=== PATIENT | female | born 1975 | race Caucasian/White ===

== ENCOUNTER 2022-06-23 16:00 | Emergency (ER) | payer OTHER ==
--- OUTSIDE RECORDS SUMMARY | 2022-06-23 16:12 | XMS REPORT | Continuity of Care Document ---
:1975 Author Organization [facility] t Address [address] [place] [address] Care Team Providers Name Role Phone Asked, No Pcp Primary Care Physician Unavailable BAYRON OMER Attending Clinician [phone] BRIANA SOW Attending Clinician Unavailable BRIANA SOW Attending Clinician [phone] LAURA GEORGE Attending Clinician [phone] JHON WALKER Attending Clinician Unavailable JHON WALKER Attending Clinician [phone] CLOVIS SWARTZ Attending Clinician Unavailable CLOVIS SWARTZ Attending Clinician [phone] SHAKEEL ENGLISH Attending Clinician Unavailable [email or web address] Attending Clinician Unavailable JESSICA CONKLIN Attending Clinician [phone] LYNN GONZALES Attending Clinician [phone] ASHLEY LOCO Attending Clinician [phone] PARIS SALINAS Attending Clinician [phone] NURSE, NURSE Attending Clinician Unavailable MATTHEW HAN Attending Clinician [phone] TALHA DE LA ROSA Attending Clinician Unavailable SHAKEEL ENGLISH Admitting Clinician Unavailable [email or web address] Admitting Clinician Unavailable Payers Payer Name Policy Type Policy Number Effective Date Expiration Date S ource Problems This patient has no known problems. Allergies, Adverse Reactions, Alerts This patient has no known allergies or adverse reactions. Family History Family Member Diagnosis Comments Start Date Stop Date Source Grandfather malignant neoplasm of 2019-06-04 2019-06-04 [facility] 00:00:00 00:00:00 Grandfather Leukemia 2019-06-04 2019-06-04 [facility] 00:00:00 00:00:00 Father Epilepsy 2019-06-04 2019-06-04 [facility] 00:00:00 00:00:00 Grandmother Diabetes mellitus 2019-06-04 2019-06-04 [facility] 00[facility] 00:00:00 Grandmother hypertension 2019-06-04 2019-06-04 [facility]00 Mother hypertension 2019-06-04 2019-06-04 [facility] 00:00:00 00:00:00 Mother Diabetes mellitus 2019-06-04 2019-06-04 [facility] 00:00:00 Social History Social Habit Start Date Stop Date Quantity Comments Source History of 2019-06-04 [facility] tobacco use 00:00:00 non-smoker Tobacco use and 2019-01-23 : No Details [facility] exposure 00:00:00 Available Quantity Details - : No Details Available [facility] Alcohol intake 2018-12-18 2018-12-18 Current drinker [facility] 00:00:00 00:00:00 of alcohol (finding) Alcohol Comment 2018-11-21 2018-11-21 [facility] 00:00:00 00:00:00 Sex Ass[birth year] [facility] 00:00:00 00:00:00 Smoking Status Start Date Stop Date Source [facility] sm[facility] Current some day smoker 2019-01-22 00:00:00 [facility] Medications Ordered Filled Start Stop Current Ordering Indication Dosage Frequency Signature Comments Components Source Medication Medication Date Date Medication? Clinician (SIG) Name Name metronidazo 2021-05 No take 1 [facility] le 500 mg 0-12 tablet by [facility] tablet 00:00: oral route 00 every 12 hours for 7 days, no alcohol while on medication metronidazo 2021-05 No take 1 [facility] le 500 mg 0-12 tablet by [facility] tablet 00:00: oral route 00 every 12 hours for 7 days, no alcohol while on medication metronidazo 2021-05 No take 1 [facility] le 500 mg 0-12 tablet by [facility] tablet 00:00: oral route 00 every 12 hours for 7 days, no alcohol while on medication metronidazo 2021-05 No take 1 [facility] le 500 mg 0-12 tablet by [facility] tablet 00:00: oral route 00 every 12 hours for 7 days, no alcohol while on medication metronidazo 2021-05 No take 1 [facility] le 500 mg 0-12 tablet by [facility] tablet 00:00: oral route 00 every 12 hours for 7 days, no alcohol while on medication ferrous No take 1 [facility] sulfate 325 6-30 tablet by [facility]al th mg (65 mg 00:00: oral route iron) 00 2 times a tablet day every other day w/ food Vitamin D2 No take 1 [facility] 1,250 mcg 6-30 capsule [facility] (50,000 00:00: once unit) 00 weekly capsule ferrous No take 1 [facility] sulfate 325 6-30 tablet by eal th mg (65 mg 00:00: oral route iron) 00 2 times a tablet day every other day w/ food Vitamin D2 No take 1 [facility] 1,250 mcg 6-30 capsule [facility] (50,000 00:00: once unit) 00 weekly capsule ferrous No take 1 [facility] sulfate 325 6-30 tablet by eal th mg (65 mg 00:00: oral route iron) 00 2 times a tablet day every other day w/ food Vitamin D2 No take 1 [facility] 1,250 mcg 6-30 capsule [facility] (50,000 00:00: once unit) 00 weekly capsule ferrous No take 1 [facility] sulfate 325 6-30 tablet by [facility] th mg (65 mg 00:00: oral route iron) 00 2 times a tablet day every other day w/ food Vitamin D2 No take 1 [facility] 1,250 mcg 6-30 capsule [facility] (50,000 00:00: once unit) 00 weekly capsule ferrous No take 1 [facility] sulfate 325 6-30 tablet by [facility]al th mg (65 mg 00:00: oral route iron) 00 2 times a tablet day every other day w/ food Vitamin D2 No take 1 [facility] 1,250 mcg 6-30 capsule [facility] (50,000 00:00: once unit) 00 weekly capsule Vitamin D2 No take 1 [facility] 1,250 mcg 6-30 capsule [facility] (50,000 00:00: once unit) 00 weekly capsule ferrous No take 1 [facility] sulfate 325 6-30 tablet by eal th mg (65 mg 00:00: oral route iron) 00 2 times a tablet day every other day w/ food ferrous No take 1 [facility] sulfate 325 6-30 tablet by e[facility] mg (65 mg 00:00: oral route iron) 00 2 times a tablet day every other day w/ food Vitamin D2 No take 1 [facility] 1,250 mcg 6-30 capsule [facility] (50,000 00:00: once unit) 00 weekly capsule tinidazole No take 4 [facility] 500 mg 6-09 tablet by [facility] tablet 00:00: oral route 00 once, no alcohol while on this medication and up to 3 days after completion tinidazole No take 4 [facility] 500 mg 6-09 tablet by [facility] tablet 00:00: oral route 00 once, no alcohol while on this medication and up to 3 days after completion tinidazole No take 4 [facility] 500 mg 6-09 tablet by [facility] tablet 00:00: oral route 00 once, no alcohol while on this medication and up to 3 days after completion tinidazole No take 4 [facility] 500 mg 6-09 tablet by [facility] tablet 00:00: oral route 00 once, no alcohol while on this medication and up to 3 days after completion tinidazole No take 4 [facility] 500 mg 6-09 tablet by [facility] tablet 00:00: oral route 00 once, no alcohol while on this medication and up to 3 days after completion tinidazole 2021- No take 4 [facility] 500 mg 6-09 10-10 tablet by [facility] tablet 00:00: 00:00 oral route 00 :00 once, no alcohol while on this medication and up to 3 days after completion tinidazole 2021- No take 4 [facility] 500 mg 6-09 10-10 tablet by [facility] tablet 00:00: 00:00 oral route 00 :00 once, no alcohol while on this medication and up to 3 days after completion tinidazole 2021-2021- No take 4 [facility] 500 mg 6-09 10-10 tablet by [facility]alth tablet 00:00: 00:00 oral route 00 :00 once, no alcohol while on this medication and up to 3 days after completion tinidazole 2021- No take 4 [facility] 500 mg 6-09 10-10 tablet by [facility] tablet 00:00: 00:00 oral route 00 :00 once, no alcohol while on this medication and up to 3 days after completion tinidazole 2021- No take 4 [facility] 500 mg 6-09 10-10 tablet by [facility] tablet 00:00: 00:00 oral route 00 :00 once, no alcohol while on this medication and up to 3 days after completion metronidazo 2021- No 1{table Q12H take 1 [facility] le 500 mg 5-18 05-24 t} tablet by [facility] tablet 00:00: 00:00 oral route 00 :00 every 12 hours for 7 days metronidazo 2021-0 2021- No 1{table Q12H take 1 [facility] le 500 mg 5-18 05-24 t} tablet by [facility] tablet 00:00: 00:00 oral route 00 :00 every 12 hours for 7 days metronidazo 2021-0 2021- No 1{table Q12H take 1 [facility] le 500 mg 5-18 05-24 t} tablet by [facility] tablet 00:00: 00:00 oral route 00 :00 every 12 hours for 7 days metronidazo 2021-0 2021- No 1{table Q12H take 1 [facility] le 500 mg 5-18 05-24 t} tablet by [facility] tablet 00:00: 00:00 oral route 00 :00 every 12 hours for 7 days metronidazo 2021-0 2021- No 1{table Q12H take 1 [facility] le 500 mg 5-18 05-24 t} tablet by [facility] tablet 00:00: 00:00 oral route 00 :00 every 12 hours for 7 days metronidazo 2021-0 2021- No 1{table Q12H take 1 [facility] le 500 mg 5-18 05-24 t} tablet by [facility] tablet 00:00: 00:00 oral route 00 :00 every 12 hours for 7 days metronidazo 2022-0 2022- No 1{table Q12H take 1 [facility] le 500 mg 5-18 05-24 t} tablet by [facility] tablet 00:00: 00:00 oral route 00 :00 every 12 hours for 7 days metronidazo 2021-0 2022- No 1{table Q12H take 1 [facility] le 500 mg 5-18 05-24 t} tablet by [facility] tablet 00:00: 00:00 oral route 00 :00 every 12 hours for 7 days metronidazo 2021-0 2022- No 1{table Q12H take 1 [facility] le 500 mg 5-18 05-24 t} tablet by [facility] tablet 00:00: 00:00 oral route 00 :00 every 12 hours for 7 days metronidazo 2021-0 2022- No 1{table Q12H take 1 [facility] le 500 mg 5-18 05-24 t} tablet by [facility] tablet 00:00: 00:00 oral route 00 :00 every 12 hours for 7 days metronidazo 2021-0 2022- No 1{table Q12H take 1 [facility] le 500 mg 5-18 05-24 t} tablet by [facility] tablet 00:00: 00:00 oral route 00 :00 every 12 hours for 7 days metronidazo 2021-0 2022- No 1{table Q12H take 1 [facility] le 500 mg 5-18 05-24 t} tablet by [facility] tablet 00:00: 00:00 oral route 00 :00 every 12 hours for 7 days Diflucan 2020-0 No 1{table Q1D take 1 [facility] 150 mg 6-30 t} tablet by [facility] tablet 00:00: oral route 00 every day once ferrous 2020-0 No 1 Q1D take 1 tab [facility] sulfate 325 6-30 by oral [facility] mg (65 mg 00:00: route iron) 00 every day tablet,nichole yed release Diflucan 2020-0 No 1{table Q1D take 1 [facility] 150 mg 6-30 t} tablet by [facility] tablet 00:00: oral route 00 every day once ferrous 2020-0 No 1 Q1D take 1 tab [facility] sulfate 325 6-30 by oral [facility] mg (65 mg 00:00: route iron) 00 every day tablet,nichole yed release Diflucan 2020-0 No 1{table Q1D take 1 [facility] 150 mg 6-30 t} tablet by [facility] tablet 00:00: oral route 00 every day once ferrous 2020-0 No 1 Q1D take 1 tab [facility] sulfate 325 6-30 by oral [facility] mg (65 mg 00:00: route iron) 00 every day tablet,nichole yed release Diflucan 2020-0 No 1{table Q1D take 1 [facility] 150 mg 6-30 t} tablet by [facility] tablet 00:00: oral route 00 every day once ferrous 2020-0 No 1 Q1D take 1 tab [facility] sulfate 325 6-30 by oral [facility] mg (65 mg 00:00: route iron) 00 every day tablet,nichole yed release Diflucan 2020-0 No 1{table Q1D take 1 [facility] 150 mg 6-30 t} tablet by [facility] tablet 00:00: oral route 00 every day once ferrous 2020-0 No 1 Q1D take 1 tab [facility] sulfate 325 6-30 by oral [facility] mg (65 mg 00:00: route iron) 00 every day tablet,nichole yed release Diflucan 2020-0 2021- No 1{table Q1D take 1 [facility] 150 mg 6-30 06-09 t} tablet by [facility] tablet 00:00: 00:00 oral route 00 :00 every day once ferrous 2020-0 2022- No 1 Q1D take 1 tab [facility] sulfate 325 6-30 06-09 by oral ealt h mg (65 mg 00:00: 00:00 route iron) 00 :00 every day tablet,nichole yed release Diflucan 2020-0 2021- No 1{table Q1D take 1 [facility] 150 mg 6-30 06-09 t} tablet by [facility] tablet 00:00: 00:00 oral route 00 :00 every day once ferrous 2020-0 2022- No 1 Q1D take 1 tab [facility] sulfate 325 6-30 06-09 by oral ealt [facility] mg (65 mg 00:00: 00:00 route iron) 00 :00 every day tablet,nichole yed release ferrous 2020-0 2022- No 1 Q1D take 1 tab [facility] sulfate 325 6-30 06-09 by oral ealt [facility] mg (65 mg 00:00: 00:00 route iron) 00 :00 every day tablet,nichole yed release Diflucan 2020-0 2022- No 1{table Q1D take 1 [facility] 150 mg 6-30 06-09 t} tablet by [facility]alth tablet 00:00: 00:00 oral route 00 :00 every day once ferrous 2020-0 2022- No 1 Q1D take 1 tab [facility] sulfate 325 6-30 06-09 by oral ealt h mg (65 mg 00:00: 00:00 route iron) 00 :00 every day tablet,nichole yed release Diflucan 2020-0 2022- No 1{table Q1D take 1 [facility] 150 mg 6-30 06-09 t} tablet by [facility]alth tablet 00:00: 00:00 oral route 00 :00 every day once Diflucan 2020-0 2022- No 1{table Q1D take 1 [facility] 150 mg 6-30 06-09 t} tablet by [facility]alth tablet 00:00: 00:00 oral route 00 :00 every day once ferrous 2020-0 2022- No 1 Q1D take 1 tab [facility] sulfate 325 6-30 06-09 by oral ealt h mg (65 mg 00:00: 00:00 route iron) 00 :00 every day tablet,nichole yed release ferrous 2020-0 2022- No 1 Q1D take 1 tab [facility] sulfate 325 6-30 06-09 by oral ealt h mg (65 mg 00:00: 00:00 route iron) 00 :00 every day tablet,nichole yed release Diflucan 2020-0 2022- No 1{table Q1D take 1 [facility] 150 mg 6-30 06-09 t} tablet by [facility]alth tablet 00:00: 00:00 oral route 00 :00 every day once Diflucan 2020-0 2022- No 1{table Q1D take 1 [facility] 150 mg 6-30 06-09 t} tablet by ealth tablet 00:00: 00:00 oral route 00 :00 every day once ferrous 2020-0 2022- No 1 Q1D take 1 tab [facility] sulfate 325 6-30 06-09 by oral ealt h mg (65 mg 00:00: 00:00 route iron) 00 :00 every day tablet,nichole yed release Diflucan 0 2021- No 1{table Q1D take 1 [facility] 150 mg 6-30 06-09 t} tablet by [facility]alth tablet 00:00: 00:00 oral route 00 :00 every day once ferrous 2019-0 2021- No 1 Q1D take 1 tab [facility] sulfate 325 6-30 06-09 by oral ealt h mg (65 mg 00:00: 00:00 route iron) 00 :00 every day tablet,nichole yed release ferrous 2019-0 2021- No 1 Q1D take 1 tab [facility] sulfate 325 6-30 06-09 by oral ealt h mg (65 mg 00:00: 00:00 route iron) 00 :00 every day tablet,nichole yed release Diflucan 0 2021- No 1{table Q1D take 1 [facility] 150 mg 6-30 06- t} tablet by ealth tablet 00:00: 00:00 oral route 00 :00 every day once Diflucan 2019-0 2021- No 1{table Q1D take 1 [facility] 150 mg 6-30 06- t} tablet by ealth tablet 00:00: 00:00 oral route 00 :00 every day once ferrous 2019-0 2021- No 1 Q1D take 1 tab [facility] sulfate 325 6-30 06-09 by oral ealt h mg (65 mg 00:00: 00:00 route iron) 00 :00 every day tablet,nichole yed release Vitamin D2 2019- No 1{capsu Q1W take 1 [facility] 1,250 mcg 6-30 -21 le} capsule by eal th (50,000 00:00: 00:00 oral route unit) 00 :00 every week capsule for 12 weeks Vitamin D2 2019- No 1{capsu Q1W take 1 [facility] 1,250 mcg 6-30 -21 le} capsule by eal th (50,000 00:00: 00:00 oral route unit) 00 :00 every week capsule for 12 weeks Vitamin D2 2020- No 1{capsu Q1W take 1 [facility] 1,250 mcg 6-30 09-21 [facility]: 00:00 oral route unit) 00 :00 every week capsule for 12 weeks Vitamin D2 2020- No 1{capsu Q1W take 1 [facility] 1,250 mcg 6-30 09-21 le} capsule by [facility] (50,000 00:00: 00:00 oral route unit) 00 :00 every week capsule for 12 weeks Vitamin D2 2019- No 1{capsu Q1W take 1 [facility] 1,250 mcg 6-30 09-21 le} capsule by [facility] (50,000 00:00: 00:00 oral route unit) 00 :00 every week capsule for 12 weeks Vitamin D2 2019- No 1{capsu Q1W take 1 [facility] 1,250 mcg 6-30 09-21 le} capsule by [facility] (50,000 00:00: 00:00 oral route unit) 00 :00 every week capsule for 12 weeks Vitamin D2 2019- No 1{capsu Q1W take 1 [facility] 1,250 mcg 6-30 09-21 le} capsule by [facility] (50,000 00:00: 00:00 oral route unit) 00 :00 every week capsule for 12 weeks Vitamin D2 2019- No 1{capsu Q1W take 1 [facility] 1,250 mcg 6-30 09-21 le} capsule by [facility] (50,000 00:00: 00:00 oral route unit) 00 :00 every week capsule for 12 weeks Vitamin D2 2019- No 1{capsu Q1W take 1 [facility] 1,250 mcg 6-30 09-21 le} capsule by [facility] (50,000 00:00: 00:00 oral route unit) 00 :00 every week capsule for 12 weeks Vitamin D2 2019- No 1{capsu Q1W take 1 [facility] 1,250 mcg 6-30 09-21 le} [facility]:00: 00:00 oral route unit) 00 :00 every week capsule for 12 weeks Vitamin D2 2019- No 1{capsu Q1W take 1 [facility] 1,250 mcg 6-30 - le} capsule by [facility] (50,000 00:00: 00:00 oral route unit) 00 :00 every week capsule for 12 weeks Vitamin D2 2020-0 2020- No 1{capsu Q1W take 1 [facility] 1,250 mcg 6-30 - le} capsule by [facility] (50,000 00:00: 00:00 oral route unit) 00 :00 every week capsule for 12 weeks Vitamin D2 2020-0 2020- No 1{capsu Q1W take 1 [facility] 1,250 mcg 6-30 02-02 le} capsule by [facility] (50,000 00:00: 00:00 oral route unit) 00 :00 every week capsule for 12 weeks Vitamin D2 2020-0 2020- No 1{capsu Q1W take 1 [facility] 1,250 mcg 6-30 02-02 le} capsule by [facility] (50,000 00:00: 00:00 oral route unit) 00 :00 every week capsule for 12 weeks Vitamin D2 2020-0 2020- No 1{capsu Q1W take 1 [facility] 1,250 mcg 6-30 02-02 le} capsule by [facility] (50,000 00:00: 00:00 oral route unit) 00 :00 every week capsule for 12 weeks Diflucan 2020-0 2020- No 1{table Q1D take 1 [facility] 150 mg 2-20 06-30 t} tablet by [facility]alth tablet 00:00: 00:00 oral route 00 :00 every day once Diflucan 2020-0 2020- No 1{table Q1D take 1 [facility] 150 mg 2-20 06-30 t} tablet by [facility]alth tablet 00:00: 00:00 oral route 00 :00 every day once Diflucan 2020-0 2020- No 1{table Q1D take 1 [facility] 150 mg 2-20 06-30 t} tablet by [facility]alth tablet 00:00: 00:00 oral route 00 :00 every day once Diflucan 2020-0 2020- No 1{table Q1D take 1 [facility] 150 mg 2-20 06-30 t} tablet by [facility]alth tablet 00:00: 00:00 oral route 00 :00 every day once Diflucan 2020-0 2020- No 1{table Q1D take 1 [facility] 150 mg 2-20 06-30 t} tablet by [facility]alth tablet 00:00: 00:00 oral route 00 :00 every day once Diflucan 2020-0 2020- No 1{table Q1D take 1 [facility] 150 mg 2-20 06-30 t} tablet by [facility]alth tablet 00:00: 00:00 oral route 00 :00 every day once Diflucan 2020-0 2020- No 1{table Q1D take 1 [facility] 150 mg 2-20 06-30 t} tablet by [facility]alth tablet 00:00: 00:00 oral route 00 :00 every day once Diflucan 2020-0 2020- No 1{table Q1D take 1 [facility] 150 mg 2-20 06-30 t} tablet by [facility]alth tablet 00:00: 00:00 oral route 00 :00 every day once Diflucan 2020-0 2020- No 1{table Q1D take 1 [facility] 150 mg 2-20 06-30 t} tablet by [facility]alth tablet 00:00: 00:00 oral route 00 :00 every day once Diflucan 2020-0 2020- No 1{table Q1D take 1 [facility] 150 mg 2-20 06-30 t} tablet by [facility]alth tablet 00:00: 00:00 oral route 00 :00 every day once Diflucan 2020-0 2020- No 1{table Q1D take 1 [facility] 150 mg 2-20 06-30 t} tablet by ealth tablet 00:00: 00:00 oral route 00 :00 every day once Diflucan 2020-0 2020- No 1{table Q1D take 1 [facility] 150 mg 2-20 06-30 t} tablet by [facility]alth tablet 00:00: 00:00 oral route 00 :00 every day once Diflucan 2020-0 2020- No 1{table Q1D take 1 [facility] 150 mg 2-20 06-30 t} tablet by [facility]alth tablet 00:00: 00:00 oral route 00 :00 every day once Diflucan 2020-0 2020- No 1{table Q1D take 1 [facility] 150 mg 2-20 06-30 t} tablet by [facility]alth tablet 00:00: 00:00 oral route 00 :00 every day once Diflucan 2020-0 2020- No 1{table Q1D take 1 [facility] 150 mg 2-30 t} tablet by [facility]alth tablet 00:00: 00:00 oral route 00 :00 every day once Metrogel 2020-0 2020- No 1{appli Q1D insert 1 A [facility] Vaginal 2-20 - catorfu applicator ea lth 0.75 % 00:00: 00:00 l} ful by 00 :00 vaginal route every day for 5 days at bedtime Metrogel 2020-0 2020- No 1{appli Q1D insert 1 A [facility] Vaginal 2-04 07- catorfu applicator ea lth 0.75 % 00:00: 00:00 l} ful by 00 :00 vaginal route every day for 5 days at bedtime Metrogel 2020-0 2020- No 1{appli Q1D insert 1 A [facility] Vaginal 2-04 07- catorfu applicator ea lth 0.75 % 00:00: 00:00 l} ful by 00 :00 vaginal route every day for 5 days at bedtime Metrogel 2020-0 2020- No 1{appli Q1D insert 1 A [facility] Vaginal 2-07-08 catorfu applicator ea lth 0.75 % 00:00: 00:00 l} ful by 00 :00 vaginal route every day for 5 days at bedtime Metrogel 2020-0 2020- No 1{appli Q1D insert 1 A [facility] Vaginal 2-04 07- catorfu applicator ea lth 0.75 % 00:00: 00:00 l} ful by 00 :00 vaginal route every day for 5 days at bedtime Metrogel 2020-0 2020- No 1{appli Q1D insert 1 A [facility] Vaginal 2-04 07- catorfu applicator ea lth 0.75 % 00:00: 00:00 l} ful by 00 :00 vaginal route every day for 5 days at bedtime Metrogel 2020-0 2020- No 1{appli Q1D insert 1 A [facility] Vaginal 2-20 -24 catorfu applicator ea lth 0.75 % 00:00: 00:00 l} ful by 00 :00 vaginal route every day for 5 days at bedtime Metrogel 2020-0 2020- No 1{appli Q1D insert 1 A [facility] Vaginal 2-20 -24 catorfu applicator ea lth 0.75 % 00:00: 00:00 l} ful by 00 :00 vaginal route every day for 5 days at bedtime Metrogel 2020-0 2020- No 1{appli Q1D insert 1 A [facility] Vaginal 2-20 -24 catorfu applicator ea lth 0.75 % 00:00: 00:00 l} ful by 00 :00 vaginal route every day for 5 days at bedtime Metrogel 2020-0 2020- No 1{appli Q1D insert 1 A [facility] Vaginal 2-20 -24 catorfu applicator ea lth 0.75 % 00:00: 00:00 l} ful by 00 :00 vaginal route every day for 5 days at bedtime Metrogel 2020-0 2020- No 1{appli Q1D insert 1 A [facility] Vaginal 2-20 - catorfu applicator ea lth 0.75 % 00:00: 00:00 l} ful by 00 :00 vaginal route every day for 5 days at bedtime Metrogel 2020-0 2020- No 1{appli Q1D insert 1 A [facility] Vaginal 2-20 - catorfu applicator ea lth 0.75 % 00:00: 00:00 l} ful by 00 :00 vaginal route every day for 5 days at bedtime Metrogel 2020-0 2020- No 1{appli Q1D insert 1 A [facility] Vaginal 2-20 -24 catorfu applicator ea lth 0.75 % 00:00: 00:00 l} ful by 00 :00 vaginal route every day for 5 days at bedtime Metrogel 2020-0 2020- No 1{appli Q1D insert 1 A [facility] Vaginal 2-20 -24 catorfu applicator ea lth 0.75 % 00:00: 00:00 l} ful by 00 :00 vaginal route every day for 5 days at bedtime Metrogel 2020-0 2020- No 1{appli Q1D insert 1 A [facility] Vaginal 2-20 -24 catorfu applicator ea lth 0.75 % 00:00: 00:00 l} ful by 00 :00 vaginal route every day for 5 days at bedtime metronidazo 2020-0 2020- No 1{table Q12H take 1 [facility] le 500 mg 06-0730 t} tablet by [facility] tablet 00:00: 00:00 oral route 00 :00 every 12 hours for 7 days metronidazo 2019- 2020- No 1{table Q12H take 1 [facility] le 500 mg 06-0730 t} tablet by [facility] tablet 00:00: 00:00 oral route 00 :00 every 12 hours for 7 days metronidazo 2019-2019- No 1{table Q12H take 1 [facility] le 500 mg 06-0730 t} tablet by [facility]alt [facility] tablet 00:00: 00:00 oral route 00 :00 every 12 hours for 7 days metronidazo 2019-2019- No 1{table Q12H take 1 [facility] le 500 mg 06-0730 t} tablet by ealt [facility] tablet 00:00: 00:00 oral route 00 :00 every 12 hours for 7 days metronidazo 2019-2019- No 1{table Q12H take 1 [facility] le 500 mg 06-0730 t} tablet by ealt [facility] tablet 00:00: 00:00 oral route 00 :00 every 12 hours for 7 days metronidazo 2019-2019- No 1{table Q12H take 1 [facility] le 500 mg 06-0730 t} tablet by ealt [facility] tablet 00:00: 00:00 oral route 00 :00 every 12 hours for 7 days metronidazo 2019- 2020- No 1{table Q12H take 1 [facility] le 500 mg 06-0730 t} tablet by ealt [facility] tablet 00:00: 00:00 oral route 00 :00 every 12 hours for 7 days metronidazo 2019-0 2019- No 1{table Q12H take 1 [facility] le 500 mg 06-0730 t} tablet by [facility]alt [facility] tablet 00:00: 00:00 oral route 00 :00 every 12 hours for 7 days metronidazo 2019- 2020- No 1{table Q12H take 1 [facility] le 500 mg 06-0730 t} tablet by [facility]alt [facility] tablet 00:00: 00:00 oral route 00 :00 every 12 hours for 7 days metronidazo 2019-0 2019- No 1{table Q12H take 1 [facility] le 500 mg 1-24 -30 t} tablet by ealt [facility] tablet 00:00: 00:00 oral route 00 :00 every 12 hours for 7 days metronidazo 2019-2019- No 1{table Q12H take 1 [facility] le 500 mg 1-24 -30 t} tablet by ealt [facility] tablet 00:00: 00:00 oral route 00 :00 every 12 hours for 7 days metronidazo 2019- No 1{table Q12H take 1 [facility] le 500 mg 124 -30 t} tablet by [facility]alt [facility] tablet 00:00: 00:00 oral route 00 :00 every 12 hours for 7 days metronidazo 2019- No 1{table Q12H take 1 [facility] le 500 mg 124 -30 t} tablet by [facility]alt [facility] tablet 00:00: 00:00 oral route 00 :00 every 12 hours for 7 days metronidazo 2019- No 1{table Q12H take 1 [facility] le 500 mg 1-30 t} tablet by [facility] tablet 00:00: 00:00 oral route 00 :00 every 12 hours for 7 days metronidazo 2019- No 1{table Q12H take 1 [facility] le 500 mg 124 -30 t} tablet by [facility]alt [facility] tablet 00:00: 00:00 oral route 00 :00 every 12 hours for 7 days metronidazo 2018-05 2019- No 1{table Q12H take 1 [facility] le 500 mg 0-29 11-04 t} tablet by [facility] tablet 00:00: 00:00 oral route 00 :00 every 12 hours for 7 days metronidazo 2018-05 2019- No 1{table Q12H take 1 [facility] 500 mg 0-29 11-04 t} tablet by [facility] tablet 00:00: 00:00 oral route 00 :00 every 12 hours for 7 days metronidazo 2018- 2019- No 1{table Q12H take 1 [facility] 500 mg 0-29 11-04 t} tablet by [facility] tablet 00:00: 00:00 oral route 00 :00 every 12 hours for 7 days metronidazo 2018-05 2019- No 1{table Q12H take 1 [facility] 500 mg 0-29 11-04 t} tablet by [facility] tablet 00:00: 00:00 oral route 00 :00 every 12 hours for 7 days metronidazo 2019- 2019- No 1{table Q12H take 1 [facility] 500 mg 0-29 11-04 t} tablet by [facility] tablet 00:00: 00:00 oral route 00 :00 every 12 hours for 7 days metronidazo 2019- 2019- No 1{table Q12H take 1 [facility] 500 mg 0-29 11-04 t} tablet by [facility] tablet 00:00: 00:00 oral route 00 :00 every 12 hours for 7 days metronidazo 2019- 2019- No 1{table Q12H take 1 [facility] 500 mg 0-29 11-04 t} tablet by [facility] tablet 00:00: 00:00 oral route 00 :00 every 12 hours for 7 days metronidazo 2019- 2019- No 1{table Q12H take 1 [facility] 500 mg 0-29 11-04 t} tablet by [facility] tablet 00:00: 00:00 oral route 00 :00 every 12 hours for 7 days metronidazo 2019- 2019- No 1{table Q12H take 1 [facility] 500 mg 0-29 11-04 t} tablet by [facility] tablet 00:00: 00:00 oral route 00 :00 every 12 hours for 7 days metronidazo 2019- 2019- No 1{table Q12H take 1 [facility] 500 mg 0-29 11-04 t} tablet by [facility] tablet 00:00: 00:00 oral route 00 :00 every 12 hours for 7 days metronidazo 2019- 2019- No 1{table Q12H take 1 [facility] 500 mg 0-29 11-04 t} tablet by [facility] tablet 00:00: 00:00 oral route 00 :00 every 12 hours for 7 days metronidazo 2019- 2019- No 1{table Q12H take 1 [facility] 500 mg 0-29 11-04 t} tablet by [facility] tablet 00:00: 00:00 oral route 00 :00 every 12 hours for 7 days metronidazo 2019- 2019- No 1{table Q12H take 1 [facility] 500 mg 0-29 11-04 t} tablet by [facility] tablet 00:00: 00:00 oral route 00 :00 every 12 hours for 7 days metronidazo 2018-05- No 1{table Q12H take 1 [facility] 500 mg 0-29 11-04 t} tablet by [facility] tablet 00:00: 00:00 oral route 00 :00 every 12 hours for 7 days metronidazo 2018-05- No 1{table Q12H take 1 [facility] 500 mg 0-29 11-04 t} tablet by [facility] tablet 00:00: 00:00 oral route 00 :00 every 12 hours for 7 days ferrous No 1 Q12H take 1 tab [facility] sulfate 325 9-10 06-30 by oral [facility] mg (65 mg 00:00: 00:00 route 2 iron) 00 :00 times tablet,nichole every day yed release ferrous No 1 Q12H take 1 tab [facility] sulfate 325 9-10 06-30 by oral [facility] mg (65 mg 00:00: 00:00 route 2 iron) 00 :00 times tablet,nichole every day yed release ferrous No 1 Q12H take 1 tab [facility] sulfate 325 9-10 06-30 by oral [facility] mg (65 mg 00:00: 00:00 route 2 iron) 00 :00 times tablet,nichole every day yed release ferrous No 1 Q12H take 1 tab [facility] sulfate 325 9-10 06-30 by oral [facility] mg (65 mg 00:00: 00:00 route 2 iron) 00 :00 times tablet,nichole every day yed release ferrous No 1 Q12H take 1 tab [facility] sulfate 325 9-10 06-30 by oral [facility] mg (65 mg 00:00: 00:00 route 2 iron) 00 :00 times tablet,nichole every day yed release ferrous No 1 Q12H take 1 tab [facility] sulfate 325 9-10 06-30 by oral [facility] mg (65 mg 00:00: 00:00 route 2 iron) 00 :00 times tablet,nichole every day yed release ferrous No 1 Q12H take 1 tab [facility] sulfate 325 9-10 06-30 by oral [facility] mg (65 mg 00:00: 00:00 route 2 iron) 00 :00 times tablet,nichole every day yed release ferrous No 1 Q12H take 1 tab [facility] sulfate 325 9-10 06-30 by oral [facility] mg (65 mg 00:00: 00:00 route 2 iron) 00 :00 times tablet,nichole every day yed release ferrous No 1 Q12H take 1 tab [facility] sulfate 325 9-10 06-30 by oral [facility] mg (65 mg 00:00: 00:00 route 2 iron) 00 :00 times tablet,nichole every day yed release ferrous No 1 Q12H take 1 tab [facility] sulfate 325 9-10 06-30 by oral [facility] mg (65 mg 00:00: 00:00 route 2 iron) 00 :00 times tablet,nichole every day yed release ferrous No 1 Q12H take 1 tab [facility] sulfate 325 9-10 06-30 by oral [facility] mg (65 mg 00:00: 00:00 route 2 iron) 00 :00 times tablet,nichole every day yed release ferrous No 1 Q12H take 1 tab [facility] sulfate 325 9-10 06-30 by oral [facility] mg (65 mg 00:00: 00:00 route 2 iron) 00 :00 times tablet,nichole every day yed release ferrous No 1 Q12H take 1 tab [facility] sulfate 325 9-10 06-30 by oral [facility] mg (65 mg 00:00: 00:00 route 2 iron) 00 :00 times tablet,nichole every day yed release ferrous No 1 Q12H take 1 tab [facility] sulfate 325 9-10 06-30 by oral [facility] mg (65 mg 00:00: 00:00 route 2 iron) 00 :00 times tablet,nichole every day yed release ferrous No 1 Q12H take 1 tab [facility] sulfate 325 9-10 06-30 by oral [facility] mg (65 mg 00:00: 00:00 route 2 iron) 00 :00 times tablet,nichole every day yed release metronidazo 2019-0 2019- No 1{table Q12H take 1 [facility] 500 mg 9-10 09-16 t} tablet by [facility] tablet 00:00: 00:00 oral route 00 :00 every 12 hours for 7 days metronidazo 2019-0 2019- No 1{table Q12H take 1 [facility] 500 mg 9-10 09-16 t} tablet by [facility] tablet 00:00: 00:00 oral route 00 :00 every 12 hours for 7 days metronidazo 2019- 2019- No 1{table Q12H take 1 [facility] 500 mg 9-10 09-16 t} tablet by [facility] tablet 00:00: 00:00 oral route 00 :00 every 12 hours for 7 days metronidazo 2019- 2019- No 1{table Q12H take 1 [facility] 500 mg 9-10 09-16 t} tablet by [facility] tablet 00:00: 00:00 oral route 00 :00 every 12 hours for 7 days metronidazo 2019- 2019- No 1{table Q12H take 1 [facility] 500 mg 9-10 09-16 t} tablet by [facility] tablet 00:00: 00:00 oral route 00 :00 every 12 hours for 7 days metronidazo 2019-0 2019- No 1{table Q12H take 1 [facility] 500 mg 9-10 09-16 t} tablet by [facility] tablet 00:00: 00:00 oral route 00 :00 every 12 hours for 7 days metronidazo 2019-0 2019- No 1{table Q12H take 1 [facility] 500 mg 9-10 09-16 t} tablet by [facility] tablet 00:00: 00:00 oral route 00 :00 every 12 hours for 7 days metronidazo 2019-0 2019- No 1{table Q12H take 1 [facility] 500 mg 9-10 09-16 t} tablet by [facility] tablet 00:00: 00:00 oral route 00 :00 every 12 hours for 7 days metronidazo 2019-0 2019- No 1{table Q12H take 1 [facility] 500 mg 9-10 09-16 t} tablet by [facility] tablet 00:00: 00:00 oral route 00 :00 every 12 hours for 7 days metronidazo 2019-0 2019- No 1{table Q12H take 1 [facility] 500 mg 9-10 09-16 t} tablet by [facility] tablet 00:00: 00:00 oral route 00 :00 every 12 hours for 7 days metronidazo 2019- No 1{table Q12H take 1 [facility] 500 mg 9-10 -16 t} tablet by [facility] tablet 00:00: 00:00 oral route 00 :00 every 12 hours for 7 days metronidazo 2019- No 1{table Q12H take 1 [facility] 500 mg 9-02 20-16 t} tablet by [facility] tablet 00:00: 00:00 oral route 00 :00 every 12 hours for 7 days metronidazo 2019- No 1{table Q12H take 1 [facility] 500 mg 9-02 20-16 t} tablet by [facility] tablet 00:00: 00:00 oral route 00 :00 every 12 hours for 7 days metronidazo 2019- No 1{table Q12H take 1 [facility] 500 mg -02 20-16 t} tablet by [facility] tablet 00:00: 00:00 oral route 00 :00 every 12 hours for 7 days metronidazo 2019- No 1{table Q12H take 1 [facility] 500 mg 01-22-16 t} tablet by [facility] tablet 00:00: 00:00 oral route 00 :00 every 12 hours for 7 days ferrous 2019- 2019- No 1 Q12H take 1 tab [facility] sulfate 325 01-22-10 by oral [facility] mg (65 mg 00:00: 00:00 route 2 iron) 00 :00 times tablet,nichole every day yed release metronidazo 2019- No 1{table Q12H take 1 [facility] 500 mg 9-10 09-10 t} tablet by [facility] tablet 00:00: 00:00 oral route 00 :00 every 12 hours for 7 days ferrous 2019- 2019- No 1 Q12H take 1 tab [facility] sulfate 325 01-22-10 by oral [facility] mg (65 mg 00:00: 00:00 route 2 iron) 00 :00 times tablet,nichole every day yed release metronidazo 2018- 2019- No 1{table Q12H take 1 [facility] 500 mg 9-02 20-10 t} tablet by [facility] tablet 00:00: 00:00 oral route 00 :00 every 12 hours for 7 days ferrous 2018- 2019- No 1 Q12H take 1 tab [facility] sulfate 325 9- 09-10 by oral [facility] mg (65 mg 00:00: 00:00 route 2 iron) 00 :00 times tablet,nichole every day yed release metronidazo 2019- No 1{table Q12H take 1 [facility] 500 mg 9-10 09-10 t} tablet by [facility] tablet 00:00: 00:00 oral route 00 :00 every 12 hours for 7 days ferrous 2018- No 1 Q12H take 1 tab [facility] sulfate 325 9-02 20-10 by oral [facility] mg (65 mg 00:00: 00:00 route 2 iron) 00 :00 times tablet,nichole every day yed release metronidazo 2019- No 1{table Q12H take 1 [facility] 500 mg 9-02 20-10 t} tablet by [facility] tablet 00:00: 00:00 oral route 00 :00 every 12 hours for 7 days metronidazo 2019- No 1{table Q12H take 1 [facility] 500 mg 9-10 09-10 t} tablet by [facility] tablet 00:00: 00:00 oral route 00 :00 every 12 hours for 7 days ferrous 2019- No 1 Q12H take 1 tab [facility] sulfate 325 9- 09-10 by oral [facility] mg (65 mg 00:00: 00:00 route 2 iron) 00 :00 times tablet,nichole every day yed release metronidazo 2019- No 1{table Q12H take 1 [facility] 500 mg 9-10 09-10 t} tablet by [facility] tablet 00:00: 00:00 oral route 00 :00 every 12 hours for 7 days ferrous 2018- 2019- No 1 Q12H take 1 tab [facility] sulfate 325 9-10 09-10 by oral [facility] mg (65 mg 00:00: 00:00 route 2 iron) 00 :00 times tablet,nichole every day yed release ferrous 2019- No 1 Q12H take 1 tab [facility] sulfate 325 9-10 09-10 by oral [facility] mg (65 mg 00:00: 00:00 route 2 iron) 00 :00 times tablet,nichole every day yed release metronidazo 2019- No 1{table Q12H take 1 [facility] 500 mg 9-10 09-10 t} tablet by [facility] tablet 00:00: 00:00 oral route 00 :00 every 12 hours for 7 days ferrous 2019- No 1 Q12H take 1 tab [facility] sulfate 325 9- 09-10 by oral [facility] mg (65 mg 00:00: 00:00 route 2 iron) 00 :00 times tablet,nichole every day yed release metronidazo 2019- No 1{table Q12H take 1 [facility] 500 mg 9- 09-10 t} tablet by [facility] tablet 00:00: 00:00 oral route 00 :00 every 12 hours for 7 days ferrous 2019- No 1 Q12H take 1 tab [facility] sulfate 325 9-02 20-10 by oral [facility] mg (65 mg 00:00: 00:00 route 2 iron) 00 :00 times tablet,nichole every day yed release metronidazo 2019- No 1{table Q12H take 1 [facility] 500 mg 9- 09-10 t} tablet by [facility] tablet 00:00: 00:00 oral route 00 :00 every 12 hours for 7 days ferrous 2019- No 1 Q12H take 1 tab [facility] sulfate 325 9- 09-10 by oral [facility] mg (65 mg 00:00: 00:00 route 2 iron) 00 :00 times tablet,nichole every day yed release metronidazo 2019- No 1{table Q12H take 1 [facility] 500 mg 9-10 09-10 t} tablet by [facility] tablet 00:00: 00:00 oral route 00 :00 every 12 hours for 7 days ferrous 2019- No 1 Q12H take 1 tab [facility] sulfate 325 9-10 09-10 by oral [facility] mg (65 mg 00:00: 00:00 route 2 iron) 00 :00 times tablet,nichole every day yed release metronidazo 2019- No 1{table Q12H take 1 [facility] 500 mg 9-10 09-10 t} tablet by [facility] tablet 00:00: 00:00 oral route 00 :00 every 12 hours for 7 days ferrous 2019- No 1 Q12H take 1 tab [facility] sulfate 325 9-02 20-10 by oral [facility] mg (65 mg 00:00: 00:00 route 2 iron) 00 :00 times tablet,nichole every day yed release metronidazo 2019- No 1{table Q12H take 1 [facility] 500 mg 9-02 20-10 t} tablet by [facility] tablet 00:00: 00:00 oral route 00 :00 every 12 hours for 7 days metronidazo 2019- No 1{table Q12H take 1 [facility] 500 mg 9- 09-10 t} tablet by [facility] tablet 00:00: 00:00 oral route 00 :00 every 12 hours for 7 days ferrous 2019- No 1 Q12H take 1 tab [facility] sulfate 325 01-2210 by oral [facility] mg (65 mg 00:00: 00:00 route 2 iron) 00 :00 times tablet,nichole every day yed release metronidazo 2019- No 1{table Q12H take 1 [facility] 500 mg 01-22-10 t} tablet by [facility] tablet 00:00: 00:00 oral route 00 :00 every 12 hours for 7 days ferrous 2019- No 1 Q12H take 1 tab [facility] sulfate 325 01-22-10 by oral [facility] mg (65 mg 00:00: 00:00 route 2 iron) 00 :00 times tablet,nichole every day yed release metronidazo 2019- No 1{table Q12H take 1 [facility] 500 mg 9-10 09-10 t} tablet by [facility] tablet 00:00: 00:00 oral route 00 :00 every 12 hours for 7 days ferrous 2019- No 1 Q12H take 1 tab Acc [facility] sulfate 325 9-10 09-10 by oral [facility] mg (65 mg 00:00: 00:00 route 2 iron) 00 :00 times tablet,nichole every day yed release metronidazo 2019- No 1{table Q12H take 1 [facility] 500 mg 9-10 09-10 t} tablet by [facility] tablet 00:00: 00:00 oral route 00 :00 every 12 hours for 7 days ferrous 2018-0 2019- No 1 Q12H take 1 tab [facility] sulfate 325 9-10 09-10 by oral [facility] mg (65 mg 00:00: 00:00 route 2 iron) 00 :00 times tablet,nichole every day yed release ferrous 2019- No 1 Q12H take 1 tab Acc [facility] sulfate 325 9- 09-10 by oral [facility] mg (65 mg 00:00: 00:00 route 2 iron) 00 :00 times tablet,nichole every day yed release metronidazo 2019- No 1{table Q12H take 1 [facility] 500 mg 9-02 20-10 t} tablet by [facility] tablet 00:00: 00:00 oral route 00 :00 every 12 hours for 7 days ferrous 2019- No 1 Q12H take 1 tab [facility] sulfate 325 9-02 20-10 by oral [facility] mg (65 mg 00:00: 00:00 route 2 iron) 00 :00 times tablet,nichole every day yed release metronidazo 2019 2019- No 1{table Q12H take 1 [facility] 500 mg 9-02 20-10 t} tablet by [facility] tablet 00:00: 00:00 oral route 00 :00 every 12 hours for 7 days metronidazo 2019 2019- No 1{table Q12H take 1 [facility] 500 mg 9-10 09-10 t} tablet by [facility] tablet 00:00: 00:00 oral route 00 :00 every 12 hours for 7 days ferrous 2019 2019- No 1 Q12H take 1 tab [facility] sulfate 325 9-10 09-10 by oral [facility] mg (65 mg 00:00: 00:00 route 2 iron) 00 :00 times tablet,nichole every day yed release metronidazo 2019- No 1{table Q12H take 1 [facility] 500 mg 9-10 09-10 t} tablet by [facility] tablet 00:00: 00:00 oral route 00 :00 every 12 hours for 7 days ferrous 2019- 2019- No 1 Q12H take 1 tab [facility] sulfate 325 9-10 09-10 by oral [facility] mg (65 mg 00:00: 00:00 route 2 iron) 00 :00 times tablet,nichole every day yed release ferrous 2019- No 1 Q12H take 1 tab Acc [facility] sulfate 325 9-10 09-10 by oral [facility] mg (65 mg 00:00: 00:00 route 2 iron) 00 :00 times tablet,nichole every day yed release metronidazo 2019- No 1{table Q12H take 1 [facility] 500 mg 9- 09-10 t} tablet by [facility] tablet 00:00: 00:00 oral route 00 :00 every 12 hours for 7 days ferrous 2019- No 1 Q12H take 1 tab [facility] sulfate 325 9-10 by oral [facility] mg (65 mg 00:00: 00:00 route 2 iron) 00 :00 times tablet,nichole every day yed release metronidazo 2019- No 1{table Q12H take 1 [facility] 500 mg 9-10 t} tablet by [facility] tablet 00:00: 00:00 oral route 00 :00 every 12 hours for 7 days ferrous 2019- No 1 Q12H take 1 tab Acc [facility] sulfate 325 9-10 by oral [facility] mg (65 mg 00:00: 00:00 route 2 iron) 00 :00 times tablet,nichole every day yed release ferrous 2019- No 1 Q12H take 1 tab [facility] sulfate 325 9 09-10 by oral [facility] mg (65 mg 00:00: 00:00 route 2 iron) 00 :00 times tablet,nichole every day yed release metronidazo 2019- No 1{table Q12H take 1 [facility] 500 mg 9-10 09-10 t} tablet by [facility] tablet 00:00: 00:00 oral route 00 :00 every 12 hours for 7 days metronidazo 2019- No 1{table Q12H take 1 [facility] 500 mg 9-10 09-10 t} tablet by [facility] tablet 00:00: 00:00 oral route 00 :00 every 12 hours for 7 days ferrous 2019- No 1 Q12H take 1 tab Acc [facility] sulfate 325 9- 09-10 by oral [facility] mg (65 mg 00:00: 00:00 route 2 iron) 00 :00 times tablet,nichole every day yed release metronidazo 2019- No 1{table Q12H take 1 [facility] 500 mg 9-10 09-10 t} tablet by [facility] tablet 00:00: 00:00 oral route 00 :00 every 12 hours for 7 days ferrous 2018- No 1 Q12H take 1 tab Acc [facility] sulfate 325 9-10 09-10 by oral [facility] mg (65 mg 00:00: 00:00 route 2 iron) 00 :00 times tablet,nichole every day yed release metronidazo 2019- No 1{table Q12H take 1 [facility] 500 mg 9-10 09-10 t} tablet by [facility] tablet 00:00: 00:00 oral route 00 :00 every 12 hours for 7 days metronidazo 2019- No 1{table Q12H take 1 [facility] 500 mg 9-10 09-10 t} tablet by [facility] tablet 00:00: 00:00 oral route 00 :00 every 12 hours for 7 days ferrous 2019- No 1 Q12H take 1 tab Acc [facility] sulfate 325 9-10 09-10 by oral [facility] mg (65 mg 00:00: 00:00 route 2 iron) 00 :00 times tablet,nichole every day yed release metronidazo 2019- No 1{table Q12H take 1 [facility] 500 mg 9-10 09-10 t} tablet by [facility] tablet 00:00: 00:00 oral route 00 :00 every 12 hours for 7 days ferrous 2019- No 1 Q12H take 1 tab [facility] sulfate 325 9-10 09-10 by oral [facility] mg (65 mg 00:00: 00:00 route 2 iron) 00 :00 times tablet,nichole every day yed release ferrous 2019- No 1 Q12H take 1 tab Acc [facility] sulfate 325 9-10 09-10 by oral [facility] mg (65 mg 00:00: 00:00 route 2 iron) 00 :00 times tablet,nichole every day yed release metronidazo 2019- No 1{table Q12H take 1 [facility] 500 mg 01-22 t} tablet by [facility] tablet 00:00: 00:00 oral route 00 :00 every 12 hours for 7 days ferrous 2019- No 1 Q12H take 1 tab [facility] sulfate 325 01-22 by oral [facility]alt [facility] mg (65 mg 00:00: 00:00 route 2 iron) 00 :00 times tablet,nichole every day yed release metronidazo 2019- No 1{table Q12H take 1 [facility] 500 mg 01-22 t} tablet by [facility] tablet 00:00: 00:00 oral route 00 :00 every 12 hours for 7 days Vital Signs Vital Name Observation Time Observation Value Comments Source Body height 2022-02-21 16:14:00 163.83 cm [facility] Body Weight 2022-02-21 16:14:00 70.579 kg [facility] Systolic 2022-02-21 16:14:00 117 mm[Hg] [facility] Diastolic 2022-02-21 16:14:00 76 mm[Hg] [facility] Heart Rate 2022-02-21 16:14:00 96 /min [facility] Body Temperature 2022-02-21 16:14:00 36.78 [facility] Body mass index 2022-02-21 16:14:00 26.30 kg/m2 [facility] Body height 2021-10-21 13:33:00 163.83 cm [facility] Body Weight 2021-10-21 13:33:00 68.130 kg [facility] Systolic 2021-10-21 13:33:00 106 mm[Hg] [facility] Diastolic 2021-10-21 13:33:00 69 mm[Hg] [facility] Heart Rate 2021-10-21 13:33:00 87 /min [facility] Body Temperature 2021-10-21 13:33:00 36.61 [facility] Body mass index 2021-10-21 13:33:00 25.38 kg/m2 [facility] Body height 2021-09-23 14:35:00 163.83 cm [facility] Body Weight 2021-09-23 14:35:00 65.798 kg [facility] Systolic 2021-09-23 14:35:00 114 mm[Hg] [facility] Diastolic 2021-09-23 14:35:00 61 mm[Hg] [facility] Heart Rate 2021-09-23 14:35:00 78 /min [facility] Body Temperature 2021-09-23 14:35:00 36.28 [facility] Respiratory rate 2021-09-23 14:35:00 20 /min [facility] Body mass index 2021-09-23 14:35:00 24.51 kg/m2 [facility] Body height 2019-11-08 15:16:00 163.83 cm [facility] Body Weight 2019-11-08 15:16:00 69.400 kg [facility] Systolic 2019-11-08 15:16:00 115 mm[Hg] [facility] Diastolic 2019-11-08 15:16:00 63 mm[Hg] [facility] Heart Rate 2019-11-08 15:16:00 77 /min [facility] Body Temperature 2019-11-08 15:16:00 37.06 [facility] Respiratory rate 2019-11-08 15:16:00 16 /min [facility] Body mass index 2019-11-08 15:16:00 25.86 kg/m2 [facility] Body height 2019-07-01 16:12:00 166.37 cm [facility] Body Weight 2019-07-01 16:12:00 66.950 kg [facility] Systolic 2019-07-01 16:12:00 116 mm[Hg] [facility] Diastolic 2019-07-01 16:12:00 71 mm[Hg] [facility] Heart Rate 2019-07-01 16:12:00 95 /min [facility] Body Temperature 2019-07-01 16:12:00 36.94 [facility] Respiratory rate 2019-07-01 16:12:00 16 /min [facility] Body mass index 2019-07-01 16:12:00 24.19 kg/m2 [facility] Body height 2019-06-04 11:43:00 166.37 cm [facility] Body Weight 2019-06-04 11:43:00 66.497 kg [facility] Systolic 2019-06-04 11:43:00 115 mm[Hg] [facility] Diastolic 2019-06-04 11:43:00 79 mm[Hg] [facility] Heart Rate 2019-06-04 11:43:00 86 /min [facility] Body Temperature 2019-06-04 11:43:00 37.28 [facility] Respiratory rate 2019-06-04 11:43:00 18 /min [facility] Body mass index 2019-06-04 11:43:00 24.02 kg/m2 [facility] Body height 2019-03-07 15:39:00 167.64 cm [facility] Body Weight 2019-03-07 15:39:00 67.767 kg [facility] Systolic 2019-03-07 15:39:00 102 mm[Hg] [facility] Diastolic 2019-03-07 15:39:00 55 mm[Hg] [facility] Heart Rate 2019-03-07 15:39:00 88 /min [facility] Body Temperature 2019-03-07 15:39:00 37.00 [facility] Respiratory rate 2019-03-07 15:39:00 16 /min [facility] Body mass index 2019-03-07 15:39:00 24.11 kg/m2 [facility] Body height 2019-01-22 15:41:00 167.64 cm [facility] Body Weight 2019-01-22 15:41:00 67.585 kg [facility] Systolic 2019-01-22 15:41:00 105 mm[Hg] [facility] Diastolic 2019-01-22 15:41:00 68 mm[Hg] [facility] Heart Rate 2019-01-22 15:41:00 96 /min [facility] Body Temperature 2019-01-22 15:41:00 36.67 [facility] Respiratory rate 2019-01-22 15:41:00 20 /min [facility] Body mass index 2019-01-22 15:41:00 24.05 kg/m2 [facility] Body height 2018-11-27 13:47:00 66.00 [in_i] [facility] Body Weight 2018-11-27 13:47:00 144.80 [lb_av] [facility] Systolic 2018-11-27 13:47:00 107 mm[Hg] [facility] Diastolic 2018-11-27 13:47:00 67 mm[Hg] [facility] Heart Rate 2018-11-27 13:47:00 101 /min [facility] Body Temperature 2018-11-27 13:47:00 98.30 [degF] [facility] Respiratory rate 2018-11-27 13:47:00 17 /min [facility] Body mass index 2018-11-27 13:47:00 23.40 kg/m2 [facility] Procedures Procedure Date / Time Performed Performing Clinician [facility] e PHONE CALL TO 2022-03-09 00:00:00 [facility] 2022-03-09 00:00:00 [facility] [facility] [facility] 2022-03-09 00:00:[facility] HUMAN NEEDS 2022-03-09 00:00:[facility] [employer] 2022-03-09 [facility] [place] 2022-03-09 [facility]-09 00:00:00 [facility] COORD/COLLAB CONTACT 2022-03-09 00:00:00 [facility] FOLLOW-UP 2022-02-22 00:00:00 [facility] OFFICE/OUTPATIENT VISIT EST 2022-02-21 00:00:00 [facility] URINE TEST 2022-02-21 00:00:00 [facility] TRICHOMONAS VAGIN DIR PROBE 2022-02-21 00:00:00 [facility] URINE TEST 2021-10-21 00:00:00 [facility] PREV VISIT EST AGE 40-64 2021-10-21 00:00:00 [facility] COMPLETE CBC W/AUTO DIFF WBC 2021-10-21 00:00:00 [facility] VITAMIN D 25 HYDROXY 2021-10-21 00:00:00 [facility] TRICHOMONAS VAGIN DIR PROBE 2021-10-21 00:00:00 [facility] URINE CULTURE/COLONY COUNT 2021-10-21 00:00:00 [facility] CHYLMD TRACH DNA AMP PROBE 2021-10-21 00:00:00 [facility] OFFICE/OUTPATIENT VISIT EST 2021-09-23 00:00:00 [facility] TRICHOMONAS VAGIN DIR PROBE 2021-09-23 00:00:00 [facility] CHYLMD TRACH DNA AMP PROBE 2021-09-23 00:00:00 [facility] Alcohol/drug Brief 2020-02-28 00:00[facility] UR[facility] TEST 2019-11-08 00:00:00 [facility]alth SMEAR WET [place] SALINE/INK 2019-11-08 00:00:00 [facility] OFFICE/OUTPATIENT VISIT EST 2019-11-08 00:00:00 [facility] COMPLETE CBC W/AUTO DIFF WBC 2019-11-08 00:00:00 [facility] COMPREHEN METABOLIC PANEL 2019-11-08 00:00:00 [facility] LIPID PANEL 2019-11-08 00:00:00 [facility] ASSAY THYROID STIM HORMONE 2019-11-08 00:00:00 [facility] SYPHILIS TEST NON-TREP QUAL 2019-11-08 00:00:00 [facility] VITAMIN D 25 HYDROXY 2019-11-08 00:00:00 [facility] HIV-1 AG W/HIV-1 & HIV-2 AB 2019-11-08 00:00:00 [facility] TRICHOMONAS VAGIN DIR PROBE 2019-11-08 00:00:00 [facility] URINE TEST 2019-07-01 00:00:00 [facility] N.GONORRHOEAE DNA DIR PROB 2019-07-01 00:00:00 A [facility] CHYLMD TRACH DNA DIR PROBE 2019-07-01 00:00:00 A [facility] SMEAR WET MOUNT SALINE/INK 2019-07-01 00:00:00 A [facility] OFFICE/OUTPATIENT VISIT EST 2019-07-01 00:00:00 [facility] TRICHOMONAS VAGIN DIR PROBE 2019-07-01 00:00:00 [facility] CHYLMD TRACH DNA AMP PROBE 2019-07-01 00:00:00 A [facility] URINE TEST 2019-06-04 00:00:00 [facility] PREV VISIT EST AGE 40-64 2019-06-04 00:00:00 [facility] TRICHOMONAS VAGIN DIR PROBE 2019-06-04 00:00:00 [facility] CYTOPATH C/V AUTO FLUID REDO 2019-06-04 00:00:00 [facility] INTERVENTION 2019-05-30 00:00:00 [facility] INTERVENTION 2019-05-30 00:00:00 [facility] OFFICE/OUTPATIENT VISIT EST 2019-03-07 00:00:00 [facility] SHORT TERM BEHAVIORAL HEALTH 2019-01-25 00:00:00 [facility] ASSESSMENT SHORT TERM BEHAVIORAL HEALTH 2019-01-25 00:00:00 [facility] ASSESSMENT ASSESSMENT 2019-01-24 00:00:00 [facility] ASSESSMENT 2019-01-24 00:00:00 [facility] URINE TEST 2019-01-22 00:00:00 [facility] OFFICE/OUTPATIENT VISIT EST 2019-01-22 00:00:00 [facility] Plan of Care Planned Activity Planned Date Details Comments Source Future Scheduled 2022-05-08 COLONOSCOPY SCREENING [facility] Test 12:40:28 [code = COLONOSCOPY SCREENING] Future Scheduled 2022-05-08 [facility]ZA VACCINE [facility] Test 12:40:28 [code = INFLUENZA VACCINE] Future Scheduled 2022-05-08 COVID-19 VACCINE (#1) [facility] Test 12:40:28 [code = COVID-19 VACCINE (#1)] Future Scheduled 2022-05-08 [facility] Test 12:40:28 malignant neoplasm of cervix (procedure) [code = 179216391] Future Scheduled 2022-05-08 BREAST CANCER [facility] Test 12:40:28 SCREENING [code = BREAST CANCER SCREENING] Future Scheduled 2022-01-23 COVID-19 VACCINE (#1) [facility] Test 02:03:45 [code = COVID-19 VACCINE (#1)] Future Scheduled 2022-01-23 [facility] Test 02:03:45 malignant neoplasm of cervix (procedure) [code = 153760804] Future Scheduled 2022-01-23 BREAST CANCER [facility] Test 02:03:45 SCREENING [code = BREAST CANCER SCREENING] Future Scheduled 2022-01-23 COLONOSCOPY SCREENING [facility] Test 02:03:45 [code = COLONOSCOPY SCREENING] Future Scheduled 2022-01-23 [facility]ZA VACCINE [facility] Test 02:03:45 [code = INFLUENZA VACCINE] Future Scheduled 2022-01-23 HEPATITIS B VACCINES [facility] Test 02:03:45 (1 of 3 - 3-dose series) [code = HEPATITIS B VACCINES (1 of 3 - 3-dose series)] Future Scheduled 2022-01-23 COVID-19 VACCINE (#1) [facility] Test 02:03:45 [code = COVID-19 VACCINE (#1)] Future Scheduled 2022-01-23 [facility] Test 02:03:45 malignant neoplasm of cervix (procedure) [code = 832120704] Future Scheduled 2022-01-23 BREAST CANCER [facility] Test 02:03:45 SCREENING [code = BREAST CANCER SCREENING] Future Scheduled 2022-01-[address] [facility] Test 02:03:45 [code = COLONOSCOPY SCREENING] Future Scheduled 2022-01-23 INFLUENZA VACCINE Method [facility] Test 02:03:45 [code = INFLUENZA VACCINE] Future Scheduled 2022-01-23 HEPATITIS B VACCINES [facility] Test 02:03:45 (1 of 3 - 3-dose series) [code = HEPATITIS B VACCINES (1 of 3 - 3-dose series)] Future Scheduled 2022-01-23 COVID-19 VACCINE (#1) [facility] Test 02:03:45 [code = COVID-19 VACCINE (#1)] Future Scheduled 2022-01-23 Screening for [facility] Test 02:03:45 malignant neoplasm of cervix (procedure) [code = 194016970] Future Scheduled 2022-01-23 BREAST CANCER [facility] Test 02:03:45 SCREENING [code = BREAST CANCER SCREENING] Future Scheduled 2022-01-[address] [facility] Test 02:03:45 [code = COLONOSCOPY SCREENING] Future Scheduled 2022-01-23 INFLUENZA VACCINE Method [facility] Test 02:03:45 [code = INFLUENZA VACCINE] Future Scheduled 2022-01-23 HEPATITIS B VACCINES [facility] Test 02:03:45 (1 of 3 - 3-dose series) [code = HEPATITIS B VACCINES (1 of 3 - 3-dose series)] Future Scheduled 2022-01-23 COVID-19 VACCINE (#1) [facility] Test 02:03:45 [code = COVID-19 VACCINE (#1)] Future Scheduled 2022-01-23 Screening for [facility] Test 02:03:45 malignant neoplasm of cervix (procedure) [code = 079250359] Future Scheduled 2022-01-23 BREAST CANCER [facility] Test 02:03:45 SCREENING [code = BREAST CANCER SCREENING] Future Scheduled 2022-01-[address] [facility] Test 02:03:45 [code = COLONOSCOPY SCREENING] Future Scheduled 2022-01-23 INFLUENZA VACCINE Method [facility] Test 02:03:45 [code = INFLUENZA VACCINE] Future Scheduled 2022-01-23 HEPATITIS B VACCINES [facility] Test 02:03:45 (1 of 3 - 3-dose series) [code = HEPATITIS B VACCINES (1 of 3 - 3-dose series)] Future Scheduled 2022-01-23 COVID-19 VACCINE (#1) [facility] Test 02:03:45 [code = COVID-19 VACCINE (#1)] Future Scheduled 2022-01-23 Screening for [facility] Test 02:03:45 malignant neoplasm of cervix (procedure) [code = 454203503] Future Scheduled 2022-01-23 BREAST CANCER [facility] Test 02:03:45 SCREENING [code = BREAST CANCER SCREENING] Future Scheduled 2022-01-[address] [facility] Test 02:03:45 [code = COLONOSCOPY SCREENING] Future Scheduled 2022-01-23 INFLUENZA VACCINE Method [facility] Test 02:03:45 [code = INFLUENZA VACCINE] Future Scheduled 2022-01-23 HEPATITIS B VACCINES [facility] Test 02:03:45 (1 of 3 - 3-dose series) [code = HEPATITIS B VACCINES (1 of 3 - 3-dose series)] Encounters Start End Encounter Admission Attending Care Care Encounter Source Date/Time Date/Time Type Type Clinicians Facility Department ID 2022-03-09 2022-03-09 Outpatient NEGRA, [facility] [id number] Access 13:26:00 13:26:00 BAYRON [facility] 2022-03-09 2022-03-09 Outpatient NEGRA, [facility] [id number] Access 13:26:00 13:26:00 BAYRON e2-7kb3-79o bb9-403e- 8 [facility] 0-op1agg031 q4i-36ur4e 0f4 b3e1ca 2022-02-24 2022-02-24 Outpatient MAGI, [facility] [id number] Access 11:24:00 11:24:00 BRIANA west 2022-02-24 2022-02-24 Outpatient MAGI, [facility] [id number] Access 11:24:00 11:24:00 BRIANA e2-2cb2-84v s11-3892-9 [facility] 0-uf0xhi335 [id number]-ed00f6 0f4 ed1aae 2022-02-23 2022-02-23 Outpatient MAGI, [facility] [id number] Access 17:49:00 17:49:00 BRIANA ealt 2022-02-23 2022-02-23 Outpatient MAGI, [facility] [id number] Access 17:49:00 17:49:00 BRIANA e2-7py0-80y a96-1rz4-n [facility] 0-rg5yqd227 697-ef83b7 0f4 6c1c54 2022-02-22 2022-02-22 Outpatient DORIS, [facility] [id number] [facility] 09:16:00 09:16:00 [facility] 2022-02-22 2022-02-22 Outpatient DORIS, [facility] 5fd2f0n5-2u 4a [id number]-u Access 09:16:00 09:16:00 LAURA e2-5tc9-87j i7w-121s-j [facility] 0-fa7fnq152 l2t-03169t 0f4 be2a50 2022-02-21 2022-02-21 Outpatient MAGI, [facility] [id number] Access 16:00:00 16:00:00 [facility] 2022-02-21 2022-02-21 OFFICE/OUT MAGI, [facility] 9vb8s2q3-2t 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 [id number] Access 16:00:00 16:00:00 PATIENT BRIANA e2-2eu4-27p 419-408d-a [facility] VISIT EST 0-qf9yzx662 68e-548fb5 0f4 30cdda 2021-11-16 2021-11-16 Outpatient WALKER, [facility] [id number] [facility] 10:15:00 10:15:00 KATELINE ealth 2021-11-16 2021-11-16 Outpatient WALKER, [facility] [id number] 9ed [id number]-d [facility] 10:15:00 10:15:00 KATELINE e2-3dk3-04w 52c-4632- 9 [facility] 0-se8ojr146 684-f740c9 0f4 [id number] 2021-11-11 2021-11-11 Outpatient [facility], [facility] [id number] [facility] 18:12:00 18:12:00 [facility] 2021-11-11 2021-11-11 Outpatient [facility], [facility] [id number] [id number] [facility] 18:12:00 18:12:00 BRIANA e2-6lo8-14a 5x9-4046-o [facility] 0-fx6rrc548 7d9-n0z642 0f4 b27c5d 2021-11-02 2021-11-02 Outpatient [facility], [facility] [id number] Access 11:14:00 11:14:00 BRIANA [facility] 2021-11-02 2021-11-02 Outpatient [facility], [facility] [id number] 10c jb96o-e Access 11:14:00 11:14:00 BRIANA e2-1xf2-28u d73-0m58-c [facility] 0-nl7zck860 [id number] 0f4 k5d216 2021-10-28 2021-10-28 Outpatient [facility], [facility] [id number] Access 18:58:00 18:58:00 BRIANA [facility] 2021-10-28 2021-10-28 Outpatient [facility], [facility] 5uw2j2m5-1d a7e we6vk-1 Access 18:58:00 18:58:00 BRIANA e2-4uk6-58j 079-4169-9 [facility] 0-yn5czp509 6r1-y090fv 0f4 ec64a8 2021-10-21 2021-10-21 Outpatient [facility], [facility] [id number] [facility] 16:45:00 16:45:00 [facility] 2021-10-21 2021-10-21 PREV VISIT [facility] 8fn1r6e0-5u 2b9 [id number] [facility] 16:45:00 16:45:00 EST AGE BRIANA e2-0xw4-29p 4bf-4f9d-9 [facility] 40-64 0-td4vhl524 aa1-191dc3 0f4 k4n843 2021-09-29 2021-09-29 Outpatient [facility] [id number] Access 11:03:00 11:03:00 QUINQUKATALINA, ea lt [place] 2021-09-29 2021-09-29 Outpatient [facility] [id number] Access 11:03:00 11:03:00 ARSLAN, e2-1qz6-86l c05-4b 81-b [facility] 0-oh7toc853 [id number] 0f4 6c5b0d 2021-09-28 2021-09-28 Outpatient [facility] [id number] Access 09:34:00 09:34:00 QUINLATASHAKATALINA, [facility] [place] 2021-09-28 2021-09-28 Outpatient [facility] [id number] Access 09:34:00 09:34:00 QUINAMIRA, e2-1jz3-84l 60e-40 ad-a [facility] 0-ov8mdk443 7k0-wv9x10 0f4 [id number] 2021-09-23 2021-09-23 Outpatient [facility] [id number] Access 14:00:00 14:00:00 QUINAMIRA[facility] [place] 2021-09-23 2021-09-23 OFFICE/OUT [facility] [id number] [id number] Access 14:00:00 14:00:00 PATIENT ARSLAN, e2-7js9-30e 0a4-41 0c-9 [facility] VISIT EST [place] 0-fv6key685 u1c-7n4427 0f4 869a23 2021-06-02 2021-06-02 Outpatient CHRIS ENGLISH D [id number] 58 [place] 00:00:00 00:00:00 [facility] 2021-03-11 2021-03-11 Outpatient [facility] [id number] [address] [place] [address] 00:00:00 00:00:00 Health Departm ent 2021-02-16 2021-02-16 Outpatient GC_RPMD_Par PRIV PRIV [id number] [facility] 00:00:00 00:00:00 ris_R [id number] Medica l 2020-02-28 2020-02-28 Outpatient HARDWELL, [facility] [id number] [facility] 13:34:00 13:34:00 JESSICA ealth 2020-02-28 2020-02-28 Outpatient HARDWELL, [facility] 2sv1w6p4-2r 3 [id number] [facility] 13:34:00 13:34:00 JESSICA LANEA e2-5ps1-79v 367-49 41-8 ealth 0-xn2clt077 j52-x449c9 0f4 [id number] 2020-02-24 2020-02-24 Outpatient HARDWELL, [facility] [id number] [facility] 15:15:00 15:15:00 JESSICA ealth 2020-02-24 2020-02-24 Outpatient HARDWELL, [facility] 3qz9h7s5-2t e [id number] [facility] 15:15:00 15:15:00 JESSICA YULIAA e2-7wv9-43s ad7-40 c4-a ealth 0-rd0rhk741 u57-15r2fk 0f4 [id number] 2019-11-12 2019-11-12 Outpatient GONZALES, [facility] 2ht7m8y6-9g 8 [id number] [facility] 07:21:00 07:21:00 LYNN e2-8nl1-37z afa-45db-9 ealth 0-gs9adi979 p0t-i58mv9 0f4 6g002q 2019-11-08 2019-11-08 OFFICE/OUT GONZALES, [facility] 1vk2e9s6-9m d [id number] [facility] 15:15:00 15:15:00 PATIENT LYNN e2-3kp3-61t 9bb-4e61-a ealth VISIT EST 0-nj9jau177 [id number] 0f4 9254ef 2019-07-04 2019-07-04 Outpatient LOCO, [facility] 9ld8q0p3-3v [id number] [facility] 13:59:00 13:59:00 e2-2uw4-21n s9v-4l59-w ealth 0-dc4vyo570 10d-e9cf44 0f4 f3cdf3 2019-07-01 2019-07-01 OFFICE/OUT LOCO, [facility] 3jz8z2m1-9x [id number] [facility] 16:15:00 16:15:00 PATIENT e2-1ru6-37h c93-5vu2-7 ealth VISIT EST 0-sp7xxb154 87a-3b3df8 0f4 393adc 2019-07-01 2019-07-01 Outpatient LOCO, [facility] 9lt2t1w0-6i [id number]-1 [facility] 16:04:00 16:04:00 e2-2wy3-47a 874-4cea-a ealth 0-yx0roj266 866-kn366o 0f4 75322g 2019-06-11 2019-06-11 Outpatient GONZALES, [facility] 1cs5j3k6-9m d [id number] [facility] 08:16:00 08:16:00 LYNN e2-2wp0-37x 2h1-183z-1 ealth 0-ic9zft418 ae0-51a89c 0f4 v1l255 2019-06-07 2019-06-07 Outpatient GONZALES, [facility] 0an3k9d1-2w 3 [id number] [facility] 13:15:00 13:15:00 LYNN e2-0ec3-18e 7c5-9g88-1 ealth 0-ho8nih680 461-469c44 0f4 7115d3 2019-06-04 2019-06-04 PREV VISIT GONZALES, [facility] 8ud0t8h6-1o f [id number] [facility] 11:30:00 11:30:00 EST AGE LYNN e2-4jr6-52w 49b-4ef0-a ealth 40-64 0-ux0iuc782 d6v-4s4f4c 0f4 dedca1 2019-05-30 2019-05-30 Outpatient O SARANYA, [facility] 5ds1s4d3-8u 62 [id number]-j [facility] 13:33:00 13:33:00 PARIS e2-8ur5-79p 063-4aa0-9 ealth 0-lo6pxw508 ef2-8716d2 0f4 0991da 2019-03-21 2019-03-21 Outpatient NURSE, [facility] 4wj9d4p8-2a ef5 3cbh5-0 [facility] 09:19:00 09:19:00 NURSE e2-9xs8-68s 8c3-70vz-z ealth 0-lm7fzn128 7d1-h80623 0f4 e5bfd3 2019-03-12 2019-03-12 Outpatient JANET, [facility] 2bp0x1o7-9j 5 us4pb94-3 [facility] 09:04:00 09:04:00 LYNN e2-5xs0-56v 812-4d33-a ealth 0-cp0jhv889 aaa-0e6a94 0f4 63ea74 2019-03-07 2019-03-07 OFFICE/OUT JANET, [facility] 8hw8a9q5-2i b [id number] [facility] 15:15:00 15:15:00 PATIENT LYNN e2-9zt9-88g h58-788a-t ealth VISIT EST 0-bk6igu974 s5o-t25976 0f4 ab51fd 2019-03-05 2019-03-05 Outpatient ASHLEY LOCO [facility] 2am0g3u4-1r kwp0y76e-1 [facility] 14:26:00 14:26:00 e2-9py4-39b s2t-81yp-s ealth 0-jw5aji698 b3h-8h25zs 0f4 c8a1b3 2019-01-29 2019-01-29 Outpatient JANET, [facility] 7ng1t9x9-7b 1 3bh4a9k-w [facility] 12:26:00 12:26:00 LYNN e2-0bl1-47m 120-419e-b ealth 0-cv1rgn867 o95-17gzdb 0f4 84df0c 2019-01-25 2019-01-25 Outpatient EMELY, [facility] vix822sa-4k be i7m54f-6 [facility] 08:00:00 08:00:00 MATTHEW 22-4926-a4f 841-4272 -b ealth f-83741444n 7e8-521wn0 jeff 3e22bf 2019-01-24 2019-01-24 Outpatient O SARANYA, [facility] 1zp7n0c9-6g 71 [id number]-w [facility] 13:43:00 13:43:00 PARIS e2-3lb4-01s 584-4d0f-b ealth 0-qo2uzh854 d71-0n9t17 0f4 ec3fb7 2019-01-24 2019-01-24 Outpatient JANET, [facility] 6ow5t2r7-1o 1 [id number]-7 [facility] 08:09:00 08:09:00 LYNN e2-6hg5-42e 016-4f12-b ealt 0-gk4dny517 fa9-3be8ef 0f4 2019-01-23 2019-01-23 Outpatient NURSE, [facility] svum55rr-x5 992 741ef-3 [facility] 10:40:00 10:40:00 NURSE e9-44df-910 449-401b-9 ealt 4-8q9j4oi47 769-e127be c82 a129cc 2019-01-22 2019-01-22 Outpatient JANET, [facility] [id number] [facility] 17:15:00 17:15:00 LYNN 00-0000-702 867-0104-8 ealt [id number] 626-113ead 000 d3b97d 2019-01-22 2019-01-22 OFFICE/OUT JANET, [facility] 1kd4p8x0-3m 7 46v7768-z [facility] 15:00:00 15:00:00 PATIENT LYNN e2-8te4-10t ee8-4b5e-8 ealth VISIT EST 0-zs7yka355 dad-2e06b2 0f4 90ccc8 2018-11-27 2018-11-27 Outpatient RJ [facility] 1ck9p6l4-2i [id number] [facility] 00:00:00 00:00:00 TALHA e2-3lm6-37q h70-59s8-8 [facility] 0-cc3rsu134 5u4-7051z3 0f4 nw380h 2018-01-16 2018-01-17 Outpatient [facility] [id number] [address] [place] [address] 00:00:00 00:00:00 [facility] Results Test Description Test Time Test Comments Results Result Comments Source Panel Description: Vaginitis/Vaginosis, DNA Probe 2022-02-23 12:04:00 Test Item Value Reference Range Interpretation Comme nts Ana Maria species (test code = 53788-9) Negative Negative Gardnerella vaginalis (test code = 6410-5) Positive Negative A Trichomonas vaginalis (test code = 6568-0) Negative Negative [facility] Description: Vaginitis/Vaginosis, DNA [id number] 12:04:00 Test Item Value Reference Range Interpretation Comments Ana Maria species (test code = Negative Negative 79246-1) Gardnerella vaginalis (test code = Positive Negative A 6410-5) Trichomonas vaginalis (test code = Negative Negative 6568-0) [facility] Description: Vaginitis/Vaginosis, DNA [id number] 12:04:00 Test Item Value Reference Range Interpretation Comments Ana Maria species (test code = Negative Negative 36686-7) Gardnerella vaginalis (test code = Positive Negative A 6410-5) Trichomonas vaginalis (test code = Negative Negative 6568-0) [facility] Description: Vaginitis/Vaginosis, DNA [id number] 12:04:00 Test Item Value Reference Range Interpretation Comments Ana Maria species (test code = Negative Negative 94830-7) Gardnerella vaginalis (test code = Positive Negative A 6410-5) Trichomonas vaginalis (test code = Negative Negative 6568-0) [facility] Description: Vaginitis/Vaginosis, DNA Czjmr5433-98-70 12:04:00 Test Item Value Reference Range Interpretation Comments Ana Maria species (test code = Negative Negative 17277-9) Gardnerella vaginalis (test code = Positive Negative A 6410-5) Trichomonas vaginalis (test code = Negative Negative 6568-0) [facility] Description: Chlamydia/GC Dnwrbzoarfbmw8026-96-96 09:03:00 Test Item Value Reference Range Interpretation Comments Chlamydia trachomatis, MILAD (test Negative Negative code = 51804-6) Neisseria gonorrhoeae, MILAD (test Negative Negative code = 71378-3) [facility] Description: Chlamydia/GC Gtksoevetylbt5455-77-45 09:03:00 Test Item Value Reference Range Interpretation Comments Chlamydia trachomatis, MILAD (test Negative Negative code = 09318-6) Neisseria gonorrhoeae, MILAD (test Negative Negative code = 14915-9) [facility] Description: Chlamydia/GC Abtvultnzpzwi2630-72-54 09:03:00 Test Item Value Reference Range Interpretation Comments Chlamydia trachomatis, MILAD (test Negative Negative code = 26055-0) Neisseria gonorrhoeae, MILAD (test Negative Negative code = 14014-2) [facility] Description: Chlamydia/GC Yelxodlwoqdxs9078-90-05 09:03:00 Test Item Value Reference Range Interpretation Comments Chlamydia trachomatis, MILAD (test Negative Negative code = 51949-5) Neisseria gonorrhoeae, MILAD (test Negative Negative code = 67164-1) [facility] Description: Chlamydia/GC Htvvamwpjjubo9546-57-40 09:03:00 Test Item Value Reference Range Interpretation Comments Chlamydia trachomatis, MILAD (test Negative Negative code = 72228-7) Neisseria gonorrhoeae, MILAD (test Negative Negative code = 90789-5) [facility] Description: Chlamydia/GC Gmdalwxcdwzut6038-43-19 09:03:00 Test Item Value Reference Range Interpretation Comments Chlamydia trachomatis, MILAD (test Negative Negative code = 66923-8) Neisseria gonorrhoeae, MILAD (test Negative Negative code = 66474-1) [facility] Description: Chlamydia/GC Iowkksgbwbtdt0716-26-09 09:03:00 Test Item Value Reference Range Interpretation Comments Chlamydia trachomatis, MILAD (test Negative Negative code = 01952-3) Neisseria gonorrhoeae, MILAD (test Negative Negative code = 01454-6) [facility] Description: Chlamydia/GC Nsqomhjcbdjyp2224-35-43 09:03:00 Test Item Value Reference Range Interpretation Comments Chlamydia trachomatis, MILAD (test Negative Negative code = 78520-9) Neisseria gonorrhoeae, MILAD (test Negative Negative code = 79384-4) [facility] Description: Chlamydia/GC Hlfntbmpxlxym8930-16-15 09:03:00 Test Item Value Reference Range Interpretation Comments Chlamydia trachomatis, MILAD (test Negative Negative code = 23596-1) Neisseria gonorrhoeae, MILAD (test Negative Negative code = 46686-8) [facility] Description: Chlamydia/GC Mllvyoymiblqj4763-69-15 09:03:00 Test Item Value Reference Range Interpretation Comments Chlamydia trachomatis, MILAD (test Negative Negative code = 11806-9) Neisseria gonorrhoeae, MILAD (test Negative Negative code = 39718-0) [facility] Description: Urine Culture, Injdovv8649-89-46 20:41:00 Test Item Value Reference Range Interpretation Comments Result 1 (test code = 630-4) No growth [facility] Description: Urine Culture, Akyhjsc0805-21-05 20:41:00 Test Item Value Reference Range Interpretation Comments Result 1 (test code = 630-4) No growth [facility] Description: Urine Culture, Ypknjsx0556-97-02 20:41:00 Test Item Value Reference Range Interpretation Comments Result 1 (test code = 630-4) No growth [facility] Description: Urine Culture, [id number] 20:41:00 Test Item Value Reference Range Interpretation Comments Result 1 (test code = 630-4) No growth [facility] Description: Urine Culture, [id number] 20:41:00 Test Item Value Reference Range Interpretation Comments Result 1 (test code = 630-4) No growth [facility] Description: Urine Culture, [id number] 20:41:00 Test Item Value Reference Range Interpretation Comments Result 1 (test code = 630-4) No growth [facility] Description: Urine Culture, [id number] 20:41:00 Test Item Value Reference Range Interpretation Comments Result 1 (test code = 630-4) No growth [facility] Description: Urine Culture, [id number] 20:41:00 Test Item Value Reference Range Interpretation Comments Result 1 (test code = 630-4) No growth [facility] Description: Urine Culture, [id number] 20:41:00 Test Item Value Reference Range Interpretation Comments Result 1 (test code = 630-4) No growth [facility] Description: Urine Culture, [id number] 20:41:00 Test Item Value Reference Range Interpretation Comments Result 1 (test code = 630-4) No growth [facility] Description: Vaginitis/Vaginosis, DNA [id number] 19:32:00 Test Item Value Reference Range Interpretation Comments Ana Maria species (test code = Negative Negative 49946-8) Gardnerella vaginalis (test code = Positive Negative A 6410-5) Trichomonas vaginalis (test code = Positive Negative A 6568-0) [facility] Description: Vaginitis/Vaginosis, DNA [id number] 19:32:00 Test Item Value Reference Range Interpretation Comments Ana Maria species (test code = Negative Negative 83794-8) Gardnerella vaginalis (test code = Positive Negative A 6410-5) Trichomonas vaginalis (test code = Positive Negative A 6568-0) [facility] Description: Vaginitis/Vaginosis, DNA [id number] 19:32:00 Test Item Value Reference Range Interpretation Comments Ana Maria species (test code = Negative Negative 39241-7) Gardnerella vaginalis (test code = Positive Negative A 6410-5) Trichomonas vaginalis (test code = Positive Negative A 6568-0) [facility] Description: Vaginitis/Vaginosis, DNA [id number] 19:32:00 Test Item Value Reference Range Interpretation Comments Ana Maria species (test code = Negative Negative 06788-2) Gardnerella vaginalis (test code = Positive Negative A 6410-5) Trichomonas vaginalis (test code = Positive Negative A 6568-0) [facility] Description: Vaginitis/Vaginosis, DNA [id number] 19:32:00 Test Item Value Reference Range Interpretation Comments Ana Maria species (test code = Negative Negative 70721-1) Gardnerella vaginalis (test code = Positive Negative A 6410-5) Trichomonas vaginalis (test code = Positive Negative A 6568-0) [facility] Description: Vaginitis/Vaginosis, DNA [id number] 19:32:00 Test Item Value Reference Range Interpretation Comments Ana Maria species (test code = Negative Negative 48298-9) Gardnerella vaginalis (test code = Positive Negative A 6410-5) Trichomonas vaginalis (test code = Positive Negative A 6568-0) [facility] Description: Vaginitis/Vaginosis, DNA [id number] 19:32:00 Test Item Value Reference Range Interpretation Comments Ana Maria species (test code = Negative Negative 94612-5) Gardnerella vaginalis (test code = Positive Negative A 6410-5) Trichomonas vaginalis (test code = Positive Negative A 6568-0) [facility] Description: Vaginitis/Vaginosis, DNA [id number] 19:32:00 Test Item Value Reference Range Interpretation Comments Ana Maria species (test code = Negative Negative 03920-9) Gardnerella vaginalis (test code = Positive Negative A 6410-5) Trichomonas vaginalis (test code = Positive Negative A 6568-0) [facility] Description: Vaginitis/Vaginosis, DNA [id number] 19:32:00 Test Item Value Reference Range Interpretation Comments Ana Maria species (test code = Negative Negative 56573-4) Gardnerella vaginalis (test code = Positive Negative A 6410-5) Trichomonas vaginalis (test code = Positive Negative A 6568-0) [facility] Description: 25-hydroxyvitamin D3 [Mass/volume] in Serum or [id number] 03:53:00 Test Item Value Reference Range Interpretation Comments Vitamin D, 15.2 ng/mL 30.0-100.0 L Vitamin D defic iency has 25-Hydroxy (test been define d by the code = 32725-9) [facility] of [employer] and an Endocrine So [facility] practice guidel ine as alevel of serum 25-OH vitamin D less than 20 ng/mL (1,2).The Endocrine Society went on to further define vitamin Dinsufficiency as a level between 21 and 29 ng/mL (2).1. IOM (Ins titute of Medicine). 2010 . Dietary reference intak es for calcium and D. [place]: [employer] .2. Frederic CORTEZ, Sunshine HALL, Rosa arce HARRELL, et al. Evaluation, treatment, and prevention of vitamin D de ficiency: an Endocrine So [facility] clinical practi ce guideline. JCEM . 2010; 96(7):1911-30.& lt;br/>
Performed by:
[email or web address] (HD)

[facility] Description: 25-hydroxyvitamin D3 [Mass/volume] in Serum or [id number] 03:53:00 Test Item Value Reference Range Interpretation Comments Vitamin D, 15.2 ng/mL 30.0-100.0 L Vitamin D defic iency has 25-Hydroxy (test been define d by the code = 50766-1) [facility] of Medicine and an Endocrine So [facility] practice guidel ine as alevel of serum 25-OH vitamin D less than 20 ng/mL (1,2).The Endocrine Society went on to further define vitamin Dinsufficiency as a level between 21 and 29 ng/mL (2).1. IOM (Ins titute of Medicine). 2010 . Dietary reference intak es for calcium and D. [place]: [employer] .2. Sunshine Sanders, Rosa HARRELL, et al. Evaluation, treatment, and prevention of vitamin D de ficiency: an Endocrine So [facility] clinical practi ce guideline. EM . 2010; 967):1911-30.& lt;br/>
Performed by:
[email or web address] ([place])

[facility] Description: 25-hydroxyvitamin D3 [Mass/volume] in Serum or Arjrny1976 03:53:00 Test Item Value Reference Range Interpretation Comments Vitamin D, 15.2 ng/mL 30.0-100.0 L Vitamin D defic iency has 25-Hydroxy (test been define d by the code = 31723-2) [facility] of Medicine and an Endocrine So [facility] practice guidel ine as alevel of serum 25-OH vitamin D less than 20 ng/mL (1,2).The Endocrine Society went on to further define vitamin Dinsufficiency as a level between 21 and 29 ng/mL (2).1. IOM (Ins titute of Medicine). 2010 . Dietary reference intak es for calcium and D. [place]: [employer] .2. Sunshine Sanders, Rosa HARRELL, et al. Evaluation, treatment, and prevention of vitamin D de ficiency: an Endocrine So [facility] clinical practi ce guideline. EM . 2010; 96(7):1911-30.P erformed by:[facility] Josephine ochoa ([place]) [facility] Description: 25-hydroxyvitamin D3 [Mass/volume] in Serum or [id number] 03:53:00 Test Item Value Reference Range Interpretation Comments Vitamin D, 15.2 ng/mL 30.0-100.0 L Vitamin D defic iency has 25-Hydroxy (test been define d by the code = 28266-4) [facility] and [facility] as alevel of serum 25-OH vitamin D less than 20 ng/mL (1,2).The Endocrine Society went on to further define vitamin Dinsufficiency as a level between 21 and 29 ng/mL (2).1. IOM (Ins titute of Medicine). 2010 . Dietary reference intak es for calcium and D. [place]: [employer] .2. Sunshine Sanders, Rosa HARRELL, et al. Evaluation, treatment, and prevention of vitamin D de ficiency: an Endocrine So [facility] clinical practi ce guideline. EM . 2010; 96(7):1911-30.P erformed by:[facility] ([place]) [facility] Description: 25-hydroxyvitamin D3 [Mass/volume] in Serum or [id number] 03:53:00 Test Item Value Reference Range Interpretation Comments Vitamin D, 15.2 ng/mL 30.0-100.0 L Vitamin D defic iency has 25-Hydroxy (test been define d by the code = 68088-4) [facility] and an [facility] guidel ine as alevel of serum 25-OH vitamin D less than 20 ng/mL (1,2).The Endocrine Society went on to further define vitamin Dinsufficiency as a level between 21 and 29 ng/mL (2).1. IOM (Ins titute of Medicine). 2010 . Dietary reference intak es for calcium and D. [place]: [employer] .2. Sunshine Sanders, Rosa HARRELL, et al. Evaluation, treatment, and prevention of vitamin D de ficiency: an Endocrine So [facility] clinical practi ce guideline. EM . 2010; 96(7):1911-30.P erformed by:[facility] Josephine ochoa (HD) [facility] Description: 25-hydroxyvitamin D3 [Mass/volume] in Serum or [id number] 03:53:00 Test Item Value Reference Range Interpretation Comments Vitamin D, 15.2 ng/mL 30.0-100.0 L Vitamin D defic iency has 25-Hydroxy (test been define d by the code = 07640-6) [facility] of Medicine and an Endocrine So [facility] practice guidel ine as alevel of serum 25-OH vitamin D less than 20 ng/mL (1,2).The Endocrine Society went on to further define vitamin Dinsufficiency as a level between 21 and 29 ng/mL (2).1. IOM (Ins titute of Medicine). 2010 . Dietary reference intak es for calcium and D. [place]: [employer] .2. Sunshine Sanders, Rosa HARRELL, et al. Evaluation, treatment, and prevention of vitamin D de ficiency: an Endocrine So [facility] clinical practi ce guideline. EM . 2010; 96(7):1911-30.P erformed by:Ivory ochoa (HD) [facility] Description: 25-hydroxyvitamin D3 [Mass/volume] in Serum or [id number] 03:53:00 Test Item Value Reference Range Interpretation Comments Vitamin D, 15.2 ng/mL 30.0-100.0 L Vitamin D defic iency has 25-Hydroxy (test been define d by the code = 65413-7) [facility] and an End[facility] guidel [facility] as alevel of serum 25-OH vitamin D less than 20 ng/mL (1,2).The Endocrine Society went on to further define vitamin Dinsufficiency as a level between 21 and 29 ng/mL (2).1. IOM (Ins titute of Medicine). 2010 . Dietary reference intak es for calcium and D. [place]: [employer] .2. Sunshine Sanders, Rosa HARRELL, et al. Evaluation, treatment, and prevention of vitamin D de ficiency: an Endocrine So [facility] clinical practi ce guideline. JCEM . 2010; 96(3):1911-30.P erformed by:[facility] Josephine gabriela (HD) [facility] Description: CBC With Differential/Fbsjpsqy9537-30-06 01:02:00 Test Item Value Reference Range Interpretation Comments WBC (test code = 6690-2) 4.5 x10E3/uL 3.4-10.8 RBC (test code = 789-8) 4.31 x10E6/uL 3.77-5.28 Hemoglobin (test code = 718-7) 10.5 g/dL 11.1-15.9 L Hematocrit (test code = 4544-3) 35.2 % 34.0-46.6 MCV (test code = 787-2) 82 fL 79-97 MCH (test code = 785-6) 24.4 pg 26.6-33.0 L MCHC (test code = 786-4) 29.8 g/dL 31.5-35.7 L RDW (test code = 788-0) 18.2 % 11.7-15.4 H Platelets (test code = 777-3) 162 x10E3/uL 150-450 Neutrophils (test code = 770-8) 57 % Not Estab. Lymphs (test code = 736-9) 29 % Not Estab. Monocytes (test code = 5905-5) 11 % Not Estab. Eos (test code = 713-8) 3 % Not Estab. Basos (test code = 706-2) 0 % Not Estab. Neutrophils (Absolute) (test 2.5 x10E3/uL 1.4-7.0 code = 751-8) Lymphs (Absolute) (test code = 1.3 x10E3/uL 0.7-3.1 731-0) Monocytes(Absolute) (test code 0.5 x10E3/uL 0.1-0.9 = 742-7) Eos (Absolute) (test code = 0.1 x10E3/uL 0.0-0.4 711-2) Baso (Absolute) (test code = 0.0 x10E3/uL 0.0-0.2 704-7) Immature Granulocytes (test 0 % Not Estab. code = 31834-2) Immature Grans (Abs) (test code 0.0 x10E3/uL 0.0-0.1 = 27872-9) NRBC (test code = 43390-2) Hematology Comments: (test code = 51520-7) [facility] Description: CBC With Differential/Uvgrwpjf7918-12-80 01:02:00 Test Item Value Reference Range Interpretation Comments WBC (test code = 6690-2) 4.5 x10E3/uL 3.4-10.8 RBC (test code = 789-8) 4.31 x10E6/uL 3.77-5.28 Hemoglobin (test code = 718-7) 10.5 g/dL 11.1-15.9 L Hematocrit (test code = 4544-3) 35.2 % 34.0-46.6 MCV (test code = 787-2) 82 fL 79-97 MCH (test code = 785-6) 24.4 pg 26.6-33.0 L MCHC (test code = 786-4) 29.8 g/dL 31.5-35.7 L RDW (test code = 788-0) 18.2 % 11.7-15.4 H Platelets (test code = 777-3) 162 x10E3/uL 150-450 Neutrophils (test code = 770-8) 57 % Not Estab. Lymphs (test code = 736-9) 29 % Not Estab. Monocytes (test code = 5905-5) 11 % Not Estab. Eos (test code = 713-8) 3 % Not Estab. Basos (test code = 706-2) 0 % Not Estab. Neutrophils (Absolute) (test 2.5 x10E3/uL 1.4-7.0 code = 751-8) Lymphs (Absolute) (test code = 1.3 x10E3/uL 0.7-3.1 731-0) Monocytes(Absolute) (test code 0.5 x10E3/uL 0.1-0.9 = 742-7) Eos (Absolute) (test code = 0.1 x10E3/uL 0.0-0.4 711-2) Baso (Absolute) (test code = 0.0 x10E3/uL 0.0-0.2 704-7) Immature Granulocytes (test 0 % Not Estab. code = 84340-5) Immature Grans (Abs) (test code 0.0 x10E3/uL 0.0-0.1 = 41141-2) NRBC (test code = 09458-6) Hematology Comments: (test code = 19713-9) [facility] Description: CBC With Differential/Bdpdiplg4557-70-94 01:02:00 Test Item Value Reference Range Interpretation Comments WBC (test code = 6690-2) 4.5 x10E3/uL 3.4-10.8 RBC (test code = 789-8) 4.31 x10E6/uL 3.77-5.28 Hemoglobin (test code = 718-7) 10.5 g/dL 11.1-15.9 L Hematocrit (test code = 4544-3) 35.2 % 34.0-46.6 MCV (test code = 787-2) 82 fL 79-97 MCH (test code = 785-6) 24.4 pg 26.6-33.0 L MCHC (test code = 786-4) 29.8 g/dL 31.5-35.7 L RDW (test code = 788-0) 18.2 % 11.7-15.4 H Platelets (test code = 777-3) 162 x10E3/uL 150-450 Neutrophils (test code = 770-8) 57 % Not Estab. Lymphs (test code = 736-9) 29 % Not Estab. Monocytes (test code = 5905-5) 11 % Not Estab. Eos (test code = 713-8) 3 % Not Estab. Basos (test code = 706-2) 0 % Not Estab. Neutrophils (Absolute) (test 2.5 x10E3/uL 1.4-7.0 code = 751-8) Lymphs (Absolute) (test code = 1.3 x10E3/uL 0.7-3.1 731-0) Monocytes(Absolute) (test code 0.5 x10E3/uL 0.1-0.9 = 742-7) Eos (Absolute) (test code = 0.1 x10E3/uL 0.0-0.4 711-2) Baso (Absolute) (test code = 0.0 x10E3/uL 0.0-0.2 704-7) Immature Granulocytes (test 0 % Not Estab. code = 06726-8) Immature Grans (Abs) (test code 0.0 x10E3/uL 0.0-0.1 = 97471-6) NRBC (test code = 97656-5) Hematology Comments: (test code = 81121-6) [facility] Description: CBC With Differential/Swhbqllr2921-85-55 01:02:00 Test Item Value Reference Range Interpretation Comments WBC (test code = 6690-2) 4.5 x10E3/uL 3.4-10.8 RBC (test code = 789-8) 4.31 x10E6/uL 3.77-5.28 Hemoglobin (test code = 718-7) 10.5 g/dL 11.1-15.9 L Hematocrit (test code = 4544-3) 35.2 % 34.0-46.6 MCV (test code = 787-2) 82 fL 79-97 MCH (test code = 785-6) 24.4 pg 26.6-33.0 L MCHC (test code = 786-4) 29.8 g/dL 31.5-35.7 L RDW (test code = 788-0) 18.2 % 11.7-15.4 H Platelets (test code = 777-3) 162 x10E3/uL 150-450 Neutrophils (test code = 770-8) 57 % Not Estab. Lymphs (test code = 736-9) 29 % Not Estab. Monocytes (test code = 5905-5) 11 % Not Estab. Eos (test code = 713-8) 3 % Not Estab. Basos (test code = 706-2) 0 % Not Estab. Neutrophils (Absolute) (test 2.5 x10E3/uL 1.4-7.0 code = 751-8) Lymphs (Absolute) (test code = 1.3 x10E3/uL 0.7-3.1 731-0) Monocytes(Absolute) (test code 0.5 x10E3/uL 0.1-0.9 = 742-7) Eos (Absolute) (test code = 0.1 x10E3/uL 0.0-0.4 711-2) Baso (Absolute) (test code = 0.0 x10E3/uL 0.0-0.2 704-7) Immature Granulocytes (test 0 % Not Estab. code = 92652-0) Immature Grans (Abs) (test code 0.0 x10E3/uL 0.0-0.1 = 40509-3) NRBC (test code = 62577-2) Hematology Comments: (test code = 17127-1) [facility] Description: CBC With Differential/Kxcigjtt0164-22-58 01:02:00 Test Item Value Reference Range Interpretation Comments WBC (test code = 6690-2) 4.5 x10E3/uL 3.4-10.8 RBC (test code = 789-8) 4.31 x10E6/uL 3.77-5.28 Hemoglobin (test code = 718-7) 10.5 g/dL 11.1-15.9 L Hematocrit (test code = 4544-3) 35.2 % 34.0-46.6 MCV (test code = 787-2) 82 fL 79-97 MCH (test code = 785-6) 24.4 pg 26.6-33.0 L MCHC (test code = 786-4) 29.8 g/dL 31.5-35.7 L RDW (test code = 788-0) 18.2 % 11.7-15.4 H Platelets (test code = 777-3) 162 x10E3/uL 150-450 Neutrophils (test code = 770-8) 57 % Not Estab. Lymphs (test code = 736-9) 29 % Not Estab. Monocytes (test code = 5905-5) 11 % Not Estab. Eos (test code = 713-8) 3 % Not Estab. Basos (test code = 706-2) 0 % Not Estab. Neutrophils (Absolute) (test 2.5 x10E3/uL 1.4-7.0 code = 751-8) Lymphs (Absolute) (test code = 1.3 x10E3/uL 0.7-3.1 731-0) Monocytes(Absolute) (test code 0.5 x10E3/uL 0.1-0.9 = 742-7) Eos (Absolute) (test code = 0.1 x10E3/uL 0.0-0.4 711-2) Baso (Absolute) (test code = 0.0 x10E3/uL 0.0-0.2 704-7) Immature Granulocytes (test 0 % Not Estab. code = 64251-3) Immature Grans (Abs) (test code 0.0 x10E3/uL 0.0-0.1 = 25739-2) NRBC (test code = 89713-9) Hematology Comments: (test code = 96733-8) [facility] Description: CBC With Differential/Lcvhnpza0475-27-34 01:02:00 Test Item Value Reference Range Interpretation Comments WBC (test code = 6690-2) 4.5 x10E3/uL 3.4-10.8 RBC (test code = 789-8) 4.31 x10E6/uL 3.77-5.28 Hemoglobin (test code = 718-7) 10.5 g/dL 11.1-15.9 L Hematocrit (test code = 4544-3) 35.2 % 34.0-46.6 MCV (test code = 787-2) 82 fL 79-97 MCH (test code = 785-6) 24.4 pg 26.6-33.0 L MCHC (test code = 786-4) 29.8 g/dL 31.5-35.7 L RDW (test code = 788-0) 18.2 % 11.7-15.4 H Platelets (test code = 777-3) 162 x10E3/uL 150-450 Neutrophils (test code = 770-8) 57 % Not Estab. Lymphs (test code = 736-9) 29 % Not Estab. Monocytes (test code = 5905-5) 11 % Not Estab. Eos (test code = 713-8) 3 % Not Estab. Basos (test code = 706-2) 0 % Not Estab. Neutrophils (Absolute) (test 2.5 x10E3/uL 1.4-7.0 code = 751-8) Lymphs (Absolute) (test code = 1.3 x10E3/uL 0.7-3.1 731-0) Monocytes(Absolute) (test code 0.5 x10E3/uL 0.1-0.9 = 742-7) Eos (Absolute) (test code = 0.1 x10E3/uL 0.0-0.4 711-2) Baso (Absolute) (test code = 0.0 x10E3/uL 0.0-0.2 704-7) Immature Granulocytes (test 0 % Not Estab. code = 49625-4) Immature Grans (Abs) (test code 0.0 x10E3/uL 0.0-0.1 = 73617-3) NRBC (test code = 95961-8) Hematology Comments: (test code = 89216-4) [facility] Description: CBC With Differential/[id number] 01:02:00 Test Item Value Reference Range Interpretation Comments WBC (test code = 6690-2) 4.5 x10E3/uL 3.4-10.8 RBC (test code = 789-8) 4.31 x10E6/uL 3.77-5.28 Hemoglobin (test code = 718-7) 10.5 g/dL 11.1-15.9 L Hematocrit (test code = 4544-3) 35.2 % 34.0-46.6 MCV (test code = 787-2) 82 fL 79-97 MCH (test code = 785-6) 24.4 pg 26.6-33.0 L MCHC (test code = 786-4) 29.8 g/dL 31.5-35.7 L RDW (test code = 788-0) 18.2 % 11.7-15.4 H Platelets (test code = 777-3) 162 x10E3/uL 150-450 Neutrophils (test code = 770-8) 57 % Not Estab. Lymphs (test code = 736-9) 29 % Not Estab. Monocytes (test code = 5905-5) 11 % Not Estab. Eos (test code = 713-8) 3 % Not Estab. Basos (test code = 706-2) 0 % Not Estab. Neutrophils (Absolute) (test 2.5 x10E3/uL 1.4-7.0 code = 751-8) Lymphs (Absolute) (test code = 1.3 x10E3/uL 0.7-3.1 731-0) Monocytes(Absolute) (test code 0.5 x10E3/uL 0.1-0.9 = 742-7) Eos (Absolute) (test code = 0.1 x10E3/uL 0.0-0.4 711-2) Baso (Absolute) (test code = 0.0 x10E3/uL 0.0-0.2 704-7) Immature Granulocytes (test 0 % Not Estab. code = 82467-5) Immature Grans (Abs) (test code 0.0 x10E3/uL 0.0-0.1 = 93582-2) NRBC (test code = 59694-4) Hematology Comments: (test code = 58339-4) [facility] Description: Vaginitis/Vaginosis, DNA [id number] 15:00:00 Test Item Value Reference Range Interpretation Comments Ana Maria species (test TNP Please refer to the code = 77061-4) following sp ecimen for additional lab results.[id number] -9820-10 10/01/2021-Yohan

Performed by:
[facility] (BN)

Gardnerella vaginalis TNP Test n ot (test code = 6410-5) perform ed

Perf ormed by:
[facility] ([place])

Trichomonas vaginalis TNP Test n ot (test code = 6568-0) perform ed

Perf ormed by:
[facility] ([place])

[facility] Description: Vaginitis/Vaginosis, DNA [id number] 15:00:00 Test Item Value Reference Range Interpretation Comments Ana Maria species (test TNP Please refer to the code = 86252-1) following sp ecimen for additional lab results.[id number] -9820-10 10/01/2021-Yohan

Performed by:
[facility] ([place])

Gardnerella vaginalis TNP Test n ot (test code = 6410-5) perform ed

Perf ormed by:
[facility] ([place])

Trichomonas vaginalis TNP Test n ot (test code = 6568-0) perform ed

Perf ormed by:
[facility] ([place])

[facility] Description: Vaginitis/Vaginosis, DNA [id number] 15:00:00 Test Item Value Reference Range Interpretation Comments Ana Maria species (test TNP Please refer to the code = 30680-0) following sp ecimen for additional lab results.[id number] -9820-10 10/01/2021-Yohan

Performed by:
[facility] ([place])

Gardnerella vaginalis TNP Test n ot (test code = 6410-5) perform ed

Perf ormed by:
[facility] ([place])

Trichomonas vaginalis TNP Test n ot (test code = 6568-0) perform ed

Perf ormed by:
[facility] ([place])

[facility] Description: Vaginitis/Vaginosis, DNA [id number] 15:00:00 Test Item Value Reference Range Interpretation Comments Ana Maria species (test TNP Please refer to the code = 19313-4) following sp ecimen for additional lab results.[id number] -9820-10 10/01/2021-Yohan

Performed by:
[facility] ([place])

Gardnerella vaginalis TNP Test n ot (test code = 6410-5) perform ed

Perf ormed by:
[facility] ([place])

Trichomonas vaginalis TNP Test n ot (test code = 6568-0) perform ed

Perf ormed by:
[facility] ()

[facility] Description: Vaginitis/Vaginosis, DNA [id number] 15:00:00 Test Item Value Reference Range Interpretation Comments Ana Maria species (test TNP Please refer to the code = 38804-0) following sp ecimen for additional lab results.[id number] -9820-10 10/01/2021-Yohan

Performed by:
[facility] ()

Gardnerella vaginalis TNP Test n ot (test code = 6410-5) perform ed

Perf ormed by:
[facility] ()

Trichomonas vaginalis TNP Test n ot (test code = 6568-0) perform ed

Perf ormed by:
[facility] ()

[facility] Description: Vaginitis/Vaginosis, DNA [id number] 15:00:00 Test Item Value Reference Range Interpretation Comments Ana Maria species (test TNP Please refer to the code = 93694-8) following sp ecimen for additional lab results.132-363 -9820--Sudheererf ormed by:Ivory mills () Gardnerella vaginalis TNP Test n ot performedPerformed (test code = 6410-5) by:[facility] () Trichomonas vaginalis TNP Test n ot performedPerformed (test code = 6568-0) by:[facility] () [facility] Description: Vaginitis/Vaginosis, DNA [id number] 15:00:00 Test Item Value Reference Range Interpretation Comments Ana Maria species (test TNP Please refer to the code = 77904-7) following sp ecimen for additional lab results.132-363 -9820- ormed by:Ivory mills () Gardnerella vaginalis TNP Test n ot performedPerformed (test code = 6410-5) by:[facility] () Trichomonas vaginalis TNP Test n ot performedPerformed (test code = 6568-0) by:[facility] () [facility] Description: Vaginitis/Vaginosis, DNA [id number] 15:00:00 Test Item Value Reference Range Interpretation Comments Ana Maria species (test TNP Please refer to the code = 39535-0) following sp ecimen for additional lab results.132-363 -9820- ormed by:Ivory mills () Gardnerella vaginalis TNP Test n ot performedPerformed (test code = 6410-5) by:[facility] () Trichomonas vaginalis TNP Test n ot performedPerformed (test code = 6568-0) by:[facility] () [facility] Description: Vaginitis/Vaginosis, DNA [id number] 15:00:00 Test Item Value Reference Range Interpretation Comments Ana Maria species (test TNP Please refer to the code = 54562-4) following sp ecimen for additional lab results.132-363 -9820- ormed by:Ivory mills () Gardnerella vaginalis TNP Test n ot performedPerformed (test code = 6410-5) by:[facility] () Trichomonas vaginalis TNP Test n ot performedPerformed (test code = 6568-0) by:[facility] () [facility] Description: Vaginitis/Vaginosis, DNA [id number] 15:00:00 Test Item Value Reference Range Interpretation Comments Ana Maria species (test TNP Please refer to the code = 34079-9) following sp ecimen for additional lab results.132-363 -9820- ormed by:Ivory mills () Gardnerella vaginalis TNP Test n ot performedPerformed (test code = 6410-5) by:[facility] () Trichomonas vaginalis TNP Test n ot performedPerformed (test code = 6568-0) by:[facility] () [facility] Description: Vaginitis/Vaginosis, DNA [id number] 10:24:00 Test Item Value Reference Range Interpretation Comments Ana Maria species (test code = Negative Negative 77173-4) Gardnerella vaginalis (test code = Positive Negative A 6410-5) Trichomonas vaginalis (test code = Positive Negative A 6568-0) [facility] Description: Vaginitis/Vaginosis, DNA [id number] 10:24:00 Test Item Value Reference Range Interpretation Comments Ana Maria species (test code = Negative Negative 30664-0) Gardnerella vaginalis (test code = Positive Negative A 6410-5) Trichomonas vaginalis (test code = Positive Negative A 6568-0) [facility] Description: Vaginitis/Vaginosis, DNA [id number] 10:24:00 Test Item Value Reference Range Interpretation Comments Ana Maria species (test code = Negative Negative 03779-2) Gardnerella vaginalis (test code = Positive Negative A 6410-5) Trichomonas vaginalis (test code = Positive Negative A 6568-0) [facility] Description: Vaginitis/Vaginosis, DNA [id number] 10:24:00 Test Item Value Reference Range Interpretation Comments Ana Maria species (test code = Negative Negative 14184-3) Gardnerella vaginalis (test code = Positive Negative A 6410-5) Trichomonas vaginalis (test code = Positive Negative A 6568-0) [facility] Description: Vaginitis/Vaginosis, DNA [id number] 10:24:00 Test Item Value Reference Range Interpretation Comments Ana Maria species (test code = Negative Negative 91814-5) Gardnerella vaginalis (test code = Positive Negative A 6410-5) Trichomonas vaginalis (test code = Positive Negative A 6568-0) [facility] Description: Vaginitis/Vaginosis, DNA [id number] 10:24:00 Test Item Value Reference Range Interpretation Comments Ana Maria species (test code = Negative Negative 60277-2) Gardnerella vaginalis (test code = Positive Negative A 6410-5) Trichomonas vaginalis (test code = Positive Negative A 6568-0) [facility] Description: Vaginitis/Vaginosis, DNA [id number] 10:24:00 Test Item Value Reference Range Interpretation Comments Ana Maria species (test code = Negative Negative 15474-8) Gardnerella vaginalis (test code = Positive Negative A 6410-5) Trichomonas vaginalis (test code = Positive Negative A 6568-0) [facility] Description: Vaginitis/Vaginosis, DNA [id number] 10:24:00 Test Item Value Reference Range Interpretation Comments Ana Maria species (test code = Negative Negative 22577-6) Gardnerella vaginalis (test code = Positive Negative A 6410-5) Trichomonas vaginalis (test code = Positive Negative A 6568-0) [facility] Description: Vaginitis/Vaginosis, DNA [id number] 10:24:00 Test Item Value Reference Range Interpretation Comments Ana Maria species (test code = Negative Negative 87409-6) Gardnerella vaginalis (test code = Positive Negative A 6410-5) Trichomonas vaginalis (test code = Positive Negative A 6568-0) [facility] Description: Vaginitis/Vaginosis, DNA [id number] 10:24:00 Test Item Value Reference Range Interpretation Comments Ana Maria species (test code = Negative Negative 31421-5) Gardnerella vaginalis (test code = Positive Negative A 6410-5) Trichomonas vaginalis (test code = Positive Negative A 6568-0) [facility] Description: Chlamydia/GC Eiybyxrrfqnis5972-19-08 19:26:00 Test Item Value Reference Range Interpretation Comments Chlamydia trachomatis, MILAD (test Negative Negative code = 36504-0) Neisseria gonorrhoeae, MILAD (test Negative Negative code = 54608-5) [facility]lam[facility]/GC Bgamsoutunjud3534-69-11 19:26:00 Test Item Value Reference Range Interpretation Comments Chlamydia trachomatis, MILAD (test Negative Negative code = 26921-0) Neisseria gonorrhoeae, MILAD (test Negative Negative code = 10624-0) [facility]: Chlamydia/GC Vcfluyyccqiso1486-67-78 19:26:00 Test Item Value Reference Range Interpretation Comments Chlamydia trachomatis, MILAD (test Negative Negative code = 47478-2) Neisseria gonorrhoeae, MILAD (test Negative Negative code = 79668-4) [facility] Description: Chlamydia/GC Xtwcfnvdsiepi2423-34-89 19:26:00 Test Item Value Reference Range Interpretation Comments Chlamydia trachomatis, MILAD (test Negative Negative code = 50963-1) Neisseria gonorrhoeae, MILAD (test Negative Negative code = 84758-1) [facility] Description: Chlamydia/GC Iyvbxantejdmt0613-71-78 19:26:00 Test Item Value Reference Range Interpretation Comments Chlamydia trachomatis, MILAD (test Negative Negative code = 67979-0) Neisseria gonorrhoeae, MILAD (test Negative Negative code = 89551-7) [facility] Description: Chlamydia/GC Cvqnrgsfqjdhi0795-47-68 19:26:00 Test Item Value Reference Range Interpretation Comments Chlamydia trachomatis, MILAD (test Negative Negative code = 64648-9) Neisseria gonorrhoeae, MILAD (test Negative Negative code = 72125-0) [facility] Description: Chlamydia/GC Rtefjhozpofhh6569-60-74 19:26:00 Test Item Value Reference Range Interpretation Comments Chlamydia trachomatis, MILAD (test Negative Negative code = 28026-0) Neisseria gonorrhoeae, MILAD (test Negative Negative code = 36327-8) [facility] Description: Chlamydia/GC Pyjqxgeqxbwdw0760-17-60 19:26:00 Test Item Value Reference Range Interpretation Comments Chlamydia trachomatis, MILAD (test Negative Negative code = 19353-0) Neisseria gonorrhoeae, MILAD (test Negative Negative code = 92490-9) [facility] Description: Chlamydia/GC Nedkhiiobyakt3105-07-72 19:26:00 Test Item Value Reference Range Interpretation Comments Chlamydia trachomatis, MILAD (test Negative Negative code = 78093-0) Neisseria gonorrhoeae, MILAD (test Negative Negative code = 25941-2) [facility] Description: Chlamydia/GC Pfjijjlaotqjc4662-90-93 19:26:00 Test Item Value Reference Range Interpretation Comments Chlamydia trachomatis, MILAD (test Negative Negative code = 84584-3) Neisseria gonorrhoeae, MILAD (test Negative Negative code = 07655-2) [facility] Description: Vaginitis/Vaginosis, DNA [id number] 20:10:00 Test Item Value Reference Range Interpretation Comments Ana Maria species (test code = Negative Negative 32433-2) Gardnerella vaginalis (test code = Positive Negative A 6410-5) Trichomonas vaginalis (test code = Negative Negative 6568-0) [facility] Vaginitis/Vaginosis, DNA [id number] 20:10:00 Test Item Value Reference Range Interpretation Comments Ana Maria species (test code = Negative Negative 96973-2) Gardnerella vaginalis (test code = Positive Negative A 6410-5) Trichomonas vaginalis (test code = Negative Negative 6568-0) [facility]: Vaginitis/Vaginosis, DNA [id number] 20:10:00 Test Item Value Reference Range Interpretation Comments Ana Maria species (test code = Negative Negative 97724-7) Gardnerella vaginalis (test code = Positive Negative A 6410-5) Trichomonas vaginalis (test code = Negative Negative 6568-0) [facility]: Vaginitis/Vaginosis, DNA [id number] 20:10:00 Test Item Value Reference Range Interpretation Comments Ana Maria species (test code = Negative Negative 91477-1) Gardnerella vaginalis (test code = Positive Negative A 6410-5) Trichomonas vaginalis (test code = Negative Negative 6568-0) [facility]: Vaginitis/Vaginosis, DNA [id number] 20:10:00 Test Item Value Reference Range Interpretation Comments Ana Maria species (test code = Negative Negative 39507-3) Gardnerella vaginalis (test code = Positive Negative A 6410-5) Trichomonas vaginalis (test code = Negative Negative 6568-0) [facility]: Vaginitis/Vaginosis, DNA [id number] 20:10:00 Test Item Value Reference Range Interpretation Comments Ana Maria species (test code = Negative Negative 37175-9) Gardnerella vaginalis (test code = Positive Negative A 6410-5) Trichomonas vaginalis (test code = Negative Negative 6568-0) [facility]: Vaginitis/Vaginosis, DNA [id number] 20:10:00 Test Item Value Reference Range Interpretation Comments Ana Maria species (test code = Negative Negative 69929-2) Gardnerella vaginalis (test code = Positive Negative A 6410-5) Trichomonas vaginalis (test code = Negative Negative 6568-0) [facility] Description: Vaginitis/Vaginosis, DNA [id number] 20:10:00 Test Item Value Reference Range Interpretation Comments Ana Maria species (test code = Negative Negative 78950-5) Gardnerella vaginalis (test code = Positive Negative A 6410-5) Trichomonas vaginalis (test code = Negative Negative 6568-0) [facility] Description: Vaginitis/Vaginosis, DNA [id number] 20:10:00 Test Item Value Reference Range Interpretation Comments Ana Maria species (test code = Negative Negative 99855-0) Gardnerella vaginalis (test code = Positive Negative A 6410-5) Trichomonas vaginalis (test code = Negative Negative 6568-0) [facility] Description: Vaginitis/Vaginosis, DNA [id number] 20:10:00 Test Item Value Reference Range Interpretation Comments Ana Maria species (test code = Negative Negative 54718-9) Gardnerella vaginalis (test code = Positive Negative A 6410-5) Trichomonas vaginalis (test code = Negative Negative 6568-0) [facility] Description: Vaginitis/Vaginosis, DNA [id number] 20:10:00 Test Item Value Reference Range Interpretation Comments Ana Maria species (test code = Negative Negative 37656-8) Gardnerella vaginalis (test code = Positive Negative A 6410-5) Trichomonas vaginalis (test code = Negative Negative 6568-0) [facility] Description: Vaginitis/Vaginosis, DNA [id number] 20:10:00 Test Item Value Reference Range Interpretation Comments Ana Maria species (test code = Negative Negative 57101-5) Gardnerella vaginalis (test code = Positive Negative A 6410-5) Trichomonas vaginalis (test code = Negative Negative 6568-0) [facility] Description: Vaginitis/Vaginosis, DNA [id number] 20:10:00 Test Item Value Reference Range Interpretation Comments Ana Maria species (test code = Negative Negative 08265-7) Gardnerella vaginalis (test code = Positive Negative A 6410-5) Trichomonas vaginalis (test code = Negative Negative 6568-0) [facility] Description: Vaginitis/Vaginosis, DNA [id number] 20:10:00 Test Item Value Reference Range Interpretation Comments Ana Maria species (test code = Negative Negative 59128-6) Gardnerella vaginalis (test code = Positive Negative A 6410-5) Trichomonas vaginalis (test code = Negative Negative 6568-0) [facility] Description: Vaginitis/Vaginosis, DNA [id number] 20:10:00 Test Item Value Reference Range Interpretation Comments Ana Maria species (test code = Negative Negative 31694-3) Gardnerella vaginalis (test code = Positive Negative A 6410-5) Trichomonas vaginalis (test code = Negative Negative 6568-0) [facility] Description: RPR, Rfx Qn RPR/Confirm [id number] 05:54:00 Test Item Value Reference Range Interpretation Comments RPR (test code = 28921-3) Non Reactive Non Reactive [facility] Description: RPR, Rfx Qn RPR/Confirm [id number] 05:54:00 Test Item Value Reference Range Interpretation Comments RPR (test code = 11007-9) Non Reactive Non Reactive [facility] Description: RPR, Rfx Qn RPR/Confirm [id number] 05:54:00 Test Item Value Reference Range Interpretation Comments RPR (test code = 61788-4) Non Reactive Non Reactive [facility] Description: RPR, Rfx Qn RPR/Confirm [id number] 05:54:00 Test Item Value Reference Range Interpretation Comments RPR (test code = 27640-1) Non Reactive Non Reactive [facility] Description: RPR, Rfx Qn RPR/Confirm [id number] 05:54:00 Test Item Value Reference Range Interpretation Comments RPR (test code = 08270-9) Non Reactive Non Reactive [facility] Description: RPR, Rfx Qn RPR/Confirm [id number] 05:54:00 Test Item Value Reference Range Interpretation Comments RPR (test code = 06647-8) Non Reactive Non Reactive [facility] Description: RPR, Rfx Qn RPR/Confirm [id number] 05:54:00 Test Item Value Reference Range Interpretation Comments RPR (test code = 08080-8) Non Reactive Non Reactive [facility] Description: RPR, Rfx Qn RPR/Confirm [id number] 05:54:00 Test Item Value Reference Range Interpretation Comments RPR (test code = 58064-1) Non Reactive Non Reactive [facility] Description: RPR, Rfx Qn RPR/Confirm [id number] 05:54:00 Test Item Value Reference Range Interpretation Comments RPR (test code = 33971-8) Non Reactive Non Reactive [facility] Description: RPR, Rfx Qn RPR/Confirm [id number] 05:54:00 Test Item Value Reference Range Interpretation Comments RPR (test code = 02235-6) Non Reactive Non Reactive [facility] Description: RPR, Rfx Qn RPR/Confirm [id number] 05:54:00 Test Item Value Reference Range Interpretation Comments RPR (test code = 91524-0) Non Reactive Non Reactive [facility] Description: RPR, Rfx Qn RPR/Confirm [id number] 05:54:00 Test Item Value Reference Range Interpretation Comments RPR (test code = 99625-3) Non Reactive Non Reactive [facility] Description: RPR, Rfx Qn RPR/Confirm [id number] 05:54:00 Test Item Value Reference Range Interpretation Comments RPR (test code = 34871-9) Non Reactive Non Reactive [facility] Description: RPR, Rfx Qn RPR/Confirm [id number] 05:54:00 Test Item Value Reference Range Interpretation Comments RPR (test code = 47530-9) Non Reactive Non Reactive [facility] Description: RPR, Rfx Qn RPR/Confirm [id number] 05:54:00 Test Item Value Reference Range Interpretation Comments RPR (test code = 24995-2) Non Reactive Non Reactive [facility] Description: HIV 1+2 Ab+HIV1 p24 Ag [Presence] in Serum or Plasma by Sraubpqxxov1811-30-00 05:14:00 Test Item Value Reference Range Interpretation Comments HIV Screen 4th Generation wRfx Non Reactive Non Reactive (test code = 83117-2) [facility] Description: HIV 1+2 Ab+HIV1 p24 Ag [Presence] in Serum or Plasma by Rcvtqxovxvg8505-29-42 05:14:00 Test Item Value Reference Range Interpretation Comments HIV Screen 4th Generation wRfx Non Reactive Non Reactive (test code = 15233-9) [facility] Description: HIV 1+2 Ab+HIV1 p24 Ag [Presence] in Serum or Plasma by Vefacrrloyo7710-28-24 05:14:00 Test Item Value Reference Range Interpretation Comments HIV Screen 4th Generation wRfx Non Reactive Non Reactive (test code = 31044-8) [facility] Description: HIV 1+2 Ab+HIV1 p24 Ag [Presence] in Serum or Plasma by Hsdohczmdfk7026-28-62 05:14:00 Test Item Value Reference Range Interpretation Comments HIV Screen 4th Generation wRfx Non Reactive Non Reactive (test code = 71830-5) [facility] Description: HIV 1+2 Ab+HIV1 p24 Ag [Presence] in Serum or Plasma by Oyiaslzvfpq1605-06-19 05:14:00 Test Item Value Reference Range Interpretation Comments HIV Screen 4th Generation wRfx Non Reactive Non Reactive (test code = 33220-7) [facility] Description: HIV 1+2 Ab+HIV1 p24 Ag [Presence] in Serum or Plasma by Gtgsqfgxrhk7378-46-05 05:14:00 Test Item Value Reference Range Interpretation Comments HIV Screen 4th Generation wRfx Non Reactive Non Reactive (test code = 09112-7) [facility] Description: HIV 1+2 Ab+HIV1 p24 Ag [Presence] in Serum or Plasma by Vsnhzhkffug0340-13-75 05:14:00 Test Item Value Reference Range Interpretation Comments HIV Screen 4th Generation wRfx Non Reactive Non Reactive (test code = 77568-6) [facility] Description: HIV 1+2 Ab+HIV1 p24 Ag [Presence] in Serum or Plasma by Kopbijvklcb6659-10-32 05:14:00 Test Item Value Reference Range Interpretation Comments HIV Screen 4th Generation wRfx Non Reactive Non Reactive (test code = 25746-1) [facility] Description: HIV 1+2 Ab+HIV1 p24 Ag [Presence] in Serum or Plasma by Luyvlgyvoxk8037-21-37 05:14:00 Test Item Value Reference Range Interpretation Comments HIV Screen 4th Generation wRfx Non Reactive Non Reactive (test code = 04948-9) [facility] Description: HIV 1+2 Ab+HIV1 p24 Ag [Presence] in Serum or Plasma by Ijkpflqpjik8817-84-88 05:14:00 Test Item Value Reference Range Interpretation Comments HIV Screen 4th Generation wRfx Non Reactive Non Reactive (test code = 26266-0) [facility] Description: HIV 1+2 Ab+HIV1 p24 Ag [Presence] in Serum or Plasma by Vsjymbjjwot2965-08-96 05:14:00 Test Item Value Reference Range Interpretation Comments HIV Screen 4th Generation wRfx Non Reactive Non Reactive (test code = 24121-6) [facility] Description: HIV 1+2 Ab+HIV1 p24 Ag [Presence] in Serum or Plasma by Tmjzibcjgto4136-18-83 05:14:00 Test Item Value Reference Range Interpretation Comments HIV Screen 4th Generation wRfx Non Reactive Non Reactive (test code = 04144-9) [facility] Description: HIV 1+2 Ab+HIV1 p24 Ag [Presence] in Serum or Plasma by Whopsvbgllg4744-24-73 05:14:00 Test Item Value Reference Range Interpretation Comments HIV Screen 4th Generation wRfx Non Reactive Non Reactive (test code = 88404-6) [facility] Description: HIV 1+2 Ab+HIV1 p24 Ag [Presence] in Serum or Plasma by Azbwutaforx4667-21-78 05:14:00 Test Item Value Reference Range Interpretation Comments HIV Screen 4th Generation wRfx Non Reactive Non Reactive (test code = 76530-1) [facility] Description: HIV 1+2 Ab+HIV1 p24 Ag [Presence] in Serum or Plasma by Vuqxgialcbr7903-13-74 05:14:00 Test Item Value Reference Range Interpretation Comments HIV Screen 4th Generation wRfx Non Reactive Non Reactive (test code = 27467-3) [facility] Description: 25-hydroxyvitamin D3 [Mass/volume] in Serum or Gtlusv7649-65-66 05:13:00 Test Item Value Reference Range Interpretation Comments Vitamin D, 9.6 ng/mL 30.0-100.0 L Vitamin D defic iency has 25-Hydroxy (test been define d by the code = 36789-8) [facility] [employer] and an Endocrine So ciety practice guidel ine as alevel of serum 25-OH vitamin D less than 20 ng/mL (1,2).The Endocrine Society went on to further define vitamin Dinsufficiency as a level between 21 and 29 ng/mL (2).1. IOM (Ins titute of Medicine). 2010 . Dietary reference intak es for calcium and D. [facility]: [employer] .2. Sunshine Sanders, Rosa HARRELL, et al. Evaluation, treatment, and prevention of vitamin D de ficiency: an Endocrine So [facility] clinical practi ce guideline. EM . 2010; 96(7):191-.& lt;br/>
Performed by:
[facility] [place] ()

[facility] Description: 25-hydroxyvitamin D3 [Mass/volume] in Serum or Crwhoq8482-47-92 05:13:00 Test Item Value Reference Range Interpretation Comments Vitamin D, 9.6 ng/mL 30.0-100.0 L Vitamin D defic iency has 25-Hydroxy (test been define d by the code = 13104-7) [facility] [employer] and an Endocrine So [facility] practice guidel ine as alevel of serum 25-OH vitamin D less than 20 ng/mL (1,2).The Endocrine Society went on to further define vitamin Dinsufficiency as a level between 21 and 29 ng/mL (2).1. IOM (Ins titute of Medicine). 2010 . Dietary reference intak es for calcium and D. [facility]: [employer] .2. Sunshine Sanders, Rosa HARRELL, et al. Evaluation, treatment, and prevention of vitamin D de ficiency: an Endocrine So [facility] clinical practi ce guideline. EM . 2010; 96(7):1911-30.& lt;br/>
Performed by:
[facility] [place] ()

[facility] Description: 25-hydroxyvitamin D3 [Mass/volume] in Serum or Zyqiem0279-85-01 05:13:00 Test Item Value Reference Range Interpretation Comments Vitamin D, 9.6 ng/mL 30.0-100.0 L Vitamin D defic iency has 25-Hydroxy (test been define d by the code = 83712-0) [facility] gu[facility] as alevel of serum 25-OH vitamin D less than 20 ng/mL (1,2).The Endocrine Society went on to further define vitamin Dinsufficiency as a level between 21 and 29 ng/mL (2).1. IOM (Ins titute of Medicine). 2010 . Dietary reference intak es for calcium and D. [facility]: [employer] .2. Sunshine Sanders, Rosa HARRELL, et al. Evaluation, treatment, and prevention of vitamin D de ficiency: an Endocrine So [facility] clinical practi ce guideline. JCEM . 2010; 96(7):1911-30.& lt;br/>
Performed by:
[facility] [place] ([place])

[facility] Description: 25-hydroxyvitamin D3 [Mass/volume] in Serum or Gzjrry1752-01-01 05:13:00 Test Item Value Reference Range Interpretation Comments Vitamin D, 9.6 ng/mL 30.0-100.0 L Vitamin D defic iency has 25-Hydroxy (test been define d by the code = 35632-2) [facility] [employer] and an Endocrine So [facility] practice guidel ine as alevel of serum 25-OH vitamin D less than 20 ng/mL (1,2).The Endocrine Society went on to further define vitamin Dinsufficiency as a level between 21 and 29 ng/mL (2).1. IOM (Ins titute of Medicine). 2010 . Dietary reference intak es for calcium and D. [facility]: [employer] .2. Sunshine Sanders, Rosa HARRELL, et al. Evaluation, treatment, and prevention of vitamin D de ficiency: an Endocrine So [facility] clinical practi ce guideline. JCEM . 2010; 96(7):1911-30.& lt;br/>
Performed by:
[facility] [place] ([place])

[facility] Description: 25-hydroxyvitamin D3 [Mass/volume] in Serum or Qhqcul4434-54-42 05:13:00 Test Item Value Reference Range Interpretation Comments Vitamin D, 9.6 ng/mL 30.0-100.0 L Vitamin D defic iency has 25-Hydroxy (test been define d by the code = 41173-2) [facility] [employer] and an Endocrine So ciety practice guidel ine as alevel of serum 25-OH vitamin D less than 20 ng/mL (1,2).The Endocrine Society went on to further define vitamin Dinsufficiency as a level between 21 and 29 ng/mL (2).1. IOM (Ins titute of Medicine). 2010 . Dietary reference intak es for calcium and D. [facility]: [employer] .2. Sunshine Sanders, Rosa HARRELL, et al. Evaluation, treatment, and prevention of vitamin D de ficiency: an Endocrine So [facility] clinical practi ce guideline. JCEM . 2010; 96(7):191-.& lt;br/>
Performed by:
[facility] ([place])

[facility] Description: 25-hydroxyvitamin D3 [Mass/volume] in Serum or Qanxyq1061-21-75 05:13:00 Test Item Value Reference Range Interpretation Comments Vitamin D, 9.6 ng/mL 30.0-100.0 L Vitamin D defic iency has 25-Hydroxy (test been define d by the code = 79092-0) [facility] guidel ine as alevel of serum 25-OH vitamin D less than 20 ng/mL (1,2).The Endocrine Society went on to further define vitamin Dinsufficiency as a level between 21 and 29 ng/mL (2).1. IOM (Ins titute of Medicine). 2010 . Dietary reference intak es for calcium and D. [facility]: [employer] .2. Sunshine Sanders, Rosa HARRELL, et al. Evaluation, treatment, and prevention of vitamin D de ficiency: an Endocrine So [facility] clinical practi ce guideline. JCEM . 2010; 96(7):191-.& lt;br/>
Performed by:
[facility] ([place])

[facility] Description: 25-hydroxyvitamin D3 [Mass/volume] in Serum or Lzxdwr5593-00-85 05:13:00 Test Item Value Reference Range Interpretation Comments Vitamin D, 9.6 ng/mL 30.0-100.0 L Vitamin D defic iency has 25-Hydroxy (test been define d by the code = 50016-1) [facility] and [facility] guidel ine as alevel of serum 25-OH vitamin D less than 20 ng/mL (1,2).The Endocrine Society went on to further define vitamin Dinsufficiency as a level between 21 and 29 ng/mL (2).1. IOM (Ins titute of Medicine). 2010 . Dietary reference intak es for calcium and D. [facility]: [employer] .2. Sunshine Sanders, Rosa HARRELL, et al. Evaluation, treatment, and prevention of vitamin D de ficiency: an Endocrine So [facility] clinical practi ce guideline. JCEM . 2010; 96(7):1911-30.& lt;br/>
Performed by:
[facility] ()

[facility]: 25-hydroxyvitamin D3 [Mass/volume] in Serum or [id number] 05:13:00 Test Item Value Reference Range Interpretation Comments Vitamin D, 9.6 ng/mL 30.0-100.0 L Vitamin D defic iency has 25-Hydroxy (test been define d by the code = 52971-3) [facility] [employer] and an Endocrine So [facility] practice guidel ine as alevel of serum 25-OH vitamin D less than 20 ng/mL (1,2).The Endocrine Society went on to further define vitamin Dinsufficiency as a level between 21 and 29 ng/mL (2).1. IOM (Ins titute of Medicine). 2010 . Dietary reference intak es for calcium and D. [facility]: [employer] .2. Sunshine Sanders, Rosa HARRELL, et al. Evaluation, treatment, and prevention of vitamin D de ficiency: an Endocrine So [facility] clinical practi ce guideline. JCEM . 2010; 96(7):1911-30.& lt;br/>
Performed by:
[facility] [place] ([place])

[facility] Description: 25-hydroxyvitamin D3 [Mass/volume] in Serum or [id number] 05:13:00 Test Item Value Reference Range Interpretation Comments Vitamin D, 9.6 ng/mL 30.0-100.0 L Vitamin D defic iency has 25-Hydroxy (test been define d by the code = 24905-2) [facility] [employer] and an Endocrine So [facility] practice guidel ine as alevel of serum 25-OH vitamin D less than 20 ng/mL (1,2).The Endocrine Society went on to further define vitamin Dinsufficiency as a level between 21 and 29 ng/mL (2).1. IOM (Ins titute of Medicine). 2010 . Dietary reference intak es for calcium and D. [facility]: [employer] .2. Sunshine Sanders, Rosa HARRELL, et al. Evaluation, treatment, and prevention of vitamin D de ficiency: an Endocrine So [facility] clinical practi ce guideline. JCEM . 2010; 96(7):1911-30.& lt;br/>
Performed by:
[facility] [place] ([place])

[facility] Description: 25-hydroxyvitamin D3 [Mass/volume] in Serum or [id number] 05:13:00 Test Item Value Reference Range Interpretation Comments Vitamin D, 9.6 ng/mL 30.0-100.0 L Vitamin D defic iency has 25-Hydroxy (test been define d by the code = 30932-0) [facility] as alevel of serum 25-OH vitamin D less than 20 ng/mL (1,2).The Endocrine Society went on to further define vitamin Dinsufficiency as a level between 21 and 29 ng/mL (2).1. IOM (Ins titute of Medicine). 2010 . Dietary reference intak es for calcium and D. Alba PA: [employer] .2. Sunshine Sanders, Rosa HARRELL, et al. Evaluation, treatment, and prevention of vitamin D de ficiency: an Endocrine So [facility] clinical practi ce guideline. EM . 2010; 96(7):1911-30.P erformed by:[facility] Josephine ton ([place]) [facility] Description: 25-hydroxyvitamin D3 [Mass/volume] in Serum or [id number] 05:13:00 Test Item Value Reference Range Interpretation Comments Vitamin D, 9.6 ng/mL 30.0-100.0 L Vitamin D defic iency has 25-Hydroxy (test been define d by the code = 50310-4) [facility] and an Endocrine So [facility] practice guidel ine as alevel of serum 25-OH vitamin D less than 20 ng/mL (1,2).The Endocrine Society went on to further define vitamin Dinsufficiency as a level between 21 and 29 ng/mL (2).1. IOM (Ins titute of Medicine). 2010 . Dietary reference intak es for calcium and D. Alba PA: [employer] .2. Sunshine Sanders, Rosa HARRELL, et al. Evaluation, treatment, and prevention of vitamin D de ficiency: an Endocrine So [facility] clinical practi ce guideline. EM . 2010; 96(7):1911-30.P erformed by:[facility] Josephine ochoa (HD) [facility] Description: 25-hydroxyvitamin D3 [Mass/volume] in Serum or [id number] 05:13:00 Test Item Value Reference Range Interpretation Comments Vitamin D, 9.6 ng/mL 30.0-100.0 L Vitamin D defic iency has 25-Hydroxy (test been define d by the code = 32621-3) [facility] as alevel of serum 25-OH vitamin D less than 20 ng/mL (1,2).The Endocrine Society went on to further define vitamin Dinsufficiency as a level between 21 and 29 ng/mL (2).1. IOM (Ins titute of Medicine). 2010 . Dietary reference intak es for calcium and D. Alba PA: [employer] .2. Sunshine Sanders, Rosa HARRELL, et al. Evaluation, treatment, and prevention of vitamin D de ficiency: an Endocrine So [facility] clinical practi ce guideline. EM . 2010; 96(7):1911-30.P erformed by:[facility] Burton gabriela (HD) [facility] Description: 25-hydroxyvitamin D3 [Mass/volume] in Serum or [id number] 05:13:00 Test Item Value Reference Range Interpretation Comments Vitamin D, 9.6 ng/mL 30.0-100.0 L Vitamin D defic iency has 25-Hydroxy (test been define d by the code = 50816-3) [facility] as alevel of serum 25-OH vitamin D less than 20 ng/mL (1,2).The Endocrine Society went on to further define vitamin Dinsufficiency as a level between 21 and 29 ng/mL (2).1. IOM (Ins titute of Medicine). 2010 . Dietary reference intak es for calcium and D. Alba PA: [employer] .2. Sunshine Sanders, Rosa HARRELL, et al. Evaluation, treatment, and prevention of vitamin D de ficiency: an Endocrine So [facility] clinical practi ce guideline. EM . 2010; 96(7):1911-30.P erformed by:Ivory ochoa (HD) [facility] Description: 25-hydroxyvitamin D3 [Mass/volume] in Serum or [id number] 05:13:00 Test Item Value Reference Range Interpretation Comments Vitamin D, 9.6 ng/mL 30.0-100.0 L Vitamin D defic iency has 25-Hydroxy (test been define d by the code = 54281-9) [facility] and an Endocrine [facility]idel [facility] as alevel of serum 25-OH vitamin D less than 20 ng/mL (1,2).The Endocrine Society went on to further define vitamin Dinsufficiency as a level between 21 and 29 ng/mL (2).1. IOM (Ins titute of Medicine). 2010 . Dietary reference intak es for calcium and D. Alba PA: [employer] .2. Sunshine Sanders, Rosa HARRELL, et al. Evaluation, treatment, and prevention of vitamin D de ficiency: an Endocrine So [facility] clinical practi ce guideline. EM . 2010; 96(7):1911-30.& lt;br/>
Performed by:
Ivory Malave ()

[facility] Description: 25-hydroxyvitamin D3 [Mass/volume] in Serum or [id number] 05:13:00 Test Item Value Reference Range Interpretation Comments Vitamin D, 9.6 ng/mL 30.0-100.0 L Vitamin D defic iency has 25-Hydroxy (test been define d by the code = 73559-0) [facility] and an Endocrine So [facility] practice guidel ine as alevel of serum 25-OH vitamin D less than 20 ng/mL (1,2).The Endocrine Society went on to further define vitamin Dinsufficiency as a level between 21 and 29 ng/mL (2).1. IOM (Ins titute of Medicine). 2010 . Dietary reference intak es for calcium and D. [place]: [employer] .2. Frederic CORTEZ, Sunshine HALL, Rosa HARRELL, et al. Evaluation, treatment, and prevention of vitamin D de ficiency: an Endocrine So [facility] clinical practi ce guideline. EM . 2010; 96(7):1911-30.P erformed by:Ivory ochoa () [facility] Description: Thyrotropin [Units/volume] in Serum or Plasma by Detection limit <= 0.05 mIU/[id number] 03:20:00 Test Item Value Reference Range Interpretation Comments TSH (test code = 36715-5) 1.320 uIU/mL 0.450-4.500 [facility] Description: Thyrotropin [Units/volume] in Serum or Plasma by Detection limit <= 0.05 mIU/[id number] 03:20:00 Test Item Value Reference Range Interpretation Comments TSH (test code = 92752-9) 1.320 uIU/mL 0.450-4.500 [facility] Description: Thyrotropin [Units/volume] in Serum or Plasma by Detection limit <= 0.05 mIU/[id number] 03:20:00 Test Item Value Reference Range Interpretation Comments TSH (test code = 25795-9) 1.320 uIU/mL 0.450-4.500 [facility] Description: Thyrotropin [Units/volume] in Serum or Plasma by Detection limit <= 0.05 mIU/[id number] 03:20:00 Test Item Value Reference Range Interpretation Comments TSH (test code = 75513-5) 1.320 uIU/mL 0.450-4.500 [facility] Description: Thyrotropin [Units/volume] in Serum or Plasma by Detection limit <= 0.05 mIU/[id number] 03:20:00 Test Item Value Reference Range Interpretation Comments TSH (test code = 88814-9) 1.320 uIU/mL 0.450-4.500 [facility] Description: Thyrotropin [Units/volume] in Serum or Plasma by Detection limit <= 0.05 mIU/[id number] 03:20:00 Test Item Value Reference Range Interpretation Comments TSH (test code = 42031-7) 1.320 uIU/mL 0.450-4.500 [facility] Description: Thyrotropin [Units/volume] in Serum or Plasma by Detection limit <= 0.05 mIU/[id number] 03:20:00 Test Item Value Reference Range Interpretation Comments TSH (test code = 74249-0) 1.320 uIU/mL 0.450-4.500 [facility] Description: Thyrotropin [Units/volume] in Serum or Plasma by Detection limit <= 0.05 mIU/[id number] 03:20:00 Test Item Value Reference Range Interpretation Comments TSH (test code = 99865-1) 1.320 uIU/mL 0.450-4.500 [facility] Description: Thyrotropin [Units/volume] in Serum or Plasma by Detection limit <= 0.05 mIU/[id number] 03:20:00 Test Item Value Reference Range Interpretation Comments TSH (test code = 77708-7) 1.320 uIU/mL 0.450-4.500 [facility] Description: Thyrotropin [Units/volume] in Serum or Plasma by Detection limit <= 0.05 mIU/[id number] 03:20:00 Test Item Value Reference Range Interpretation Comments TSH (test code = 92279-5) 1.320 uIU/mL 0.450-4.500 [facility] Description: Thyrotropin [Units/volume] in Serum or Plasma by Detection limit <= 0.05 mIU/[id number] 03:20:00 Test Item Value Reference Range Interpretation Comments TSH (test code = 45656-5) 1.320 uIU/mL 0.450-4.500 [facility] Description: Thyrotropin [Units/volume] in Serum or Plasma by Detection limit <= 0.05 mIU/[id number] 03:20:00 Test Item Value Reference Range Interpretation Comments TSH (test code = 53147-3) 1.320 uIU/mL 0.450-4.500 [facility] Description: Thyrotropin [Units/volume] in Serum or Plasma by Detection limit <= 0.05 mIU/[id number] 03:20:00 Test Item Value Reference Range Interpretation Comments TSH (test code = 97617-4) 1.320 uIU/mL 0.450-4.500 [facility] Description: Thyrotropin [Units/volume] in Serum or Plasma by Detection limit <= 0.05 mIU/[id number] 03:20:00 Test Item Value Reference Range Interpretation Comments TSH (test code = 58768-0) 1.320 uIU/mL 0.450-4.500 [facility] Description: Thyrotropin [Units/volume] in Serum or Plasma by Detection limit <= 0.05 mIU/[id number] 03:20:00 Test Item Value Reference Range Interpretation Comments TSH (test code = 41701-3) 1.320 uIU/mL 0.450-4.500 [facility] Description: Lipid [id number] 00:57:00 Test Item Value Reference Range Interpretation Comments Cholesterol, Total (test code = 141 mg/dL 679-563 4350-3) Triglycerides (test code = 2571-8) 62 mg/dL 0-149 HDL Cholesterol (test code = 74 mg/dL >39 2085-9) VLDL Cholesterol Robson (test code = 12 mg/dL 5-40 19032-6) LDL Cholesterol Calc (test code = 55 mg/dL 0-99 94392-6) Comment: (test code = 32963-5) [facility] Description: Lipid [id number] 00:57:00 Test Item Value Reference Range Interpretation Comments Cholesterol, Total (test code = 141 mg/dL 671-599 4204-3) Triglycerides (test code = 2571-8) 62 mg/dL 0-149 HDL Cholesterol (test code = 74 mg/dL >39 2085-9) VLDL Cholesterol Robson (test code = 12 mg/dL 5-40 98949-8) LDL Cholesterol Calc (test code = 55 mg/dL 0-99 23546-7) Comment: (test code = 14138-3) [facility] Description: Lipid [id number] 00:57:00 Test Item Value Reference Range Interpretation Comments Cholesterol, Total (test code = 141 mg/dL 133-545 8519-3) Triglycerides (test code = 2571-8) 62 mg/dL 0-149 HDL Cholesterol (test code = 74 mg/dL >39 2085-9) VLDL Cholesterol Robson (test code = 12 mg/dL 5-40 97705-9) LDL Cholesterol Calc (test code = 55 mg/dL 0-99 85104-6) Comment: (test code = 80095-4) [facility] Description: Lipid [id number] 00:57:00 Test Item Value Reference Range Interpretation Comments Cholesterol, Total (test code = 141 mg/dL 530-750 5700-3) Triglycerides (test code = 2571-8) 62 mg/dL 0-149 HDL Cholesterol (test code = 74 mg/dL >39 2085-9) VLDL Cholesterol Robson (test code = 12 mg/dL 5-40 17484-6) LDL Cholesterol Calc (test code = 55 mg/dL 0-99 21691-1) Comment: (test code = 37268-4) [facility] Description: Lipid [id number] 00:57:00 Test Item Value Reference Range Interpretation Comments Cholesterol, Total (test code = 141 mg/dL 684-850 9675-3) Triglycerides (test code = 2571-8) 62 mg/dL 0-149 HDL Cholesterol (test code = 74 mg/dL >39 2085-9) VLDL Cholesterol Robson (test code = 12 mg/dL 5-40 79128-8) LDL Cholesterol Calc (test code = 55 mg/dL 0-99 07272-5) Comment: (test code = 86496-2) [facility] Description: Lipid [id number] 00:57:00 Test Item Value Reference Range Interpretation Comments Cholesterol, Total (test code = 141 mg/dL 482-753 2992-3) Triglycerides (test code = 2571-8) 62 mg/dL 0-149 HDL Cholesterol (test code = 74 mg/dL >39 2085-9) VLDL Cholesterol Robson (test code = 12 mg/dL 5-40 46945-2) LDL Cholesterol Calc (test code = 55 mg/dL 0-99 32959-4) Comment: (test code = 12293-8) [facility] Description: Lipid [id number] 00:57:00 Test Item Value Reference Range Interpretation Comments Cholesterol, Total (test code = 141 mg/dL 311-668 7803-3) Triglycerides (test code = 2571-8) 62 mg/dL 0-149 HDL Cholesterol (test code = 74 mg/dL >39 2085-9) VLDL Cholesterol Robson (test code = 12 mg/dL 5-40 50526-0) LDL Cholesterol Calc (test code = 55 mg/dL 0-99 68991-9) Comment: (test code = 15095-3) [facility] Description: Lipid [id number] 00:57:00 Test Item Value Reference Range Interpretation Comments Cholesterol, Total (test code = 141 mg/dL 846-896 2614-3) Triglycerides (test code = 2571-8) 62 mg/dL 0-149 HDL Cholesterol (test code = 74 mg/dL >39 2085-9) VLDL Cholesterol Robson (test code = 12 mg/dL 5-40 14795-8) LDL Cholesterol Calc (test code = 55 mg/dL 0-99 27668-3) Comment: (test code = 97558-7) [facility] Description: Lipid [id number] 00:57:00 Test Item Value Reference Range Interpretation Comments Cholesterol, Total (test code = 141 mg/dL 386-831 4814-3) Triglycerides (test code = 2571-8) 62 mg/dL 0-149 HDL Cholesterol (test code = 74 mg/dL >39 2085-9) VLDL Cholesterol Robson (test code = 12 mg/dL 5-40 34348-1) LDL Cholesterol Calc (test code = 55 mg/dL 0-99 00583-8) Comment: (test code = 89423-4) [facility] Description: Lipid [id number] 00:57:00 Test Item Value Reference Range Interpretation Comments Cholesterol, Total (test code = 141 mg/dL 273-068 0104-3) Triglycerides (test code = 2571-8) 62 mg/dL 0-149 HDL Cholesterol (test code = 74 mg/dL >39 2085-9) VLDL Cholesterol Robson (test code = 12 mg/dL 5-40 78693-1) LDL Cholesterol Calc (test code = 55 mg/dL 0-99 12182-3) Comment: (test code = 38606-4) [facility] Description: Lipid [id number] 00:57:00 Test Item Value Reference Range Interpretation Comments Cholesterol, Total (test code = 141 mg/dL 597-171 3991-3) Triglycerides (test code = 2571-8) 62 mg/dL 0-149 HDL Cholesterol (test code = 74 mg/dL >39 2085-9) VLDL Cholesterol Robson (test code = 12 mg/dL 5-40 11783-1) LDL Cholesterol Calc (test code = 55 mg/dL 0-99 90727-7) Comment: (test code = 34431-9) [facility] Description: Lipid [id number] 00:57:00 Test Item Value Reference Range Interpretation Comments Cholesterol, Total (test code = 141 mg/dL 075-000 1534-3) Triglycerides (test code = 2571-8) 62 mg/dL 0-149 HDL Cholesterol (test code = 74 mg/dL >39 2085-9) VLDL Cholesterol Robson (test code = 12 mg/dL 5-40 37538-3) LDL Cholesterol Calc (test code = 55 mg/dL 0-99 91772-2) Comment: (test code = 64751-4) [facility] Description: Lipid [id number] 00:57:00 Test Item Value Reference Range Interpretation Comments Cholesterol, Total (test code = 141 mg/dL 584-237 4727-3) Triglycerides (test code = 2571-8) 62 mg/dL 0-149 HDL Cholesterol (test code = 74 mg/dL >39 2085-9) VLDL Cholesterol Robson (test code = 12 mg/dL 5-40 15515-7) LDL Cholesterol Calc (test code = 55 mg/dL 0-99 44695-6) Comment: (test code = 76343-8) [facility] Description: Lipid [id number] 00:57:00 Test Item Value Reference Range Interpretation Comments Cholesterol, Total (test code = 141 mg/dL 006-830 3820-3) Triglycerides (test code = 2571-8) 62 mg/dL 0-149 HDL Cholesterol (test code = 74 mg/dL >39 5-9) VLDL Cholesterol Robson (test code = 12 mg/dL 5-40 24978-9) LDL Cholesterol Calc (test code = 55 mg/dL 0-99 61447-5) Comment: (test code = 45585-9) [facility] Description: Lipid [id number] 00:57:00 Test Item Value Reference Range Interpretation Comments Cholesterol, Total (test code = 141 mg/dL 921-588 9362-3) Triglycerides (test code = 2571-8) 62 mg/dL 0-149 HDL Cholesterol (test code = 74 mg/dL >39 5-9) VLDL Cholesterol Robson (test code = 12 mg/dL 5-40 89738-6) LDL Cholesterol Calc (test code = 55 mg/dL 0-99 00152-0) Comment: (test code = 36787-1) [facility] Description: Comp. Metabolic Panel (14)2019-11-09 00:50:00 Test Item Value Reference Range Interpretation Comments Glucose (test code = 2345-7) 78 mg/dL 65-99 BUN (test code = 3094-0) 6 mg/dL 6-24 Creatinine (test code = 0.78 mg/dL 0.57-1.00 2160-0) eGFR If NonAfricn Am (test 93 mL/min/1.73 >59 code = 43796-8) eGFR If Africn Am (test code 108 mL/min/1.73 >59 = 41433-4) BUN/Creatinine Ratio (test 8 9-23 L code = 3097-3) Sodium (test code = 2951-2) 137 mmol/L 134-144 Potassium (test code = 4.4 mmol/L 3.5-5.2 2823-3) Chloride (test code = 2075-0) 103 mmol/L 96-106 Carbon Dioxide, Total (test 23 mmol/L 20-29 code = 8-9) Calcium (test code = 41634-9) 9.2 mg/dL 8.7-10.2 Protein, Total (test code = 6.7 g/dL 6.0-8.5 2885-2) Albumin (test code = 1751-7) 4.4 g/dL 3.8-4.8 Globulin, Total (test code = 2.3 g/dL 1.5-4.5 52588-8) A/G Ratio (test code = 1.9 1.2-2.2 1759-0) Bilirubin, Total (test code = 0.2 mg/dL 0.0-1.2 1975-2) Alkaline Phosphatase (test 47 IU/L 39-117 code = 6768-6) AST (SGOT) (test code = 21 IU/L 0-40 1920-8) ALT (SGPT) (test code = 14 IU/L 0-32 1742-6) [facility] Description: Comp. Metabolic Panel (14)2019-11-09 00:50:00 Test Item Value Reference Range Interpretation Comments Glucose (test code = 2345-7) 78 mg/dL 65-99 BUN (test code = 3094-0) 6 mg/dL 6-24 Creatinine (test code = 0.78 mg/dL 0.57-1.00 2160-0) eGFR If NonAfricn Am (test 93 mL/min/1.73 >59 code = 67212-7) eGFR If Africn Am (test code 108 mL/min/1.73 >59 = 58245-4) BUN/Creatinine Ratio (test 8 9-23 L code = 3097-3) Sodium (test code = 2951-2) 137 mmol/L 134-144 Potassium (test code = 4.4 mmol/L 3.5-5.2 2823-3) Chloride (test code = 2075-0) 103 mmol/L 96-106 Carbon Dioxide, Total (test 23 mmol/L -29 code = 2027-9) Calcium (test code = 53011-9) 9.2 mg/dL 8.7-10.2 Protein, Total (test code = 6.7 g/dL 6.0-8.5 2885-2) Albumin (test code = 1751-7) 4.4 g/dL 3.8-4.8 Globulin, Total (test code = 2.3 g/dL 1.5-4.5 63800-6) A/G Ratio (test code = 1.9 1.2-2.2 1759-0) Bilirubin, Total (test code = 0.2 mg/dL 0.0-1.2 1975-2) Alkaline Phosphatase (test 47 IU/L 39-117 code = 6768-6) AST (SGOT) (test code = 21 IU/L 0-40 1920-8) ALT (SGPT) (test code = 14 IU/L 0-32 1742-6) [facility] Description: Comp. Metabolic Panel (2019-11-09 00:50:00 Test Item Value Reference Range Interpretation Comments Glucose (test code = 2345-7) 78 mg/dL 65-99 BUN (test code = 3094-0) 6 mg/dL 6-24 Creatinine (test code = 0.78 mg/dL 0.57-1.00 2160-0) eGFR If NonAfricn Am (test 93 mL/min/1.73 >59 code = 85536-5) eGFR If Africn Am (test code 108 mL/min/1.73 >59 = 28780-9) BUN/Creatinine Ratio (test 8 9-23 L code = 3097-3) Sodium (test code = 2951-2) 137 mmol/L 134-144 Potassium (test code = 4.4 mmol/L 3.5-5.2 2823-3) Chloride (test code = 2075-0) 103 mmol/L 96-106 Carbon Dioxide, Total (test 23 mmol/L -29 code = 2027-9) Calcium (test code = 18294-0) 9.2 mg/dL 8.7-10.2 Protein, Total (test code = 6.7 g/dL 6.0-8.5 2885-2) Albumin (test code = 1751-7) 4.4 g/dL 3.8-4.8 Globulin, Total (test code = 2.3 g/dL 1.5-4.5 39235-3) A/G Ratio (test code = 1.9 1.2-2.2 1759-0) Bilirubin, Total (test code = 0.2 mg/dL 0.0-1.2 1975-2) Alkaline Phosphatase (test 47 IU/L 39-117 code = 6768-6) AST (SGOT) (test code = 21 IU/L 0-40 1920-8) ALT (SGPT) (test code = 14 IU/L 0-32 1742-6) [facility] Description: Comp. Metabolic Panel (14)2019-11-09 00:50:00 Test Item Value Reference Range Interpretation Comments Glucose (test code = 2345-7) 78 mg/dL 65-99 BUN (test code = 3094-0) 6 mg/dL 6-24 Creatinine (test code = 0.78 mg/dL 0.57-1.00 2160-0) eGFR If NonAfricn Am (test 93 mL/min/1.73 >59 code = 34828-4) eGFR If Africn Am (test code 108 mL/min/1.73 >59 = 04160-4) BUN/Creatinine Ratio (test 8 9-23 L code = 3097-3) Sodium (test code = 2951-2) 137 mmol/L 134-144 Potassium (test code = 4.4 mmol/L 3.5-5.2 2823-3) Chloride (test code = 2075-0) 103 mmol/L 96-106 Carbon Dioxide, Total (test 23 mmol/L 20-29 code = 8-9) Calcium (test code = 38537-3) 9.2 mg/dL 8.7-10.2 Protein, Total (test code = 6.7 g/dL 6.0-8.5 2885-2) Albumin (test code = 1751-7) 4.4 g/dL 3.8-4.8 Globulin, Total (test code = 2.3 g/dL 1.5-4.5 81507-7) A/G Ratio (test code = 1.9 1.2-2.2 1759-0) Bilirubin, Total (test code = 0.2 mg/dL 0.0-1.2 1974-) Alkaline Phosphatase (test 47 IU/L 39-117 code = 6768-6) AST (SGOT) (test code = 21 IU/L 0-40 1920-8) ALT (SGPT) (test code = 14 IU/L 0-32 1742-6) [facility] Description: Comp. Metabolic Panel (2019-11-09 00:50:00 Test Item Value Reference Range Interpretation Comments Glucose (test code = 2345-7) 78 mg/dL 65-99 BUN (test code = 3094-0) 6 mg/dL 6-24 Creatinine (test code = 0.78 mg/dL 0.57-1.00 2160-0) eGFR If NonAfricn Am (test 93 mL/min/1.73 >59 code = 86998-9) eGFR If Africn Am (test code 108 mL/min/1.73 >59 = 13347-8) BUN/Creatinine Ratio (test 8 9-23 L code = 3097-3) Sodium (test code = 2951-2) 137 mmol/L 134-144 Potassium (test code = 4.4 mmol/L 3.5-5.2 2823-3) Chloride (test code = 2075-0) 103 mmol/L 96-106 Carbon Dioxide, Total (test 23 mmol/L 20-29 code = 8-9) Calcium (test code = 00419-7) 9.2 mg/dL 8.7-10.2 Protein, Total (test code = 6.7 g/dL 6.0-8.5 2885-2) Albumin (test code = 1751-7) 4.4 g/dL 3.8-4.8 Globulin, Total (test code = 2.3 g/dL 1.5-4.5 60251-0) A/G Ratio (test code = 1.9 1.2-2.2 1758-0) Bilirubin, Total (test code = 0.2 mg/dL 0.0-1.2 1974-) Alkaline Phosphatase (test 47 IU/L 39-117 code = 6768-6) AST (SGOT) (test code = 21 IU/L 0-40 1920-8) ALT (SGPT) (test code = 14 IU/L 0-32 1742-6) [facility] Description: Comp. Metabolic Panel ()2019-11-09 00:50:00 Test Item Value Reference Range Interpretation Comments Glucose (test code = 2345-7) 78 mg/dL 65-99 BUN (test code = 3094-0) 6 mg/dL 6-24 Creatinine (test code = 0.78 mg/dL 0.57-1.00 2160-0) eGFR If NonAfricn Am (test 93 mL/min/1.73 >59 code = 71047-8) eGFR If Africn Am (test code 108 mL/min/1.73 >59 = 04037-7) BUN/Creatinine Ratio (test 8 9-23 L code = 3097-3) Sodium (test code = 2951-2) 137 mmol/L 134-144 Potassium (test code = 4.4 mmol/L 3.5-5.2 2823-3) Chloride (test code = 2075-0) 103 mmol/L 96-106 Carbon Dioxide, Total (test 23 mmol/L 20-29 code = 8-9) Calcium (test code = 92867-5) 9.2 mg/dL 8.7-10.2 Protein, Total (test code = 6.7 g/dL 6.0-8.5 2885-2) Albumin (test code = 1751-7) 4.4 g/dL 3.8-4.8 Globulin, Total (test code = 2.3 g/dL 1.5-4.5 88225-1) A/G Ratio (test code = 1.9 1.2-2.2 1759-0) Bilirubin, Total (test code = 0.2 mg/dL 0.0-1.2 1975-2) Alkaline Phosphatase (test 47 IU/L 39-117 code = 6768-6) AST (SGOT) (test code = 21 IU/L 0-40 0-8) ALT (SGPT) (test code = 14 IU/L 0-32 1742-6) [facility] Description: Comp. Metabolic Panel (142019-11-09 00:50:00 Test Item Value Reference Range Interpretation Comments Glucose (test code = 2345-7) 78 mg/dL 65-99 BUN (test code = 3094-0) 6 mg/dL 6-24 Creatinine (test code = 0.78 mg/dL 0.57-1.00 2160-0) eGFR If NonAfricn Am (test 93 mL/min/1.73 >59 code = 91992-4) eGFR If Africn Am (test code 108 mL/min/1.73 >59 = 58576-9) BUN/Creatinine Ratio (test 8 9-23 L code = 3097-3) Sodium (test code = 2951-2) 137 mmol/L 134-144 Potassium (test code = 4.4 mmol/L 3.5-5.2 2823-3) Chloride (test code = 2075-0) 103 mmol/L 96-106 Carbon Dioxide, Total (test 23 mmol/L 20-29 code = 8-9) Calcium (test code = 36664-3) 9.2 mg/dL 8.7-10.2 Protein, Total (test code = 6.7 g/dL 6.0-8.5 2885-2) Albumin (test code = 1751-7) 4.4 g/dL 3.8-4.8 Globulin, Total (test code = 2.3 g/dL 1.5-4.5 49595-5) A/G Ratio (test code = 1.9 1.2-2.2 1759-0) Bilirubin, Total (test code = 0.2 mg/dL 0.0-1.2 1975-2) Alkaline Phosphatase (test 47 IU/L 39-117 code = 6768-6) AST (SGOT) (test code = 21 IU/L 0-40 1920-8) ALT (SGPT) (test code = 14 IU/L 0-32 1742-6) [facility] Description: Comp. Metabolic Panel (2019-11-09 00:50:00 Test Item Value Reference Range Interpretation Comments Glucose (test code = 2345-7) 78 mg/dL 65-99 BUN (test code = 3094-0) 6 mg/dL 6-24 Creatinine (test code = 0.78 mg/dL 0.57-1.00 2160-0) eGFR If NonAfricn Am (test 93 mL/min/1.73 >59 code = 57096-5) eGFR If Africn Am (test code 108 mL/min/1.73 >59 = 15708-1) BUN/Creatinine Ratio (test 8 9-23 L code = 3097-3) Sodium (test code = 2951-2) 137 mmol/L 134-144 Potassium (test code = 4.4 mmol/L 3.5-5.2 2823-3) Chloride (test code = 2075-0) 103 mmol/L 96-106 Carbon Dioxide, Total (test 23 mmol/L 20-29 code = 2028-9) Calcium (test code = 41381-1) 9.2 mg/dL 8.7-10.2 Protein, Total (test code = 6.7 g/dL 6.0-8.5 2885-2) Albumin (test code = 1751-7) 4.4 g/dL 3.8-4.8 Globulin, Total (test code = 2.3 g/dL 1.5-4.5 87562-3) A/G Ratio (test code = 1.9 1.2-2.2 1759-0) Bilirubin, Total (test code = 0.2 mg/dL 0.0-1.2 1975-2) Alkaline Phosphatase (test 47 IU/L 39-117 code = 6768-6) AST (SGOT) (test code = 21 IU/L 0-40 1920-8) ALT (SGPT) (test code = 14 IU/L 0-32 1742-6) [facility] Description: Comp. Metabolic Panel (2019-11-09 00:50:00 Test Item Value Reference Range Interpretation Comments Glucose (test code = 2345-7) 78 mg/dL 65-99 BUN (test code = 3094-0) 6 mg/dL 6-24 Creatinine (test code = 0.78 mg/dL 0.57-1.00 2160-0) eGFR If NonAfricn Am (test 93 mL/min/1.73 >59 code = 84693-9) eGFR If Africn Am (test code 108 mL/min/1.73 >59 = 53936-8) BUN/Creatinine Ratio (test 8 9-23 L code = 3097-3) Sodium (test code = 2951-2) 137 mmol/L 134-144 Potassium (test code = 4.4 mmol/L 3.5-5.2 2823-3) Chloride (test code = 2075-0) 103 mmol/L 96-106 Carbon Dioxide, Total (test 23 mmol/L -29 code = 2027-) Calcium (test code = 13425-3) 9.2 mg/dL 8.7-10.2 Protein, Total (test code = 6.7 g/dL 6.0-8.5 2885-2) Albumin (test code = 1751-7) 4.4 g/dL 3.8-4.8 Globulin, Total (test code = 2.3 g/dL 1.5-4.5 20550-5) A/G Ratio (test code = 1.9 1.2-2.2 1759-0) Bilirubin, Total (test code = 0.2 mg/dL 0.0-1.2 1974-2) Alkaline Phosphatase (test 47 IU/L 39-117 code = 6768-6) AST (SGOT) (test code = 21 IU/L 0-40 1920-8) ALT (SGPT) (test code = 14 IU/L 0-32 1742-6) [facility] Description: Comp. Metabolic Panel (2019-11-09 00:50:00 Test Item Value Reference Range Interpretation Comments Glucose (test code = 2345-7) 78 mg/dL 65-99 BUN (test code = 3094-0) 6 mg/dL 6-24 Creatinine (test code = 0.78 mg/dL 0.57-1.00 2160-0) eGFR If NonAfricn Am (test 93 mL/min/1.73 >59 code = 13397-4) eGFR If Africn Am (test code 108 mL/min/1.73 >59 = 70837-0) BUN/Creatinine Ratio (test 8 9-23 L code = 3097-3) Sodium (test code = 2951-2) 137 mmol/L 134-144 Potassium (test code = 4.4 mmol/L 3.5-5.2 2823-3) Chloride (test code = 2075-0) 103 mmol/L 96-106 Carbon Dioxide, Total (test 23 mmol/L -29 code = 2027-) Calcium (test code = 09386-3) 9.2 mg/dL 8.7-10.2 Protein, Total (test code = 6.7 g/dL 6.0-8.5 2885-2) Albumin (test code = 1751-7) 4.4 g/dL 3.8-4.8 Globulin, Total (test code = 2.3 g/dL 1.5-4.5 13799-1) A/G Ratio (test code = 1.9 1.2-2.2 1759-0) Bilirubin, Total (test code = 0.2 mg/dL 0.0-1.2 1975-2) Alkaline Phosphatase (test 47 IU/L 39-117 code = 6768-6) AST (SGOT) (test code = 21 IU/L 0-40 1920-8) ALT (SGPT) (test code = 14 IU/L 0-32 1742-6) [facility] Description: Comp. Metabolic Panel (2019-11-09 00:50:00 Test Item Value Reference Range Interpretation Comments Glucose (test code = 2345-7) 78 mg/dL 65-99 BUN (test code = 3094-0) 6 mg/dL 6-24 Creatinine (test code = 0.78 mg/dL 0.57-1.00 2160-0) eGFR If NonAfricn Am (test 93 mL/min/1.73 >59 code = 14980-8) eGFR If Africn Am (test code 108 mL/min/1.73 >59 = 71437-4) BUN/Creatinine Ratio (test 8 9-23 L code = 3097-3) Sodium (test code = 2951-2) 137 mmol/L 134-144 Potassium (test code = 4.4 mmol/L 3.5-5.2 2823-3) Chloride (test code = 2075-0) 103 mmol/L 96-106 Carbon Dioxide, Total (test 23 mmol/L 29 code = 2027-9) Calcium (test code = 00538-2) 9.2 mg/dL 8.7-10.2 Protein, Total (test code = 6.7 g/dL 6.0-8.5 2885-2) Albumin (test code = 1751-7) 4.4 g/dL 3.8-4.8 Globulin, Total (test code = 2.3 g/dL 1.5-4.5 87921-7) A/G Ratio (test code = 1.9 1.2-2.2 1759-0) Bilirubin, Total (test code = 0.2 mg/dL 0.0-1.2 1975-2) Alkaline Phosphatase (test 47 IU/L 39-117 code = 6768-6) AST (SGOT) (test code = 21 IU/L 0-40 1920-8) ALT (SGPT) (test code = 14 IU/L 0-32 1742-6) [facility] Description: Comp. Metabolic Panel (2019-11-09 00:50:00 Test Item Value Reference Range Interpretation Comments Glucose (test code = 2345-7) 78 mg/dL 65-99 BUN (test code = 3094-0) 6 mg/dL 6-24 Creatinine (test code = 0.78 mg/dL 0.57-1.00 2160-0) eGFR If NonAfricn Am (test 93 mL/min/1.73 >59 code = 96478-3) eGFR If Africn Am (test code 108 mL/min/1.73 >59 = 02974-9) BUN/Creatinine Ratio (test 8 9-23 L code = 3097-3) Sodium (test code = 2951-2) 137 mmol/L 134-144 Potassium (test code = 4.4 mmol/L 3.5-5.2 2823-3) Chloride (test code = 2075-0) 103 mmol/L 96-106 Carbon Dioxide, Total (test 23 mmol/L 20-29 code = 8-9) Calcium (test code = 95639-4) 9.2 mg/dL 8.7-10.2 Protein, Total (test code = 6.7 g/dL 6.0-8.5 2885-2) Albumin (test code = 1751-7) 4.4 g/dL 3.8-4.8 Globulin, Total (test code = 2.3 g/dL 1.5-4.5 06960-0) A/G Ratio (test code = 1.9 1.2-2.2 1759-0) Bilirubin, Total (test code = 0.2 mg/dL 0.0-1.2 1974-06) Alkaline Phosphatase (test 47 IU/L 39-117 code = 6768-6) AST (SGOT) (test code = 21 IU/L 0-40 1920-8) ALT (SGPT) (test code = 14 IU/L 0-32 1742-6) [facility] Description: Comp. Metabolic Panel (2019-11-09 00:50:00 Test Item Value Reference Range Interpretation Comments Glucose (test code = 2345-7) 78 mg/dL 65-99 BUN (test code = 3094-0) 6 mg/dL 6-24 Creatinine (test code = 0.78 mg/dL 0.57-1.00 2160-0) eGFR If NonAfricn Am (test 93 mL/min/1.73 >59 code = 64741-7) eGFR If Africn Am (test code 108 mL/min/1.73 >59 = 50103-5) BUN/Creatinine Ratio (test 8 9-23 L code = 3097-3) Sodium (test code = 2951-2) 137 mmol/L 134-144 Potassium (test code = 4.4 mmol/L 3.5-5.2 2823-3) Chloride (test code = 2075-0) 103 mmol/L 96-106 Carbon Dioxide, Total (test 23 mmol/L 20-29 code = 8-9) Calcium (test code = 46439-7) 9.2 mg/dL 8.7-10.2 Protein, Total (test code = 6.7 g/dL 6.0-8.5 2885-2) Albumin (test code = 1751-7) 4.4 g/dL 3.8-4.8 Globulin, Total (test code = 2.3 g/dL 1.5-4.5 30002-2) A/G Ratio (test code = 1.9 1.2-2.2 1759-0) Bilirubin, Total (test code = 0.2 mg/dL 0.0-1.2 1974-06) Alkaline Phosphatase (test 47 IU/L 39-117 code = 6768-6) AST (SGOT) (test code = 21 IU/L 0-40 0-8) ALT (SGPT) (test code = 14 IU/L 0-32 1742-6) [facility] Description: Comp. Metabolic Panel (14)2019-11-09 00:50:00 Test Item Value Reference Range Interpretation Comments Glucose (test code = 2345-7) 78 mg/dL 65-99 BUN (test code = 3094-0) 6 mg/dL 6-24 Creatinine (test code = 0.78 mg/dL 0.57-1.00 2160-0) eGFR If NonAfricn Am (test 93 mL/min/1.73 >59 code = 61712-5) eGFR If Africn Am (test code 108 mL/min/1.73 >59 = 13971-8) BUN/Creatinine Ratio (test 8 9-23 L code = 3097-3) Sodium (test code = 2951-2) 137 mmol/L 134-144 Potassium (test code = 4.4 mmol/L 3.5-5.2 2823-3) Chloride (test code = 2075-0) 103 mmol/L 96-106 Carbon Dioxide, Total (test 23 mmol/L 20-29 code = 8-9) Calcium (test code = 51613-8) 9.2 mg/dL 8.7-10.2 Protein, Total (test code = 6.7 g/dL 6.0-8.5 2885-2) Albumin (test code = 1751-7) 4.4 g/dL 3.8-4.8 Globulin, Total (test code = 2.3 g/dL 1.5-4.5 45761-6) A/G Ratio (test code = 1.9 1.2-2.2 1759-0) Bilirubin, Total (test code = 0.2 mg/dL 0.0-1.2 1975-2) Alkaline Phosphatase (test 47 IU/L 39-117 code = 6768-6) AST (SGOT) (test code = 21 IU/L 0-40 1920-8) ALT (SGPT) (test code = 14 IU/L 0-32 1742-6) [facility] Description: Comp. Metabolic Panel (14)2019-11-09 00:50:00 Test Item Value Reference Range Interpretation Comments Glucose (test code = 2345-7) 78 mg/dL 65-99 BUN (test code = 3094-0) 6 mg/dL 6-24 Creatinine (test code = 0.78 mg/dL 0.57-1.00 2160-0) eGFR If NonAfricn Am (test 93 mL/min/1.73 >59 code = 79522-3) eGFR If Africn Am (test code 108 mL/min/1.73 >59 = 06796-6) BUN/Creatinine Ratio (test 8 9-23 L code = 3097-3) Sodium (test code = 2951-2) 137 mmol/L 134-144 Potassium (test code = 4.4 mmol/L 3.5-5.2 2823-3) Chloride (test code = 2075-0) 103 mmol/L 96-106 Carbon Dioxide, Total (test 23 mmol/L 20-29 code = 8-9) Calcium (test code = 61567-6) 9.2 mg/dL 8.7-10.2 Protein, Total (test code = 6.7 g/dL 6.0-8.5 2885-2) Albumin (test code = 1751-7) 4.4 g/dL 3.8-4.8 Globulin, Total (test code = 2.3 g/dL 1.5-4.5 04096-5) A/G Ratio (test code = 1.9 1.2-2.2 1759-0) Bilirubin, Total (test code = 0.2 mg/dL 0.0-1.2 1975-2) Alkaline Phosphatase (test 47 IU/L 39-117 code = 6768-6) AST (SGOT) (test code = 21 IU/L 0-40 1920-8) ALT (SGPT) (test code = 14 IU/L 0-32 1742-6) [facility] Description: CBC With Differential/[id number] 23:25:00 Test Item Value Reference Range Interpretation Comments WBC (test code = 6690-2) 4.2 x10E3/uL 3.4-10.8 RBC (test code = 789-8) 4.16 x10E6/uL 3.77-5.28 Hemoglobin (test code = 718-7) 10.5 g/dL 11.1-15.9 L Hematocrit (test code = 4544-3) 34.8 % 34.0-46.6 MCV (test code = 787-2) 84 fL 79-97 MCH (test code = 785-6) 25.2 pg 26.6-33.0 L MCHC (test code = 786-4) 30.2 g/dL 31.5-35.7 L RDW (test code = 788-0) 15.9 % 11.7-15.4 H Platelets (test code = 777-3) 204 x10E3/uL 150-450 Neutrophils (test code = 770-8) 54 % Not Estab. Lymphs (test code = 736-9) 35 % Not Estab. Monocytes (test code = 5905-5) 8 % Not Estab. Eos (test code = 713-8) 3 % Not Estab. Basos (test code = 706-2) 0 % Not Estab. Neutrophils (Absolute) (test 2.3 x10E3/uL 1.4-7.0 code = 751-8) Lymphs (Absolute) (test code = 1.5 x10E3/uL 0.7-3.1 731-0) Monocytes(Absolute) (test code 0.3 x10E3/uL 0.1-0.9 = 742-7) Eos (Absolute) (test code = 0.1 x10E3/uL 0.0-0.4 711-2) Baso (Absolute) (test code = 0.0 x10E3/uL 0.0-0.2 704-7) Immature Granulocytes (test 0 % Not Estab. code = 78664-5) Immature Grans (Abs) (test code 0.0 x10E3/uL 0.0-0.1 = 73136-9) NRBC (test code = 25976-9) Hematology Comments: (test code = 28797-4) [facility] Description: CBC With Differential/[id number] 23:25:00 Test Item Value Reference Range Interpretation Comments WBC (test code = 6690-2) 4.2 x10E3/uL 3.4-10.8 RBC (test code = 789-8) 4.16 x10E6/uL 3.77-5.28 Hemoglobin (test code = 718-7) 10.5 g/dL 11.1-15.9 L Hematocrit (test code = 4544-3) 34.8 % 34.0-46.6 MCV (test code = 787-2) 84 fL 79-97 MCH (test code = 785-6) 25.2 pg 26.6-33.0 L MCHC (test code = 786-4) 30.2 g/dL 31.5-35.7 L RDW (test code = 788-0) 15.9 % 11.7-15.4 H Platelets (test code = 777-3) 204 x10E3/uL 150-450 Neutrophils (test code = 770-8) 54 % Not Estab. Lymphs (test code = 736-9) 35 % Not Estab. Monocytes (test code = 5905-5) 8 % Not Estab. Eos (test code = 713-8) 3 % Not Estab. Basos (test code = 706-2) 0 % Not Estab. Neutrophils (Absolute) (test 2.3 x10E3/uL 1.4-7.0 code = 751-8) Lymphs (Absolute) (test code = 1.5 x10E3/uL 0.7-3.1 731-0) Monocytes(Absolute) (test code 0.3 x10E3/uL 0.1-0.9 = 742-7) Eos (Absolute) (test code = 0.1 x10E3/uL 0.0-0.4 711-2) Baso (Absolute) (test code = 0.0 x10E3/uL 0.0-0.2 704-7) Immature Granulocytes (test 0 % Not Estab. code = 17226-8) Immature Grans (Abs) (test code 0.0 x10E3/uL 0.0-0.1 = 24626-4) NRBC (test code = 62421-2) Hematology Comments: (test code = 76490-1) [facility] Description: CBC With Differential/[id number] 23:25:00 Test Item Value Reference Range Interpretation Comments WBC (test code = 6690-2) 4.2 x10E3/uL 3.4-10.8 RBC (test code = 789-8) 4.16 x10E6/uL 3.77-5.28 Hemoglobin (test code = 718-7) 10.5 g/dL 11.1-15.9 L Hematocrit (test code = 4544-3) 34.8 % 34.0-46.6 MCV (test code = 787-2) 84 fL 79-97 MCH (test code = 785-6) 25.2 pg 26.6-33.0 L MCHC (test code = 786-4) 30.2 g/dL 31.5-35.7 L RDW (test code = 788-0) 15.9 % 11.7-15.4 H Platelets (test code = 777-3) 204 x10E3/uL 150-450 Neutrophils (test code = 770-8) 54 % Not Estab. Lymphs (test code = 736-9) 35 % Not Estab. Monocytes (test code = 5905-5) 8 % Not Estab. Eos (test code = 713-8) 3 % Not Estab. Basos (test code = 706-2) 0 % Not Estab. Neutrophils (Absolute) (test 2.3 x10E3/uL 1.4-7.0 code = 751-8) Lymphs (Absolute) (test code = 1.5 x10E3/uL 0.7-3.1 731-0) Monocytes(Absolute) (test code 0.3 x10E3/uL 0.1-0.9 = 742-7) Eos (Absolute) (test code = 0.1 x10E3/uL 0.0-0.4 711-2) Baso (Absolute) (test code = 0.0 x10E3/uL 0.0-0.2 704-7) Immature Granulocytes (test 0 % Not Estab. code = 19195-1) Immature Grans (Abs) (test code 0.0 x10E3/uL 0.0-0.1 = 07092-3) NRBC (test code = 90886-3) Hematology Comments: (test code = 94398-5) [facility] Description: CBC With Differential/[id number] 23:25:00 Test Item Value Reference Range Interpretation Comments WBC (test code = 6690-2) 4.2 x10E3/uL 3.4-10.8 RBC (test code = 789-8) 4.16 x10E6/uL 3.77-5.28 Hemoglobin (test code = 718-7) 10.5 g/dL 11.1-15.9 L Hematocrit (test code = 4544-3) 34.8 % 34.0-46.6 MCV (test code = 787-2) 84 fL 79-97 MCH (test code = 785-6) 25.2 pg 26.6-33.0 L MCHC (test code = 786-4) 30.2 g/dL 31.5-35.7 L RDW (test code = 788-0) 15.9 % 11.7-15.4 H Platelets (test code = 777-3) 204 x10E3/uL 150-450 Neutrophils (test code = 770-8) 54 % Not Estab. Lymphs (test code = 736-9) 35 % Not Estab. Monocytes (test code = 5905-5) 8 % Not Estab. Eos (test code = 713-8) 3 % Not Estab. Basos (test code = 706-2) 0 % Not Estab. Neutrophils (Absolute) (test 2.3 x10E3/uL 1.4-7.0 code = 751-8) Lymphs (Absolute) (test code = 1.5 x10E3/uL 0.7-3.1 731-0) Monocytes(Absolute) (test code 0.3 x10E3/uL 0.1-0.9 = 742-7) Eos (Absolute) (test code = 0.1 x10E3/uL 0.0-0.4 711-2) Baso (Absolute) (test code = 0.0 x10E3/uL 0.0-0.2 704-7) Immature Granulocytes (test 0 % Not Estab. code = 31320-6) Immature Grans (Abs) (test code 0.0 x10E3/uL 0.0-0.1 = 53010-1) NRBC (test code = 73785-2) Hematology Comments: (test code = 62365-3) [facility] Description: CBC With Differential/[id number] 23:25:00 Test Item Value Reference Range Interpretation Comments WBC (test code = 6690-2) 4.2 x10E3/uL 3.4-10.8 RBC (test code = 789-8) 4.16 x10E6/uL 3.77-5.28 Hemoglobin (test code = 718-7) 10.5 g/dL 11.1-15.9 L Hematocrit (test code = 4544-3) 34.8 % 34.0-46.6 MCV (test code = 787-2) 84 fL 79-97 MCH (test code = 785-6) 25.2 pg 26.6-33.0 L MCHC (test code = 786-4) 30.2 g/dL 31.5-35.7 L RDW (test code = 788-0) 15.9 % 11.7-15.4 H Platelets (test code = 777-3) 204 x10E3/uL 150-450 Neutrophils (test code = 770-8) 54 % Not Estab. Lymphs (test code = 736-9) 35 % Not Estab. Monocytes (test code = 5905-5) 8 % Not Estab. Eos (test code = 713-8) 3 % Not Estab. Basos (test code = 706-2) 0 % Not Estab. Neutrophils (Absolute) (test 2.3 x10E3/uL 1.4-7.0 code = 751-8) Lymphs (Absolute) (test code = 1.5 x10E3/uL 0.7-3.1 731-0) Monocytes(Absolute) (test code 0.3 x10E3/uL 0.1-0.9 = 742-7) Eos (Absolute) (test code = 0.1 x10E3/uL 0.0-0.4 711-2) Baso (Absolute) (test code = 0.0 x10E3/uL 0.0-0.2 704-7) Immature Granulocytes (test 0 % Not Estab. code = 70810-2) Immature Grans (Abs) (test code 0.0 x10E3/uL 0.0-0.1 = 29453-0) NRBC (test code = 48697-7) Hematology Comments: (test code = 73154-3) [facility] Description: CBC With Differential/[id number] 23:25:00 Test Item Value Reference Range Interpretation Comments WBC (test code = 6690-2) 4.2 x10E3/uL 3.4-10.8 RBC (test code = 789-8) 4.16 x10E6/uL 3.77-5.28 Hemoglobin (test code = 718-7) 10.5 g/dL 11.1-15.9 L Hematocrit (test code = 4544-3) 34.8 % 34.0-46.6 MCV (test code = 787-2) 84 fL 79-97 MCH (test code = 785-6) 25.2 pg 26.6-33.0 L MCHC (test code = 786-4) 30.2 g/dL 31.5-35.7 L RDW (test code = 788-0) 15.9 % 11.7-15.4 H Platelets (test code = 777-3) 204 x10E3/uL 150-450 Neutrophils (test code = 770-8) 54 % Not Estab. Lymphs (test code = 736-9) 35 % Not Estab. Monocytes (test code = 5905-5) 8 % Not Estab. Eos (test code = 713-8) 3 % Not Estab. Basos (test code = 706-2) 0 % Not Estab. Neutrophils (Absolute) (test 2.3 x10E3/uL 1.4-7.0 code = 751-8) Lymphs (Absolute) (test code = 1.5 x10E3/uL 0.7-3.1 731-0) Monocytes(Absolute) (test code 0.3 x10E3/uL 0.1-0.9 = 742-7) Eos (Absolute) (test code = 0.1 x10E3/uL 0.0-0.4 711-2) Baso (Absolute) (test code = 0.0 x10E3/uL 0.0-0.2 704-7) Immature Granulocytes (test 0 % Not Estab. code = 03520-2) Immature Grans (Abs) (test code 0.0 x10E3/uL 0.0-0.1 = 85882-1) NRBC (test code = 15483-1) Hematology Comments: (test code = 24770-0) [facility] Description: CBC With Differential/[id number] 23:25:00 Test Item Value Reference Range Interpretation Comments WBC (test code = 6690-2) 4.2 x10E3/uL 3.4-10.8 RBC (test code = 789-8) 4.16 x10E6/uL 3.77-5.28 Hemoglobin (test code = 718-7) 10.5 g/dL 11.1-15.9 L Hematocrit (test code = 4544-3) 34.8 % 34.0-46.6 MCV (test code = 787-2) 84 fL 79-97 MCH (test code = 785-6) 25.2 pg 26.6-33.0 L MCHC (test code = 786-4) 30.2 g/dL 31.5-35.7 L RDW (test code = 788-0) 15.9 % 11.7-15.4 H Platelets (test code = 777-3) 204 x10E3/uL 150-450 Neutrophils (test code = 770-8) 54 % Not Estab. Lymphs (test code = 736-9) 35 % Not Estab. Monocytes (test code = 5905-5) 8 % Not Estab. Eos (test code = 713-8) 3 % Not Estab. Basos (test code = 706-2) 0 % Not Estab. Neutrophils (Absolute) (test 2.3 x10E3/uL 1.4-7.0 code = 751-8) Lymphs (Absolute) (test code = 1.5 x10E3/uL 0.7-3.1 731-0) Monocytes(Absolute) (test code 0.3 x10E3/uL 0.1-0.9 = 742-7) Eos (Absolute) (test code = 0.1 x10E3/uL 0.0-0.4 711-2) Baso (Absolute) (test code = 0.0 x10E3/uL 0.0-0.2 704-7) Immature Granulocytes (test 0 % Not Estab. code = 43582-7) Immature Grans (Abs) (test code 0.0 x10E3/uL 0.0-0.1 = 18959-3) NRBC (test code = 98398-4) Hematology Comments: (test code = 94369-3) [facility] Description: CBC With Differential/[id number] 23:25:00 Test Item Value Reference Range Interpretation Comments WBC (test code = 6690-2) 4.2 x10E3/uL 3.4-10.8 RBC (test code = 789-8) 4.16 x10E6/uL 3.77-5.28 Hemoglobin (test code = 718-7) 10.5 g/dL 11.1-15.9 L Hematocrit (test code = 4544-3) 34.8 % 34.0-46.6 MCV (test code = 787-2) 84 fL 79-97 MCH (test code = 785-6) 25.2 pg 26.6-33.0 L MCHC (test code = 786-4) 30.2 g/dL 31.5-35.7 L RDW (test code = 788-0) 15.9 % 11.7-15.4 H Platelets (test code = 777-3) 204 x10E3/uL 150-450 Neutrophils (test code = 770-8) 54 % Not Estab. Lymphs (test code = 736-9) 35 % Not Estab. Monocytes (test code = 5905-5) 8 % Not Estab. Eos (test code = 713-8) 3 % Not Estab. Basos (test code = 706-2) 0 % Not Estab. Neutrophils (Absolute) (test 2.3 x10E3/uL 1.4-7.0 code = 751-8) Lymphs (Absolute) (test code = 1.5 x10E3/uL 0.7-3.1 731-0) Monocytes(Absolute) (test code 0.3 x10E3/uL 0.1-0.9 = 742-7) Eos (Absolute) (test code = 0.1 x10E3/uL 0.0-0.4 711-2) Baso (Absolute) (test code = 0.0 x10E3/uL 0.0-0.2 704-7) Immature Granulocytes (test 0 % Not Estab. code = 82721-5) Immature Grans (Abs) (test code 0.0 x10E3/uL 0.0-0.1 = 91180-4) NRBC (test code = 50738-9) Hematology Comments: (test code = 65245-1) [facility] Description: CBC With Differential/[id number] 23:25:00 Test Item Value Reference Range Interpretation Comments WBC (test code = 6690-2) 4.2 x10E3/uL 3.4-10.8 RBC (test code = 789-8) 4.16 x10E6/uL 3.77-5.28 Hemoglobin (test code = 718-7) 10.5 g/dL 11.1-15.9 L Hematocrit (test code = 4544-3) 34.8 % 34.0-46.6 MCV (test code = 787-2) 84 fL 79-97 MCH (test code = 785-6) 25.2 pg 26.6-33.0 L MCHC (test code = 786-4) 30.2 g/dL 31.5-35.7 L RDW (test code = 788-0) 15.9 % 11.7-15.4 H Platelets (test code = 777-3) 204 x10E3/uL 150-450 Neutrophils (test code = 770-8) 54 % Not Estab. Lymphs (test code = 736-9) 35 % Not Estab. Monocytes (test code = 5905-5) 8 % Not Estab. Eos (test code = 713-8) 3 % Not Estab. Basos (test code = 706-2) 0 % Not Estab. Neutrophils (Absolute) (test 2.3 x10E3/uL 1.4-7.0 code = 751-8) Lymphs (Absolute) (test code = 1.5 x10E3/uL 0.7-3.1 731-0) Monocytes(Absolute) (test code 0.3 x10E3/uL 0.1-0.9 = 742-7) Eos (Absolute) (test code = 0.1 x10E3/uL 0.0-0.4 711-2) Baso (Absolute) (test code = 0.0 x10E3/uL 0.0-0.2 704-7) Immature Granulocytes (test 0 % Not Estab. code = 19759-8) Immature Grans (Abs) (test code 0.0 x10E3/uL 0.0-0.1 = 88778-7) NRBC (test code = 59361-4) Hematology Comments: (test code = 38434-3) [facility] Description: CBC With Differential/[id number] 23:25:00 Test Item Value Reference Range Interpretation Comments WBC (test code = 6690-2) 4.2 x10E3/uL 3.4-10.8 RBC (test code = 789-8) 4.16 x10E6/uL 3.77-5.28 Hemoglobin (test code = 718-7) 10.5 g/dL 11.1-15.9 L Hematocrit (test code = 4544-3) 34.8 % 34.0-46.6 MCV (test code = 787-2) 84 fL 79-97 MCH (test code = 785-6) 25.2 pg 26.6-33.0 L MCHC (test code = 786-4) 30.2 g/dL 31.5-35.7 L RDW (test code = 788-0) 15.9 % 11.7-15.4 H Platelets (test code = 777-3) 204 x10E3/uL 150-450 Neutrophils (test code = 770-8) 54 % Not Estab. Lymphs (test code = 736-9) 35 % Not Estab. Monocytes (test code = 5905-5) 8 % Not Estab. Eos (test code = 713-8) 3 % Not Estab. Basos (test code = 706-2) 0 % Not Estab. Neutrophils (Absolute) (test 2.3 x10E3/uL 1.4-7.0 code = 751-8) Lymphs (Absolute) (test code = 1.5 x10E3/uL 0.7-3.1 731-0) Monocytes(Absolute) (test code 0.3 x10E3/uL 0.1-0.9 = 742-7) Eos (Absolute) (test code = 0.1 x10E3/uL 0.0-0.4 711-2) Baso (Absolute) (test code = 0.0 x10E3/uL 0.0-0.2 704-7) Immature Granulocytes (test 0 % Not Estab. code = 22251-2) Immature Grans (Abs) (test code 0.0 x10E3/uL 0.0-0.1 = 76505-5) NRBC (test code = 59115-8) Hematology Comments: (test code = 28046-5) [facility] Description: CBC With Differential/[id number] 23:25:00 Test Item Value Reference Range Interpretation Comments WBC (test code = 6690-2) 4.2 x10E3/uL 3.4-10.8 RBC (test code = 789-8) 4.16 x10E6/uL 3.77-5.28 Hemoglobin (test code = 718-7) 10.5 g/dL 11.1-15.9 L Hematocrit (test code = 4544-3) 34.8 % 34.0-46.6 MCV (test code = 787-2) 84 fL 79-97 MCH (test code = 785-6) 25.2 pg 26.6-33.0 L MCHC (test code = 786-4) 30.2 g/dL 31.5-35.7 L RDW (test code = 788-0) 15.9 % 11.7-15.4 H Platelets (test code = 777-3) 204 x10E3/uL 150-450 Neutrophils (test code = 770-8) 54 % Not Estab. Lymphs (test code = 736-9) 35 % Not Estab. Monocytes (test code = 5905-5) 8 % Not Estab. Eos (test code = 713-8) 3 % Not Estab. Basos (test code = 706-2) 0 % Not Estab. Neutrophils (Absolute) (test 2.3 x10E3/uL 1.4-7.0 code = 751-8) Lymphs (Absolute) (test code = 1.5 x10E3/uL 0.7-3.1 731-0) Monocytes(Absolute) (test code 0.3 x10E3/uL 0.1-0.9 = 742-7) Eos (Absolute) (test code = 0.1 x10E3/uL 0.0-0.4 711-2) Baso (Absolute) (test code = 0.0 x10E3/uL 0.0-0.2 704-7) Immature Granulocytes (test 0 % Not Estab. code = 64382-8) Immature Grans (Abs) (test code 0.0 x10E3/uL 0.0-0.1 = 56196-0) NRBC (test code = 83280-1) Hematology Comments: (test code = 47108-7) [facility] Description: CBC With Differential/Aemedyro5979-88-10 23:25:00 Test Item Value Reference Range Interpretation Comments WBC (test code = 6690-2) 4.2 x10E3/uL 3.4-10.8 RBC (test code = 789-8) 4.16 x10E6/uL 3.77-5.28 Hemoglobin (test code = 718-7) 10.5 g/dL 11.1-15.9 L Hematocrit (test code = 4544-3) 34.8 % 34.0-46.6 MCV (test code = 787-2) 84 fL 79-97 MCH (test code = 785-6) 25.2 pg 26.6-33.0 L MCHC (test code = 786-4) 30.2 g/dL 31.5-35.7 L RDW (test code = 788-0) 15.9 % 11.7-15.4 H Platelets (test code = 777-3) 204 x10E3/uL 150-450 Neutrophils (test code = 770-8) 54 % Not Estab. Lymphs (test code = 736-9) 35 % Not Estab. Monocytes (test code = 5905-5) 8 % Not Estab. Eos (test code = 713-8) 3 % Not Estab. Basos (test code = 706-2) 0 % Not Estab. Neutrophils (Absolute) (test 2.3 x10E3/uL 1.4-7.0 code = 751-8) Lymphs (Absolute) (test code = 1.5 x10E3/uL 0.7-3.1 731-0) Monocytes(Absolute) (test code 0.3 x10E3/uL 0.1-0.9 = 742-7) Eos (Absolute) (test code = 0.1 x10E3/uL 0.0-0.4 711-2) Baso (Absolute) (test code = 0.0 x10E3/uL 0.0-0.2 704-7) Immature Granulocytes (test 0 % Not Estab. code = 07711-5) Immature Grans (Abs) (test code 0.0 x10E3/uL 0.0-0.1 = 09650-4) NRBC (test code = 77402-4) Hematology Comments: (test code = 36446-5) [facility] Description: CBC With Differential/[id number] 23:25:00 Test Item Value Reference Range Interpretation Comments WBC (test code = 6690-2) 4.2 x10E3/uL 3.4-10.8 RBC (test code = 789-8) 4.16 x10E6/uL 3.77-5.28 Hemoglobin (test code = 718-7) 10.5 g/dL 11.1-15.9 L Hematocrit (test code = 4544-3) 34.8 % 34.0-46.6 MCV (test code = 787-2) 84 fL 79-97 MCH (test code = 785-6) 25.2 pg 26.6-33.0 L MCHC (test code = 786-4) 30.2 g/dL 31.5-35.7 L RDW (test code = 788-0) 15.9 % 11.7-15.4 H Platelets (test code = 777-3) 204 x10E3/uL 150-450 Neutrophils (test code = 770-8) 54 % Not Estab. Lymphs (test code = 736-9) 35 % Not Estab. Monocytes (test code = 5905-5) 8 % Not Estab. Eos (test code = 713-8) 3 % Not Estab. Basos (test code = 706-2) 0 % Not Estab. Neutrophils (Absolute) (test 2.3 x10E3/uL 1.4-7.0 code = 751-8) Lymphs (Absolute) (test code = 1.5 x10E3/uL 0.7-3.1 731-0) Monocytes(Absolute) (test code 0.3 x10E3/uL 0.1-0.9 = 742-7) Eos (Absolute) (test code = 0.1 x10E3/uL 0.0-0.4 711-2) Baso (Absolute) (test code = 0.0 x10E3/uL 0.0-0.2 704-7) Immature Granulocytes (test 0 % Not Estab. code = 32193-9) Immature Grans (Abs) (test code 0.0 x10E3/uL 0.0-0.1 = 24970-8) NRBC (test code = 99580-9) Hematology Comments: (test code = 66361-8) [facility] Description: CBC With Differential/Pmjjtzhj7576-87-15 23:25:00 Test Item Value Reference Range Interpretation Comments WBC (test code = 6690-2) 4.2 x10E3/uL 3.4-10.8 RBC (test code = 789-8) 4.16 x10E6/uL 3.77-5.28 Hemoglobin (test code = 718-7) 10.5 g/dL 11.1-15.9 L Hematocrit (test code = 4544-3) 34.8 % 34.0-46.6 MCV (test code = 787-2) 84 fL 79-97 MCH (test code = 785-6) 25.2 pg 26.6-33.0 L MCHC (test code = 786-4) 30.2 g/dL 31.5-35.7 L RDW (test code = 788-0) 15.9 % 11.7-15.4 H Platelets (test code = 777-3) 204 x10E3/uL 150-450 Neutrophils (test code = 770-8) 54 % Not Estab. Lymphs (test code = 736-9) 35 % Not Estab. Monocytes (test code = 5905-5) 8 % Not Estab. Eos (test code = 713-8) 3 % Not Estab. Basos (test code = 706-2) 0 % Not Estab. Neutrophils (Absolute) (test 2.3 x10E3/uL 1.4-7.0 code = 751-8) Lymphs (Absolute) (test code = 1.5 x10E3/uL 0.7-3.1 731-0) Monocytes(Absolute) (test code 0.3 x10E3/uL 0.1-0.9 = 742-7) Eos (Absolute) (test code = 0.1 x10E3/uL 0.0-0.4 711-2) Baso (Absolute) (test code = 0.0 x10E3/uL 0.0-0.2 704-7) Immature Granulocytes (test 0 % Not Estab. code = 44386-5) Immature Grans (Abs) (test code 0.0 x10E3/uL 0.0-0.1 = 57097-4) NRBC (test code = 71602-3) Hematology Comments: (test code = 51062-8) [facility] Description: CBC With Differential/Dbtuoayh8173-87-88 23:25:00 Test Item Value Reference Range Interpretation Comments WBC (test code = 6690-2) 4.2 x10E3/uL 3.4-10.8 RBC (test code = 789-8) 4.16 x10E6/uL 3.77-5.28 Hemoglobin (test code = 718-7) 10.5 g/dL 11.1-15.9 L Hematocrit (test code = 4544-3) 34.8 % 34.0-46.6 MCV (test code = 787-2) 84 fL 79-97 MCH (test code = 785-6) 25.2 pg 26.6-33.0 L MCHC (test code = 786-4) 30.2 g/dL 31.5-35.7 L RDW (test code = 788-0) 15.9 % 11.7-15.4 H Platelets (test code = 777-3) 204 x10E3/uL 150-450 Neutrophils (test code = 770-8) 54 % Not Estab. Lymphs (test code = 736-9) 35 % Not Estab. Monocytes (test code = 5905-5) 8 % Not Estab. Eos (test code = 713-8) 3 % Not Estab. Basos (test code = 706-2) 0 % Not Estab. Neutrophils (Absolute) (test 2.3 x10E3/uL 1.4-7.0 code = 751-8) Lymphs (Absolute) (test code = 1.5 x10E3/uL 0.7-3.1 731-0) Monocytes(Absolute) (test code 0.3 x10E3/uL 0.1-0.9 = 742-7) Eos (Absolute) (test code = 0.1 x10E3/uL 0.0-0.4 711-2) Baso (Absolute) (test code = 0.0 x10E3/uL 0.0-0.2 704-7) Immature Granulocytes (test 0 % Not Estab. code = 86972-9) Immature Grans (Abs) (test code 0.0 x10E3/uL 0.0-0.1 = 60238-6) NRBC (test code = 58216-4) Hematology Comments: (test code = 17056-5) [facility] Description: Vaginitis/Vaginosis, DNA [id number] 08:20:00 Test Item Value Reference Range Interpretation Comments Ana Maria species (test code = Positive Negative A 30381-9) Gardnerella vaginalis (test code = Positive Negative A 6410-5) Trichomonas vaginalis (test code = Negative Negative 6568-0) [facility] Description: Vaginitis/Vaginosis, DNA [id number] 08:20:00 Test Item Value Reference Range Interpretation Comments Ana Maria species (test code = Positive Negative A 13665-4) Gardnerella vaginalis (test code = Positive Negative A 6410-5) Trichomonas vaginalis (test code = Negative Negative 6568-0) [facility] Description: Vaginitis/Vaginosis, DNA [id number] 08:20:00 Test Item Value Reference Range Interpretation Comments Ana Maria species (test code = Positive Negative A 52016-8) Gardnerella vaginalis (test code = Positive Negative A 6410-5) Trichomonas vaginalis (test code = Negative Negative 6568-0) [facility] Description: Vaginitis/Vaginosis, DNA [id number] 08:20:00 Test Item Value Reference Range Interpretation Comments Ana Maria species (test code = Positive Negative A 66048-5) Gardnerella vaginalis (test code = Positive Negative A 6410-5) Trichomonas vaginalis (test code = Negative Negative 6568-0) [facility] Description: Vaginitis/Vaginosis, DNA [id number] 08:20:00 Test Item Value Reference Range Interpretation Comments Ana Maria species (test code = Positive Negative A 34599-5) Gardnerella vaginalis (test code = Positive Negative A 6410-5) Trichomonas vaginalis (test code = Negative Negative 6568-0) [facility] Vaginitis/Vaginosis, DNA [id number] 08:20:00 Test Item Value Reference Range Interpretation Comments Ana Maria species (test code = Positive Negative A 62385-2) Gardnerella vaginalis (test code = Positive Negative A 6410-5) Trichomonas vaginalis (test code = Negative Negative 6568-0) [facility]: Vaginitis/Vaginosis, DNA [id number] 08:20:00 Test Item Value Reference Range Interpretation Comments Ana Maria species (test code = Positive Negative A 68757-8) Gardnerella vaginalis (test code = Positive Negative A 6410-5) Trichomonas vaginalis (test code = Negative Negative 6568-0) [facility] Description: Vaginitis/Vaginosis, DNA [id number] 08:20:00 Test Item Value Reference Range Interpretation Comments Ana Maria species (test code = Positive Negative A 67481-4) Gardnerella vaginalis (test code = Positive Negative A 6410-5) Trichomonas vaginalis (test code = Negative Negative 6568-0) [facility]: Vaginitis/Vaginosis, DNA Mvvnp1720-06-19 08:20:00 Test Item Value Reference Range Interpretation Comments Ana Maria species (test code = Positive Negative A 76151-0) Gardnerella vaginalis (test code = Positive Negative A 6410-5) Trichomonas vaginalis (test code = Negative Negative 6568-0) [facility] Description: Vaginitis/Vaginosis, DNA [id number] 08:20:00 Test Item Value Reference Range Interpretation Comments Ana Maria species (test code = Positive Negative A 06826-7) Gardnerella vaginalis (test code = Positive Negative A 6410-5) Trichomonas vaginalis (test code = Negative Negative 6568-0) [facility]: Vaginitis/Vaginosis, DNA [id number] 08:20:00 Test Item Value Reference Range Interpretation Comments Ana Maria species (test code = Positive Negative A 02609-7) Gardnerella vaginalis (test code = Positive Negative A 6410-5) Trichomonas vaginalis (test code = Negative Negative 6568-0) [facility] Description: Vaginitis/Vaginosis, DNA [id number] 08:20:00 Test Item Value Reference Range Interpretation Comments Ana Maria species (test code = Positive Negative A 18177-0) Gardnerella vaginalis (test code = Positive Negative A 6410-5) Trichomonas vaginalis (test code = Negative Negative 6568-0) [facility] Description: Vaginitis/Vaginosis, DNA [id number] 08:20:00 Test Item Value Reference Range Interpretation Comments Ana Maria species (test code = Positive Negative A 52554-3) Gardnerella vaginalis (test code = Positive Negative A 6410-5) Trichomonas vaginalis (test code = Negative Negative 6568-0) [facility] Description: Vaginitis/Vaginosis, DNA [id number] 08:20:00 Test Item Value Reference Range Interpretation Comments Ana Maria species (test code = Positive Negative A 39686-7) Gardnerella vaginalis (test code = Positive Negative A 6410-5) Trichomonas vaginalis (test code = Negative Negative 6568-0) [facility] Description: Vaginitis/Vaginosis, DNA [id number] 08:20:00 Test Item Value Reference Range Interpretation Comments Ana Maria species (test code = Positive Negative A 91980-5) Gardnerella vaginalis (test code = Positive Negative A 6410-5) Trichomonas vaginalis (test code = Negative Negative 6568-0) [facility] Description: Chlamydia/GC Asauoggcywvnz8816-54-89 20:21:00 Test Item Value Reference Range Interpretation Comments Chlamydia trachomatis, MILAD (test Negative Negative code = 51901-2) Neisseria gonorrhoeae, MILAD (test Negative Negative code = 98197-6) [facility] Description: Chlamydia/GC Rmndarblkizht6232-68-77 20:21:00 Test Item Value Reference Range Interpretation Comments Chlamydia trachomatis, MILAD (test Negative Negative code = 86666-9) Neisseria gonorrhoeae, MILAD (test Negative Negative code = 93374-3) [facility] Description: Chlamydia/GC Yqaidgzkfsnnv8303-42-87 20:21:00 Test Item Value Reference Range Interpretation Comments Chlamydia trachomatis, MILAD (test Negative Negative code = 87882-1) Neisseria gonorrhoeae, MILAD (test Negative Negative code = 04054-0) [facility] Description: Chlamydia/GC Jumtvtotezrnx1274-46-67 20:21:00 Test Item Value Reference Range Interpretation Comments Chlamydia trachomatis, MILAD (test Negative Negative code = 43373-2) Neisseria gonorrhoeae, MILAD (test Negative Negative code = 77689-2) [facility] Description: Chlamydia/GC Ulxivvsjhdwbc8021-86-89 20:21:00 Test Item Value Reference Range Interpretation Comments Chlamydia trachomatis, MILAD (test Negative Negative code = 40454-2) Neisseria gonorrhoeae, MILAD (test Negative Negative code = 93743-7) [facility] Description: Chlamydia/GC Wtcefkbqrbows4564-06-69 20:21:00 Test Item Value Reference Range Interpretation Comments Chlamydia trachomatis, MILAD (test Negative Negative code = 90629-7) Neisseria gonorrhoeae, MILAD (test Negative Negative code = 27706-2) [facility] Description: Chlamydia/GC Bbcmtirorzyox8946-19-47 20:21:00 Test Item Value Reference Range Interpretation Comments Chlamydia trachomatis, MILAD (test Negative Negative code = 67350-7) Neisseria gonorrhoeae, MILAD (test Negative Negative code = 32352-9) [facility] Description: Chlamydia/GC Jabnvvzhvpdkt3603-23-88 20:21:00 Test Item Value Reference Range Interpretation Comments Chlamydia trachomatis, MILAD (test Negative Negative code = 22792-8) Neisseria gonorrhoeae, MILAD (test Negative Negative code = 29468-0) [facility] Description: Chlamydia/GC Amvjwwqfmqjyu1321-10-66 20:21:00 Test Item Value Reference Range Interpretation Comments Chlamydia trachomatis, MILAD (test Negative Negative code = 31296-2) Neisseria gonorrhoeae, MILAD (test Negative Negative code = 11036-2) [facility] Description: Chlamydia/GC Xjlfbenzrjerk0999-43-98 20:21:00 Test Item Value Reference Range Interpretation Comments Chlamydia trachomatis, MILAD (test Negative Negative code = 03913-4) Neisseria gonorrhoeae, MILAD (test Negative Negative code = 12397-9) [facility] Description: Chlamydia/GC Mlmkrkhrhbzqn4968-39-11 20:21:00 Test Item Value Reference Range Interpretation Comments Chlamydia trachomatis, MILAD (test Negative Negative code = 12280-3) Neisseria gonorrhoeae, MILAD (test Negative Negative code = 19194-4) [facility] Description: Chlamydia/GC Bvheltlchmgre5767-76-90 20:21:00 Test Item Value Reference Range Interpretation Comments Chlamydia trachomatis, MILAD (test Negative Negative code = 90150-7) Neisseria gonorrhoeae, MILAD (test Negative Negative code = 92655-8) [facility] Description: Chlamydia/GC Yswvyvumqodaj8182-49-05 20:21:00 Test Item Value Reference Range Interpretation Comments Chlamydia trachomatis, MILAD (test Negative Negative code = 24250-8) Neisseria gonorrhoeae, MILAD (test Negative Negative code = 70839-1) [facility] Description: Chlamydia/GC Laexpsqmkzxmp8708-28-94 20:21:00 Test Item Value Reference Range Interpretation Comments Chlamydia trachomatis, MILAD (test Negative Negative code = 97306-4) Neisseria gonorrhoeae, MILAD (test Negative Negative code = 68056-4) [facility] Description: Chlamydia/GC Abhirnbxzbbot2695-55-67 20:21:00 Test Item Value Reference Range Interpretation Comments Chlamydia trachomatis, MILAD (test Negative Negative code = 63579-0) Neisseria gonorrhoeae, MILAD (test Negative Negative code = 97164-4) [facility] Description: IGP,CtNg,AptimaHPV,rfx16/18,922809-27-94 21:45:00 Test Item Value Reference Range Interpretation Comments CICD10 (test code Comment Z01.419

Performed = 25631-6) by:
[facility] ()

PERFOR (test code Comment Jaime zimmerman, = 57198-0) Cytotechnologis t (ASCP)Reviewed at: [facility] [address] [place] [address]

Performed by:
[facility] ()

IGLBP (test code = Comment This liqu id based 74770-6) ThinPrep(R) pap test was screened with t heuse of an image guided system.

Performed by:
[facility] ()

HPV Aptima (test Negative Negative This nuclei c acid code = 68739-6) amplificatio n test detects fourteen high-r iskHPV types (16,18,31,33,35 ,39,45,51,52 ,56,58,59,66,68 ) withoutdifferen tiation.<br/ >
Performed by:
[facility])

Chlamydia, Nuc. Negative Negative Acid Amp (test code = 06744-4) Gonococcus, Nuc. Negative Negative Acid Amp (test code = 36222-0) [facility] Description: IGP,CtNg,AptimaHPV,rfx16/18,[id number] 21:45:00 Test Item Value Reference Range Interpretation Comments CICD10 (test code Comment Z01.419

Performed = 31494-7) by:
[facility] ()

PERFOR (test code Comment Jaime zimmerman, = 47111-7) Cytotechnologis t (ASCP)Reviewed at: [facility] [address] [place] [facility] [place] [address]

Performed by:
[facility] ()

IGLBP (test code = Comment This liqu id based 52058-4) ThinPrep(R) pap test was screened with t heuse of an image guided system.

Performed by:
[facility] ()

HPV Aptima (test Negative Negative This nuclei c acid code = 32828-6) amplificatio n test detects fourteen high-r iskHPV types (16,18,31,33,35 ,39,45,51,52 ,56,58,59,66,68 ) withoutdifferen tiation.<br/ >
Performed by:
[facility] ()

Chlamydia, Nuc. Negative Negative Acid Amp (test code = 98947-3) Gonococcus, Nuc. Negative Negative Acid Amp (test code = 32399-1) [facility] Description: IGP,CtNg,AptimaHPV,rfx16/18,[id number] 21:45:00 Test Item Value Reference Range Interpretation Comments CICD10 (test code Comment Z01.419

Performed = 50914-3) by:
[facility] ()

PERFOR (test code Comment Jonicole Pearl erasmo, = 12851-4) Cytotechnologis t (ASCP)Reviewed at: [facility] [address] [place] [facility] [place] [address]

Performed by:
[facility] ()

IGLBP (test code = Comment [place] id based 14832-4) ThinPrep(R) pap test was screened with t heuse of an image guided system.

Performed by:
[facility] ()

HPV Aptima (test Negative Negative This nuclei c acid code = 82544-3) amplificatio n test detects fourteen high-r iskHPV types (16,18,31,33,35 ,39,45,51,52 ,56,58,59,66,68 ) withoutdifferen tiation.<br/ >
Performed by:
[facility] ()

Chlamydia, Nuc. Negative Negative Acid Amp (test code = 07908-9) Gonococcus, Nuc. Negative Negative Acid Amp (test code = 32598-7) [facility] Description: IGP,CtNg,AptimaHPV,rfx16/18,095633-80-19 21:45:00 Test Item Value Reference Range Interpretation Comments CICD10 (test code Comment Z01.419

Performed = 83433-8) by:
[facility] ()

PERFOR (test code Comment Jonicole Tab erasmo, = 78309-8) Cytotechnologis t (ASCP)Reviewed at: [facility] [address] [address]

Performed by:
[facility] ()

IGLBP (test code = Comment This [place] id based 93179-6) ThinPrep(R) pap test was screened with t heuse of an image guided system.

Performed by:
[facility] ()

HPV Aptima (test Negative Negative This nuclei c acid code = 03944-1) amplificatio n test detects fourteen high-r iskHPV types (16,18,31,33,35 ,39,45,51,52 ,56,58,59,66,68 ) withoutdifferen tiation.<br/ >
Performed by:
[facility] ()

Chlamydia, Nuc. Negative Negative Acid Amp (test code = 38887-3) Gonococcus, Nuc. Negative Negative Acid Amp (test code = 32937-4) [facility] Description: IGP,CtNg,AptimaHPV,rfx16/18,[id number] 21:45:00 Test Item Value Reference Range Interpretation Comments CICD10 (test code Comment Z01.419

Performed = 56934-8) by:
[facility] ()

PERFOR (test code Comment Jaime Tab erasmo, = 83387-7) Cytotechnologis t (ASCP)Reviewed at: [facility] [address] [place] [facility] [place] [address]

Performed by:
[facility] ()

IGLBP (test code = Comment This [place] id based 58517-1) ThinPrep(R) pap test was screened with t heuse of an image guided system.

Performed by:
[facility])

HPV Aptima (test Negative Negative This nuclei c acid code = 23001-7) amplificatio n test detects fourteen high-r iskHPV types (16,18,31,33,35 ,39,45,51,52 ,56,58,59,66,68 ) withoutdifferen tiation.<br/ >
Performed by:
[facility])

Chlamydia, Nuc. Negative Negative Acid Amp (test code = 49419-8) Gonococcus, Nuc. Negative Negative Acid Amp (test code = 28875-5) [facility] Description: IGP,CtNg,AptimaHPV,rfx16/18,969720-73-12 21:45:00 Test Item Value Reference Range Interpretation Comments CICD10 (test code Comment Z01.419

Performed = 99984-8) by:
[facility])

PERFOR (test code Comment Jaime zimmerman, = 60009-2) Cytotechnologis t (ASCP)Reviewed at: [facility] [address] [facility] [place] [address]

Performed by:
[facility])

IGLBP (test code = Comment This [place] id based 71286-5) ThinPrep(R) pap test was screened with t heuse of an image guided system.

Performed by:
[facility] ()

HPV Aptima (test Negative Negative This nuclei c acid code = 74411-5) amplificatio n test detects fourteen high-r iskHPV types (16,18,31,33,35 ,39,45,51,52 ,56,58,59,66,68 ) withoutdifferen tiation.<br/ >
Performed by:
[facility])

Chlamydia, Nuc. Negative Negative Acid Amp (test code = 04963-1) Gonococcus, Nuc. Negative Negative Acid Amp (test code = 73059-7) [facility] Description: IGP,CtNg,AptimaHPV,rfx16/18,559666-02-53 21:45:00 Test Item Value Reference Range Interpretation Comments CICD10 (test code Comment Z01.419

Performed = 59527-3) by:
[facility] ()

PERFOR (test code Comment Jaime zimmerman, = 70558-1) Cytotechnologis t (ASCP)Reviewed at: [facility] [address] [facility] [place] [address]

Performed by:
[facility] ()

IGLBP (test code = Comment This [place] id based 83926-6) ThinPrep(R) pap test was screened with t heuse of an image guided system.

Performed by:
[facility] ()

HPV Aptima (test Negative Negative This nuclei c acid code = 37088-7) amplificatio n test detects fourteen high-r iskHPV types (16,18,31,33,35 ,39,45,51,52 ,56,58,59,66,68 ) withoutdifferen tiation.<br/ >
Performed by:
[facility] ()

Chlamydia, Nuc. Negative Negative Acid Amp (test code = 42344-6) Gonococcus, Nuc. Negative Negative Acid Amp (test code = 48869-6) [facility] Description: IGP,CtNg,AptimaHPV,rfx16/18,485309-72-34 21:45:00 Test Item Value Reference Range Interpretation Comments CICD10 (test code Comment Z01.419

Performed = 50374-1) by:
[facility] ()

PERFOR (test code Comment Semajto Tab erasmo, = 32060-9) Cytotechnologis t (ASCP)Reviewed at: [facility] [address] [facility] [place] [address]

Performed by:
[facility] ()

IGLBP (test code = Comment This [place] id based 52618-2) ThinPrep(R) pap test was screened with t heuse of an image guided system.

Performed by:
[facility] ()

HPV Aptima (test Negative Negative This nuclei c acid code = 42676-8) amplificatio n test detects fourteen high-r iskHPV types (16,18,31,33,35 ,39,45,51,52 ,56,58,59,66,68 ) withoutdifferen tiation.<br/ >
Performed by:
[facility] ()

Chlamydia, Nuc. Negative Negative Acid Amp (test code = 14673-9) Gonococcus, Nuc. Negative Negative Acid Amp (test code = 61700-6) [facility] Description: IGP,CtNg,AptimaHPV,rfx16/18,[id number] 21:45:00 Test Item Value Reference Range Interpretation Comments CICD10 (test code Comment Z01.419

Performed = 52130-9) by:
[facility] ()

PERFOR (test code Comment Jaime Pearl erasmo, = 89801-2) Cytotechnologis t (ASCP)Reviewed at: [facility] [address] [facility] [place] [address]

Performed by:
[facility] ()

IGLBP (test code = Comment [place] id based 60845-0) ThinPrep(R) pap test was screened with t heuse of an image guided system.

Performed by:
[facility])

HPV Aptima (test Negative Negative This nuclei c acid code = 04189-5) amplificatio n test detects fourteen high-r iskHPV types (16,18,31,33,35 ,39,45,51,52 ,56,58,59,66,68 ) withoutdifferen tiation.<br/ >
Performed by:
[facility])

Chlamydia, Nuc. Negative Negative Acid Amp (test code = 70239-2) Gonococcus, Nuc. Negative Negative Acid Amp (test code = 76845-0) [facility] Description: IGP,CtNg,AptimaHPV,rfx16/18,356353-42-05 21:45:00 Test Item Value Reference Range Interpretation Comments CICD10 (test code Comment Z01.419Per formed by:[facility] = 61201-6) [facility] ) PERFOR (test code Comment Jaime zimmerman, = 82080-8) Cytotechnologis t (ASCP)Reviewed at: [facility] [address] [facility] [place] [address]Oimykpszx by:[facility] ) IGLBP (test code = Comment [place] id based 80874-2) ThinPrep(R) pap test was screened with t heuse of an image guided system.Performe d by:[facility] ) HPV Aptima (test Negative Negative This nuclei c acid code = 60885-4) amplificatio n test detects fourteen high-r iskHPV types (16,18,31,33,35 ,39,45,51,52 ,56,58,59,66,68 ) withoutdifferen tiation.Perf ormed by:[facility]) Chlamydia, Nuc. Negative Negative Acid Amp (test code = 05570-0) Gonococcus, Nuc. Negative Negative Acid Amp (test code = 48150-5) [facility] Description: IGP,CtNg,AptimaHPV,rfx16/18, 21:45:00 Test Item Value Reference Range Interpretation Comments CICD10 (test code Comment Z01.419Per formed by:[facility] = 72105-2[facility] ) PERFOR (test code Comment Jovito Tab erasmo, = 65602-7) Cytotechnologis t (ASCP)Reviewed at: [facility] [address] [facility] [place] [address]Yuwcodoxr by:[facility] ) IGLBP (test code = Comment [place] based 41346-9) ThinPrep(R) pap test was screened with t heuse of an image guided system.Performe d by:[facility] ) HPV Aptima (test Negative Negative This nuclei c acid code = 46626-1) amplificatio n test detects fourteen high-r iskHPV types (16,18,31,33,35 ,39,45,51,52 ,56,58,59,66,68 ) withoutdifferen tiation.Perf ormed by:[facility]) Chlamydia, Nuc. Negative Negative Acid Amp (test code = 27619-2) Gonococcus, Nuc. Negative Negative Acid Amp (test code = 51408-5) [facility] Description: IGP,CtNg,AptimaHPV,rfx16/18, 21:45:00 Test Item Value Reference Range Interpretation Comments CICD10 (test code Comment Z01.419Per formed by:[facility] = 26426-7) [facility] ) PERFOR (test code Comment Jovito Tab erasmo, = 70466-2) Cytotechnologis t (ASCP)Reviewed at: [facility] [address] [place] [address]Howmymzcm by:[facility] ) IGLBP (test code = Comment This [place] id based 43042-9) ThinPrep(R) pap test was screened with t heuse of an image guided system.Performe d by:[facility] ) HPV Aptima (test Negative Negative This nuclei c acid code = 38121-9) amplificatio n test detects fourteen high-r iskHPV types (16,18,31,33,35 ,39,45,51,52 ,56,58,59,66,68 ) withoutdifferen tiation.Perf ormed by:[facility]) Chlamydia, Nuc. Negative Negative Acid Amp (test code = 05011-6) Gonococcus, Nuc. Negative Negative Acid Amp (test code = 21744-4) [facility] Description: IGP,CtNg,AptimaHPV,rfx16/18, 21:45:00 Test Item Value Reference Range Interpretation Comments CICD10 (test code Comment Z01.419Per formed by:[facility] = 37151-2) [facility] ) PERFOR (test code Comment Jovito Tab erasmo, = 82313-0) Cytotechnologis t (ASCP)Reviewed at: [place] [address] [address] [facility] [place] [address]Bvolwnxyq by:[facility] ) IGLBP (test code = Comment [place] 85607-1) ThinPrep(R) pap test was screened with daniel lopez of an image guided system.Performe d by:[facility] ) HPV Aptima (test Negative Negative This nuclei c acid code = 50257-6) amplificatio n test detects fourteen high-r iskHPV types (16,18,31,33,35 ,39,45,51,52 ,56,58,59,66,68 ) withoutdifferen tiation.Perf ormed by:[facility]) Chlamydia, Nuc. Negative Negative Acid Amp (test code = 33345-8) Gonococcus, Nuc. Negative Negative Acid Amp (test code = 73925-3) [facility] Description: IGP,CtNg,AptimaHPV,rfx16/18, 21:45:00 Test Item Value Reference Range Interpretation Comments CICD10 (test code Comment Z01.419Per formed by:[facility] = 53653-0[facility] ) PERFOR (test code Comment Jovito Tab earsmo, = 65878-8) Cytotechnologis t (ASCP)Reviewed at: [place] [address] [address] [facility] [place] [address]Nalvjyogv by:[facility] ) IGLBP (test code = [place] 24169-0) ThinPrep(R) pap test was screened with t heuse of an image guided system.Performe d by:[facility] ) HPV Aptima (test Negative Negative This nuclei c acid code = 90438-7) amplificatio n test detects fourteen high-r iskHPV types (16,18,31,33,35 ,39,45,51,52 ,56,58,59,66,68 ) withoutdifferen tiation.Perf ormed by:[facility]) Chlamydia, Nuc. Negative Negative Acid Amp (test code = 51635-8) Gonococcus, Nuc. Negative Negative Acid Amp (test code = 66883-8) [facility] Description: IGP,CtNg,AptimaHPV,rfx16/18,[id number] 21:45:00 Test Item Value Reference Range Interpretation Comments CICD10 (test code Comment Z01.419

Performed = 08445-6) by:
[facility])

PERFOR (test code Comment Jaime zimmerman, = 29046-7) Cytotechnologis t (ASCP)Reviewed at: [facility] [address] [place] [facility] [place] [address]

Performed by:
[facility])

IGLBP (test code = Comment [place] based 76550-9) ThinPrep(R) pap test was screened with t heuse of an image guided system.

Performed by:
[facility])

HPV Aptima (test Negative Negative This nuclei c acid code = 88549-7) amplificatio n test detects fourteen high-r iskHPV types (16,18,31,33,35 ,39,45,51,52 ,56,58,59,66,68 ) withoutdifferen tiation.<br/ >
Performed by:
[facility] ()

Chlamydia, Nuc. Negative Negative Acid Amp (test code = 97936-1) Gonococcus, Nuc. Negative Negative Acid Amp (test code = 53044-9) [facility] Description: Vaginitis/Vaginosis, DNA [id number] 00:35:00 Test Item Value Reference Range Interpretation Comments Ana Maria species (test code = Negative Negative 58265-9) Gardnerella vaginalis (test code = Positive Negative A 6410-5) Trichomonas vaginalis (test code = Negative Negative 6568-0) [facility] Description: Vaginitis/Vaginosis, DNA [id number] 00:35:00 Test Item Value Reference Range Interpretation Comments Ana Maria species (test code = Negative Negative 63095-6) Gardnerella vaginalis (test code = Positive Negative A 6410-5) Trichomonas vaginalis (test code = Negative Negative 6568-0) [facility] Description: Vaginitis/Vaginosis, DNA [id number] 00:35:00 Test Item Value Reference Range Interpretation Comments Ana Maria species (test code = Negative Negative 57958-6) Gardnerella vaginalis (test code = Positive Negative A 6410-5) Trichomonas vaginalis (test code = Negative Negative 6568-0) [facility] Description: Vaginitis/Vaginosis, DNA [id number] 00:35:00 Test Item Value Reference Range Interpretation Comments Ana Maria species (test code = Negative Negative 83517-5) Gardnerella vaginalis (test code = Positive Negative A 6410-5) Trichomonas vaginalis (test code = Negative Negative 6568-0) [facility] Description: Vaginitis/Vaginosis, DNA [id number] 00:35:00 Test Item Value Reference Range Interpretation Comments Ana Maria species (test code = Negative Negative 05676-0) Gardnerella vaginalis (test code = Positive Negative A 6410-5) Trichomonas vaginalis (test code = Negative Negative 6568-0) [facility] Description: Vaginitis/Vaginosis, DNA [id number] 00:35:00 Test Item Value Reference Range Interpretation Comments Ana Maria species (test code = Negative Negative 13879-3) Gardnerella vaginalis (test code = Positive Negative A 6410-5) Trichomonas vaginalis (test code = Negative Negative 6568-0) [facility] Description: Vaginitis/Vaginosis, DNA [id number] 00:35:00 Test Item Value Reference Range Interpretation Comments Ana Maria species (test code = Negative Negative 87766-6) Gardnerella vaginalis (test code = Positive Negative A 6410-5) Trichomonas vaginalis (test code = Negative Negative 6568-0) [facility] Description: Vaginitis/Vaginosis, DNA [id number] 00:35:00 Test Item Value Reference Range Interpretation Comments Ana Maria species (test code = Negative Negative 03580-0) Gardnerella vaginalis (test code = Positive Negative A 6410-5) Trichomonas vaginalis (test code = Negative Negative 6568-0) [facility] Description: Vaginitis/Vaginosis, DNA [id number] 00:35:00 Test Item Value Reference Range Interpretation Comments Ana Maria species (test code = Negative Negative 13326-1) Gardnerella vaginalis (test code = Positive Negative A 6410-5) Trichomonas vaginalis (test code = Negative Negative 6568-0) [facility] Description: Vaginitis/Vaginosis, DNA [id number] 00:35:00 Test Item Value Reference Range Interpretation Comments Ana Maria species (test code = Negative Negative 21932-9) Gardnerella vaginalis (test code = Positive Negative A 6410-5) Trichomonas vaginalis (test code = Negative Negative 6568-0) [facility] Description: Vaginitis/Vaginosis, DNA [id number] 00:35:00 Test Item Value Reference Range Interpretation Comments Ana Maria species (test code = Negative Negative 21285-5) Gardnerella vaginalis (test code = Positive Negative A 6410-5) Trichomonas vaginalis (test code = Negative Negative 6568-0) [facility] Description: Vaginitis/Vaginosis, DNA [id number] 00:35:00 Test Item Value Reference Range Interpretation Comments Ana Maria species (test code = Negative Negative 84956-8) Gardnerella vaginalis (test code = Positive Negative A 6410-5) Trichomonas vaginalis (test code = Negative Negative 6568-0) [facility] Description: Vaginitis/Vaginosis, DNA [id number] 00:35:00 Test Item Value Reference Range Interpretation Comments Ana Maria species (test code = Negative Negative 53960-8) Gardnerella vaginalis (test code = Positive Negative A 6410-5) Trichomonas vaginalis (test code = Negative Negative 6568-0) [facility] Description: Vaginitis/Vaginosis, DNA [id number] 00:35:00 Test Item Value Reference Range Interpretation Comments Ana Maria species (test code = Negative Negative 19150-8) Gardnerella vaginalis (test code = Positive Negative A 6410-5) Trichomonas vaginalis (test code = Negative Negative 6568-0) [facility] Description: Vaginitis/Vaginosis, DNA [id number] 00:35:00 Test Item Value Reference Range Interpretation Comments Ana Maria species (test code = Negative Negative 55239-6) Gardnerella vaginalis (test code = Positive Negative A 6410-5) Trichomonas vaginalis (test code = Negative Negative 6568-0) [facility] Description: Vaginitis/Vaginosis, DNA [id number] 01:03:00 Test Item Value Reference Range Interpretation Comments Ana Maria species (test code = Negative Negative 42054-0) Gardnerella vaginalis (test code = Positive Negative A 6410-5) Trichomonas vaginalis (test code = Negative Negative 6568-0) [facility] Description: Vaginitis/Vaginosis, DNA [id number] 01:03:00 Test Item Value Reference Range Interpretation Comments Ana Maria species (test code = Negative Negative 33565-5) Gardnerella vaginalis (test code = Positive Negative A 6410-5) Trichomonas vaginalis (test code = Negative Negative 6568-0) [facility] Description: Vaginitis/Vaginosis, DNA [id number] 01:03:00 Test Item Value Reference Range Interpretation Comments Ana Maria species (test code = Negative Negative 28310-8) Gardnerella vaginalis (test code = Positive Negative A 6410-5) Trichomonas vaginalis (test code = Negative Negative 6568-0) [facility] Description: Vaginitis/Vaginosis, DNA [id number] 01:03:00 Test Item Value Reference Range Interpretation Comments Ana Maria species (test code = Negative Negative 40661-0) Gardnerella vaginalis (test code = Positive Negative A 6410-5) Trichomonas vaginalis (test code = Negative Negative 6568-0) [facility] Description: Vaginitis/Vaginosis, DNA [id number] 01:03:00 Test Item Value Reference Range Interpretation Comments Ana Maria species (test code = Negative Negative 81301-1) Gardnerella vaginalis (test code = Positive Negative A 6410-5) Trichomonas vaginalis (test code = Negative Negative 6568-0) [facility] Description: Vaginitis/Vaginosis, DNA [id number] 01:03:00 Test Item Value Reference Range Interpretation Comments Ana Maria species (test code = Negative Negative 96465-5) Gardnerella vaginalis (test code = Positive Negative A 6410-5) Trichomonas vaginalis (test code = Negative Negative 6568-0) [facility] Description: Vaginitis/Vaginosis, DNA [id number] 01:03:00 Test Item Value Reference Range Interpretation Comments Ana Maria species (test code = Negative Negative 06711-7) Gardnerella vaginalis (test code = Positive Negative A 6410-5) Trichomonas vaginalis (test code = Negative Negative 6568-0) [facility] Description: Vaginitis/Vaginosis, DNA [id number] 01:03:00 Test Item Value Reference Range Interpretation Comments Ana Maria species (test code = Negative Negative 67424-2) Gardnerella vaginalis (test code = Positive Negative A 6410-5) Trichomonas vaginalis (test code = Negative Negative 6568-0) [facility] Description: Vaginitis/Vaginosis, DNA [id number] 01:03:00 Test Item Value Reference Range Interpretation Comments Ana Maria species (test code = Negative Negative 42728-3) Gardnerella vaginalis (test code = Positive Negative A 6410-5) Trichomonas vaginalis (test code = Negative Negative 6568-0) [facility] Description: Vaginitis/Vaginosis, DNA [id number] 01:03:00 Test Item Value Reference Range Interpretation Comments Ana Maria species (test code = Negative Negative 29176-2) Gardnerella vaginalis (test code = Positive Negative A 6410-5) Trichomonas vaginalis (test code = Negative Negative 6568-0) [facility] Description: Vaginitis/Vaginosis, DNA [id number] 01:03:00 Test Item Value Reference Range Interpretation Comments Ana Maria species (test code = Negative Negative 99832-3) Gardnerella vaginalis (test code = Positive Negative A 6410-5) Trichomonas vaginalis (test code = Negative Negative 6568-0) [facility] Description: Vaginitis/Vaginosis, DNA [id number] 01:03:00 Test Item Value Reference Range Interpretation Comments Ana Maria species (test code = Negative Negative 67815-6) Gardnerella vaginalis (test code = Positive Negative A 6410-5) Trichomonas vaginalis (test code = Negative Negative 6568-0) [facility] Description: Vaginitis/Vaginosis, DNA [id number] 01:03:00 Test Item Value Reference Range Interpretation Comments Ana Maria species (test code = Negative Negative 43540-1) Gardnerella vaginalis (test code = Positive Negative A 6410-5) Trichomonas vaginalis (test code = Negative Negative 6568-0) [facility] Description: Vaginitis/Vaginosis, DNA [id number] 01:03:00 Test Item Value Reference Range Interpretation Comments Ana Maria species (test code = Negative Negative 52743-3) Gardnerella vaginalis (test code = Positive Negative A 6410-5) Trichomonas vaginalis (test code = Negative Negative 6568-0) [facility] Description: Vaginitis/Vaginosis, DNA [id number] 01:03:00 Test Item Value Reference Range Interpretation Comments Ana Maria species (test code = Negative Negative 00054-1) Gardnerella vaginalis (test code = Positive Negative A 6410-5) Trichomonas vaginalis (test code = Negative Negative 6568-0) [facility] Description: Vaginitis/Vaginosis, DNA [id number] 23:55:00 Test Item Value Reference Range Interpretation Comments Ana Maria species (test code = Negative Negative 53401-2) Gardnerella vaginalis (test code = Positive Negative A 6410-5) Trichomonas vaginalis (test code = Positive Negative A 6568-0) [facility] Description: Vaginitis/Vaginosis, DNA [id number] 23:55:00 Test Item Value Reference Range Interpretation Comments Ana Maria species (test code = Negative Negative 06714-9) Gardnerella vaginalis (test code = Positive Negative A 6410-5) Trichomonas vaginalis (test code = Positive Negative A 6568-0) [facility] Description: Vaginitis/Vaginosis, DNA [id number] 23:55:00 Test Item Value Reference Range Interpretation Comments Ana Maria species (test code = Negative Negative 60671-6) Gardnerella vaginalis (test code = Positive Negative A 6410-5) Trichomonas vaginalis (test code = Positive Negative A 6568-0) [facility] Description: Vaginitis/Vaginosis, DNA [id number] 23:55:00 Test Item Value Reference Range Interpretation Comments Ana Maria species (test code = Negative Negative 18161-0) Gardnerella vaginalis (test code = Positive Negative A 6410-5) Trichomonas vaginalis (test code = Positive Negative A 6568-0) [facility] Description: Vaginitis/Vaginosis, DNA [id number] 23:55:00 Test Item Value Reference Range Interpretation Comments Ana Maria species (test code = Negative Negative 07375-7) Gardnerella vaginalis (test code = Positive Negative A 6410-5) Trichomonas vaginalis (test code = Positive Negative A 6568-0) [facility] Description: Vaginitis/Vaginosis, DNA [id number] 23:55:00 Test Item Value Reference Range Interpretation Comments Ana Maria species (test code = Negative Negative 07521-5) Gardnerella vaginalis (test code = Positive Negative A 6410-5) Trichomonas vaginalis (test code = Positive Negative A 6568-0) [facility] Description: Vaginitis/Vaginosis, DNA [id number] 23:55:00 Test Item Value Reference Range Interpretation Comments Ana Maria species (test code = Negative Negative 70970-5) Gardnerella vaginalis (test code = Positive Negative A 6410-5) Trichomonas vaginalis (test code = Positive Negative A 6568-0) [facility] Description: Vaginitis/Vaginosis, DNA [id number] 23:55:00 Test Item Value Reference Range Interpretation Comments Ana Maria species (test code = Negative Negative 03001-1) Gardnerella vaginalis (test code = Positive Negative A 6410-5) Trichomonas vaginalis (test code = Positive Negative A 6568-0) [facility] Description: Vaginitis/Vaginosis, DNA [id number] 23:55:00 Test Item Value Reference Range Interpretation Comments Ana Maria species (test code = Negative Negative 26993-5) Gardnerella vaginalis (test code = Positive Negative A 6410-5) Trichomonas vaginalis (test code = Positive Negative A 6568-0) [facility] Description: Vaginitis/Vaginosis, DNA [id number] 23:55:00 Test Item Value Reference Range Interpretation Comments Ana Maria species (test code = Negative Negative 66198-4) Gardnerella vaginalis (test code = Positive Negative A 6410-5) Trichomonas vaginalis (test code = Positive Negative A 6568-0) [facility] Description: Vaginitis/Vaginosis, DNA [id number] 23:55:00 Test Item Value Reference Range Interpretation Comments Ana Maria species (test code = Negative Negative 89447-4) Gardnerella vaginalis (test code = Positive Negative A 6410-5) Trichomonas vaginalis (test code = Positive Negative A 6568-0) [facility] Description: Vaginitis/Vaginosis, DNA [id number] 23:55:00 Test Item Value Reference Range Interpretation Comments Ana Maria species (test code = Negative Negative 59347-1) Gardnerella vaginalis (test code = Positive Negative A 6410-5) Trichomonas vaginalis (test code = Positive Negative A 6568-0) [facility] Description: Vaginitis/Vaginosis, DNA [id number] 23:55:00 Test Item Value Reference Range Interpretation Comments Ana Maria species (test code = Negative Negative 52395-8) Gardnerella vaginalis (test code = Positive Negative A 6410-5) Trichomonas vaginalis (test code = Positive Negative A 6568-0) [facility] Description: Vaginitis/Vaginosis, DNA [id number] 23:55:00 Test Item Value Reference Range Interpretation Comments Ana Maria species (test code = Negative Negative 97786-0) Gardnerella vaginalis (test code = Positive Negative A 6410-5) Trichomonas vaginalis (test code = Positive Negative A 6568-0) [facility] Description: Vaginitis/Vaginosis, DNA [id number] 23:55:00 Test Item Value Reference Range Interpretation Comments Ana Maria species (test code = Negative Negative 85200-2) Gardnerella vaginalis (test code = Positive Negative A 6410-5) Trichomonas vaginalis (test code = Positive Negative A 6568-0) [facility] Description: CBC With Differential/Fkoiedcy9993-41-31 15:20:00 Test Item Value Reference Range Interpretation Comments WBC (test code = 4.3 x10E3/uL 3.4-10.8 6690-2) RBC (test code = 4.15 x10E6/uL 3.77-5.28 789-8) Hemoglobin (test code 9.1 g/dL 11.1-15.9 L = 718-7) Hematocrit (test code 30.9 % 34.0-46.6 L = 4544-3) MCV (test code = 75 fL 79-97 L 787-2) MCH (test code = 21.9 pg 26.6-33.0 L 785-6) MCHC (test code = 29.4 g/dL 31.5-35.7 L 786-4) RDW (test code = 22.3 % 12.3-15.4 H 788-0) Platelets (test code 206 x10E3/uL 150-450 = 777-3) Neutrophils (test 51 % Not Estab. code = 770-8) Lymphs (test code = 36 % Not Estab. 736-9) Monocytes (test code 9 % Not Estab. = 5905-5) Eos (test code = 4 % Not Estab. 713-8) Basos (test code = 0 % Not Estab. 706-2) Neutrophils 2.1 x10E3/uL 1.4-7.0 (Absolute) (test code = 751-8) Lymphs (Absolute) 1.6 x10E3/uL 0.7-3.1 (test code = 731-0) Monocytes(Absolute) 0.4 x10E3/uL 0.1-0.9 (test code = 742-7) Eos (Absolute) (test 0.2 x10E3/uL 0.0-0.4 code = 711-2) Baso (Absolute) (test 0.0 x10E3/uL 0.0-0.2 code = 704-7) Immature Granulocytes 0 % Not Estab. (test code = 62284-7) Immature Grans (Abs) 0.0 x10E3/uL 0.0-0.1 (test code = 54673-9) NRBC (test code = 08417-4) Hematology Comments: Note: Gypsy tripp by (test code = 15963-0) micros copic examination.
<b r/>Performed by:
[facility] [place] ()

[facility] Description: CBC With Differential/Dpsacwrx7304-12-84 15:20:00 Test Item Value Reference Range Interpretation Comments WBC (test code = 4.3 x10E3/uL 3.4-10.8 6690-2) RBC (test code = 4.15 x10E6/uL 3.77-5.28 789-8) Hemoglobin (test code 9.1 g/dL 11.1-15.9 L = 718-7) Hematocrit (test code 30.9 % 34.0-46.6 L = 4544-3) MCV (test code = 75 fL 79-97 L 787-2) MCH (test code = 21.9 pg 26.6-33.0 L 785-6) MCHC (test code = 29.4 g/dL 31.5-35.7 L 786-4) RDW (test code = 22.3 % 12.3-15.4 H 788-0) Platelets (test code 206 x10E3/uL 150-450 = 777-3) Neutrophils (test 51 % Not Estab. code = 770-8) Lymphs (test code = 36 % Not Estab. 736-9) Monocytes (test code 9 % Not Estab. = 5905-5) Eos (test code = 4 % Not Estab. 713-8) Basos (test code = 0 % Not Estab. 706-2) Neutrophils 2.1 x10E3/uL 1.4-7.0 (Absolute) (test code = 751-8) Lymphs (Absolute) 1.6 x10E3/uL 0.7-3.1 (test code = 731-0) Monocytes(Absolute) 0.4 x10E3/uL 0.1-0.9 (test code = 742-7) Eos (Absolute) (test 0.2 x10E3/uL 0.0-0.4 code = 711-2) Baso (Absolute) (test 0.0 x10E3/uL 0.0-0.2 code = 704-7) Immature Granulocytes 0 % Not Estab. (test code = 06961-3) Immature Grans (Abs) 0.0 x10E3/uL 0.0-0.1 (test code = 46595-0) NRBC (test code = 85912-3) Hematology Comments: Note: Gypsy d by (test code = 03133-1) micros copic examination.
<b r/>Performed by:
[facility] [place] ()

[facility] Description: CBC With Differential/Abqawhpr8020-20-70 15:20:00 Test Item Value Reference Range Interpretation Comments WBC (test code = 4.3 x10E3/uL 3.4-10.8 6690-2) RBC (test code = 4.15 x10E6/uL 3.77-5.28 789-8) Hemoglobin (test code 9.1 g/dL 11.1-15.9 L = 718-7) Hematocrit (test code 30.9 % 34.0-46.6 L = 4544-3) MCV (test code = 75 fL 79-97 L 787-2) MCH (test code = 21.9 pg 26.6-33.0 L 785-6) MCHC (test code = 29.4 g/dL 31.5-35.7 L 786-4) RDW (test code = 22.3 % 12.3-15.4 H 788-0) Platelets (test code 206 x10E3/uL 150-450 = 777-3) Neutrophils (test 51 % Not Estab. code = 770-8) Lymphs (test code = 36 % Not Estab. 736-9) Monocytes (test code 9 % Not Estab. = 5905-5) Eos (test code = 4 % Not Estab. 713-8) Basos (test code = 0 % Not Estab. 706-2) Neutrophils 2.1 x10E3/uL 1.4-7.0 (Absolute) (test code = 751-8) Lymphs (Absolute) 1.6 x10E3/uL 0.7-3.1 (test code = 731-0) Monocytes(Absolute) 0.4 x10E3/uL 0.1-0.9 (test code = 742-7) Eos (Absolute) (test 0.2 x10E3/uL 0.0-0.4 code = 711-2) Baso (Absolute) (test 0.0 x10E3/uL 0.0-0.2 code = 704-7) Immature Granulocytes 0 % Not Estab. (test code = 32126-3) Immature Grans (Abs) 0.0 x10E3/uL 0.0-0.1 (test code = 20664-5) NRBC (test code = 24872-3) Hematology Comments: Note: Verifie d by (test code = 07374-6) micros copic examination.
<b r/>Performed by:
[facility] [place] ()

[facility] Description: CBC With Differential/Nsmhjwle9992-32-93 15:20:00 Test Item Value Reference Range Interpretation Comments WBC (test code = 4.3 x10E3/uL 3.4-10.8 6690-2) RBC (test code = 4.15 x10E6/uL 3.77-5.28 789-8) Hemoglobin (test code 9.1 g/dL 11.1-15.9 L = 718-7) Hematocrit (test code 30.9 % 34.0-46.6 L = 4544-3) MCV (test code = 75 fL 79-97 L 787-2) MCH (test code = 21.9 pg 26.6-33.0 L 785-6) MCHC (test code = 29.4 g/dL 31.5-35.7 L 786-4) RDW (test code = 22.3 % 12.3-15.4 H 788-0) Platelets (test code 206 x10E3/uL 150-450 = 777-3) Neutrophils (test 51 % Not Estab. code = 770-8) Lymphs (test code = 36 % Not Estab. 736-9) Monocytes (test code 9 % Not Estab. = 5905-5) Eos (test code = 4 % Not Estab. 713-8) Basos (test code = 0 % Not Estab. 706-2) Neutrophils 2.1 x10E3/uL 1.4-7.0 (Absolute) (test code = 751-8) Lymphs (Absolute) 1.6 x10E3/uL 0.7-3.1 (test code = 731-0) Monocytes(Absolute) 0.4 x10E3/uL 0.1-0.9 (test code = 742-7) Eos (Absolute) (test 0.2 x10E3/uL 0.0-0.4 code = 711-2) Baso (Absolute) (test 0.0 x10E3/uL 0.0-0.2 code = 704-7) Immature Granulocytes 0 % Not Estab. (test code = 85913-5) Immature Grans (Abs) 0.0 x10E3/uL 0.0-0.1 (test code = 67676-2) NRBC (test code = 49197-7) Hematology Comments: Note: Verifie d by (test code = 33782-1) micros copic examination.
<b r/>Performed by:
[facility] [place] ()

[facility] Description: CBC With Differential/Nagpxmzc5715-66-04 15:20:00 Test Item Value Reference Range Interpretation Comments WBC (test code = 4.3 x10E3/uL 3.4-10.8 6690-2) RBC (test code = 4.15 x10E6/uL 3.77-5.28 789-8) Hemoglobin (test code 9.1 g/dL 11.1-15.9 L = 718-7) Hematocrit (test code 30.9 % 34.0-46.6 L = 4544-3) MCV (test code = 75 fL 79-97 L 787-2) MCH (test code = 21.9 pg 26.6-33.0 L 785-6) MCHC (test code = 29.4 g/dL 31.5-35.7 L 786-4) RDW (test code = 22.3 % 12.3-15.4 H 788-0) Platelets (test code 206 x10E3/uL 150-450 = 777-3) Neutrophils (test 51 % Not Estab. code = 770-8) Lymphs (test code = 36 % Not Estab. 736-9) Monocytes (test code 9 % Not Estab. = 5905-5) Eos (test code = 4 % Not Estab. 713-8) Basos (test code = 0 % Not Estab. 706-2) Neutrophils 2.1 x10E3/uL 1.4-7.0 (Absolute) (test code = 751-8) Lymphs (Absolute) 1.6 x10E3/uL 0.7-3.1 (test code = 731-0) Monocytes(Absolute) 0.4 x10E3/uL 0.1-0.9 (test code = 742-7) Eos (Absolute) (test 0.2 x10E3/uL 0.0-0.4 code = 711-2) Baso (Absolute) (test 0.0 x10E3/uL 0.0-0.2 code = 704-7) Immature Granulocytes 0 % Not Estab. (test code = 99232-6) Immature Grans (Abs) 0.0 x10E3/uL 0.0-0.1 (test code = 29108-7) NRBC (test code = 57086-4) Hematology Comments: Note: Verifie d by (test code = 45426-6) micros copic examination.
<b r/>Performed by:
[facility] ()

[facility] Description: CBC With Differential/[id number] 15:20:00 Test Item Value Reference Range Interpretation Comments WBC (test code = 4.3 x10E3/uL 3.4-10.8 6690-2) RBC (test code = 4.15 x10E6/uL 3.77-5.28 789-8) Hemoglobin (test code 9.1 g/dL 11.1-15.9 L = 718-7) Hematocrit (test code 30.9 % 34.0-46.6 L = 4544-3) MCV (test code = 75 fL 79-97 L 787-2) MCH (test code = 21.9 pg 26.6-33.0 L 785-6) MCHC (test code = 29.4 g/dL 31.5-35.7 L 786-4) RDW (test code = 22.3 % 12.3-15.4 H 788-0) Platelets (test code 206 x10E3/uL 150-450 = 777-3) Neutrophils (test 51 % Not Estab. code = 770-8) Lymphs (test code = 36 % Not Estab. 736-9) Monocytes (test code 9 % Not Estab. = 5905-5) Eos (test code = 4 % Not Estab. 713-8) Basos (test code = 0 % Not Estab. 706-2) Neutrophils 2.1 x10E3/uL 1.4-7.0 (Absolute) (test code = 751-8) Lymphs (Absolute) 1.6 x10E3/uL 0.7-3.1 (test code = 731-0) Monocytes(Absolute) 0.4 x10E3/uL 0.1-0.9 (test code = 742-7) Eos (Absolute) (test 0.2 x10E3/uL 0.0-0.4 code = 711-2) Baso (Absolute) (test 0.0 x10E3/uL 0.0-0.2 code = 704-7) Immature Granulocytes 0 % Not Estab. (test code = 33732-9) Immature Grans (Abs) 0.0 x10E3/uL 0.0-0.1 (test code = 83893-2) NRBC (test code = 29429-0) Hematology Comments: Note: Verifie d by (test code = 49765-0) micros copic examination.
<b r/>Performed by:
[facility] ([place])

[facility] Description: CBC With Differential/[id number] 15:20:00 Test Item Value Reference Range Interpretation Comments WBC (test code = 4.3 x10E3/uL 3.4-10.8 6690-2) RBC (test code = 4.15 x10E6/uL 3.77-5.28 789-8) Hemoglobin (test code 9.1 g/dL 11.1-15.9 L = 718-7) Hematocrit (test code 30.9 % 34.0-46.6 L = 4544-3) MCV (test code = 75 fL 79-97 L 787-2) MCH (test code = 21.9 pg 26.6-33.0 L 785-6) MCHC (test code = 29.4 g/dL 31.5-35.7 L 786-4) RDW (test code = 22.3 % 12.3-15.4 H 788-0) Platelets (test code 206 x10E3/uL 150-450 = 777-3) Neutrophils (test 51 % Not Estab. code = 770-8) Lymphs (test code = 36 % Not Estab. 736-9) Monocytes (test code 9 % Not Estab. = 5905-5) Eos (test code = 4 % Not Estab. 713-8) Basos (test code = 0 % Not Estab. 706-2) Neutrophils 2.1 x10E3/uL 1.4-7.0 (Absolute) (test code = 751-8) Lymphs (Absolute) 1.6 x10E3/uL 0.7-3.1 (test code = 731-0) Monocytes(Absolute) 0.4 x10E3/uL 0.1-0.9 (test code = 742-7) Eos (Absolute) (test 0.2 x10E3/uL 0.0-0.4 code = 711-2) Baso (Absolute) (test 0.0 x10E3/uL 0.0-0.2 code = 704-7) Immature Granulocytes 0 % Not Estab. (test code = 79936-4) Immature Grans (Abs) 0.0 x10E3/uL 0.0-0.1 (test code = 98043-2) NRBC (test code = 44070-6) Hematology Comments: Note: Gypsy tripp by (test code = 70999-8) micros copic examination.
<b r/>Performed by:
[facility] [place] ([place])

[facility] Description: CBC With Differential/[id number] 15:20:00 Test Item Value Reference Range Interpretation Comments WBC (test code = 4.3 x10E3/uL 3.4-10.8 6690-2) RBC (test code = 4.15 x10E6/uL 3.77-5.28 789-8) Hemoglobin (test code 9.1 g/dL 11.1-15.9 L = 718-7) Hematocrit (test code 30.9 % 34.0-46.6 L = 4544-3) MCV (test code = 75 fL 79-97 L 787-2) MCH (test code = 21.9 pg 26.6-33.0 L 785-6) MCHC (test code = 29.4 g/dL 31.5-35.7 L 786-4) RDW (test code = 22.3 % 12.3-15.4 H 788-0) Platelets (test code 206 x10E3/uL 150-450 = 777-3) Neutrophils (test 51 % Not Estab. code = 770-8) Lymphs (test code = 36 % Not Estab. 736-9) Monocytes (test code 9 % Not Estab. = 5905-5) Eos (test code = 4 % Not Estab. 713-8) Basos (test code = 0 % Not Estab. 706-2) Neutrophils 2.1 x10E3/uL 1.4-7.0 (Absolute) (test code = 751-8) Lymphs (Absolute) 1.6 x10E3/uL 0.7-3.1 (test code = 731-0) Monocytes(Absolute) 0.4 x10E3/uL 0.1-0.9 (test code = 742-7) Eos (Absolute) (test 0.2 x10E3/uL 0.0-0.4 code = 711-2) Baso (Absolute) (test 0.0 x10E3/uL 0.0-0.2 code = 704-7) Immature Granulocytes 0 % Not Estab. (test code = 77337-9) Immature Grans (Abs) 0.0 x10E3/uL 0.0-0.1 (test code = 57262-0) NRBC (test code = 19300-6) Hematology Comments: Note: Verifie d by (test code = 71535-3) micros copic examination.
<b r/>Performed by:
[facility] [place] ()

[facility] Description: CBC With Differential/[id number] 15:20:00 Test Item Value Reference Range Interpretation Comments WBC (test code = 4.3 x10E3/uL 3.4-10.8 6690-2) RBC (test code = 4.15 x10E6/uL 3.77-5.28 789-8) Hemoglobin (test code 9.1 g/dL 11.1-15.9 L = 718-7) Hematocrit (test code 30.9 % 34.0-46.6 L = 4544-3) MCV (test code = 75 fL 79-97 L 787-2) MCH (test code = 21.9 pg 26.6-33.0 L 785-6) MCHC (test code = 29.4 g/dL 31.5-35.7 L 786-4) RDW (test code = 22.3 % 12.3-15.4 H 788-0) Platelets (test code 206 x10E3/uL 150-450 = 777-3) Neutrophils (test 51 % Not Estab. code = 770-8) Lymphs (test code = 36 % Not Estab. 736-9) Monocytes (test code 9 % Not Estab. = 5905-5) Eos (test code = 4 % Not Estab. 713-8) Basos (test code = 0 % Not Estab. 706-2) Neutrophils 2.1 x10E3/uL 1.4-7.0 (Absolute) (test code = 751-8) Lymphs (Absolute) 1.6 x10E3/uL 0.7-3.1 (test code = 731-0) Monocytes(Absolute) 0.4 x10E3/uL 0.1-0.9 (test code = 742-7) Eos (Absolute) (test 0.2 x10E3/uL 0.0-0.4 code = 711-2) Baso (Absolute) (test 0.0 x10E3/uL 0.0-0.2 code = 704-7) Immature Granulocytes 0 % Not Estab. (test code = 74867-1) Immature Grans (Abs) 0.0 x10E3/uL 0.0-0.1 (test code = 37432-8) NRBC (test code = 43714-6) Hematology Comments: Note: Verifie d by (test code = 41404-5) micros copic examination.
<b r/>Performed by:
[facility] [place] ()

[facility] Description: CBC With Differential/[id number] 15:20:00 Test Item Value Reference Range Interpretation Comments WBC (test code = 4.3 x10E3/uL 3.4-10.8 6690-2) RBC (test code = 4.15 x10E6/uL 3.77-5.28 789-8) Hemoglobin (test code 9.1 g/dL 11.1-15.9 L = 718-7) Hematocrit (test code 30.9 % 34.0-46.6 L = 4544-3) MCV (test code = 75 fL 79-97 L 787-2) MCH (test code = 21.9 pg 26.6-33.0 L 785-6) MCHC (test code = 29.4 g/dL 31.5-35.7 L 786-4) RDW (test code = 22.3 % 12.3-15.4 H 788-0) Platelets (test code 206 x10E3/uL 150-450 = 777-3) Neutrophils (test 51 % Not Estab. code = 770-8) Lymphs (test code = 36 % Not Estab. 736-9) Monocytes (test code 9 % Not Estab. = 5905-5) Eos (test code = 4 % Not Estab. 713-8) Basos (test code = 0 % Not Estab. 706-2) Neutrophils 2.1 x10E3/uL 1.4-7.0 (Absolute) (test code = 751-8) Lymphs (Absolute) 1.6 x10E3/uL 0.7-3.1 (test code = 731-0) Monocytes(Absolute) 0.4 x10E3/uL 0.1-0.9 (test code = 742-7) Eos (Absolute) (test 0.2 x10E3/uL 0.0-0.4 code = 711-2) Baso (Absolute) (test 0.0 x10E3/uL 0.0-0.2 code = 704-7) Immature Granulocytes 0 % Not Estab. (test code = 54562-2) Immature Grans (Abs) 0.0 x10E3/uL 0.0-0.1 (test code = 39670-3) NRBC (test code = 65471-0) Hematology Comments: Note: Gypsy d by (test code = 60389-7) micros copic examination.Per form ed by:[facility] () [facility] Description: CBC With Differential/[id number] 15:20:00 Test Item Value Reference Range Interpretation Comments WBC (test code = 4.3 x10E3/uL 3.4-10.8 6690-2) RBC (test code = 4.15 x10E6/uL 3.77-5.28 789-8) Hemoglobin (test code 9.1 g/dL 11.1-15.9 L = 718-7) Hematocrit (test code 30.9 % 34.0-46.6 L = 4544-3) MCV (test code = 75 fL 79-97 L 787-2) MCH (test code = 21.9 pg 26.6-33.0 L 785-6) MCHC (test code = 29.4 g/dL 31.5-35.7 L 786-4) RDW (test code = 22.3 % 12.3-15.4 H 788-0) Platelets (test code 206 x10E3/uL 150-450 = 777-3) Neutrophils (test 51 % Not Estab. code = 770-8) Lymphs (test code = 36 % Not Estab. 736-9) Monocytes (test code 9 % Not Estab. = 5905-5) Eos (test code = 4 % Not Estab. 713-8) Basos (test code = 0 % Not Estab. 706-2) Neutrophils 2.1 x10E3/uL 1.4-7.0 (Absolute) (test code = 751-8) Lymphs (Absolute) 1.6 x10E3/uL 0.7-3.1 (test code = 731-0) Monocytes(Absolute) 0.4 x10E3/uL 0.1-0.9 (test code = 742-7) Eos (Absolute) (test 0.2 x10E3/uL 0.0-0.4 code = 711-2) Baso (Absolute) (test 0.0 x10E3/uL 0.0-0.2 code = 704-7) Immature Granulocytes 0 % Not Estab. (test code = 99255-9) Immature Grans (Abs) 0.0 x10E3/uL 0.0-0.1 (test code = 63571-3) NRBC (test code = 68967-5) Hematology Comments: Note: Verifie d by (test code = 08022-4) micros copic examination.Per form ed by:[facility] () [facility] Description: CBC With Differential/[id number] 15:20:00 Test Item Value Reference Range Interpretation Comments WBC (test code = 4.3 x10E3/uL 3.4-10.8 6690-2) RBC (test code = 4.15 x10E6/uL 3.77-5.28 789-8) Hemoglobin (test code 9.1 g/dL 11.1-15.9 L = 718-7) Hematocrit (test code 30.9 % 34.0-46.6 L = 4544-3) MCV (test code = 75 fL 79-97 L 787-2) MCH (test code = 21.9 pg 26.6-33.0 L 785-6) MCHC (test code = 29.4 g/dL 31.5-35.7 L 786-4) RDW (test code = 22.3 % 12.3-15.4 H 788-0) Platelets (test code 206 x10E3/uL 150-450 = 777-3) Neutrophils (test 51 % Not Estab. code = 770-8) Lymphs (test code = 36 % Not Estab. 736-9) Monocytes (test code 9 % Not Estab. = 5905-5) Eos (test code = 4 % Not Estab. 713-8) Basos (test code = 0 % Not Estab. 706-2) Neutrophils 2.1 x10E3/uL 1.4-7.0 (Absolute) (test code = 751-8) Lymphs (Absolute) 1.6 x10E3/uL 0.7-3.1 (test code = 731-0) Monocytes(Absolute) 0.4 x10E3/uL 0.1-0.9 (test code = 742-7) Eos (Absolute) (test 0.2 x10E3/uL 0.0-0.4 code = 711-2) Baso (Absolute) (test 0.0 x10E3/uL 0.0-0.2 code = 704-7) Immature Granulocytes 0 % Not Estab. (test code = 19302-0) Immature Grans (Abs) 0.0 x10E3/uL 0.0-0.1 (test code = 52104-5) NRBC (test code = 41634-4) Hematology Comments: Note: Verifie d by (test code = 16873-9) micros copic examination.Per form ed by:[facility] [place] () [facility] Description: CBC With Differential/[id number] 15:20:00 Test Item Value Reference Range Interpretation Comments WBC (test code = 4.3 x10E3/uL 3.4-10.8 6690-2) RBC (test code = 4.15 x10E6/uL 3.77-5.28 789-8) Hemoglobin (test code 9.1 g/dL 11.1-15.9 L = 718-7) Hematocrit (test code 30.9 % 34.0-46.6 L = 4544-3) MCV (test code = 75 fL 79-97 L 787-2) MCH (test code = 21.9 pg 26.6-33.0 L 785-6) MCHC (test code = 29.4 g/dL 31.5-35.7 L 786-4) RDW (test code = 22.3 % 12.3-15.4 H 788-0) Platelets (test code 206 x10E3/uL 150-450 = 777-3) Neutrophils (test 51 % Not Estab. code = 770-8) Lymphs (test code = 36 % Not Estab. 736-9) Monocytes (test code 9 % Not Estab. = 5905-5) Eos (test code = 4 % Not Estab. 713-8) Basos (test code = 0 % Not Estab. 706-2) Neutrophils 2.1 x10E3/uL 1.4-7.0 (Absolute) (test code = 751-8) Lymphs (Absolute) 1.6 x10E3/uL 0.7-3.1 (test code = 731-0) Monocytes(Absolute) 0.4 x10E3/uL 0.1-0.9 (test code = 742-7) Eos (Absolute) (test 0.2 x10E3/uL 0.0-0.4 code = 711-2) Baso (Absolute) (test 0.0 x10E3/uL 0.0-0.2 code = 704-7) Immature Granulocytes 0 % Not Estab. (test code = 66514-3) Immature Grans (Abs) 0.0 x10E3/uL 0.0-0.1 (test code = 02783-1) NRBC (test code = 60590-5) Hematology Comments: Note: Vercarlyle d by (test code = 06062-8) micros copic examination.Per form ed by:[facility] [place] () [facility] Description: CBC With Differential/[id number] 15:20:00 Test Item Value Reference Range Interpretation Comments WBC (test code = 4.3 x10E3/uL 3.4-10.8 6690-2) RBC (test code = 4.15 x10E6/uL 3.77-5.28 789-8) Hemoglobin (test code 9.1 g/dL 11.1-15.9 L = 718-7) Hematocrit (test code 30.9 % 34.0-46.6 L = 4544-3) MCV (test code = 75 fL 79-97 L 787-2) MCH (test code = 21.9 pg 26.6-33.0 L 785-6) MCHC (test code = 29.4 g/dL 31.5-35.7 L 786-4) RDW (test code = 22.3 % 12.3-15.4 H 788-0) Platelets (test code 206 x10E3/uL 150-450 = 777-3) Neutrophils (test 51 % Not Estab. code = 770-8) Lymphs (test code = 36 % Not Estab. 736-9) Monocytes (test code 9 % Not Estab. = 5905-5) Eos (test code = 4 % Not Estab. 713-8) Basos (test code = 0 % Not Estab. 706-2) Neutrophils 2.1 x10E3/uL 1.4-7.0 (Absolute) (test code = 751-8) Lymphs (Absolute) 1.6 x10E3/uL 0.7-3.1 (test code = 731-0) Monocytes(Absolute) 0.4 x10E3/uL 0.1-0.9 (test code = 742-7) Eos (Absolute) (test 0.2 x10E3/uL 0.0-0.4 code = 711-2) Baso (Absolute) (test 0.0 x10E3/uL 0.0-0.2 code = 704-7) Immature Granulocytes 0 % Not Estab. (test code = 91863-6) Immature Grans (Abs) 0.0 x10E3/uL 0.0-0.1 (test code = 47654-2) NRBC (test code = 79581-9) Hematology Comments: Note: Verifie d by (test code = 60260-1) micros copic examination.Per form ed by:[facility] ([place]) [facility] Description: CBC With Differential/[id number] 15:20:00 Test Item Value Reference Range Interpretation Comments WBC (test code = 4.3 x10E3/uL 3.4-10.8 6690-2) RBC (test code = 4.15 x10E6/uL 3.77-5.28 789-8) Hemoglobin (test code 9.1 g/dL 11.1-15.9 L = 718-7) Hematocrit (test code 30.9 % 34.0-46.6 L = 4544-3) MCV (test code = 75 fL 79-97 L 787-2) MCH (test code = 21.9 pg 26.6-33.0 L 785-6) MCHC (test code = 29.4 g/dL 31.5-35.7 L 786-4) RDW (test code = 22.3 % 12.3-15.4 H 788-0) Platelets (test code 206 x10E3/uL 150-450 = 777-3) Neutrophils (test 51 % Not Estab. code = 770-8) Lymphs (test code = 36 % Not Estab. 736-9) Monocytes (test code 9 % Not Estab. = 5905-5) Eos (test code = 4 % Not Estab. 713-8) Basos (test code = 0 % Not Estab. 706-2) Neutrophils 2.1 x10E3/uL 1.4-7.0 (Absolute) (test code = 751-8) Lymphs (Absolute) 1.6 x10E3/uL 0.7-3.1 (test code = 731-0) Monocytes(Absolute) 0.4 x10E3/uL 0.1-0.9 (test code = 742-7) Eos (Absolute) (test 0.2 x10E3/uL 0.0-0.4 code = 711-2) Baso (Absolute) (test 0.0 x10E3/uL 0.0-0.2 code = 704-7) Immature Granulocytes 0 % Not Estab. (test code = 13810-4) Immature Grans (Abs) 0.0 x10E3/uL 0.0-0.1 (test code = 50653-4) NRBC (test code = 87717-3) Hematology Comments: Note: Gypsy whitaker (test code = 05596-5) micros copic examination.
<b r/>Performed by:
[facility] ([place])

[facility]
[2022-06-23] MEDS ORDERED: KETOROLAC 30 MG/ML INJ ONE (17:21)
[2022-06-23] MEDS ORDERED: AMOX/K CLAV 875 MG TAB ONE (17:21)
[2022-06-23] MEDS ORDERED: TDAP (DIPHTH,PERTUSS(ACELL),TET VAC) 0.5 ML VIAL IMVAC ONE (17:21)
[2022-06-23] MEDS ORDERED: LIDOCAINE 1% MPF 5 ML VIAL ONE (17:21)
--- NOTE | 2022-06-23 18:35 | EDPHYS ---
Physician Documentation [facility] Name: Maya Motley Age: 46 yrs Sex: Female : 1975 Arrival Date: 06/23/2022 Time: 16:06 Bed 11 Private MD: ED Physician Angel Kline HPI: 06/23 16:41 This 46 yrs old Female presents to ER via Ambulatory with complaints of Dog Bite. 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 Onset: The symptoms/episode began/occurred suddenly, just prior to arrival. Animal information: Animal control has been notified. Secondary to the bite the patient reports a laceration, 2 cm(s), a puncture wound. Severity of symptoms: At their worst the symptoms were moderate, in the emergency department the symptoms have improved. The patient has not experienced similar symptoms in the past. It is unknown whether or not the patient has recently seen a physician. not up to date on tetanus. 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 - Social history:: Smoking status: Patient denies any tobacco usage or history of. ROS: 16:40 Constitutional: Negative for fever, chills, and weight loss, Eyes: Negative for injury, snw pain, redness, and discharge, ENT: Negative for injury, pain, and discharge, Neck: Negative for injury, pain, and swelling, Cardiovascular: Negative for chest pain, palpitations, and edema, Respiratory: Negative for shortness of breath, cough, wheezing, and pleuritic chest pain, Abdomen/GI: Negative for abdominal pain, nausea, vomiting, diarrhea, and constipation, Back: Negative for injury and pain, : Negative for injury, bleeding, discharge, and swelling, MS/Extremity: Negative for injury and deformity, Neuro: Negative for headache, weakness, numbness, tingling, and seizure. 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 16:40 Psych: Positive for tearful. Exam: 16:38 Constitutional: This is a well developed, well nourished patient who is awake, alert, snw and in no acute distress. Head/Face: Normocephalic, atraumatic. Eyes: Pupils equal round and reactive to light, extra-ocular motions intact. Lids and lashes normal. Conjunctiva and sclera are non-icteric and not injected. Cornea within normal limits. Periorbital areas with no swelling, redness, or edema. ENT: Nares patent. No nasal discharge, no septal abnormalities noted. Tympanic membranes are normal and external auditory canals are clear. Oropharynx with no redness, swelling, or masses, exudates, or evidence of obstruction, uvula midline. Mucous membranes moist. Neck: Trachea midline, no thyromegaly or masses palpated, and no cervical lymphadenopathy. Supple, full range of motion without nuchal rigidity, or vertebral point tenderness. No Meningismus. Chest/axilla: Normal chest wall appearance and motion. Nontender with no deformity. No lesions are appreciated. Cardiovascular: Regular rate and rhythm with a normal S1 and S2. No gallops, murmurs, or rubs. Normal PMI, no JVD. No pulse deficits. Respiratory: Lungs have equal breath sounds bilaterally, clear to auscultation and percussion. No rales, rhonchi or wheezes noted. No increased work of breathing, no retractions or nasal flaring. MS/ Extremity: Pulses equal, no cyanosis. Neurovascular intact. Full, normal range of motion. Neuro: Awake and alert, GCS 15, oriented to person, place, time, and situation. Cranial nerves II-XII grossly intact. Motor strength 5/5 in all extremities. Sensory grossly intact. Cerebellar exam normal. Normal gait. 16:38 Skin: Appearance: normal except for affected area, injury, bite(s), deep, of the medial aspect of left calf, distal wound with 2 cm laceration, proximal wound with puncture with flap <1 cm to medial calf, posterior calf with puncture wound x 1cm. Bleeding controlled.. Vital Signs: 16:13 BP 133 / 88; Pulse 78; Resp 18; Temp 98.8; Pulse Ox 100% ; Weight 68.04 kg; Height 5 mb9 ft. 5 in. (165.10 cm); Pain 8/10; 16:13 Body Mass Index 24.96 (68.04 kg, 165.10 cm) mb9 Laceration: 18:41 Wound Repair of 2cm ( 0.8in ) subcutaneous laceration to medial aspect of left calf. snw Linear shaped.. Distal neuro/vascular/tendon intact. Anesthesia: Local anesthetic administered with 4 mls of 1% lidocaine. Wound prep: Extensive cleansing with hibiclenz by me. Skin closed with 2 4-0 Prolene using simple sutures and sterile technique. Dressed with pressure dressing. Patient tolerated well. MDM: 16:10 Patient medically screened. snw 18:41 Data reviewed: vital signs, nurses notes. snw 19:38 I considered the following discharge prescriptions or medication management in the [facility] emergency department did not give narcotic pain medications in ER because pt is driving herself home. Historians other than the Patient: Law enforcement: discussed dogbite, follow up. Counseling: I had a detailed discussion with the patient and/or guardian regarding: the historical points, exam findings, and any diagnostic results supporting the discharge/admit diagnosis, the need for outpatient follow up, for definitive care, to return to the emergency department if symptoms worsen or persist or if there are any questions or concerns that arise at home. Special discussion: I discussed in detail with the patient the higher chance of wound infection based on his presenting history. Based on the history and exam findings, there is no indication for further emergent testing or inpatient evaluation. I discussed with the patient/guardian the need to see the primary care provider for further evaluation of the symptoms. 19:42 ED course: only largest laceration to medial left calf loosely sutured. the other two w lacerations will heal with secondary intention. 23:10 ED course: OVERSEAMER aware negative. 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 snw 06/23 16:29 Order name: Wound dressing; Complete Time: 18:34 snw Administered Medications: 17:34 Drug: Ketorolac 30 mg Route: IM; Site: right deltoid; kr3 17:34 Drug: Augmentin (Amoxicillin-Clavulanate) 875 mg Route: PO; kr3 17:34 Drug: Hibiclens (chlorhexidine) Liquid 4 % 1 application Route: Topical; Site: affected kr3 area; 17:34 Drug: Boostrix Tdap 0.5 ml {Note: [employer] lot # [id number] Exp 11/26/22.} Route: IM; kr3 Site: left deltoid; 18:10 Drug: Lidocaine (1 %) 5 ml {Note: administered by GISELA Moses at bedside during kr3 procedure.} Volume: 5 ml; Route: Infiltration; Disposition: 06/24 07:44 Co-signature as Attending Physician, Angel Kline MD I reviewed the patient's care rt provided by the Advanced Practice Provider and agree with the diagnosis and treatment plan. Disposition Summary: 06/23/22 18:34 Discharge Ordered Location: Home snw Problem: new snw Symptoms: have improved snw Condition: Stable snw Diagnosis - Bitten by dog, initial encounter snw - Laceration without foreign body of lower leg snw Followup: snw - With: Emergency Department - When: As needed - Reason: Worsening of condition, Staple/Suture removal Followup: snw - With: Private Physician - When: 1 week - Reason: Recheck today's complaints, Continuance of care, Re-evaluation by your physician Discharge Instructions: - Discharge Summary Sheet snw - Animal Bite, Adult, Gzqm-jh-Rryq snw - Laceration Care, Adult snw Forms: - Medication Reconciliation Form snw - Thank You Letter snw - Antibiotic Education snw - Prescription Opioid Use snw - Work release form snw Prescriptions: - Augmentin 875-125 mg Oral Tablet - take 1 tablet by ORAL route every 12 hours for 10 days; 20 tablet; Refills: 0, snw Product Selection Permitted - Mobic 7.5 mg Oral Tablet - take 1 tablet by ORAL route once daily take with food; 20 tablet; Refills: 0, snw Product Selection Permitted - Tylenol-Codeine #3 300 mg-30 mg Oral - take 1 tablet by ORAL route 3 times per day; 12 tablet; Refills: 0, Product snw Selection Permitted Signatures: Kimberly Harrison FNP-C FNP-Csnw Deb Piña RN RN kr3 Ermelinda Conroy RN RN [id number] Angel Kline MD MD rt Corrections: (The following items were deleted from the chart) 06/23 16:40 16:38 Skin: Appearance: normal except for affected area, injury, bite(s), deep, of the snw medial aspect of left calf, snw 19:42 16:38 Skin: Appearance: normal except for affected area, injury, bite(s), deep, of the snw medial aspect of left calf, distal wound with 2 cm laceration, proximal wound with puncture with flap <1 cm. Bleeding controlled. snw
--- NOTE | 2022-06-23 18:35 | ER ---
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 Coronavirus screen: Vaccine status: Patient reports being unvaccinated. Ebola Screen: No symptoms or risks identified at this time. Initial Sepsis Screen: Does the patient meet any 2 criteria? No. Patient's initial sepsis screen is negative. Does the patient have a suspected source of infection? No. Patient's initial sepsis screen is negative. Risk Assessment: Do you want to hurt yourself or someone else? Patient reports no desire to harm self or others. Onset of symptoms was June 23, 2022. 16:13 Method Of Arrival: [facility] 16:13 Acuity: MCKENZIE 4 mb9 Triage Assessment: 18:50 Bite description: bite sustained to left calf by a dog. General: Appears in no apparent kr3 distress. uncomfortable, Behavior is cooperative, appropriate for age, anxious. 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 - Social history:: Smoking status: Patient denies any tobacco usage or history of. Screenin:49 [facility] ED Fall Risk Assessment (Adult) History of falling in the last 3 months, kr3 including since admission No falls in past 3 months (0 pts) Confusion or Disorientation No (0 pts) Intoxicated or Sedated No (0 pts) Impaired Gait No (0 pts) Mobility Assist Device Used No (0 pt) Altered Elimination No (0 pt) Score/Fall Risk Level 0 - 2 = Low Risk Oriented to surroundings, Maintained a safe environment, Assessed \\T\\ reinforced patient's understanding of fall precautions, Hourly rounding (assess needs \\T\\ fall precautionary measures) done. Abuse screen: Denies threats or abuse. Nutritional screening: No deficits noted. Tuberculosis screening: No symptoms or risk factors identified. Assessment: 16:15 General: Appears in no apparent distress. uncomfortable, Behavior is calm, cooperative, kr3 appropriate for age. Pain: Complains of pain in left calf. Neuro: No deficits noted. Cardiovascular: No deficits noted. Respiratory: No deficits noted. GI: No deficits noted. : No deficits noted. EENT: No deficits noted. Derm: Skin is healthy with good turgor, Skin is pink, warm \\T\\ dry. Wound noted left calf. 16:45 Reassessment: reported dog bite to Zehra at [facility]. Zehra kr3 stated she will have an officer report to hospital to speak with patient about incident. Zehra also stated that if the officer does not show up before the patient leaves then have the patient contact dispatch so they can speak to her. dispatch direct number is [phone]. the address where the dog bite occurred is [address] [place] [address]. Call sheet number is [phone]. 17:46 Reassessment: [place] at bedside from [facility]. kr3 18:03 Reassessment: [place] Jorge at bedside getting report from patient. Case #[id number]. kr3 Vital Signs: 16:13 BP 133 / 88; Pulse 78; Resp 18; Temp 98.8; Pulse Ox 100% ; Weight 68.04 kg; Height 5 mb9 ft. 5 in. (165.10 cm); Pain 8/10; 16:13 Body Mass Index 24.96 (68.04 kg, 165.10 cm) mb9 ED Course: 16:06 Patient arrived in ED. as 16:10 Kimberly Harrison FNP-C is [facility]. snw 16:10 Angel Kline MD is Attending Physician. snw 16:13 Arm band placed on. mb9 16:14 Triage completed. mb9 16:15 Bed in low position. Call light in reach. Side rails up X 1. kr3 16:50 Deb Piña RN is Primary Nurse. kr3 18:49 No provider procedures requiring assistance completed. Patient did not have IV access kr3 during this emergency room visit. Administered Medications: 17:34 Drug: Ketorolac 30 mg Route: IM; Site: right deltoid; kr3 17:34 Drug: Augmentin (Amoxicillin-Clavulanate) 875 mg Route: PO; kr3 17:34 Drug: Hibiclens (chlorhexidine) Liquid 4 % 1 application Route: Topical; Site: affected kr3 area; 17:34 Drug: Boostrix Tdap 0.5 ml {Note: Flowify Limited lot # [id number] Exp 11/26/22.} Route: IM; kr3 Site: left deltoid; 18:10 Drug: Lidocaine (1 %) 5 ml {Note: administered by GISELA Moses at bedside during kr3 procedure.} Volume: 5 ml; Route: Infiltration; Medication: 18:51 Vaccine Information Statement (VIS) provided today. Questions and/or concerns kr3 addressed. VIS edition date: December 18, 2020. Outcome: 18:34 Discharge ordered by . snw 18:49 Patient left the ED. kr3 18:50 Discharged to home ambulatory. kr3 18:50 Condition: stable 18:50 Discharge instructions given to patient, Instructed on discharge instructions, follow up and referral plans. medication usage, Demonstrated understanding of instructions, follow-up care, medications, Prescriptions given X 3. Signatures: Kimberly Harrison, DALILA HIGGINS-Kisha Orlando Kelley, RN RN kr3 Ermelinda Conroy RN RN mb9 Corrections: (The following items were deleted from the chart) 17:46 17:41 Reassessment: reported dog bite to Zehra at [facility]. kr3 Zehra stated she will have an officer report to hospital to speak with patient about incident. Zehra also stated that if the officer does not show up before the patient leaves then have the patient contact dispatch so they can speak to her. dispatch direct number is [phone]. the address where the dog bite occurred is [address] [place] [address]. Call sheet number is [phone] kr3 18:25 17:34 Boostrix Tdap 0.5 ml IM in left deltoid kr3 kr3
[2022-06-23 19:00] VITALS: BP 133/88; TEMP 98.8; O2SAT 100
== END 2022-06-23 18:49 | disposition home or self-care (01) ==
LOC: ER 16:00
PROC: 0HQLXZZ Repair Left Lower Leg Skin, External Approach (ICD-10-PCS; principal; 2022-06-23)
DX: S81.812A Laceration without foreign body, left lower leg, initial encounter (principal); W54.0XXA Bitten by dog, initial encounter
CPT/HCPCS: 96372; 99283; 12001; J2001

== ENCOUNTER 2022-07-08 21:23 | Emergency (ER) | payer SELFPAY ==
--- OUTSIDE RECORDS SUMMARY | 2022-07-08 21:40 | XMS REPORT | Continuity of Care Document ---
:1975 Author Organization [facility] t Address [address] [place] [id number] Care Team Providers Name Role Phone Asked, No Pcp Primary Care Physician Unavailable BAYRON OMER Attending Clinician [phone] BRIANA SOW Attending Clinician Unavailable BRIANA SOW Attending Clinician [phone] LAURA GEORGE Attending Clinician [phone] JHON WALKER Attending Clinician Unavailable JHON WALKER Attending Clinician [phone] CLOVIS SWARTZ Attending Clinician Unavailable CLOVIS SWARTZ Attending Clinician [phone] SHAKEEL ENGLISH Attending Clinician Unavailable [email or web address]_R Attending Clinician Unavailable JESSICA CONKLIN Attending Clinician [phone] LYNN GONZALES Attending Clinician [phone] ASHLEY LOCO Attending Clinician [phone] PARIS SALINAS Attending Clinician [phone] NURSE, NURSE Attending Clinician Unavailable MATTHEW HAN Attending Clinician [phone] TALHA DE LA ROSA Attending Clinician Unavailable [...] - : No Details Available Health-related 2019-01-22 [facility] 00:[facility]:00 Alcohol intake 2018-12-18 2018-12-18 Current drinker [facility] 00:00:00 00:00:00 of alcohol (finding) Alcohol Comment 2018-11-21 2018-11-21 [facility] 00:00:00 00:00:00 Sex [birth year] [facility] 00:00:00 00:00:00 Smoking Status Start Date Stop Date Source Never sm[facility] Current some day smoker 2019-01-22 00:00:00 [...] every 12 hours for 7 days metronidazo 2021-2021- No 1{table Q12H take 1 [facility] le [...] 00 :00 every day once ferrous 2020-0 2- No 1 Q1D take 1 tab Acc [...] every day tablet,nichole yed release Diflucan 2020-0 202- No 1{table Q1D take 1 Acc ess[facility] [...] :00 every day tablet,nichole yed release ferrous 2021- No 1 Q1D take 1 tab Acc [facility] sulfate 325 6- 06-09 by oral ealt h mg (65 mg 00:00: 00:00 route iron) 00 :00 every day tablet,nichole yed release Diflucan 2021- No 1{table Q1D take 1 Acc [...] take 1 tab Acc ess[facility] sulfate 325 6- 06-09 by oral ealt h mg (65 mg 00:00: 00:00 route iron) 00 :00 every day tablet,nichole yed release Vitamin D2 2019- No 1{capsu Q1W take 1 A ccessH 1,250 mcg 6-30 -21 le} capsule by eal th (50,000 00:00: 00:00 oral route unit) 00 :00 every capsule week for 12 weeks Vitamin D2 2019-2019- No 1{capsu Q1W take 1 A ccessH 1,250 mcg 6-30 -21 le} capsule by eal [facility] (50,000 00:00: 00:00 oral route unit) 00 :00 every week capsule for 12 weeks Vitamin D2 2020-0 2020- No 1{capsu Q1W take 1 A ccessH 1,250 mcg 6-30 09-21 le} capsule by [facility] (50,000 00:00: 00:00 oral route unit) 00 :00 every week capsule for 12 weeks Vitamin D2 2020- No 1{capsu Q1W take 1 A ccessH 1,250 mcg 6-30 09-21 le} capsule by [facility] (50,000 00:00: 00:00 oral route unit) 00 :00 every week capsule for 12 weeks Vitamin D2 2019- No 1{capsu Q1W take 1 A ccessH 1,250 mcg 6-30 09-21 le} capsule by [facility] (50,000 00:00: 00:00 oral route unit) 00 :00 every week capsule for 12 weeks Vitamin D2 2019- No 1{capsu Q1W take 1 A ccessH 1,250 mcg 6-30 09-21 le} capsule by [facility] (50,000 00:00: 00:00 oral route unit) 00 :00 every week capsule for 12 weeks Vitamin D2 2019- No 1{capsu Q1W take 1 A ccessH 1,250 mcg 6-30 09-21 le} capsule by [facility] (50,000 00:00: 00:00 oral route unit) 00 :00 every week capsule for 12 weeks Vitamin D2 2019- No 1{capsu Q1W take 1 A ccessH 1,250 mcg 6-30 09-21 le} capsule by [facility] (50,000 00:00: 00:00 oral route unit) 00 :00 every week capsule for 12 weeks Vitamin D2 2019- No 1{capsu Q1W take 1 A ccessH 1,250 mcg 6-30 09-21 le} capsule by [facility] (50,000 00:00: 00:00 oral route unit) 00 :00 every week capsule for 12 weeks Vitamin D2 2019- No 1{capsu Q1W take 1 A ccessH 1,250 mcg 6-30 09-21 le} capsule by [facility] (50,000 00:00: 00:00 oral route unit) 00 :00 every week capsule for 12 weeks Vitamin D2 2019- No 1{capsu Q1W take 1 A ccessH 1,250 mcg 6-30 02-02 le} capsule by [facility] (50,000 00:00: 00:00 oral route unit) 00 :00 every week capsule for 12 weeks Vitamin D2 2020-0 2020- No 1{capsu Q1W take 1 A ccessH 1,250 mcg 6-30 02-02 le} capsule by [facility] (50,000 00:00: 00:00 oral route unit) 00 :00 every week capsule for 12 weeks Vitamin D2 2020-0 2020- No 1{capsu Q1W take 1 A ccessH 1,250 mcg 6-30 02-02 le} capsule by [facility] (50,000 00:00: 00:00 oral route unit) 00 :00 every week capsule for 12 weeks Vitamin D2 2020-0 2020- No 1{capsu Q1W take 1 A ccessH 1,250 mcg 6-30 02-02 le} capsule by [facility] (50,000 00:00: 00:00 oral route unit) 00 :00 every week capsule for 12 weeks Vitamin D2 2020-0 2020- No 1{capsu Q1W take 1 A ccessH 1,250 mcg 6-02-02 le} capsule by [facility] (50,000 00:00: 00:00 oral route unit) 00 [...] take 1 Acc essH 150 mg 2-20 30 t} tablet by [facility] tablet 00:00: 00:00 [...] 12 hours for 7 days metronidazo 2019-0 2020- No 1{table Q12H take 1 [facility] [...] 12 hours for 7 days metronidazo 2019-0 2020- No 1{table Q12H take 1 [facility] le 500 mg 06-0730 t} tablet by ealt h tablet 00:00: 00:00 oral route 00 :00 every 12 hours for 7 days metronidazo 2019-0 2019- No 1{table Q12H take 1 [facility] le 500 mg 06-0730 t} tablet by ealt h tablet 00:00: 00:00 oral route 00 :00 every 12 hours for 7 days metronidazo 2019-0 2020- No 1{table Q12H take 1 [facility] [...] take 1 tab Acc ess[facility] sulfate 325 -02 20-10 by oral ealt h mg (65 [...] take 1 tab Acc ess[facility] sulfate 325 -02 20-10 by oral ealt h mg (65 [...] Q12H take 1 [facility] le 500 mg 01-2210 t} tablet by ealt h tablet 00:00: [...] take 1 tab Acc ess[facility] sulfate 325 -02 20-10 by oral ealt h mg (65 mg 00:00: 00:00 route 2 iron) 00 :00 times tablet,nichole every day yed release metronidazo 2019- No 1{table Q12H take 1 [facility] le 500 mg 01-2210 t} tablet by ealt h tablet 00:00: 00:00 oral route 00 :00 every 12 hours for 7 days ferrous 2019- No 1 Q12H take 1 tab Acc ess[facility] sulfate 325 01-2210 by oral ealt h mg (65 mg 00:00: 00:00 route 2 iron) 00 :00 times tablet,nichole every day yed release metronidazo 2019- No 1{table Q12H take 1 [facility] le 500 mg 01-2210 t} tablet by ealt h tablet 00:00: 00:00 oral route 00 :00 every 12 hours for 7 days metronidazo 2019 2019- No 1{table Q12H take 1 [facility] le 500 mg 9-10 t} tablet by ealt [facility] tablet 00:00: 00:00 oral route 00 :00 every 12 hours for 7 days ferrous 20190 2019- No 1 Q12H take 1 tab [...] 1 tab Acc ess[facility] sulfate 325 01-22 09-10 by oral ealt h mg (65 mg 00:00: 00:00 route 2 iron) 00 :00 times tablet,nichole every day yed release ferrous 2019- No 1 Q12H take 1 tab Acc ess[facility] sulfate 325 01-22 09-10 by oral ealt h mg (65 [...] mass index 2022-02-21 16:14:00 26.30 kg/m2 [facility] Body height 2021-10-21 13:33:00 163.83 cm [facility] Body Weight 2021-10-21 13:33:00 68.130 kg [facility] Systolic 2021-10-21 13:33:00 106 mm[Hg] [facility] Diastolic 2021-10-21 13:33:00 69 mm[Hg] [facility] Heart Rate 2021-10-21 13:33:00 87 /min [facility] Body Temperature 2021-10-21 13:33:00 36.61 [facility]antelle [facility] Body mass index 2021-10-21 13:33:00 25.38 kg/m2 [facility] Body height 2021-09-23 14:35:00 163.83 cm [facility] Body Weight 2021-09-23 14:35:00 65.798 kg [facility] Systolic 2021-09-23 14:35:00 114 mm[Hg] [facility] Diastolic 2021-09-23 14:35:00 61 mm[Hg] [facility] Heart Rate 2021-09-23 14:35:00 78 /min [facility] Body Temperature 2021-09-23 14:35:00 36.28 [facility] Respiratory rate 2021-09-23 14:35:00 20 /min [facility] Body mass index 2021-09-23 14:35:00 24[facility] 2019-11-08 15:16:00 163.83 cm [facility] Body Weight 2019-11-08 15:16:00 69.400 kg [facility] Systolic 2019-11-08 15:16:00 115 mm[Hg] [facility] Diastolic 2019-11-08 15:16:00 63 mm[Hg] [facility] Heart Rate 2019-11-08 15:16:00 77 /min [facility] Body Temperature 2019-11-08 15:16:00 37.06 [facility]antelle [facility] Respiratory rate 2019-11-08 15:16:00 16 /min [facility] Body mass index 2019-11-08 15:16:00 25.86 [facility] 2019-07-01 16:12:00 166.37 cm [facility] Body Weight 2019-07-01 16:12:00 66.950 kg [facility] Systolic 2019-07-01 16:12:00 116 mm[Hg] [facility] Diastolic 2019-07-01 16:12:00 71 mm[Hg] [facility] Heart Rate 2019-07-01 16:12:00 95 /min [facility] Body Temperature 2019-07-01 16:12:00 36.94 [facility]antelle [facility] Respiratory rate 2019-07-01 16:12:00 16 /min [facility] Body mass index 2019-07-01 16:12:00 24.19 kg/m2 [facility] Body height 2019-06-04 11:43:00 166.37 cm [facility] Body Weight 2019-06-04 11:43:00 66.497 kg [facility] Systolic 2019-06-04 11:43:00 115 mm[Hg] [facility] Diastolic 2019-06-04 11:43:00 79 mm[Hg] [facility] Heart Rate 2019-06-04 11:43:00 86 /min [facility] Body Temperature 2019-06-04 11:43:00 37.28 [facility] Respiratory rate 2019-06-04 11:43:00 18 /min [facility] Body mass index 2019-06-04 11:43:00 24.02 kg/m2 [facility] Body height 2019-03-07 15:39:00 167.64 cm [facility] Body Weight 2019-03-07 15:39:00 67.767 kg [facility] Systolic 2019-03-07 15:39:00 102 mm[Hg] [facility] Diastolic 2019-03-07 15:39:00 55 mm[Hg] [facility] Heart Rate 2019-03-07 15:39:00 88 /min [facility] Body Temperature 2019-03-07 15:39:00 37.00 [facility]ant[facility] Respiratory rate 2019-03-07 15:39:00 16 /min [facility] Body mass index 2019-03-07 15:39:00 24.11 kg/m2 [facility] Body height 2019-01-22 15:41:00 167.64 cm [facility] Body Weight 2019-01-22 15:41:00 67.585 kg [facility] Systolic 2019-01-22 15:41:00 105 mm[Hg] [facility] Diastolic 2019-01-22 15:41:00 68 mm[Hg] [facility] Heart Rate 2019-01-22 15:41:00 96 /min [facility] Body Temperature 2019-01-22 15:41:00 36.67 Chantelle [facility] Respiratory rate 2019-01-22 15:41:00 20 /min [facility] Body mass index 2019-01-22 15:41:00 24.05 kg/m2 [facility] Body height 2018-11-27 13:47:00 66.00 [in_i] [facility] Body Weight 2018-11-27 13:47:00 144.80 [lb_av] [facility] Systolic 2018-11-27 13:47:00 107 mm[Hg] [facility] Diastolic 2018-11-27 13:47:00 67 mm[Hg] [facility] Heart Rate 2018-11-27 13:47:00 101 /min [facility] Body Temperature 2018-11-27 13:47:00 98.30 [degF] [facility] Respiratory rate 2018-11-27 13:47:00 17 /min [facility] Body mass index 2018-11-27 13:47:00 23.40 kg[facility]m2 [facility] Procedures Procedure Date / Time Performed Performing Clinician [facility] PHONE CALL TO 2022-03-09 00[facility]00:[address] [facility] FOLLOW-UP 2022-03-09 00:00:[address] [facility] SECOND MILE MISSION 2022-03-09 00:00:[facility] HUMAN NEEDS 2022-03-09 00:00:00 [facility] [employer] 2022-03-09 00:00:00 [facility] REF TO [employer] 2022-03-09 [facility] 2022-03-09 00:00:00 [facility] COORD/COLLAB CONTACT 2022-03-09 00:00:00 [facility] 2022-02-22 00:00:00 [facility] OFFICE/OUTPATIENT VISIT EST 2022-02-21 00:00:00 [facility] URINE TEST 2022-02-21 00:00:00 [facility] TRICHOMONAS VAGIN DIR PROBE 2022-02-21 00:00:00 [facility] URINE TEST 2021-10-21 00:00:00 [facility] PREV VISIT EST AGE 40-64 2021-10-21 00:00:[address] [facility] COMPLETE CBC W/AUTO DIFF WBC 2021-10-21 00:00:00 [facility] VITAMIN D 25 HYDROXY 2021-10-21 00:00:00 [facility] TRICHOMONAS VAGIN DIR PROBE 2021-10-21 00:00:00 [facility] URINE CULTURE/COLONY COUNT 2021-10-21 00:00:[address] [facility] CHYLMD TRACH DNA AMP PROBE 2021-10-21 00:00:[address] [facility] OFFICE/OUTPATIENT VISIT EST 2021-09-23 00:00:[address] [facility] TRICHOMONAS VAGIN DIR PROBE 2021-09-23 00:00:[address] [facility] CHYLMD TRACH DNA AMP PROBE 2021-09-23 00:00:[address] [facility] Alcohol/drug Brief 2020-02-28 00:00[facility] min URINE TEST 2019-11-08 00:00:00 [facility] ealth SMEAR WET [place]OUNT SALINE/INK 2019-11-08 00:00:00 [facility]OUTPATIENT VISIT EST 2019-11-08 00:00:[address] [facility] COMPLETE CBC W/AUTO DIFF WBC 2019-11-08 00:00:[address] [facility] COMPREHEN METABOLIC PANEL 2019-11-08 00:00:00 [facility] LIPID PANEL 2019-11-08 00:00:[address] [facility] ASSAY THYROID STIM HORMONE 2019-11-08 00:00:[address] [facility] SYPHILIS TEST NON-TREP QUAL 2019-11-08 00:00:[address] [facility] VITAMIN D 25 HYDROXY 2019-11-08 00:00:00 [facility] HIV-1 AG W/HIV-1 & HIV-2 AB 2019-11-08 00:00:[address] [facility] TRICHOMONAS VAGIN DIR PROBE 2019-11-08 00:00:00 [facility] URINE TEST 2019-07-01 00:00:00 [facility] N.GONORRHOEAE DNA DIR PROB 2019-07-01 00:00:[address] [facility] CHYLMD TRACH DNA DIR PROBE 2019-07-01 00:00:[address] [facility] SMEAR WET M[place] SALINE/INK 2019-07-01 00:00:[address] [facility] OFFICE/OUTPATIENT VISIT EST 2019-07-01 00:00:[address] [facility] TRICHOMONAS VAGIN DIR PROBE 2019-07-01 00:00:00 [facility] CHYLMD TRACH DNA AMP PROBE 2019-07-01 00:00:[address] [facility] URINE TEST 2019-06-04 00:00:00 [facility] PREV VISIT EST AGE 40-64 2019-06-04 00:00:00 Acc [facility] TRICHOMONAS VAGIN DIR PROBE 2019-06-04 00:00:[address] [facility] CYTOPATH C/V AUTO FLUID REDO 2019-06-04 00:00:00 [facility] INTERVENTION 2019-05-30 00:00:00 [facility] INTERVENTION 2019-05-30 00:00:00 [facility] OFFICE/OUTPATIENT VISIT EST 2019-03-07 00:00:[address] [facility] SHORT TERM BEHAVIORAL HEALTH 2019-01-25 00:00:[address] [facility] ASSESSMENT SHORT TERM BEHAVIORAL HEALTH 2019-01-25 00:00:00 [facility] ASSESSMENT ASSESSMENT 2019-01-24 00:00:00 [facility] ASSESSMENT 2019-01-24 00:00:[address] [facility] URINE TEST 2019-01-22 00:00:00 [facility] OFFICE/OUTPATIENT VISIT EST 2019-01-22 00:00:00 [facility] Plan of Care Planned Activity Planned Date Details Comments Source Future Scheduled 2022-05-08 COLONOSCOPY SCREENING [facility] Test 12:40:28 [code = COLONOSCOPY SCREENING] Future Scheduled 2022-05-08 INFLUENZA VACCINE [facility] Test 12:40:28 [code = INFLUENZA VACCINE] Future Scheduled 2022-05-08 COVID-19 VACCINE (#1) [facility] Test 12:40:28 [code = COVID-19 VACCINE (#1)] Future Scheduled 2022-05-08 Screening for [facility] Test 12:40:28 malignant neoplasm of cervix (procedure) [code = 283560872] Future Scheduled 2022-05-08 BREAST CANCER [facility] Test 12:40:28 SCREENING [code = BREAST CANCER SCREENING] Future Scheduled 2022-05-08 COLONOSCOPY SCREENING [facility] Test 12:40:28 [code = COLONOSCOPY SCREENING] Future Scheduled 2022-05-08 INFLUENZA VACCINE Method [facility] Test 12:40:28 [code = INFLUENZA VACCINE] Future Scheduled 2022-05-08 COVID-19 VACCINE (#1) [facility] Test 12:40:28 [code = COVID-19 VACCINE (#1)] Future Scheduled 2022-05-08 Screening for [facility] Test 12:40:28 malignant neoplasm of cervix (procedure) [code = 419494208] Future Scheduled 2022-05-08 BREAST CANCER [facility] Test 12:40:28 SCREENING [code = BREAST CANCER SCREENING] Future Scheduled 2022-01-23 COLONOSCOPY SCREENING [facility] Test 02:03:45 [code = COLONOSCOPY SCREENING] Future Scheduled 2022-01-23 INFLUENZA VACCINE [facility] Test 02:03:45 [code = INFLUENZA VACCINE] Future Scheduled 2022-01-23 HEPATITIS B VACCINES [facility] Test 02:03:45 (1 of 3 - 3-dose series) [code = HEPATITIS B VACCINES (1 of 3 - 3-dose series)] Future Scheduled 2022-01-23 COVID-19 VACCINE (#1) [facility] Test 02:03:45 [code = COVID-19 VACCINE (#1)] Future Scheduled 2022-01-23 Screening for [facility] Test 02:03:45 malignant neoplasm of cervix (procedure) [code = 999688573] Future Scheduled 2022-01-23 BREAST CANCER [facility] Test 02:03:45 SCREENING [code = BREAST CANCER SCREENING] Future Scheduled 2022-01-23 COLONOSCOPY SCREENING [facility] Test 02:03:45 [code = COLONOSCOPY SCREENING] Future Scheduled 2022-01-23 INFLUENZA VACCINE Method [facility] Test 02:03:45 [code = INFLUENZA VACCINE] Future Scheduled 2022-01-23 HEPATITIS B VACCINES [facility] Test 02:03:45 (1 of 3 - 3-dose series) [code = HEPATITIS B VACCINES (1 of 3 - 3-dose series)] Future Scheduled 2022-01-23 COVID-19 VACCINE (#1) [facility] Test 02:03:45 [code = COVID-19 VACCINE (#1)] Future Scheduled 2022-01-23 Screening for [facility] Test 02:03:45 malignant neoplasm of cervix (procedure) [code = 388852392] Future Scheduled 2022-01-23 BREAST CANCER [facility] Test 02:03:45 SCREENING [code = BREAST CANCER SCREENING] Future Scheduled 2022-01-23 COLONOSCOPY SCREENING [facility] Test 02:03:45 [code = COLONOSCOPY SCREENING] Future Scheduled 2022-01-23 INFLUENZA VACCINE [facility] Test 02:03:45 [code = INFLUENZA VACCINE] Future Scheduled 2022-01-23 HEPATITIS B VACCINES [facility] Test 02:03:45 (1 of 3 - 3-dose series) [code = HEPATITIS B VACCINES (1 of 3 - 3-dose series)] Future Scheduled 2022-01-23 COVID-19 VACCINE (#1) [facility] Test 02:03:45 [code = COVID-19 VACCINE (#1)] Future Scheduled 2022-01-23 Screening for [facility] Test 02:03:45 malignant neoplasm of cervix (procedure) [code = 911347899] Future Scheduled 2022-01-23 BREAST CANCER [facility] Test 02:03:45 SCREENING [code = BREAST CANCER SCREENING] Future Scheduled 2022-01-23 COLONOSCOPY SCREENING [facility] Test 02:03:45 [code = COLONOSCOPY SCREENING] Future Scheduled 2022-01-23 INFLUENZA VACCINE [facility] Test 02:03:45 [code = INFLUENZA VACCINE] Future Scheduled 2022-01-23 HEPATITIS B VACCINES [facility] Test 02:03:45 (1 of 3 - 3-dose series) [code = HEPATITIS B VACCINES (1 of 3 - 3-dose series)] Future Scheduled 2022-01-23 COVID-19 VACCINE (#1) [facility] Test 02:03:45 [code = COVID-19 VACCINE (#1)] Future Scheduled 2022-01-23 Screening for [facility] Test 02:03:45 malignant neoplasm of cervix (procedure) [code = 252712473] Future Scheduled 2022-01-23 BREAST CANCER [facility] Test 02:03:45 SCREENING [code = BREAST CANCER SCREENING] Future Scheduled 2022-01-23 COLONOSCOPY SCREENING [facility] Test 02:03:45 [code = COLONOSCOPY SCREENING] Future Scheduled 2022-01-23 INFLUENZA VACCINE [facility] Test 02:03:45 [code = INFLUENZA VACCINE] Future Scheduled 2022-01-23 HEPATITIS B VACCINES [facility] Test 02:03:45 (1 of 3 - 3-dose series) [code = HEPATITIS B VACCINES (1 of 3 - 3-dose series)] Future Scheduled 2022-01-23 COVID-19 VACCINE (#1) [facility] Test 02:03:45 [code = COVID-19 VACCINE (#1)] Future Scheduled 2022-01-23 Screening for [facility] Test 02:03:45 malignant neoplasm of cervix (procedure) [code = [id number]] Future Scheduled 2022-01-23 BREAST CANCER [facility] Test 02:03:45 SCREENING [code = BREAST CANCER SCREENING] Encounters Start End Encounter Admission Attending Care Care Encounter Source Date/Time Date/Time Type Type Clinicians Facility Department ID 2022-03-09 2022-03-09 Outpatient NEGRA [facility] [id number] [facility] 13:26:00 13:26:00 [facility] 2022-03-09 2022-03-09 Outpatient NEGRA [facility] [id number] [facility] 13:26:00 13:26:00 BAYRON [id number] [facility] [id number] 2022-02-24 2022-02-24 Outpatient HI, [facility] [id number] [facility] 11:24:00 11:24:00 [facility] 2022-02-24 2022-02-24 Outpatient HI, [facility] [id number] [facility] 11:24:00 11:24:00 BRIANA [id number] [facility] [id number] 2022-02-23 2022-02-23 Outpatient HI, [facility] [id number] [facility] 17:49:00 17:49:00 BRIANA [facility] 2022-02-23 2022-02-23 Outpatient [facility], [facility] [id number] [facility] 17:49:00 17:49:00 BRIANA [id number] [facility] [id number] 2022-02-22 2022-02-22 Outpatient GEORGE, [facility] [id number] [facility] 09:16:00 09:16:00 [facility] 2022-02-22 2022-02-22 Outpatient GEORGE, [facility] [id number] [facility] 09:16:00 09:16:00 LAURA [id number] [facility] [id number] 2022-02-21 2022-02-21 Outpatient HI, [facility] [id number] [facility] 16:00:00 16:00:00 BRIANA ealt 2022-02-21 2022-02-21 OFFICE/OUT [facility], [facility] [id number] 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 [id number] Access 16:00:00 16:00:00 PATIENT BRIANA [id number] [facility] VISIT EST [id number] 2021-11-16 2021-11-16 Outpatient WALKER, [facility] [id number] Access 10:15:00 10:15:00 [facility] 2021-11-16 2021-11-16 Outpatient WALKER, [facility] 8yq6y1d7-8m 9ed [id number]-m Access 10:15:00 10:15:00 JHON e2-4zm9-21q 52c-4632- 9 [facility] 0-rj6nil621 684-f740c9 0f4 gpm264 2021-11-11 2021-11-11 Outpatient GOT, [facility] [id number] Access 18:12:00 18:12:00 BRIANA [facility] 2021-11-11 2021-11-11 Outpatient [facility], [facility] 8gt9z1c0-3v 069 [id number] Access 18:12:00 18:12:00 BRIANA e2-4ye8-94e 8y3-6286-o [facility] 0-wp9bad229 9q7-n6e874 0f4 b27c5d 2021-11-02 2021-11-02 Outpatient GOT, [facility] [id number] Access 11:14:00 11:14:00 BRIANA [facility] 2021-11-02 2021-11-02 Outpatient [facility], [facility] 9je1g7c0-3b 10c lv05a-l Access 11:14:00 11:14:00 BRIANA e2-3xf3-48l a69-5q95-q [facility] 0-aq9pmf805 [id number] 0f4 [id number] 2021-10-28 2021-10-28 Outpatient [facility], [facility] [id number] Access 18:58:00 18:58:00 [facility] 2021-10-28 2021-10-28 Outpatient [facility], [facility] 8jn5q8z5-6t a7e aw4mp-1 AccessH 18:58:00 18:58:00 BRIANA e2-8vd7-08b 079-4169-9 [facility] 0-by0exe789 4f1-a177td 0f4 ec64a8 2021-10-21 2021-10-21 Outpatient MAGI [facility] [id number] AccessH 16:45:00 16:45:00 BRIANA [facility] 2021-10-21 2021-10-21 PREV VISIT [facility] 6ip6r7i8-8a 2b9 [id number] AccessH 16:45:00 16:45:00 EST AGE BRIANA e2-1fy2-34p 4bf-4f9d-9 [facility] 40-64 0-nz9hju048 aa1-191dc3 0f4 c8v129 2021-09-29 2021-09-29 Outpatient NEGRA [facility] [id number] AccessH 11:03:00 11:03:00 QUINQUKATALINA ea lth [place] 2021-09-29 2021-09-29 Outpatient NEGRA [facility] 6db1y5z8-4m 6 [id number]-z AccessH 11:03:00 11:03:00 QUINAMIRA, e2-1gg1-51r c05-4b 81-b ealt [place] 0-rf4xgh651 [id number] 0f4 6c5b0d 2021-09-28 2021-09-28 Outpatient NEGRA [facility] [id number] AccessH 09:34:00 09:34:00 QUINQUILLA, ea lth [place] 2021-09-28 2021-09-28 Outpatient NEGRA [facility] 2tq5q0n4-3u 9 [id number] AccessH 09:34:00 09:34:00 QUINQUILLA, e2-5or9-02a 60e-40 ad-a ealth [place] 0-va7sdb808 0t5-be2v14 0f4 [id number] 2021-09-23 2021-09-23 Outpatient NEGRA [facility] [id number] AccessH 14:00:00 14:00:00 QUINQUILLA, ea lth [place] 2021-09-23 2021-09-23 OFFICE/OUT NEGRA [facility] 9mq9r3k4-1i 0 [id number]-7 AccessH 14:00:00 14:00:00 PATIENT ARSLAN, e2-5wi6-70n 0a4-41 0c-9 ealt VISIT EST [place] 0-fp7yes345 p7h-6n4053 0f4 [id number] 2021-06-02 2021-06-02 Outpatient TAMEKA, D D [id number] [place] 00:00:00 00:00:00 [facility] 2021-03-11 2021-03-11 Outpatient D D [id number] [place] 00:00:[facility] 2021-02-16 2021-02-16 Outpatient GC_RPMD_Par PRIV PRIV [id number] [facility] 00:00:00 00:00:00 ris_R [id number] [facility] 2020-02-28 2020-02-28 Outpatient HARDTYRA, [facility] [id number] AccessH 13:34:00 13:34:00 JESSICA [facility] 2020-02-28 2020-02-28 Outpatient HARDTYRA, [facility] 8cy5u1e8-1z 3 [id number] AccessH 13:34:00 13:34:00 JESSICABARI VORA e2-3we7-47e 367-49 41-8 ealt 0-bl7dge070 e08-h249j9 0f4 [id number] 2020-02-24 2020-02-24 Outpatient HARDWELL, [facility] [id number] AccessH 15:15:00 15:15:00 [facility] 2020-02-24 2020-02-24 Outpatient HARDWELL, [facility] 1vx2b7e1-5l e [id number] AccessH 15:15:00 15:15:00 JESSICA VIELKA e2-4yg2-89i ad7-40 c4-a ealt 0-ud9lme993 i83-98o6li 0f4 [id number] 2019-11-12 2019-11-12 Outpatient GONZALES, [facility] 1wl5m7b9-2l 8 [id number] AccessH 07:21:00 07:21:00 LYNN e2-0ku9-29k afa-45db-9 ealth 0-qv8tte914 b5t-m29cl7 0f4 3f732k 2019-11-08 2019-11-08 OFFICE/OUT GONZALES, [facility] 5cn8b1h9-3i d [id number] AccessH 15:15:00 15:15:00 PATIENT LYNN e2-5bu3-92w 9bb-4e61-a ealth VISIT EST 0-dd7avo579 [id number] 0f4 [id number] 2019-07-04 2019-07-04 Outpatient LOCO, [facility] 5kb4u8e7-7c [id number]-4 AccessH 13:59:00 13:59:00 e2-6xt3-70v o6q-3i52-l ealth 0-qu9mld893 10d-e9cf44 0f4 f3cdf3 2019-07-01 2019-07-01 OFFICE/OUT LOCO, [facility] 3hs1n1f5-3d 7j47sgt5-6 AccessH 16:15:00 16:15:00 PATIENT e2-5dk4-46z z91-2xf4-7 ealth VISIT EST 0-jc5jno032 87a-3b3df8 0f4 393adc 2019-07-01 2019-07-01 Outpatient LOCO, [facility] 2lz4h4u1-7j 1m65sgnm-8 AccessH 16:04:00 16:04:00 e2-2dl9-56r 874-4cea-a ealth 0-zt4sqp945 866-sm521c 0f4 81378j 2019-06-11 2019-06-11 Outpatient GONZALES, HC 2ox1z9c7-1w d [id number] AccessH 08:16:00 08:16:00 LYNN e2-3yv8-61l 8h3-023j-5 ealth 0-qh8uzq304 ae0-51a89c 0f4 i3b118 2019-06-07 2019-06-07 Outpatient GONZALES, [facility] 1pn1s7v9-5d 3 [id number] AccessH 13:15:00 13:15:00 LYNN e2-6la0-27l 2u1-1j04-2 ealth 0-wz9fys479 [id number] 0f4 [id number] 2019-06-04 2019-06-04 PREV VISIT JANET, [facility] 8ev2d6w8-0e f [id number] AccessH 11:30:00 11:30:00 EST AGE LYNN e2-4oh4-15h 49b-4ef0-a ealth 40-64 0-co1hoj030 y6n-7v7t9x 0f4 dedca1 2019-05-30 2019-05-30 Outpatient O SARANYA, [facility] 3sz9d2o8-3u 62 [id number] AccessH 13:33:00 13:33:00 [place] e2-3bc6-69e 063-4aa0-9 ealth 0-xa4itj032 ef2-8716d2 0f4 0991da 2019-03-21 2019-03-21 Outpatient NURSE, [facility] 1lo4h5p5-6s ef5 2kxu8-1 AccessH 09:19:00 09:19:00 NURSE e2-3pz1-37s 6s2-07ki-x ealt 0-tu8zbz842 4x2-j91343 0f4 e5bfd3 2019-03-12 2019-03-12 Outpatient JANET, [facility] 1kl1u8g0-6n 5 od4nv97-3 AccessH 09:04:00 09:04:00 LYNN e2-6qq5-43c 812-4d33-a ealth 0-nb5oje051 aaa-0e6a94 0f4 63ea74 2019-03-07 2019-03-07 OFFICE/OUT JANET, [facility] 0sv5z9k8-3l b [id number] AccessH 15:15:00 15:15:00 PATIENT LYNN e2-1el5-22t x21-818e-o ealt VISIT EST 0-ec7fzz212 c9e-k85763 0f4 ab51fd 2019-03-05 2019-03-05 Outpatient LOCO, ASHLEY [facility] 3py4t1n4-6y hyc9i02i-4 AccessH 14:26:00 14:26:00 e2-5ds0-28t h0w-16zz-y ealth 0-cc0wgd869 d3y-7v72cr 0f4 c8a1b3 2019-01-29 2019-01-29 Outpatient JANET, [facility] 2ge7k5j9-7f 1 8sf8o7p-k AccessH 12:26:00 12:26:00 LYNN e2-6hu6-60s 120-419e-b ealth 0-rz9pkv510 e03-83vfbk 0f4 84df0c 2019-01-25 2019-01-25 Outpatient EMELY, [facility] tvv437tw-9h be f7s98z-0 AccessH 08:00:00 08:00:00 MATTHEW 22-4926-a4f 841-4272 -b ealth [id number] 2m0-144yx1 jeff 3e22bf 2019-01-24 2019-01-24 Outpatient O BEAVER, [facility] 7tj7b5m7-4d 71 [id number] AccessH 13:43:00 13:43:00 [place] e2-1qn4-72p 584-4d0f-b ealth 0-nu8roe035 r34-6v6t08 0f4 ec3fb7 2019-01-24 2019-01-24 Outpatient JANET, [facility] 5ui0j3g3-5d 1 6ao72kc-3 AccessH 08:09:00 08:09:00 LYNN e2-5ea8-20y 016-4f12-b ealth 0-ru7iwe576 fa9-3be8ef 0f4 2019-01-23 2019-01-23 Outpatient NURSE, [facility] alcv05ab-e9 992 741ef-3 AccessH 10:40:00 10:40:00 NURSE e9-44df-910 449-401b-9 ealth 4-8e5s1gl98 769-e127be c82 a129cc 2019-01-22 2019-01-22 Outpatient JANET, [facility] [id number] AccessH 17:15:00 17:15:00 LYNN 00-0000-578 717-2594-8 [facility] [id number] 626-113ead 000 d3b97d 2019-01-22 2019-01-22 OFFICE/OUT JANET, [facility] 3ua2z4n9-1p 7 [id number]-j AccessH 15:00:00 15:00:00 PATIENT LYNN e2-1ob2-98e ee8-4b5e-8 [facility] VISIT EST 0-td1vvr496 dad-2e06b2 0f4 [id number] 2018-11-27 2018-11-27 Outpatient RJ, [facility] 0xg5w4r7-2i [id number] AccessH 00:00:00 00:00:00 TALHA e2-4if0-61z i02-13a2-5 [facility] 0-qd9akr269 3i3-1785v8 0f4 vf306h 2018-01-16 2018-01-17 Outpatient [facility] [id number] [place] 00:00:00 00:00:00 [facility] Results Test Description Test Time Test Comments Results Result Comments Source Panel Description: Vaginitis/Vaginosis, DNA Probe 2022-02-23 12:04:00 Test Item Value Reference Range Interpretation Comme nts Ana Maria species (test code = 05251-6) Negative Negative Gardnerella vaginalis (test code = 6410-5) Positive Negative A Trichomonas vaginalis (test code = 6568-0) Negative Negative [facility] Description: Vaginitis/Vaginosis, DNA [id number] 12:04:00 Test Item Value Reference Range Interpretation Comments Ana Maria species (test code = Negative Negative 94861-3) Gardnerella vaginalis (test code = Positive Negative A 6410-5) Trichomonas vaginalis (test code = Negative Negative 6568-0) [facility] Description: Vaginitis/Vaginosis, DNA Bspfd4655-04-06 12:04:00 Test Item Value Reference Range Interpretation Comments Ana Maria species (test code = Negative Negative 24777-6) Gardnerella vaginalis (test code = Positive Negative A 6410-5) Trichomonas vaginalis (test code = Negative Negative 6568-0) [facility] Description: Vaginitis/Vaginosis, DNA Fncjn1303-44-23 12:04:00 Test Item Value Reference Range Interpretation Comments Ana Maria species (test code = Negative Negative 72769-8) Gardnerella vaginalis (test code = Positive Negative A 6410-5) Trichomonas vaginalis (test code = Negative Negative 6568-0) [facility] Description: Vaginitis/Vaginosis, DNA Srhfy3618-47-10 12:04:00 Test Item Value Reference Range Interpretation Comments Ana Maria species (test code = Negative Negative 77834-5) Gardnerella vaginalis (test code = Positive Negative A 6410-5) Trichomonas vaginalis (test code = Negative Negative 6568-0) [facility] Description: Chlamydia/GC Wbatvdkxsvdbw3288-08-15 09:03:00 Test Item Value Reference Range Interpretation Comments Chlamydia trachomatis, MILAD (test Negative Negative code = 00102-5) Neisseria gonorrhoeae, MILAD (test Negative Negative code = 44993-1) [facility] Description: Chlamydia/GC Lpnyunnovjtfb8910-09-56 09:03:00 Test Item Value Reference Range Interpretation Comments Chlamydia trachomatis, MILAD (test Negative Negative code = 00480-8) Neisseria gonorrhoeae, MILAD (test Negative Negative code = 02342-1) [facility] Description: Chlamydia/GC Ebfhrqlcgegts5898-44-03 09:03:00 Test Item Value Reference Range Interpretation Comments Chlamydia trachomatis, MILAD (test Negative Negative code = 76750-5) Neisseria gonorrhoeae, MILAD (test Negative Negative code = 99976-6) [facility] Description: Chlamydia/GC Taaraxwqvmfhr7646-19-11 09:03:00 Test Item Value Reference Range Interpretation Comments Chlamydia trachomatis, MILAD (test Negative Negative code = 07821-2) Neisseria gonorrhoeae, MILAD (test Negative Negative code = 74335-5) [facility] Description: Chlamydia/GC Mrdepxobtjhcv9572-95-82 09:03:00 Test Item Value Reference Range Interpretation Comments Chlamydia trachomatis, MILAD (test Negative Negative code = 12680-5) Neisseria gonorrhoeae, MILAD (test Negative Negative code = 86758-0) [facility] Description: Chlamydia/GC Hjfgtbippyvoh5568-73-32 09:03:00 Test Item Value Reference Range Interpretation Comments Chlamydia trachomatis, MILAD (test Negative Negative code = 36352-9) Neisseria gonorrhoeae, MILAD (test Negative Negative code = 31415-0) [facility] Description: Chlamydia/GC Ibugbwtccnfmu2749-04-55 09:03:00 Test Item Value Reference Range Interpretation Comments Chlamydia trachomatis, MILAD (test Negative Negative code = 06247-6) Neisseria gonorrhoeae, MILAD (test Negative Negative code = 50421-5) [facility] Description: Chlamydia/GC Fzwdfsosrehqw5862-12-47 09:03:00 Test Item Value Reference Range Interpretation Comments Chlamydia trachomatis, MILAD (test Negative Negative code = 50593-5) Neisseria gonorrhoeae, MILAD (test Negative Negative code = 89014-5) [facility] Description: Chlamydia/GC Dhvcjujbffalh9094-13-77 09:03:00 Test Item Value Reference Range Interpretation Comments Chlamydia trachomatis, MILAD (test Negative Negative code = 33494-4) Neisseria gonorrhoeae, MILAD (test Negative Negative code = 53228-8) [facility] Description: Chlamydia/GC Gqvmxghisfdio8338-84-53 09:03:00 Test Item Value Reference Range Interpretation Comments Chlamydia trachomatis, MILAD (test Negative Negative code = 91392-8) Neisseria gonorrhoeae, MILAD (test Negative Negative code = 99017-2) [facility] Description: Urine Culture, Mtbfrvr6945-95-34 20:41:00 Test Item Value Reference Range Interpretation Comments Result 1 (test code = 630-4) No growth [facility] Description: Urine Culture, Lgpigcp9407-97-65 20:41:00 Test Item Value Reference Range Interpretation Comments Result 1 (test code = 630-4) No growth [facility] Description: Urine Culture, Kccvrdi9861-19-75 20:41:00 Test Item Value Reference Range Interpretation Comments Result 1 (test code = 630-4) No growth [facility] Description: Urine Culture, Msikuxb7652-15-44 20:41:00 Test Item Value Reference Range Interpretation Comments Result 1 (test code = 630-4) No growth [facility] Description: Urine Culture, Ilkrhxd4005-94-55 20:41:00 Test Item Value Reference Range Interpretation Comments Result 1 (test code = 630-4) No growth [facility] Description: Urine Culture, Gpbxnjf0579-87-22 20:41:00 Test Item Value Reference Range Interpretation Comments Result 1 (test code = 630-4) No growth [facility] Description: Urine Culture, Xysyedd6821-22-78 20:41:00 Test Item Value Reference Range Interpretation Comments Result 1 (test code = 630-4) No growth [facility] Description: Urine Culture, Hpumbad4257-49-12 20:41:00 Test Item Value Reference Range Interpretation Comments Result 1 (test code = 630-4) No growth [facility] Description: Urine Culture, Uismidu0117-75-42 20:41:00 Test Item Value Reference Range Interpretation Comments Result 1 (test code = 630-4) No growth [facility] Description: Urine Culture, Lkriadc3224-12-30 20:41:00 Test Item Value Reference Range Interpretation Comments Result 1 (test code = 630-4) No growth [facility] Description: Vaginitis/Vaginosis, DNA [id number] 19:32:00 Test Item Value Reference Range Interpretation Comments Ana Maria species (test code = Negative Negative 92033-3) Gardnerella vaginalis (test code = Positive Negative A 6410-5) Trichomonas vaginalis (test code = Positive Negative A 6568-0) [facility] Description: Vaginitis/Vaginosis, DNA Yzaxj5874-24-57 19:32:00 Test Item Value Reference Range Interpretation Comments Ana Maria species (test code = Negative Negative 34713-1) Gardnerella vaginalis (test code = Positive Negative A 6410-5) Trichomonas vaginalis (test code = Positive Negative A 6568-0) [facility] Description: Vaginitis/Vaginosis, DNA [id number] 19:32:00 Test Item Value Reference Range Interpretation Comments Ana Maria species (test code = Negative Negative 34255-4) Gardnerella vaginalis (test code = Positive Negative A 6410-5) Trichomonas vaginalis (test code = Positive Negative A 6568-0) [facility] Description: Vaginitis/Vaginosis, DNA [id number] 19:32:00 Test Item Value Reference Range Interpretation Comments Ana Maria species (test code = Negative Negative 21145-2) Gardnerella vaginalis (test code = Positive Negative A 6410-5) Trichomonas vaginalis (test code = Positive Negative A 6568-0) [facility] Description: Vaginitis/Vaginosis, DNA [id number] 19:32:00 Test Item Value Reference Range Interpretation Comments Ana Maria species (test code = Negative Negative 33550-8) Gardnerella vaginalis (test code = Positive Negative A 6410-5) Trichomonas vaginalis (test code = Positive Negative A 6568-0) [facility] Description: Vaginitis/Vaginosis, DNA Qqbzo7712-88-60 19:32:00 Test Item Value Reference Range Interpretation Comments Ana Maria species (test code = Negative Negative 81811-4) Gardnerella vaginalis (test code = Positive Negative A 6410-5) Trichomonas vaginalis (test code = Positive Negative A 6568-0) [facility] Description: Vaginitis/Vaginosis, DNA Swrzi6435-34-26 19:32:00 Test Item Value Reference Range Interpretation Comments Ana Maria species (test code = Negative Negative 26590-5) Gardnerella vaginalis (test code = Positive Negative A 6410-5) Trichomonas vaginalis (test code = Positive Negative A 6568-0) [facility] Description: Vaginitis/Vaginosis, DNA Bzlpu1245-06-78 19:32:00 Test Item Value Reference Range Interpretation Comments Ana Maria species (test code = Negative Negative 32316-3) Gardnerella vaginalis (test code = Positive Negative A 6410-5) Trichomonas vaginalis (test code = Positive Negative A 6568-0) [facility] Description: Vaginitis/Vaginosis, DNA Afpcy9344-27-28 19:32:00 Test Item Value Reference Range Interpretation Comments Ana Maria species (test code = Negative Negative 66191-2) Gardnerella vaginalis (test code = Positive Negative A 6410-5) Trichomonas vaginalis (test code = Positive Negative A 6568-0) [facility]: 25-hydroxyvitamin D3 [Mass/volume] in Serum or Afhgsy4898-25-57 03:53:00 Test Item Value Reference Range Interpretation Comments Vitamin D, 15.2 ng/mL 30.0-100.0 L Vitamin D defic iency has 25-Hydroxy (test been define d by the code = 35402-7) [place] [employer] and an Endocrine So ety practice guidel ine as alevel of serum 25-OH vitamin D less than 20 ng/mL (1,2).The Endocrine Society went on to further define vitamin Dinsufficiency as a level between 21 and 29 ng/mL (2).1. IOM (Ins titute of Medicine). 2010 . Dietary reference intak es for calcium and D. [facility]: [employer] .2. Sunshine Sanders, Rosa HARRELL, et al. Evaluation, treatment, and prevention of vitamin D de ficiency: an Endocrine So [facility] clinical practi ce guideline. JCEM . 2010; 96(7):1911-30.& lt;br/>
Performed by:
[facility] ([place])

[facility] Description: 25-hydroxyvitamin D3 [Mass/volume] in Serum or [id number] 03:53:00 Test Item Value Reference Range Interpretation Comments Vitamin D, 15.2 ng/mL 30.0-100.0 L Vitamin D defic iency has 25-Hydroxy (test been define d by the code = 62199-5) [place] [employer] and an Endocrine So [facility] practice guidel ine as alevel of serum 25-OH vitamin D less than 20 ng/mL (1,2).The Endocrine Society went on to further define vitamin Dinsufficiency as a level between 21 and 29 ng/mL (2).1. IOM (Ins titute of Medicine). 2010 . Dietary reference intak es for calcium and D. [facility]: [employer] .2. Sunshine Sanders, Rosa HARRELL, et al. Evaluation, treatment, and prevention of vitamin D de ficiency: an Endocrine So [facility] clinical practi ce guideline. JCEM . 2010; 96(7):1911-30.& lt;br/>
Performed by:
[facility] ([place])

[facility] Description: 25-hydroxyvitamin D3 [Mass/volume] in Serum or [id number] 03:53:00 Test Item Value Reference Range Interpretation Comments Vitamin D, 15.2 ng/mL 30.0-100.0 L Vitamin D defic iency has 25-Hydroxy (test been define d by the code = 01065-8) [employer] and an Endocrine So [facility] practice guidel ine as alevel of serum 25-OH vitamin D less than 20 ng/mL (1,2).The Endocrine Society went on to further define vitamin Dinsufficiency as a level between 21 and 29 ng/mL (2).1. IOM (Ins titute of Medicine). 2010 . Dietary reference intak es for calcium and D. [facility]: [employer] .2. Frederic CORTEZ, Sunshine HALL, Rosa HARRELL, et al. Evaluation, treatment, and prevention of vitamin D de ficiency: an Endocrine So [facility] clinical practi ce guideline. JCEM . 2010; 96(7):191-30.P erformed by:[facility] ([place]) [facility] Description: 25-hydroxyvitamin D3 [Mass/volume] in Serum or [id number] 03:53:00 Test Item Value Reference Range Interpretation Comments Vitamin D, 15.2 ng/mL 30.0-100.0 L Vitamin D defic iency has 25-Hydroxy (test been define d by the code = 52751-4) [employer] and an Endocrine So [facility] practice guidel ine as alevel of serum 25-OH vitamin D less than 20 ng/mL (1,2).The Endocrine Society went on to further define vitamin Dinsufficiency as a level between 21 and 29 ng/mL (2).1. IOM (Ins titute of Medicine). 2010 . Dietary reference intak es for calcium and D. [facility]: [employer] .2. Frederic CORTEZ, Sunshine HALL, Rosa HARRELL, et al. Evaluation, treatment, and prevention of vitamin D de ficiency: an Endocrine So [facility] clinical practi ce guideline. JCEM . 2010; 96(7):191-30.P erformed by:[facility] ([place]) [facility] Description: 25-hydroxyvitamin D3 [Mass/volume] in Serum or [id number] 03:53:00 Test Item Value Reference Range Interpretation Comments Vitamin D, 15.2 ng/mL 30.0-100.0 L Vitamin D defic iency has 25-Hydroxy (test been define d by the code = 04029-6) [place] [employer] and an Endocrine So ciety practice guidel ine as alevel of serum 25-OH vitamin D less than 20 ng/mL (1,2).The Endocrine Society went on to further define vitamin Dinsufficiency as a level between 21 and 29 ng/mL (2).1. IOM (Ins titute of Medicine). 2010 . Dietary reference intak es for calcium and D. [facility]: [employer] .2. Frederic CORTEZ, Sunshine HALL, Rosa HARRELL, et al. Evaluation, treatment, and prevention of vitamin D de ficiency: an Endocrine So [facility] clinical practi ce guideline. JCEM . 2010; 96(7):1911-30.P erformed by:[facility] ([place]) [facility] Description: 25-hydroxyvitamin D3 [Mass/volume] in Serum or [id number] 03:53:00 Test Item Value Reference Range Interpretation Comments Vitamin D, 15.2 ng/mL 30.0-100.0 L Vitamin D defic iency has 25-Hydroxy (test been define d by the code = 70720-9) [employer] [facility] an Endocrine So [facility] practice guidel ine as alevel of serum 25-OH vitamin D less than 20 ng/mL (1,2).The Endocrine Society went on to further define vitamin Dinsufficiency as a level between 21 and 29 ng/mL (2).1. IOM (Ins titute of Medicine). 2010 . Dietary reference intak es for calcium and D. [facility]: [employer] .2. Frederic CORTEZ, Sunshine HALL, Rosa HARRELL, et al. Evaluation, treatment, and prevention of vitamin D de ficiency: an Endocrine So [facility] clinical practi ce guideline. JCEM . 2010; 96(7):1911-.P erformed by:[facility] ([place]) [facility] Description: 25-hydroxyvitamin D3 [Mass/volume] in Serum or [id number] 03:53:00 Test Item Value Reference Range Interpretation Comments Vitamin D, 15.2 ng/mL 30.0-100.0 L Vitamin D defic iency has 25-Hydroxy (test been define d by the code = 04816-8) [place] [employer] and an Endocrine So [facility] practice guidel ine as alevel of serum 25-OH vitamin D less than 20 ng/mL (1,2).The Endocrine Society went on to further define vitamin Dinsufficiency as a level between 21 and 29 ng/mL (2).1. IOM (Ins titute of Medicine). 2010 . Dietary reference intak es for calcium and D. [place]: [employer] .2. Frederic MF, Sunshine HALL, Rosa arce HARRELL, et al. Evaluation, treatment, and prevention of vitamin D de ficiency: an Endocrine So [facility] clinical practi ce guideline. JCEM . 2010; 96(8):1911-30.P erformed by:[facility] Josephine ochoa ([place]) [facility] Description: CBC With Differential/[id number] 01:02:00 Test Item Value Reference Range Interpretation [...] (test 0 % Not Estab. code = 14542-1) Immature Grans (Abs) (test code 0.0 x10E3/uL 0.0-0.1 = 73460-3) NRBC (test code = 34221-1) Hematology Comments: (test code = 16336-8) [facility] Description: CBC With Differential/Rooettwa3856-81-88 01:02:00 Test Item Value Reference Range Interpretation [...] (test 0 % Not Estab. code = 74150-1) Immature Grans (Abs) (test code 0.0 x10E3/uL 0.0-0.1 = 82720-6) NRBC (test code = 32220-6) Hematology Comments: (test code = 72527-7) [facility] Description: CBC With Differential/Vnecxxjw4232-42-36 01:02:00 Test Item Value Reference Range Interpretation [...] (test 0 % Not Estab. code = 73917-3) Immature Grans (Abs) (test code 0.0 x10E3/uL 0.0-0.1 = 24403-3) NRBC (test code = 39386-1) Hematology Comments: (test code = 71113-3) [facility] Description: CBC With Differential/Ikufkufz3956-92-02 01:02:00 Test Item Value Reference Range Interpretation [...] (test 0 % Not Estab. code = 19167-1) Immature Grans (Abs) (test code 0.0 x10E3/uL 0.0-0.1 = 22591-3) NRBC (test code = 59220-9) Hematology Comments: (test code = 73709-1) [facility] Description: CBC With Differential/Zitjccsr0758-59-76 01:02:00 Test Item Value Reference Range Interpretation [...] (test 0 % Not Estab. code = 77894-1) Immature Grans (Abs) (test code 0.0 x10E3/uL 0.0-0.1 = 04818-8) NRBC (test code = 44339-9) Hematology Comments: (test code = 67966-2) [facility] Description: CBC With Differential/Vlylqlaq2060-57-76 01:02:00 Test Item Value Reference Range Interpretation [...] (test 0 % Not Estab. code = 81358-2) Immature Grans (Abs) (test code 0.0 x10E3/uL 0.0-0.1 = 09053-2) NRBC (test code = 91650-4) Hematology Comments: (test code = 23564-0) [facility] Description: CBC With Differential/Ozoijusz3222-19-54 01:02:00 Test Item Value Reference Range Interpretation [...] (test 0 % Not Estab. code = 96462-3) Immature Grans (Abs) (test code 0.0 x10E3/uL 0.0-0.1 = 60392-9) NRBC (test code = 22471-3) Hematology Comments: (test code = 45521-5) [facility] Description: Vaginitis/Vaginosis, DNA [id number] 15:00:00 Test Item Value Reference Range Interpretation Comments Ana Maria species (test TNP Please refer to the code = 34456-6) following sp ecimen for additional lab results.[phone] -9820-10 10/01/2021-Yohan

Performed by:
[facility] (JAYSHREE)

Gardnerella vaginalis TNP Test n ot (test code = 6410-5) perform ed

Perf ormed by:
[facility] (JAYSHREE)

Trichomonas vaginalis TNP Test n ot (test code = 6568-0) perform ed

Perf ormed by:
[facility] [place] (BN)

[facility] Description: Vaginitis/Vaginosis, DNA [id number] 15:00:00 Test Item Value Reference Range Interpretation Comments Ana Maria species (test TNP Please refer to the code = 47345-7) following sp ecimen for additional lab results.132-363 -9820-10 10/01/2021-Yohan

Performed by:
[facility] [place] (BN)

Gardnerella vaginalis TNP Test n ot (test code = 6410-5) perform ed

Perf ormed by:
[facility] [place] (BN)

Trichomonas vaginalis TNP Test n ot (test code = 6568-0) perform ed

Perf ormed by:
[facility] [place] (BN)

[facility] Description: Vaginitis/Vaginosis, DNA [id number] 15:00:00 Test Item Value Reference Range Interpretation Comments Ana Maria species (test TNP Please refer to the code = 86442-5) following sp ecimen for additional lab results.132-363 -9820-10 10/01/2021-Yohan

Performed by:
[facility] [place] (BN)

Gardnerella vaginalis TNP Test n ot (test code = 6410-5) perform ed

Perf ormed by:
[facility] [place] (BN)

Trichomonas vaginalis TNP Test n ot (test code = 6568-0) perform ed

Perf ormed by:
[facility] [place] (BN)

[facility] Description: Vaginitis/Vaginosis, DNA [id number] 15:00:00 Test Item Value Reference Range Interpretation Comments Ana Maria species (test TNP Please refer to the code = 25292-3) following sp ecimen for additional lab results.132-363 -9820-10 10/01/2021-Yohan

Performed by:
[facility] (BN)

Gardnerella vaginalis TNP Test n ot (test code = 6410-5) perform ed

Perf ormed by:
[facility] [place] (BN)

Trichomonas vaginalis TNP Test n ot (test code = 6568-0) perform ed

Perf ormed by:
[facility] [place] (BN)

[facility] Description: Vaginitis/Vaginosis, DNA Edgvs9470-64-09 15:00:00 Test Item Value Reference Range Interpretation Comments Ana Maria species (test TNP Please refer to the code = 01970-0) following sp ecimen for additional lab results.132-363 -9820-10 10/01/2021-Yohan

Performed by:
[facility] [place] (BN)

Gardnerella vaginalis TNP Test n ot (test code = 6410-5) perform ed

Perf ormed by:
[facility] [place] (BN)

Trichomonas vaginalis TNP Test n ot (test code = 6568-0) perform ed

Perf ormed by:
[facility] [place] (BN)

[facility] Description: Vaginitis/Vaginosis, DNA Jmiqi5732-09-67 15:00:00 Test Item Value Reference Range Interpretation Comments Ana Maria species (test TNP Please refer to the code = 43521-3) following sp ecimen for additional lab results.132-363 -9820-105/20 /2022-QuinnPerf ormed by:[facility] () Gardnerella vaginalis TNP Test n ot performedPerformed (test code = 6410-5) by:[facility] () Trichomonas vaginalis TNP Test n ot performedPerformed (test code = 6568-0) by:[facility] () [facility] Description: Vaginitis/Vaginosis, DNA [id number] 15:00:00 Test Item Value Reference Range Interpretation Comments Ana Maria species (test TNP Please refer to the code = 92474-8) following sp ecimen for additional lab results.363 -9820- ormed by:[facility] () Gardnerella vaginalis TNP Test n ot performedPerformed (test code = 6410-5) by:[facility] [place] () Trichomonas vaginalis TNP Test n ot performedPerformed (test code = 6568-0) by:[facility] () [facility] Description: Vaginitis/Vaginosis, DNA [id number] 15:00:00 Test Item Value Reference Range Interpretation Comments Ana Maria species (test TNP Please refer to the code = 41836-0) following sp ecimen for additional lab results.363 -9820- ormed by:[facility] () Gardnerella vaginalis TNP Test n ot performedPerformed (test code = 6410-5) by:[facility] () Trichomonas vaginalis TNP Test n ot performedPerformed (test code = 6568-0) by:[facility] () [facility] Description: Vaginitis/Vaginosis, DNA [id number] 15:00:00 Test Item Value Reference Range Interpretation Comments Ana Maria species (test TNP Please refer to the code = 57926-8) following sp ecimen for additional lab results.363 -9820- ormed by:[facility] () Gardnerella vaginalis TNP Test n ot performedPerformed (test code = 6410-5) by:[facility] () Trichomonas vaginalis TNP Test n ot performedPerformed (test code = 6568-0) by:[facility] () [facility] Description: Vaginitis/Vaginosis, DNA [id number] 15:00:00 Test Item Value Reference Range Interpretation Comments Ana Maria species (test TNP Please refer to the code = 07309-9) following sp ecimen for additional lab results.132-363 -9820-105/ /2021-Sudheererf ormed by:[facility] () Gardnerella vaginalis TNP Test n ot performedPerformed (test code = 6410-5) by:[facility] () Trichomonas vaginalis TNP Test n ot performedPerformed (test code = 6568-0) by:[facility] () [facility] Description: Vaginitis/Vaginosis, DNA [id number] 10:24:00 Test Item Value Reference Range Interpretation Comments Ana Maria species (test code = Negative Negative 01108-1) Gardnerella vaginalis (test code = Positive Negative A 6410-5) Trichomonas vaginalis (test code = Positive Negative A 6568-0) [facility] Description: Vaginitis/Vaginosis, DNA [id number] 10:24:00 Test Item Value Reference Range Interpretation Comments Ana Maria species (test code = Negative Negative 39636-8) Gardnerella vaginalis (test code = Positive Negative A 6410-5) Trichomonas vaginalis (test code = Positive Negative A 6568-0) [facility] Description: Vaginitis/Vaginosis, DNA [id number] 10:24:00 Test Item Value Reference Range Interpretation Comments Ana Maria species (test code = Negative Negative 71082-8) Gardnerella vaginalis (test code = Positive Negative A 6410-5) Trichomonas vaginalis (test code = Positive Negative A 6568-0) [facility] Description: Vaginitis/Vaginosis, DNA [id number] 10:24:00 Test Item Value Reference Range Interpretation Comments Ana Maria species (test code = Negative Negative 84476-2) Gardnerella vaginalis (test code = Positive Negative A 6410-5) Trichomonas vaginalis (test code = Positive Negative A 6568-0) [facility]ag[facility]/Vaginosis, DNA [id number] 10:24:00 Test Item Value Reference Range Interpretation Comments Ana Maria species (test code = Negative Negative 56952-1) Gardnerella vaginalis (test code = Positive Negative A 6410-5) Trichomonas vaginalis (test code = Positive Negative A 6568-0) [facility] Description: Vaginitis/Vaginosis, DNA [id number] 10:24:00 Test Item Value Reference Range Interpretation Comments Ana Maria species (test code = Negative Negative 92227-5) Gardnerella vaginalis (test code = Positive Negative A 6410-5) Trichomonas vaginalis (test code = Positive Negative A 6568-0) [facility] Vaginitis/Vaginosis, DNA [id number] 10:24:00 Test Item Value Reference Range Interpretation Comments Ana Maria species (test code = Negative Negative 87353-5) Gardnerella vaginalis (test code = Positive Negative A 6410-5) Trichomonas vaginalis (test code = Positive Negative A 6568-0) [facility]: Vaginitis/Vaginosis, DNA [id number] 10:24:00 Test Item Value Reference Range Interpretation Comments Ana Maria species (test code = Negative Negative 81536-4) Gardnerella vaginalis (test code = Positive Negative A 6410-5) Trichomonas vaginalis (test code = Positive Negative A 6568-0) [facility]: Vaginitis/Vaginosis, DNA [id number] 10:24:00 Test Item Value Reference Range Interpretation Comments Ana Maria species (test code = Negative Negative 56532-5) Gardnerella vaginalis (test code = Positive Negative A 6410-5) Trichomonas vaginalis (test code = Positive Negative A 6568-0) [facility] Description: Vaginitis/Vaginosis, DNA [id number] 10:24:00 Test Item Value Reference Range Interpretation Comments Ana Maria species (test code = Negative Negative 69003-5) Gardnerella vaginalis (test code = Positive Negative A 6410-5) Trichomonas vaginalis (test code = Positive Negative A 6568-0) [facility] Description: Chlamydia/GC Jkzguspjosalp4059-93-31 19:26:00 Test Item Value Reference Range Interpretation Comments Chlamydia trachomatis, MILAD (test Negative Negative code = 39033-8) Neisseria gonorrhoeae, MILAD (test Negative Negative code = 63039-8) [facility] Description: Chlamydia/GC Kalkeuurazicv6376-24-92 19:26:00 Test Item Value Reference Range Interpretation Comments Chlamydia trachomatis, MILAD (test Negative Negative code = 10871-6) Neisseria gonorrhoeae, MILAD (test Negative Negative code = 17567-0) [facility] Description: Chlamydia/GC Egjjtzalscqtr8026-03-07 19:26:00 Test Item Value Reference Range Interpretation Comments Chlamydia trachomatis, MILAD (test Negative Negative code = 29940-4) Neisseria gonorrhoeae, MILAD (test Negative Negative code = 70148-0) [facility] Description: Chlamydia/GC Ehpraenuwbrjf6585-77-48 19:26:00 Test Item Value Reference Range Interpretation Comments Chlamydia trachomatis, MILAD (test Negative Negative code = 05559-8) Neisseria gonorrhoeae, MILAD (test Negative Negative code = 62229-4) [facility] Description: Chlamydia/GC Djspwvlbvfcgs2435-47-32 19:26:00 Test Item Value Reference Range Interpretation Comments Chlamydia trachomatis, MILAD (test Negative Negative code = 89563-3) Neisseria gonorrhoeae, MILAD (test Negative Negative code = 41982-5) [facility] Description: Chlamydia/GC Xrtslpepgpehc1680-32-22 19:26:00 Test Item Value Reference Range Interpretation Comments Chlamydia trachomatis, MILAD (test Negative Negative code = 11460-1) Neisseria gonorrhoeae, MILAD (test Negative Negative code = 58597-4) [facility] Description: Chlamydia/GC Lnygffikgozif5640-98-93 19:26:00 Test Item Value Reference Range Interpretation Comments Chlamydia trachomatis, MILAD (test Negative Negative code = 23369-0) Neisseria gonorrhoeae, MILAD (test Negative Negative code = 04300-4) [facility] Description: Chlamydia/GC Cndbdacjcnaxt6776-83-68 19:26:00 Test Item Value Reference Range Interpretation Comments Chlamydia trachomatis, MILAD (test Negative Negative code = 20650-6) Neisseria gonorrhoeae, MILAD (test Negative Negative code = 82988-6) [facility] Description: Chlamydia/GC Sabxwxktjjqwu6912-45-96 19:26:00 Test Item Value Reference Range Interpretation Comments Chlamydia trachomatis, MILAD (test Negative Negative code = 76564-7) Neisseria gonorrhoeae, MILAD (test Negative Negative code = 03043-8) [facility]/GC Hljieaepyrbeh6224-63-95 19:26:00 Test Item Value Reference Range Interpretation Comments Chlamydia trachomatis, MILAD (test Negative Negative code = 90638-0) Neisseria gonorrhoeae, MILAD (test Negative Negative code = 17439-1) [facility]: Vaginitis/Vaginosis, DNA [id number] 20:10:00 Test Item Value Reference Range Interpretation Comments Ana Maria species (test code = Negative Negative 98264-5) Gardnerella vaginalis (test code = Positive Negative A 6410-5) Trichomonas vaginalis (test code = Negative Negative 6568-0) [facility] Vaginitis/Vaginosis, DNA [id number] 20:10:00 Test Item Value Reference Range Interpretation Comments Ana Maria species (test code = Negative Negative 12306-0) Gardnerella vaginalis (test code = Positive Negative A 6410-5) Trichomonas vaginalis (test code = Negative Negative 6568-0) [facility] Vaginitis/Vaginosis, DNA [id number] 20:10:00 Test Item Value Reference Range Interpretation Comments Ana Maria species (test code = Negative Negative 61932-1) Gardnerella vaginalis (test code = Positive Negative A 6410-5) Trichomonas vaginalis (test code = Negative Negative 6568-0) [facility] Vaginitis/Vaginosis, DNA [id number] 20:10:00 Test Item Value Reference Range Interpretation Comments Ana Maria species (test code = Negative Negative 23502-7) Gardnerella vaginalis (test code = Positive Negative A 6410-5) Trichomonas vaginalis (test code = Negative Negative 6568-0) [facility] Vaginitis/Vaginosis, DNA [id number] 20:10:00 Test Item Value Reference Range Interpretation Comments Ana Maria species (test code = Negative Negative 51578-6) Gardnerella vaginalis (test code = Positive Negative A 6410-5) Trichomonas vaginalis (test code = Negative Negative 6568-0) [facility] Description: Vaginitis/Vaginosis, DNA [id number] 20:10:00 Test Item Value Reference Range Interpretation Comments Ana Maria species (test code = Negative Negative 55766-7) Gardnerella vaginalis (test code = Positive Negative A 6410-5) Trichomonas vaginalis (test code = Negative Negative 6568-0) [facility] Description: Vaginitis/Vaginosis, DNA [id number] 20:10:00 Test Item Value Reference Range Interpretation Comments Ana Maria species (test code = Negative Negative 82249-0) Gardnerella vaginalis (test code = Positive Negative A 6410-5) Trichomonas vaginalis (test code = Negative Negative 6568-0) [facility] Description: Vaginitis/Vaginosis, DNA [id number] 20:10:00 Test Item Value Reference Range Interpretation Comments Ana Maria species (test code = Negative Negative 69999-4) Gardnerella vaginalis (test code = Positive Negative A 6410-5) Trichomonas vaginalis (test code = Negative Negative 6568-0) [facility] Description: Vaginitis/Vaginosis, DNA Jpyda5436-03-19 20:10:00 Test Item Value Reference Range Interpretation Comments Ana Maria species (test code = Negative Negative 20506-2) Gardnerella vaginalis (test code = Positive Negative A 6410-5) Trichomonas vaginalis (test code = Negative Negative 6568-0) [facility] Description: Vaginitis/Vaginosis, DNA [id number] 20:10:00 Test Item Value Reference Range Interpretation Comments Ana Maria species (test code = Negative Negative 62504-3) Gardnerella vaginalis (test code = Positive Negative A 6410-5) Trichomonas vaginalis (test code = Negative Negative 6568-0) [facility] Description: Vaginitis/Vaginosis, DNA [id number] 20:10:00 Test Item Value Reference Range Interpretation Comments Ana Maria species (test code = Negative Negative 18396-2) Gardnerella vaginalis (test code = Positive Negative A 6410-5) Trichomonas vaginalis (test code = Negative Negative 6568-0) [facility] Description: Vaginitis/Vaginosis, DNA [id number] 20:10:00 Test Item Value Reference Range Interpretation Comments Ana Maria species (test code = Negative Negative 32605-0) Gardnerella vaginalis (test code = Positive Negative A 6410-5) Trichomonas vaginalis (test code = Negative Negative 6568-0) [facility] Description: Vaginitis/Vaginosis, DNA [id number] 20:10:00 Test Item Value Reference Range Interpretation Comments Ana Maria species (test code = Negative Negative 39383-9) Gardnerella vaginalis (test code = Positive Negative A 6410-5) Trichomonas vaginalis (test code = Negative Negative 6568-0) [facility] Description: Vaginitis/Vaginosis, DNA [id number] 20:10:00 Test Item Value Reference Range Interpretation Comments Ana Maria species (test code = Negative Negative 20060-6) Gardnerella vaginalis (test code = Positive Negative A 6410-5) Trichomonas vaginalis (test code = Negative Negative 6568-0) [facility] Description: Vaginitis/Vaginosis, DNA [id number] 20:10:00 Test Item Value Reference Range Interpretation Comments Ana Maria species (test code = Negative Negative 38455-8) Gardnerella vaginalis (test code = Positive Negative A 6410-5) Trichomonas vaginalis (test code = Negative Negative 6568-0) [facility] Description: RPR, Rfx Qn RPR/Confirm [id number] 05:54:00 Test Item Value Reference Range Interpretation Comments RPR (test code = 61646-5) Non Reactive Non Reactive [facility] Description: RPR, Rfx Qn RPR/Confirm [id number] 05:54:00 Test Item Value Reference Range Interpretation Comments RPR (test code = 37916-9) Non Reactive Non Reactive [facility] Description: RPR, Rfx Qn RPR/Confirm [id number] 05:54:00 Test Item Value Reference Range Interpretation Comments RPR (test code = 30654-1) Non Reactive Non Reactive [facility] Description: RPR, Rfx Qn RPR/Confirm [id number] 05:54:00 Test Item Value Reference Range Interpretation Comments RPR (test code = 13879-6) Non Reactive Non Reactive [facility] Description: RPR, Rfx Qn RPR/Confirm [id number] 05:54:00 Test Item Value Reference Range Interpretation Comments RPR (test code = 42919-0) Non Reactive Non Reactive [facility] Description: RPR, Rfx Qn RPR/Confirm [id number] 05:54:00 Test Item Value Reference Range Interpretation Comments RPR (test code = 39707-4) Non Reactive Non Reactive [facility] Description: RPR, Rfx Qn RPR/Confirm [id number] 05:54:00 Test Item Value Reference Range Interpretation Comments RPR (test code = 97060-5) Non Reactive Non Reactive [facility] Description: RPR, Rfx Qn RPR/Confirm [id number] 05:54:00 Test Item Value Reference Range Interpretation Comments RPR (test code = 70996-0) Non Reactive Non Reactive [facility] Description: RPR, Rfx Qn RPR/Confirm [id number] 05:54:00 Test Item Value Reference Range Interpretation Comments RPR (test code = 50865-3) Non Reactive Non Reactive [facility] Description: RPR, Rfx Qn RPR/Confirm [id number] 05:54:00 Test Item Value Reference Range Interpretation Comments RPR (test code = 17137-7) Non Reactive Non Reactive [facility] Description: RPR, Rfx Qn RPR/Confirm [id number] 05:54:00 Test Item Value Reference Range Interpretation Comments RPR (test code = 96552-9) Non Reactive Non Reactive [facility] Description: RPR, Rfx Qn RPR/Confirm [id number] 05:54:00 Test Item Value Reference Range Interpretation Comments RPR (test code = 42706-6) Non Reactive Non Reactive [facility] Description: RPR, Rfx Qn RPR/Confirm [id number] 05:54:00 Test Item Value Reference Range Interpretation Comments RPR (test code = 60351-9) Non Reactive Non Reactive [facility] Description: RPR, Rfx Qn RPR/Confirm [id number] 05:54:00 Test Item Value Reference Range Interpretation Comments RPR (test code = 70896-2) Non Reactive Non Reactive [facility] Description: RPR, Rfx Qn RPR/Confirm [id number] 05:54:00 Test Item Value Reference Range Interpretation Comments RPR (test code = 43092-4) Non Reactive Non Reactive [facility] Description: HIV 1+2 Ab+HIV1 p24 Ag [Presence] in Serum or Plasma by Qfvfligrjtk4180-07-74 05:14:00 Test Item Value Reference Range Interpretation Comments HIV Screen 4th Generation wRfx Non Reactive Non Reactive (test code = 82654-0) [facility] Description: HIV 1+2 Ab+HIV1 p24 Ag [Presence] in Serum or Plasma by Ugktifzaykp6546-19-50 05:14:00 Test Item Value Reference Range Interpretation Comments HIV Screen 4th Generation wRfx Non Reactive Non Reactive (test code = 66536-2) [facility] Description: HIV 1+2 Ab+HIV1 p24 Ag [Presence] in Serum or Plasma by Gmvjzyycxmk3320-62-16 05:14:00 Test Item Value Reference Range Interpretation Comments HIV Screen 4th Generation wRfx Non Reactive Non Reactive (test code = 40945-1) [facility] Description: HIV 1+2 Ab+HIV1 p24 Ag [Presence] in Serum or Plasma by Ukysqurqeqi9614-32-53 05:14:00 Test Item Value Reference Range Interpretation Comments HIV Screen 4th Generation wRfx Non Reactive Non Reactive (test code = 39716-7) [facility] Description: HIV 1+2 Ab+HIV1 p24 Ag [Presence] in Serum or Plasma by Npoosnzeogv7599-24-42 05:14:00 Test Item Value Reference Range Interpretation Comments HIV Screen 4th Generation wRfx Non Reactive Non Reactive (test code = 87089-9) [facility] Description: HIV 1+2 Ab+HIV1 p24 Ag [Presence] in Serum or Plasma by Fvdsufqdcju9355-04-22 05:14:00 Test Item Value Reference Range Interpretation Comments HIV Screen 4th Generation wRfx Non Reactive Non Reactive (test code = 56553-5) [facility] Description: HIV 1+2 Ab+HIV1 p24 Ag [Presence] in Serum or Plasma by Vyfbkjinvmo1007-25-59 05:14:00 Test Item Value Reference Range Interpretation Comments HIV Screen 4th Generation wRfx Non Reactive Non Reactive (test code = 44695-9) [facility] Description: HIV 1+2 Ab+HIV1 p24 Ag [Presence] in Serum or Plasma by Gmyfsxkcydn3859-04-25 05:14:00 Test Item Value Reference Range Interpretation Comments HIV Screen 4th Generation wRfx Non Reactive Non Reactive (test code = 60554-1) [facility] Description: HIV 1+2 Ab+HIV1 p24 Ag [Presence] in Serum or Plasma by Qjobbydbvqe5483-32-11 05:14:00 Test Item Value Reference Range Interpretation Comments HIV Screen 4th Generation wRfx Non Reactive Non Reactive (test code = 73057-3) [facility] Description: HIV 1+2 Ab+HIV1 p24 Ag [Presence] in Serum or Plasma by Tkovuaaxber6465-25-90 05:14:00 Test Item Value Reference Range Interpretation Comments HIV Screen 4th Generation wRfx Non Reactive Non Reactive (test code = 76104-0) [facility] Description: HIV 1+2 Ab+HIV1 p24 Ag [Presence] in Serum or Plasma by Rkoemvmarwy5287-78-74 05:14:00 Test Item Value Reference Range Interpretation Comments HIV Screen 4th Generation wRfx Non Reactive Non Reactive (test code = 51366-1) [facility] Description: HIV 1+2 Ab+HIV1 p24 Ag [Presence] in Serum or Plasma by Lcqzwsmgnmb1627-21-80 05:14:00 Test Item Value Reference Range Interpretation Comments HIV Screen 4th Generation wRfx Non Reactive Non Reactive (test code = 39862-5) [facility] Description: HIV 1+2 Ab+HIV1 p24 Ag [Presence] in Serum or Plasma by Vwrrnkeylco2701-59-44 05:14:00 Test Item Value Reference Range Interpretation Comments HIV Screen 4th Generation wRfx Non Reactive Non Reactive (test code = 31871-0) [facility] Description: HIV 1+2 Ab+HIV1 p24 Ag [Presence] in Serum or Plasma by [id number] 05:14:00 Test Item Value Reference Range Interpretation Comments HIV Screen 4th Generation wRfx Non Reactive Non Reactive (test code = 05498-5) [facility] Description: HIV 1+2 Ab+HIV1 p24 Ag [Presence] in Serum or Plasma by Harpwsldsvw2582-13-40 05:14:00 Test Item Value Reference Range Interpretation Comments HIV Screen 4th Generation wRfx Non Reactive Non Reactive (test code = 66822-7) [facility] Description: 25-hydroxyvitamin D3 [Mass/volume] in Serum or [id number] 05:13:00 Test Item Value Reference Range Interpretation Comments Vitamin D, 9.6 ng/mL 30.0-100.0 L Vitamin D defic iency has 25-Hydroxy (test been define d by the code = 83483-3) [place] [employer] [facility] an Endocrine So [facility] practice guidel ine as alevel of serum 25-OH vitamin D less than 20 ng/mL (1,2).The Endocrine Society went on to further define vitamin Dinsufficiency as a level between 21 and 29 ng/mL (2).1. IOM (Ins titute of Medicine). 2010 . Dietary reference intak es for calcium and D. [place]: [employer] .2. Sunshine Sanders, Rosa HARRELL, et al. Evaluation, treatment, and prevention of vitamin D de ficiency: an Endocrine So [facility] clinical practi ce guideline. EM . 2010; 96(7):1911-30.& lt;br/>
Performed by:
[facility] ()

[facility] Description: 25-hydroxyvitamin D3 [Mass/volume] in Serum or [id number] 05:13:00 Test Item Value Reference Range Interpretation Comments Vitamin D, 9.6 ng/mL 30.0-100.0 L Vitamin D defic iency has 25-Hydroxy (test been define d by the code = 26095-1) [place] [employer] [facility] an Endocrine So [facility] practice guidel ine as alevel of serum 25-OH vitamin D less than 20 ng/mL (1,2).The Endocrine Society went on to further define vitamin Dinsufficiency as a level between 21 and 29 ng/mL (2).1. IOM (Ins titute of Medicine). 2010 . Dietary reference intak es for calcium and D. [place]: [employer] .2. Sunshine Sanders, Rosa HARRELL, et al. Evaluation , treatment, and prevention of vitamin D de ficiency: an Endocrine So [facility] clinical practi ce guideline. EM . 2010; 96(7):191-30.& lt;br/>
Performed by:
[facility] ([place])

[facility] Description: 25-hydroxyvitamin D3 [Mass/volume] in Serum or [id number] 05:13:00 Test Item Value Reference Range Interpretation Comments Vitamin D, 9.6 ng/mL 30.0-100.0 L Vitamin D defic iency has 25-Hydroxy (test been define d by the code = 52982-1) [place] [employer] [facility] an Endocrine So [facility] practice guidel ine as alevel of serum 25-OH vitamin D less than 20 ng/mL (1,2).The Endocrine Society went on to further define vitamin Dinsufficiency as a level between 21 and 29 ng/mL (2).1. IOM (Ins titute of Medicine). 2010 . Dietary reference intak es for calcium and D. [facility]: [employer] .2. Frederic MF, Sunshine HALL, Rosa arce HARRELL, et al. Evaluation, treatment, and prevention of vitamin D de ficiency: an Endocrine So [facility] clinical practi ce guideline. EM . 2010; 96(7):1911-30.& lt;br/>
Performed by:
[facility] ([place])

[facility] Description: 25-hydroxyvitamin D3 [Mass/volume] in Serum or [id number] 05:13:00 Test Item Value Reference Range Interpretation Comments Vitamin D, 9.6 ng/mL 30.0-100.0 L Vitamin D defic iency has 25-Hydroxy (test been define d by the code = 95159-5) [employer] [employer] [facility] an Endocrine So [facility] practice guidel ine as alevel of serum 25-OH vitamin D less than 20 ng/mL (1,2).The Endocrine Society went on to further define vitamin Dinsufficiency as a level between 21 and 29 ng/mL (2).1. IOM (Ins titute of Medicine). 2010 . Dietary reference intak es for calcium and D. [facility]: [employer] .2. Sunshine Sanders, Rosa HARRELL, et al. Evaluation, treatment, and prevention of vitamin D de ficiency: an Endocrine So [facility] clinical practi ce guideline. EM . 2010; 96(7):1911-30.& lt;br/>
Performed by:
[facility] ([place])

[facility] Description: 25-hydroxyvitamin D3 [Mass/volume] in Serum or [id number] 05:13:00 Test Item Value Reference Range Interpretation Comments Vitamin D, 9.6 ng/mL 30.0-100.0 L Vitamin D defic iency has 25-Hydroxy (test been define d by the code = 02120-0) [employer] [employer] [facility] practice guidel ine as alevel of serum 25-OH vitamin D less than 20 ng/mL (1,2).The Endocrine Society went on to further define vitamin Dinsufficiency as a level between 21 and 29 ng/mL (2).1. IOM (Ins titute of Medicine). 2010 . Dietary reference intak es for calcium and D. [facility]: [employer] .2. Sunshine Sanders, Rosa HARRELL, et al. Evaluation, treatment, and prevention of vitamin D de ficiency: an Endocrine So [facility] clinical practi ce guideline. EM . 2010; 96(7):1911-30.& lt;br/>
Performed by:
[facility] ([place])

[facility] Description: 25-hydroxyvitamin D3 [Mass/volume] in Serum or [id number] 05:13:00 Test Item Value Reference Range Interpretation Comments Vitamin D, 9.6 ng/mL 30.0-100.0 L Vitamin D defic iency has 25-Hydroxy (test been define d by the code = 87735-1) [employer] [facility] Endocrine So [facility] practice guidel ine as alevel of serum 25-OH vitamin D less than 20 ng/mL (1,2).The Endocrine Society went on to further define vitamin Dinsufficiency as a level between 21 and 29 ng/mL (2).1. IOM (Ins titute of Medicine). 2010 . Dietary reference intak es for calcium and D. [facility]: [employer] .2. Sunshine Sanders, Rosa HARRELL, et al. Evaluation, treatment, and prevention of vitamin D de ficiency: an Endocrine So [facility] clinical practi ce guideline. JCEM . 2010; 96(7):191-.& lt;br/>
Performed by:
[facility] ([place])

[facility] Description: 25-hydroxyvitamin D3 [Mass/volume] in Serum or [id number] 05:13:00 Test Item Value Reference Range Interpretation Comments Vitamin D, 9.6 ng/mL 30.0-100.0 L Vitamin D defic iency has 25-Hydroxy (test been define d by the code = 62737-9) [employer] [facility] an Endocrine [facility] practice guidel ine as alevel of serum 25-OH vitamin D less than 20 ng/mL (1,2).The Endocrine Society went on to further define vitamin Dinsufficiency as a level between 21 and 29 ng/mL (2).1. IOM (Ins titute of Medicine). 2010 . Dietary reference intak es for calcium and D. [facility]: [employer] .2. Frederic CORTEZ, Sunshine HALL, Rosa HARRELL, et al. Evaluation, treatment, and prevention of vitamin D de ficiency: an Endocrine So [facility] clinical practi ce guideline. JCEM . 2010; 96(7):1911-30.& lt;br/>
Performed by:
[facility] ([place])

[facility] Description: 25-hydroxyvitamin D3 [Mass/volume] in Serum or [id number] 05:13:00 Test Item Value Reference Range Interpretation Comments Vitamin D, 9.6 ng/mL 30.0-100.0 L Vitamin D defic iency has 25-Hydroxy (test been define d by the code = 49054-4) [employer] [facility] Endocrine So ciety practice guidel ine as alevel of serum 25-OH vitamin D less than 20 ng/mL (1,2).The Endocrine Society went on to further define vitamin Dinsufficiency as a level between 21 and 29 ng/mL (2).1. IOM (Ins titute of Medicine). 2010 . Dietary reference intak es for calcium and D. [facility]: [employer] .2. Sunshine Sanders, Rosa HARRELL, et al. Evaluation, treatment, and prevention of vitamin D de ficiency: an Endocrine So [facility] clinical practi ce guideline. JCEM . 2010; 96(7):1911-30.& lt;br/>
Performed by:
[facility] (HD)

[facility] Description: 25-hydroxyvitamin D3 [Mass/volume] in Serum or [id number] 05:13:00 Test Item Value Reference Range Interpretation Comments Vitamin D, 9.6 ng/mL 30.0-100.0 L Vitamin D defic iency has 25-Hydroxy (test been define d by the code = 53567-8) [employer] [facility] an Endocrine So [facility] practice guidel ine as alevel of serum 25-OH vitamin D less than 20 ng/mL (1,2).The Endocrine Society went on to further define vitamin Dinsufficiency as a level between 21 and 29 ng/mL (2).1. IOM (Ins titute of Medicine). 2010 . Dietary reference intak es for calcium and D. [facility]: [employer] .2. Sunshine Sanders, Rosa HARRELL, et al. Evaluation, treatment, and prevention of vitamin D de ficiency: an Endocrine So [facility] clinical practi ce guideline. JCEM . 2010; 96(7):1911-30.& lt;br/>
Performed by:
[facility] ([place])

[facility] Description: 25-hydroxyvitamin D3 [Mass/volume] in Serum or [id number] 05:13:00 Test Item Value Reference Range Interpretation Comments Vitamin D, 9.6 ng/mL 30.0-100.0 L Vitamin D defic iency has 25-Hydroxy (test been define d by the code = 91977-7) [employer] [facility] [employer] Endocrine So ciety practice guidel ine as alevel of serum 25-OH vitamin D less than 20 ng/mL (1,2).The Endocrine Society went on to further define vitamin Dinsufficiency as a level between 21 and 29 ng/mL (2).1. IOM (Ins titute of Medicine). 2010 . Dietary reference intak es for calcium and D. [facility]: [employer] .2. Frederic CORTEZ, Sunshine HALL, Rosa HARRELL, et al. Evaluation, treatment, and prevention of vitamin D de ficiency: an Endocrine So [facility] clinical practi ce guideline. JCEM . 2010; 96(7):191-.P erformed by:[facility] ([place]) [facility] Description: 25-hydroxyvitamin D3 [Mass/volume] in Serum or [id number] 05:13:00 Test Item Value Reference Range Interpretation Comments Vitamin D, 9.6 ng/mL 30.0-100.0 L Vitamin D defic iency has 25-Hydroxy (test been define d by the code = 27869-4) [employer] [facility] Endocrine So [facility] practice guidel ine as alevel of serum 25-OH vitamin D less than 20 ng/mL (1,2).The Endocrine Society went on to further define vitamin Dinsufficiency as a level between 21 and 29 ng/mL (2).1. IOM (Ins titute of Medicine). 2010 . Dietary reference intak es for calcium and D. [facility]: [employer] .2. Frederic CORTEZ, Sunshine HALL, Rosa HARRELL, et al. Evaluation, treatment, and prevention of vitamin D de ficiency: an Endocrine So [facility] clinical practi ce guideline. JCEM . 2010; 96(7):191-.P erformed by:[facility] ([place]) [facility] Description: 25-hydroxyvitamin D3 [Mass/volume] in Serum or [id number] 05:13:00 Test Item Value Reference Range Interpretation Comments Vitamin D, 9.6 ng/mL 30.0-100.0 L Vitamin D defic iency has 25-Hydroxy (test been define d by the code = 98093-5) [employer] [facility] End[facility] practice guidel ine as alevel of serum 25-OH vitamin D less than 20 ng/mL (1,2).The Endocrine Society went on to further define vitamin Dinsufficiency as a level between 21 and 29 ng/mL (2).1. IOM (Ins titute of Medicine). 2010 . Dietary reference intak es for calcium and D. [facility]: [employer] .2. Frederic CORTEZ, Sunshine HALL, Rosa HARRELL, et al. Evaluation, treatment, and prevention of vitamin D de ficiency: an Endocrine So [facility] clinical practi ce guideline. EM . 2010; 96(7):191-.P erformed by:[facility] ([place]) [facility] Description: 25-hydroxyvitamin D3 [Mass/volume] in Serum or [id number] 05:13:00 Test Item Value Reference Range Interpretation Comments Vitamin D, 9.6 ng/mL 30.0-100.0 L Vitamin D defic iency has 25-Hydroxy (test been define d by the code = 55629-1) [employer] [facility] [employer] Endocrine So [facility] practice guidel ine as alevel of serum 25-OH vitamin D less than 20 ng/mL (1,2).The Endocrine Society went on to further define vitamin Dinsufficiency as a level between 21 and 29 ng/mL (2).1. IOM (Ins titute of Medicine). 2010 . Dietary reference intak es for calcium and D. [facility]: [employer] .2. Frederic CORTEZ, Sunshine HALL, Rosa HARRELL, et al. Evaluation, treatment, and prevention of vitamin D de ficiency: an Endocrine So [facility] clinical practi ce guideline. JCEM . 2010; 96(7):1911-30.P erformed by:[facility] [place] ([place]) [facility] Description: 25-hydroxyvitamin D3 [Mass/volume] in Serum or [id number] 05:13:00 Test Item Value Reference Range Interpretation Comments Vitamin D, 9.6 ng/mL 30.0-100.0 L Vitamin D defic iency has 25-Hydroxy (test been define d by the code = 81260-3) [employer] [facility] [employer] Endocrine So ciety practice guidel ine as alevel of serum 25-OH vitamin D less than 20 ng/mL (1,2).The Endocrine Society went on to further define vitamin Dinsufficiency as a level between 21 and 29 ng/mL (2).1. IOM (Ins titute of Medicine). 2010 . Dietary reference intak es for calcium and D. [facility]: [employer] .2. Sunshine Sanders, Rosa HARRELL, et al. Evaluation, treatment, and prevention of vitamin D de ficiency: an Endocrine So [facility] clinical practi ce guideline. JCEM . 2010; 96(7):1911-.& lt;br/>
Performed by:
[facility] (JUHI)

[facility] Description: 25-hydroxyvitamin D3 [Mass/volume] in Serum or [id number] 05:13:00 Test Item Value Reference Range Interpretation Comments Vitamin D, 9.6 ng/mL 30.0-100.0 L Vitamin D defic iency has 25-Hydroxy (test been define d by the code = 82797-6) [employer] [facility] Endocrine So [facility] practice guidel ine as alevel of serum 25-OH vitamin D less than 20 ng/mL (1,2).The Endocrine Society went on to further define vitamin Dinsufficiency as a level between 21 and 29 ng/mL (2).1. IOM (Ins titute of Medicine). 2010 . Dietary reference intak es for calcium and D. [facility]: [employer] .2. Sunshine Sanders, Rosa HARRELL, et al. Evaluation, treatment, and prevention of vitamin D de ficiency: an Endocrine So [facility] clinical practi ce guideline. JCEM . 2010; 96(7):1911-30.P erformed by:Ivory ochoa () [facility] Description: Thyrotropin [Units/volume] in Serum or Plasma by Detection limit <= 0.05 mIU/[id number] 03:20:00 Test Item Value Reference Range Interpretation Comments TSH (test code = 33332-5) 1.320 uIU/mL 0.450-4.500 [facility] Description: Thyrotropin [Units/volume] in Serum or Plasma by Detection limit <= 0.05 mIU/[id number] 03:20:00 Test Item Value Reference Range Interpretation Comments TSH (test code = 66011-5) 1.320 uIU/mL 0.450-4.500 [facility] Description: Thyrotropin [Units/volume] in Serum or Plasma by Detection limit <= 0.05 mIU/[id number] 03:20:00 Test Item Value Reference Range Interpretation Comments TSH (test code = 26686-1) 1.320 uIU/mL 0.450-4.500 [facility] Description: Thyrotropin [Units/volume] in Serum or Plasma by Detection limit <= 0.05 mIU/[id number] 03:20:00 Test Item Value Reference Range Interpretation Comments TSH (test code = 28053-5) 1.320 uIU/mL 0.450-4.500 [facility] Description: Thyrotropin [Units/volume] in Serum or Plasma by Detection limit <= 0.05 mIU/[id number] 03:20:00 Test Item Value Reference Range Interpretation Comments TSH (test code = 23039-0) 1.320 uIU/mL 0.450-4.500 [facility] Description: Thyrotropin [Units/volume] in Serum or Plasma by Detection limit <= 0.05 mIU/[id number] 03:20:00 Test Item Value Reference Range Interpretation Comments TSH (test code = 07073-8) 1.320 uIU/mL 0.450-4.500 [facility] Description: Thyrotropin [Units/volume] in Serum or Plasma by Detection limit <= 0.05 mIU/[id number] 03:20:00 Test Item Value Reference Range Interpretation Comments TSH (test code = 89295-7) 1.320 uIU/mL 0.450-4.500 [facility] Description: Thyrotropin [Units/volume] in Serum or Plasma by Detection limit <= 0.05 mIU/[id number] 03:20:00 Test Item Value Reference Range Interpretation Comments TSH (test code = 34613-7) 1.320 uIU/mL 0.450-4.500 [facility] Description: Thyrotropin [Units/volume] in Serum or Plasma by Detection limit <= 0.05 mIU/[id number] 03:20:00 Test Item Value Reference Range Interpretation Comments TSH (test code = 77992-3) 1.320 uIU/mL 0.450-4.500 [facility] Description: Thyrotropin [Units/volume] in Serum or Plasma by Detection limit <= 0.05 mIU/[id number] 03:20:00 Test Item Value Reference Range Interpretation Comments TSH (test code = 24704-3) 1.320 uIU/mL 0.450-4.500 [facility] Description: Thyrotropin [Units/volume] in Serum or Plasma by Detection limit <= 0.05 mIU/[id number] 03:20:00 Test Item Value Reference Range Interpretation Comments TSH (test code = 30427-9) 1.320 uIU/mL 0.450-4.500 [facility] Description: Thyrotropin [Units/volume] in Serum or Plasma by Detection limit <= 0.05 mIU/[id number] 03:20:00 Test Item Value Reference Range Interpretation Comments TSH (test code = 96258-5) 1.320 uIU/mL 0.450-4.500 [facility] Description: Thyrotropin [Units/volume] in Serum or Plasma by Detection limit <= 0.05 mIU/[id number] 03:20:00 Test Item Value Reference Range Interpretation Comments TSH (test code = 98632-0) 1.320 uIU/mL 0.450-4.500 [facility] Description: Thyrotropin [Units/volume] in Serum or Plasma by Detection limit <= 0.05 mIU/[id number] 03:20:00 Test Item Value Reference Range Interpretation Comments TSH (test code = 35829-5) 1.320 uIU/mL 0.450-4.500 [facility] Description: Thyrotropin [Units/volume] in Serum or Plasma by Detection limit <= 0.05 mIU/[id number] 03:20:00 Test Item Value Reference Range Interpretation Comments TSH (test code = 07620-3) 1.320 uIU/mL 0.450-4.500 [facility]: Lipid [id number] 00:57:00 Test Item Value Reference Range Interpretation Comments Cholesterol, Total (test code = 141 mg/dL 257-882 6044-3) Triglycerides (test code = 2571-8) 62 mg/dL 0-149 HDL Cholesterol (test code = 74 mg/dL >39 5-9) VLDL Cholesterol Robson (test code = 12 mg/dL 5-40 54702-7) LDL Cholesterol Calc (test code = 55 mg/dL 0-99 85453-1) Comment: (test code = 65356-2) [facility] Description: Lipid [id number] 00:57:00 Test Item Value Reference Range Interpretation Comments Cholesterol, Total (test code = 141 mg/dL 139-506 3089-3) Triglycerides (test code = 2571-8) 62 mg/dL 0-149 HDL Cholesterol (test code = 74 mg/dL >39 5-9) VLDL Cholesterol Robson (test code = 12 mg/dL 5-40 41938-8) LDL Cholesterol Calc (test code = 55 mg/dL 0-99 61939-9) Comment: (test code = 87789-4) [facility] Description: Lipid [id number] 00:57:00 Test Item Value Reference Range Interpretation Comments Cholesterol, Total (test code = 141 mg/dL 383-944 3497-3) Triglycerides (test code = 2571-8) 62 mg/dL 0-149 HDL Cholesterol (test code = 74 mg/dL >39 5-9) VLDL Cholesterol Robson (test code = 12 mg/dL 5-40 54146-7) LDL Cholesterol Calc (test code = 55 mg/dL 0-99 35346-8) Comment: (test code = 69639-9) [facility] Description: Lipid [id number] 00:57:00 Test Item Value Reference Range Interpretation Comments Cholesterol, Total (test code = 141 mg/dL 962-149 6256-3) Triglycerides (test code = 2571-8) 62 mg/dL 0-149 HDL Cholesterol (test code = 74 mg/dL >39 2085-9) VLDL Cholesterol Robson (test code = 12 mg/dL 5-40 34847-1) LDL Cholesterol Calc (test code = 55 mg/dL 0-99 30343-4) Comment: (test code = 82084-2) [facility] Description: Lipid [id number] 00:57:00 Test Item Value Reference Range Interpretation Comments Cholesterol, Total (test code = 141 mg/dL 546-349 6282-3) Triglycerides (test code = 2571-8) 62 mg/dL 0-149 HDL Cholesterol (test code = 74 mg/dL >39 5-9) VLDL Cholesterol Robson (test code = 12 mg/dL 5-40 47812-0) LDL Cholesterol Calc (test code = 55 mg/dL 0-99 11437-1) Comment: (test code = 37287-0) [facility] Description: Lipid [id number] 00:57:00 Test Item Value Reference Range Interpretation Comments Cholesterol, Total (test code = 141 mg/dL 194-964 7892-3) Triglycerides (test code = 2571-8) 62 mg/dL 0-149 HDL Cholesterol (test code = 74 mg/dL >39 5-9) VLDL Cholesterol Robson (test code = 12 mg/dL 5-40 07552-8) LDL Cholesterol Calc (test code = 55 mg/dL 0-99 73923-9) Comment: (test code = 28759-0) Rad Description: Lipid [id number] 00:57:00 Test Item Value Reference Range Interpretation Comments Cholesterol, Total (test code = 141 mg/dL 333-719 0881-3) Triglycerides (test code = 2571-8) 62 mg/dL 0-149 HDL Cholesterol (test code = 74 mg/dL >39 5-9) VLDL Cholesterol Robson (test code = 12 mg/dL 5-40 82614-5) LDL Cholesterol Calc (test code = 55 mg/dL 0-99 40013-9) Comment: (test code = 90320-7) Rad Description: Lipid [id number] 00:57:00 Test Item Value Reference Range Interpretation Comments Cholesterol, Total (test code = 141 mg/dL 656-939 9294-3) Triglycerides (test code = 2571-8) 62 mg/dL 0-149 HDL Cholesterol (test code = 74 mg/dL >39 2085-9) VLDL Cholesterol Robson (test code = 12 mg/dL 5-40 24213-1) LDL Cholesterol Calc (test code = 55 mg/dL 0-99 58341-5) Comment: (test code = 13087-0) Rad Description: Lipid [id number] 00:57:00 Test Item Value Reference Range Interpretation Comments Cholesterol, Total (test code = 141 mg/dL 773-757 2822-3) Triglycerides (test code = 2571-8) 62 mg/dL 0-149 HDL Cholesterol (test code = 74 mg/dL >39 5-9) VLDL Cholesterol Robson (test code = 12 mg/dL 5-40 29602-3) LDL Cholesterol Calc (test code = 55 mg/dL 0-99 36839-3) Comment: (test code = 90964-2) Rad Description: Lipid [id number] 00:57:00 Test Item Value Reference Range Interpretation Comments Cholesterol, Total (test code = 141 mg/dL 769-637 1666-3) Triglycerides (test code = 2571-8) 62 mg/dL 0-149 HDL Cholesterol (test code = 74 mg/dL >39 5-9) VLDL Cholesterol Robson (test code = 12 mg/dL 5-40 35739-0) LDL Cholesterol Calc (test code = 55 mg/dL 0-99 21031-5) Comment: (test code = 74664-5) Rad Description: Lipid [id number] 00:57:00 Test Item Value Reference Range Interpretation Comments Cholesterol, Total (test code = 141 mg/dL 507-854 2675-3) Triglycerides (test code = 2571-8) 62 mg/dL 0-149 HDL Cholesterol (test code = 74 mg/dL >39 2085-9) VLDL Cholesterol Robson (test code = 12 mg/dL 5-40 63333-1) LDL Cholesterol Calc (test code = 55 mg/dL 0-99 53612-1) Comment: (test code = 64201-6) Rad Description: Lipid [id number] 00:57:00 Test Item Value Reference Range Interpretation Comments Cholesterol, Total (test code = 141 mg/dL 848-502 2752-3) Triglycerides (test code = 2571-8) 62 mg/dL 0-149 HDL Cholesterol (test code = 74 mg/dL >39 2085-9) VLDL Cholesterol Robson (test code = 12 mg/dL 5-40 54646-1) LDL Cholesterol Calc (test code = 55 mg/dL 0-99 56044-0) Comment: (test code = 98891-7) Rad Description: Lipid [id number] 00:57:00 Test Item Value Reference Range Interpretation Comments Cholesterol, Total (test code = 141 mg/dL 743-235 8946-3) Triglycerides (test code = 2571-8) 62 mg/dL 0-149 HDL Cholesterol (test code = 74 mg/dL >39 5-9) VLDL Cholesterol Robson (test code = 12 mg/dL 5-40 52475-5) LDL Cholesterol Calc (test code = 55 mg/dL 0-99 14484-8) Comment: (test code = 08577-5) Rad Description: Lipid [id number] 00:57:00 Test Item Value Reference Range Interpretation Comments Cholesterol, Total (test code = 141 mg/dL 851-794 1966-3) Triglycerides (test code = 2571-8) 62 mg/dL 0-149 HDL Cholesterol (test code = 74 mg/dL >39 2085-9) VLDL Cholesterol Robson (test code = 12 mg/dL 5-40 24333-7) LDL Cholesterol Calc (test code = 55 mg/dL 0-99 13643-3) Comment: (test code = 73929-0) Rad Description: Lipid [id number] 00:57:00 Test Item Value Reference Range Interpretation Comments Cholesterol, Total (test code = 141 mg/dL 429-490 4546-3) Triglycerides (test code = 2571-8) 62 mg/dL 0-149 HDL Cholesterol (test code = 74 mg/dL >39 2085-9) VLDL Cholesterol Robson (test code = 12 mg/dL 5-40 22152-5) LDL Cholesterol Calc (test code = 55 mg/dL 0-99 09234-1) Comment: (test code = 12751-4) [facility] Description: Comp. Metabolic Panel (14)2019-11-09 00:50:00 Test Item Value Reference Range Interpretation Comments Glucose (test code = 2345-7) 78 mg/dL 65-99 BUN (test code = 3094-0) 6 mg/dL 6-24 Creatinine (test code = 0.78 mg/dL 0.57-1.00 2160-0) eGFR If NonAfricn Am (test 93 mL/min/1.73 >59 code = 34752-5) eGFR If Africn Am (test code 108 mL/min/1.73 >59 = 62939-5) BUN/Creatinine Ratio (test 8 9-23 L code = 3097-3) Sodium (test code = 2951-2) 137 mmol/L 134-144 Potassium (test code = 4.4 mmol/L 3.5-5.2 2823-3) Chloride (test code = 2075-0) 103 mmol/L 96-106 Carbon Dioxide, Total (test 23 mmol/L 20-29 code = 8-9) Calcium (test code = 50875-8) 9.2 mg/dL 8.7-10.2 Protein, Total (test code = 6.7 g/dL 6.0-8.5 2885-2) Albumin (test code = 1751-7) 4.4 g/dL 3.8-4.8 Globulin, Total (test code = 2.3 g/dL 1.5-4.5 74837-3) A/G Ratio (test code = 1.9 1.2-2.2 1759-0) Bilirubin, Total (test code = 0.2 mg/dL 0.0-1.2 1975-2) Alkaline Phosphatase (test 47 IU/L 39-117 code = 6768-6) AST (SGOT) (test code = 21 IU/L 0-40 1920-8) ALT (SGPT) (test code = 14 IU/L 0-32 1742-6) [facility] Description: Comp. Metabolic Panel (14)2019-11-09 00:50:00 Test Item Value Reference Range Interpretation Comments Glucose (test code = 2345-7) 78 mg/dL 65-99 BUN (test code = 3094-0) 6 mg/dL 6-24 Creatinine (test code = 0.78 mg/dL 0.57-1.00 2160-0) eGFR If NonAfricn Am (test 93 mL/min/1.73 >59 code = 62758-4) eGFR If Africn Am (test code 108 mL/min/1.73 >59 = 52348-5) BUN/Creatinine Ratio (test 8 9-23 L code = 3097-3) Sodium (test code = 2951-2) 137 mmol/L 134-144 Potassium (test code = 4.4 mmol/L 3.5-5.2 2823-3) Chloride (test code = 2075-0) 103 mmol/L 96-106 Carbon Dioxide, Total (test 23 mmol/L 20-29 code = 2028-9) Calcium (test code = 96453-8) 9.2 mg/dL 8.7-10.2 Protein, Total (test code = 6.7 g/dL 6.0-8.5 2885-2) Albumin (test code = 1751-7) 4.4 g/dL 3.8-4.8 Globulin, Total (test code = 2.3 g/dL 1.5-4.5 26887-6) A/G Ratio (test code = 1.9 1.2-2.2 [...] Am (test 93 mL/min/1.73 >59 code = 48467-3) eGFR If Africn Am (test code 108 mL/min/1.73 >59 = 38560-1) BUN/Creatinine Ratio (test 8 9-23 L code = 3097-3) Sodium (test code = 2951-2) 137 mmol/L 134-144 Potassium (test code = 4.4 mmol/L 3.5-5.2 2823-3) Chloride (test code = 2075-0) 103 mmol/L 96-106 Carbon Dioxide, Total (test 23 mmol/L 20-29 code = 8-9) Calcium (test code = 25221-4) 9.2 mg/dL 8.7-10.2 Protein, Total (test code = 6.7 g/dL 6.0-8.5 2885-2) Albumin (test code = 1751-7) 4.4 g/dL 3.8-4.8 Globulin, Total (test code = 2.3 g/dL 1.5-4.5 94568-6) A/G Ratio (test code = 1.9 1.2-2.2 [...] Am (test 93 mL/min/1.73 >59 code = 80049-2) eGFR If Africn Am (test code 108 mL/min/1.73 >59 = 07433-1) BUN/Creatinine Ratio (test 8 9-23 L code = 3097-3) Sodium (test code = 2951-2) 137 mmol/L 134-144 Potassium (test code = 4.4 mmol/L 3.5-5.2 2823-3) Chloride (test code = 2075-0) 103 mmol/L 96-106 Carbon Dioxide, Total (test 23 mmol/L -29 code = 2027-9) Calcium (test code = 15335-5) 9.2 mg/dL 8.7-10.2 Protein, Total (test code = 6.7 g/dL 6.0-8.5 2885-2) Albumin (test code = 1751-7) 4.4 g/dL 3.8-4.8 Globulin, Total (test code = 2.3 g/dL 1.5-4.5 65200-2) A/G Ratio (test code = 1.9 1.2-2.2 1759-0) Bilirubin, Total (test code = 0.2 mg/dL 0.0-1.2 1975-2) Alkaline Phosphatase (test 47 IU/L 39-117 code = 6768-6) AST (SGOT) (test code = 21 IU/L 0-40 1920-8) ALT (SGPT) (test code = 14 IU/L 0-32 1742-6) [facility] Description: Comp. Metabolic Panel ()2019-11-09 00:50:00 Test Item Value Reference Range Interpretation Comments Glucose (test code = 2345-7) 78 mg/dL 65-99 BUN (test code = 3094-0) 6 mg/dL 6-24 Creatinine (test code = 0.78 mg/dL 0.57-1.00 2160-0) eGFR If NonAfricn Am (test 93 mL/min/1.73 >59 code = 70345-3) eGFR If Africn Am (test code 108 mL/min/1.73 >59 = 11454-2) BUN/Creatinine Ratio (test 8 9-23 L code = 3097-3) Sodium (test code = 2951-2) 137 mmol/L 134-144 Potassium (test code = 4.4 mmol/L 3.5-5.2 2823-3) Chloride (test code = 2075-0) 103 mmol/L 96-106 Carbon Dioxide, Total (test 23 mmol/L -29 code = 2027-9) Calcium (test code = 74998-9) 9.2 mg/dL 8.7-10.2 Protein, Total (test code = 6.7 g/dL 6.0-8.5 2885-2) Albumin (test code = 1751-7) 4.4 g/dL 3.8-4.8 Globulin, Total (test code = 2.3 g/dL 1.5-4.5 17146-4) A/G Ratio (test code = 1.9 1.2-2.2 1759-0) Bilirubin, Total (test code = 0.2 mg/dL 0.0-1.2 1975-2) Alkaline Phosphatase (test 47 IU/L 39-117 code = 6768-6) AST (SGOT) (test code = 21 IU/L 0-40 1920-8) ALT (SGPT) (test code = 14 IU/L 0-32 1742-6) [facility] Description: Comp. Metabolic Panel ()2019-11-09 00:50:00 Test Item Value Reference Range Interpretation Comments Glucose (test code = 2345-7) 78 mg/dL 65-99 BUN (test code = 3094-0) 6 mg/dL 6-24 Creatinine (test code = 0.78 mg/dL 0.57-1.00 2160-0) eGFR If NonAfricn Am (test 93 mL/min/1.73 >59 code = 89188-4) eGFR If Africn Am (test code 108 mL/min/1.73 >59 = 35937-6) BUN/Creatinine Ratio (test 8 9-23 L code = 3097-3) Sodium (test code = 2951-2) 137 mmol/L 134-144 Potassium (test code = 4.4 mmol/L 3.5-5.2 2823-3) Chloride (test code = 2075-0) 103 mmol/L 96-106 Carbon Dioxide, Total (test 23 mmol/L 20-29 code = 8-9) Calcium (test code = 37888-3) 9.2 mg/dL 8.7-10.2 Protein, Total (test code = 6.7 g/dL 6.0-8.5 2885-2) Albumin (test code = 1751-7) 4.4 g/dL 3.8-4.8 Globulin, Total (test code = 2.3 g/dL 1.5-4.5 55438-2) A/G Ratio (test code = 1.9 1.2-2.2 1759-0) Bilirubin, Total (test code = 0.2 mg/dL 0.0-1.2 1974-) Alkaline Phosphatase (test 47 IU/L 39-117 code = 6768-6) AST (SGOT) (test code = 21 IU/L 0-40 1920-8) ALT (SGPT) (test code = 14 IU/L 0-32 1742-6) [facility]: Comp[facility] Met[facility] (14)2019-11-09 00:50:00 Test Item Value Reference Range Interpretation Comments Glucose (test code = 2345-7) 78 mg/dL 65-99 BUN (test code = 3094-0) 6 mg/dL 6-24 Creatinine (test code = 0.78 mg/dL 0.57-1.00 2160-0) eGFR If NonAfricn Am (test 93 mL/min/1.73 >59 code = 15809-2) eGFR If Africn Am (test code 108 mL/min/1.73 >59 = 04089-3) BUN/Creatinine Ratio (test 8 9-23 L code = 3097-3) Sodium (test code = 2951-2) 137 mmol/L 134-144 Potassium (test code = 4.4 mmol/L 3.5-5.2 2823-3) Chloride (test code = 2075-0) 103 mmol/L 96-106 Carbon Dioxide, Total (test 23 mmol/L 20-29 code = 8-9) Calcium (test code = 87727-4) 9.2 mg/dL 8.7-10.2 Protein, Total (test code = 6.7 g/dL 6.0-8.5 2885-2) Albumin (test code = 1751-7) 4.4 g/dL 3.8-4.8 Globulin, Total (test code = 2.3 g/dL 1.5-4.5 94392-9) A/G Ratio (test code = 1.9 1.2-2.2 1759-0) Bilirubin, Total (test code = 0.2 mg/dL 0.0-1.2 1974-) Alkaline Phosphatase (test 47 IU/L 39-117 code = 6768-6) AST (SGOT) (test code = 21 IU/L 0-40 1920-8) ALT (SGPT) (test code = 14 IU/L 0-32 1742-6) [facility] (14)2019-11-09 00:50:00 Test Item Value Reference Range Interpretation Comments Glucose (test code = 2345-7) 78 mg/dL 65-99 BUN (test code = 3094-0) 6 mg/dL 6-24 Creatinine (test code = 0.78 mg/dL 0.57-1.00 2160-0) eGFR If NonAfricn Am (test 93 mL/min/1.73 >59 code = 52716-0) eGFR If Africn Am (test code 108 mL/min/1.73 >59 = 84834-3) BUN/Creatinine Ratio (test 8 9-23 L code = 3097-3) Sodium (test code = 2951-2) 137 mmol/L 134-144 Potassium (test code = 4.4 mmol/L 3.5-5.2 2823-3) Chloride (test code = 2075-0) 103 mmol/L 96-106 Carbon Dioxide, Total (test 23 mmol/L 20-29 code = 8-9) Calcium (test code = 17299-0) 9.2 mg/dL 8.7-10.2 Protein, Total (test code = 6.7 g/dL 6.0-8.5 2885-2) Albumin (test code = 1751-7) 4.4 g/dL 3.8-4.8 Globulin, Total (test code = 2.3 g/dL 1.5-4.5 25352-0) A/G Ratio (test code = 1.9 1.2-2.2 [...] Am (test 93 mL/min/1.73 >59 code = 88566-3) eGFR If Africn Am (test code 108 mL/min/1.73 >59 = 08478-3) BUN/Creatinine Ratio (test 8 9-23 L code = 3097-3) Sodium (test code = 2951-2) 137 mmol/L 134-144 Potassium (test code = 4.4 mmol/L 3.5-5.2 2823-3) Chloride (test code = 2075-0) 103 mmol/L 96-106 Carbon Dioxide, Total (test 23 mmol/L 20-29 code = 2028-9) Calcium (test code = 38727-7) 9.2 mg/dL 8.7-10.2 Protein, Total (test code = 6.7 g/dL 6.0-8.5 2885-2) Albumin (test code = 1751-7) 4.4 g/dL 3.8-4.8 Globulin, Total (test code = 2.3 g/dL 1.5-4.5 55221-6) A/G Ratio (test code = 1.9 1.2-2.2 1759-0) Bilirubin, Total (test code = 0.2 mg/dL 0.0-1.2 1975-2) Alkaline Phosphatase (test 47 IU/L 39-117 code = 6768-6) AST (SGOT) (test code = 21 IU/L 0-40 1920-8) ALT (SGPT) (test code = 14 IU/L 0-32 1742-6) [facility] Description: Comp. Metabolic Panel ()2019-11-09 00:50:00 Test Item Value Reference Range Interpretation Comments Glucose (test code = 2345-7) 78 mg/dL 65-99 BUN (test code = 3094-0) 6 mg/dL 6-24 Creatinine (test code = 0.78 mg/dL 0.57-1.00 2160-0) eGFR If NonAfricn Am (test 93 mL/min/1.73 >59 code = 39275-1) eGFR If Africn Am (test code 108 mL/min/1.73 >59 = 63365-3) BUN/Creatinine Ratio (test 8 9-23 L code = 3097-3) Sodium (test code = 2951-2) 137 mmol/L 134-144 Potassium (test code = 4.4 mmol/L 3.5-5.2 2823-3) Chloride (test code = 2075-0) 103 mmol/L 96-106 Carbon Dioxide, Total (test 23 mmol/L 20-29 code = 8-9) Calcium (test code = 33184-2) 9.2 mg/dL 8.7-10.2 Protein, Total (test code = 6.7 g/dL 6.0-8.5 2885-2) Albumin (test code = 1751-7) 4.4 g/dL 3.8-4.8 Globulin, Total (test code = 2.3 g/dL 1.5-4.5 98638-1) A/G Ratio (test code = 1.9 1.2-2.2 1759-0) Bilirubin, Total (test code = 0.2 mg/dL 0.0-1.2 1975-2) Alkaline Phosphatase (test 47 IU/L 39-117 code = 6768-6) AST (SGOT) (test code = 21 IU/L 0-40 1920-8) ALT (SGPT) (test code = 14 IU/L 0-32 1742-6) [facility] Description: Comp. Metabolic Panel (142019-11-09 00:50:00 Test Item Value Reference Range Interpretation Comments Glucose (test code = 2345-7) 78 mg/dL 65-99 BUN (test code = 3094-0) 6 mg/dL 6-24 Creatinine (test code = 0.78 mg/dL 0.57-1.00 2160-0) eGFR If NonAfricn Am (test 93 mL/min/1.73 >59 code = 30370-6) eGFR If Africn Am (test code 108 mL/min/1.73 >59 = 48001-8) BUN/Creatinine Ratio (test 8 9-23 L code = 3097-3) Sodium (test code = 2951-2) 137 mmol/L 134-144 Potassium (test code = 4.4 mmol/L 3.5-5.2 2823-3) Chloride (test code = 2075-0) 103 mmol/L 96-106 Carbon Dioxide, Total (test 23 mmol/L 20-29 code = 8-9) Calcium (test code = 97171-5) 9.2 mg/dL 8.7-10.2 Protein, Total (test code = 6.7 g/dL 6.0-8.5 2885-2) Albumin (test code = 1751-7) 4.4 g/dL 3.8-4.8 Globulin, Total (test code = 2.3 g/dL 1.5-4.5 27846-6) A/G Ratio (test code = 1.9 1.2-2.2 [...] Am (test 93 mL/min/1.73 >59 code = 92547-1) eGFR If Africn Am (test code 108 mL/min/1.73 >59 = 88578-4) BUN/Creatinine Ratio (test 8 9-23 L code = 3097-3) Sodium (test code = 2951-2) 137 mmol/L 134-144 Potassium (test code = 4.4 mmol/L 3.5-5.2 2823-3) Chloride (test code = 2075-0) 103 mmol/L 96-106 Carbon Dioxide, Total (test 23 mmol/L -29 code = 2027-9) Calcium (test code = 41068-1) 9.2 mg/dL 8.7-10.2 Protein, Total (test code = 6.7 g/dL 6.0-8.5 2885-2) Albumin (test code = 1751-7) 4.4 g/dL 3.8-4.8 Globulin, Total (test code = 2.3 g/dL 1.5-4.5 89889-6) A/G Ratio (test code = 1.9 1.2-2.2 [...] Am (test 93 mL/min/1.73 >59 code = 83353-4) eGFR If Africn Am (test code 108 mL/min/1.73 >59 = 16865-1) BUN/Creatinine Ratio (test 8 9-23 L code = 3097-3) Sodium (test code = 2951-2) 137 mmol/L 134-144 Potassium (test code = 4.4 mmol/L 3.5-5.2 2823-3) Chloride (test code = 5-0) 103 mmol/L 96-106 Carbon Dioxide, Total (test 23 mmol/L -29 code = 2027-9) Calcium (test code = 94639-6) 9.2 mg/dL 8.7-10.2 Protein, Total (test code = 6.7 g/dL 6.0-8.5 2885-2) Albumin (test code = 1751-7) 4.4 g/dL 3.8-4.8 Globulin, Total (test code = 2.3 g/dL 1.5-4.5 10376-8) A/G Ratio (test code = 1.9 1.2-2.2 [...] Am (test 93 mL/min/1.73 >59 code = 42755-8) eGFR If Africn Am (test code 108 mL/min/1.73 >59 = 10122-8) BUN/Creatinine Ratio (test 8 9-23 L code = 3097-3) Sodium (test code = 2951-2) 137 mmol/L 134-144 Potassium (test code = 4.4 mmol/L 3.5-5.2 2823-3) Chloride (test code = 2075-0) 103 mmol/L 96-106 Carbon Dioxide, Total (test 23 mmol/L 20-29 code = 8-9) Calcium (test code = 76947-1) 9.2 mg/dL 8.7-10.2 Protein, Total (test code = 6.7 g/dL 6.0-8.5 2885-2) Albumin (test code = 1751-7) 4.4 g/dL 3.8-4.8 Globulin, Total (test code = 2.3 g/dL 1.5-4.5 20638-0) A/G Ratio (test code = 1.9 1.2-2.2 1759-0) Bilirubin, Total (test code = 0.2 mg/dL 0.0-1.2 1974-) Alkaline Phosphatase (test 47 IU/L 39-117 code = 6768-6) AST (SGOT) (test code = 21 IU/L 0-40 1920-8) ALT (SGPT) (test code = 14 IU/L 0-32 1742-6) [facility] Description: Comp. Metabolic Panel ()2019-11-09 00:50:00 Test Item Value Reference Range Interpretation Comments Glucose (test code = 2345-7) 78 mg/dL 65-99 BUN (test code = 3094-0) 6 mg/dL 6-24 Creatinine (test code = 0.78 mg/dL 0.57-1.00 2160-0) eGFR If NonAfricn Am (test 93 mL/min/1.73 >59 code = 61234-7) eGFR If Africn Am (test code 108 mL/min/1.73 >59 = 19211-4) BUN/Creatinine Ratio (test 8 9-23 L code = 3097-3) Sodium (test code = 2951-2) 137 mmol/L 134-144 Potassium (test code = 4.4 mmol/L 3.5-5.2 2823-3) Chloride (test code = 2075-0) 103 mmol/L 96-106 Carbon Dioxide, Total (test 23 mmol/L 20-29 code = 2028-9) Calcium (test code = 80153-5) 9.2 mg/dL 8.7-10.2 Protein, Total (test code = 6.7 g/dL 6.0-8.5 2885-2) Albumin (test code = 1751-7) 4.4 g/dL 3.8-4.8 Globulin, Total (test code = 2.3 g/dL 1.5-4.5 57415-4) A/G Ratio (test code = 1.9 1.2-2.2 1759-0) Bilirubin, Total (test code = 0.2 mg/dL 0.0-1.2 1974-) Alkaline Phosphatase (test 47 IU/L 39-117 code = 6768-6) AST (SGOT) (test code = 21 IU/L 0-40 1920-8) ALT (SGPT) (test code = 14 IU/L 0-32 1742-6) [facility] Description: CBC With Differential/Unzqzpfn9722-37-21 23:25:00 Test Item Value Reference Range Interpretation [...] (test 0 % Not Estab. code = 22795-5) Immature Grans (Abs) (test code 0.0 x10E3/uL 0.0-0.1 = 01069-3) NRBC (test code = 40344-6) Hematology Comments: (test code = 22861-1) [facility] Description: CBC With Differential/Dyjmqkvi0411-06-14 23:25:00 Test Item Value Reference Range Interpretation [...] (test 0 % Not Estab. code = 09936-1) Immature Grans (Abs) (test code 0.0 x10E3/uL 0.0-0.1 = 70245-8) NRBC (test code = 51620-2) Hematology Comments: (test code = 43665-4) [facility] Description: CBC With Differential/Asxusokj5172-20-89 23:25:00 Test Item Value Reference Range Interpretation [...] (test 0 % Not Estab. code = 37819-9) Immature Grans (Abs) (test code 0.0 x10E3/uL 0.0-0.1 = 78575-3) NRBC (test code = 31009-5) Hematology Comments: (test code = 14631-1) [facility] Description: CBC With Differential/Oinskdpl6648-69-53 23:25:00 Test Item Value Reference Range Interpretation [...] (test 0 % Not Estab. code = 95074-6) Immature Grans (Abs) (test code 0.0 x10E3/uL 0.0-0.1 = 28854-6) NRBC (test code = 25743-0) Hematology Comments: (test code = 69892-0) [facility] Description: CBC With Differential/Ykmthmtk8214-25-04 23:25:00 Test Item Value Reference Range Interpretation [...] (test 0 % Not Estab. code = 06837-2) Immature Grans (Abs) (test code 0.0 x10E3/uL 0.0-0.1 = 79045-8) NRBC (test code = 03637-1) Hematology Comments: (test code = 96681-7) [facility] Description: CBC With Differential/Dssndvou5001-95-14 23:25:00 Test Item Value Reference Range Interpretation [...] (test 0 % Not Estab. code = 20355-4) Immature Grans (Abs) (test code 0.0 x10E3/uL 0.0-0.1 = 48583-9) NRBC (test code = 35751-5) Hematology Comments: (test code = 97286-6) [facility] Description: CBC With Differential/Nspcralb2499-90-76 23:25:00 Test Item Value Reference Range Interpretation [...] (test 0 % Not Estab. code = 65845-8) Immature Grans (Abs) (test code 0.0 x10E3/uL 0.0-0.1 = 94944-5) NRBC (test code = 28623-2) Hematology Comments: (test code = 44092-6) [facility] Description: CBC With Differential/Iuoshhwo9808-46-61 23:25:00 Test Item Value Reference Range Interpretation [...] (test 0 % Not Estab. code = 45911-6) Immature Grans (Abs) (test code 0.0 x10E3/uL 0.0-0.1 = 28385-2) NRBC (test code = 31794-0) Hematology Comments: (test code = 36125-4) [facility] Description: CBC With Differential/Nzyfnsix0514-15-41 23:25:00 Test Item Value Reference Range Interpretation [...] (test 0 % Not Estab. code = 89738-0) Immature Grans (Abs) (test code 0.0 x10E3/uL 0.0-0.1 = 07399-5) NRBC (test code = 28945-4) Hematology Comments: (test code = 50054-3) [facility] Description: CBC With Differential/Eleawjny6046-88-95 23:25:00 Test Item Value Reference Range Interpretation [...] (test 0 % Not Estab. code = 22348-7) Immature Grans (Abs) (test code 0.0 x10E3/uL 0.0-0.1 = 45378-5) NRBC (test code = 11772-2) Hematology Comments: (test code = 54743-5) [facility] Description: CBC With Differential/Omdmnqus0815-86-97 23:25:00 Test Item Value Reference Range Interpretation [...] (test 0 % Not Estab. code = 28896-2) Immature Grans (Abs) (test code 0.0 x10E3/uL 0.0-0.1 = 28953-0) NRBC (test code = 58735-7) Hematology Comments: (test code = 42480-6) [facility] Description: CBC With Differential/Yehmtyrp1719-37-70 23:25:00 Test Item Value Reference Range Interpretation [...] (test 0 % Not Estab. code = 66517-5) Immature Grans (Abs) (test code 0.0 x10E3/uL 0.0-0.1 = 48251-2) NRBC (test code = 30257-9) Hematology Comments: (test code = 26331-3) [facility] Description: CBC With Differential/Enznclhh1239-07-31 23:25:00 Test Item Value Reference Range Interpretation [...] (test 0 % Not Estab. code = 81653-2) Immature Grans (Abs) (test code 0.0 x10E3/uL 0.0-0.1 = 05027-4) NRBC (test code = 24450-5) Hematology Comments: (test code = 04335-7) [facility] Description: CBC With Differential/Xgalzajs9216-66-25 23:25:00 Test Item Value Reference Range Interpretation [...] (test 0 % Not Estab. code = 42283-9) Immature Grans (Abs) (test code 0.0 x10E3/uL 0.0-0.1 = 95822-4) NRBC (test code = 70534-2) Hematology Comments: (test code = 37476-0) [facility] Description: CBC With Differential/Cmnvhufn3785-87-42 23:25:00 Test Item Value Reference Range Interpretation [...] (test 0 % Not Estab. code = 60700-8) Immature Grans (Abs) (test code 0.0 x10E3/uL 0.0-0.1 = 25440-4) NRBC (test code = 23848-5) Hematology Comments: (test code = 42365-4) [facility] Description: Vaginitis/Vaginosis, DNA Guhva5342-34-72 08:20:00 Test Item Value Reference Range Interpretation Comments Ana Maria species (test code = Positive Negative A 39362-0) Gardnerella vaginalis (test code = Positive Negative A 6410-5) Trichomonas vaginalis (test code = Negative Negative 6568-0) [facility] Description: Vaginitis/Vaginosis, DNA Hzrju4105-25-25 08:20:00 Test Item Value Reference Range Interpretation Comments Ana Maria species (test code = Positive Negative A 52901-1) Gardnerella vaginalis (test code = Positive Negative A 6410-5) Trichomonas vaginalis (test code = Negative Negative 6568-0) [facility] Description: Vaginitis/Vaginosis, DNA [id number] 08:20:00 Test Item Value Reference Range Interpretation Comments Ana Maria species (test code = Positive Negative A 36770-7) Gardnerella vaginalis (test code = Positive Negative A 6410-5) Trichomonas vaginalis (test code = Negative Negative 6568-0) [facility] Description: Vaginitis/Vaginosis, DNA Paaod2022-87-69 08:20:00 Test Item Value Reference Range Interpretation Comments Ana Maria species (test code = Positive Negative A 83486-1) Gardnerella vaginalis (test code = Positive Negative A 6410-5) Trichomonas vaginalis (test code = Negative Negative 6568-0) [facility] Description: Vaginitis/Vaginosis, DNA [id number] 08:20:00 Test Item Value Reference Range Interpretation Comments Ana Maria species (test code = Positive Negative A 83247-7) Gardnerella vaginalis (test code = Positive Negative A 6410-5) Trichomonas vaginalis (test code = Negative Negative 6568-0) [facility]/Vaginosis, DNA [id number] 08:20:00 Test Item Value Reference Range Interpretation Comments Ana Maria species (test code = Positive Negative A 25424-2) Gardnerella vaginalis (test code = Positive Negative A 6410-5) Trichomonas vaginalis (test code = Negative Negative 6568-0) [facility] Vaginitis/Vaginosis, DNA [id number] 08:20:00 Test Item Value Reference Range Interpretation Comments Ana Maria species (test code = Positive Negative A 76233-3) Gardnerella vaginalis (test code = Positive Negative A 6410-5) Trichomonas vaginalis (test code = Negative Negative 6568-0) [facility] Description: Vaginitis/Vaginosis, DNA [id number] 08:20:00 Test Item Value Reference Range Interpretation Comments Ana Maria species (test code = Positive Negative A 95663-0) Gardnerella vaginalis (test code = Positive Negative A 6410-5) Trichomonas vaginalis (test code = Negative Negative 6568-0) [facility] Description: Vaginitis/Vaginosis, DNA [id number] 08:20:00 Test Item Value Reference Range Interpretation Comments Ana Maria species (test code = Positive Negative A 44573-2) Gardnerella vaginalis (test code = Positive Negative A 6410-5) Trichomonas vaginalis (test code = Negative Negative 6568-0) [facility] Description: Vaginitis/Vaginosis, DNA [id number] 08:20:00 Test Item Value Reference Range Interpretation Comments Ana Maria species (test code = Positive Negative A 91827-7) Gardnerella vaginalis (test code = Positive Negative A 6410-5) Trichomonas vaginalis (test code = Negative Negative 6568-0) [facility] Description: Vaginitis/Vaginosis, DNA [id number] 08:20:00 Test Item Value Reference Range Interpretation Comments Ana Maria species (test code = Positive Negative A 05730-5) Gardnerella vaginalis (test code = Positive Negative A 6410-5) Trichomonas vaginalis (test code = Negative Negative 6568-0) [facility] Description: Vaginitis/Vaginosis, DNA [id number] 08:20:00 Test Item Value Reference Range Interpretation Comments Ana Maria species (test code = Positive Negative A 80950-7) Gardnerella vaginalis (test code = Positive Negative A 6410-5) Trichomonas vaginalis (test code = Negative Negative 6568-0) [facility] Description: Vaginitis/Vaginosis, DNA [id number] 08:20:00 Test Item Value Reference Range Interpretation Comments Ana Maria species (test code = Positive Negative A 05807-8) Gardnerella vaginalis (test code = Positive Negative A 6410-5) Trichomonas vaginalis (test code = Negative Negative 6568-0) [facility] Description: Vaginitis/Vaginosis, DNA [id number] 08:20:00 Test Item Value Reference Range Interpretation Comments Ana Maria species (test code = Positive Negative A 84115-3) Gardnerella vaginalis (test code = Positive Negative A 6410-5) Trichomonas vaginalis (test code = Negative Negative 6568-0) [facility] Description: Vaginitis/Vaginosis, DNA [id number] 08:20:00 Test Item Value Reference Range Interpretation Comments Ana Maria species (test code = Positive Negative A 02579-9) Gardnerella vaginalis (test code = Positive Negative A 6410-5) Trichomonas vaginalis (test code = Negative Negative 6568-0) [facility] Description: Chlamydia/GC Clbzoczehhxkd8899-70-04 20:21:00 Test Item Value Reference Range Interpretation Comments Chlamydia trachomatis, MILAD (test Negative Negative code = 61271-6) Neisseria gonorrhoeae, MILAD (test Negative Negative code = 16751-4) [facility] Description: Chlamydia/GC Wuqiqypntxjuy9441-14-04 20:21:00 Test Item Value Reference Range Interpretation Comments Chlamydia trachomatis, MILAD (test Negative Negative code = 26186-3) Neisseria gonorrhoeae, MILAD (test Negative Negative code = 31885-4) [facility] Description: Chlamydia/GC Siajjwwvdhqcu0194-94-56 20:21:00 Test Item Value Reference Range Interpretation Comments Chlamydia trachomatis, MILAD (test Negative Negative code = 94266-5) Neisseria gonorrhoeae, MILAD (test Negative Negative code = 55643-9) [facility] Description: Chlamydia/GC Qmpyftnmbfhgh9069-41-32 20:21:00 Test Item Value Reference Range Interpretation Comments Chlamydia trachomatis, MILAD (test Negative Negative code = 16587-3) Neisseria gonorrhoeae, MILAD (test Negative Negative code = 28329-2) [facility] Description: Chlamydia/GC Tdmqvvekvwgwn5661-17-58 20:21:00 Test Item Value Reference Range Interpretation Comments Chlamydia trachomatis, MILAD (test Negative Negative code = 05297-0) Neisseria gonorrhoeae, MILAD (test Negative Negative code = 67949-9) [facility] Description: Chlamydia/GC Smgmkejwztaqx9730-00-04 20:21:00 Test Item Value Reference Range Interpretation Comments Chlamydia trachomatis, MILAD (test Negative Negative code = 49900-6) Neisseria gonorrhoeae, MILAD (test Negative Negative code = 63195-0) [facility] Description: Chlamydia/GC Ruottfvcjfgar0506-11-04 20:21:00 Test Item Value Reference Range Interpretation Comments Chlamydia trachomatis, MILAD (test Negative Negative code = 15627-1) Neisseria gonorrhoeae, MILAD (test Negative Negative code = 48104-6) [facility] Description: Chlamydia/GC Eekiwfktoukza6906-08-28 20:21:00 Test Item Value Reference Range Interpretation Comments Chlamydia trachomatis, MILAD (test Negative Negative code = 86819-8) Neisseria gonorrhoeae, MILAD (test Negative Negative code = 99621-6) [facility] Description: Chlamydia/GC Tfafovvrmywdz1917-20-55 20:21:00 Test Item Value Reference Range Interpretation Comments Chlamydia trachomatis, MILAD (test Negative Negative code = 75673-5) Neisseria gonorrhoeae, MILAD (test Negative Negative code = 71807-2) [facility] Description: Chlamydia/GC Qxmpazdfewsfk4614-39-75 20:21:00 Test Item Value Reference Range Interpretation Comments Chlamydia trachomatis, MILAD (test Negative Negative code = 65071-2) Neisseria gonorrhoeae, MILAD (test Negative Negative code = 91149-5) [facility] Description: Chlamydia/GC Fywwkhhasfbxd3956-63-01 20:21:00 Test Item Value Reference Range Interpretation Comments Chlamydia trachomatis, MILAD (test Negative Negative code = 67616-2) Neisseria gonorrhoeae, MILAD (test Negative Negative code = 18685-5) [facility] Description: Chlamydia/GC Fwyvodtzucuwn7217-42-85 20:21:00 Test Item Value Reference Range Interpretation Comments Chlamydia trachomatis, MILAD (test Negative Negative code = 00610-6) Neisseria gonorrhoeae, MILAD (test Negative Negative code = 28755-4) [facility] Description: Chlamydia/GC Joisfpaifmdgh4504-70-32 20:21:00 Test Item Value Reference Range Interpretation Comments Chlamydia trachomatis, MILAD (test Negative Negative code = 43132-6) Neisseria gonorrhoeae, MILAD (test Negative Negative code = 38279-5) [facility] Description: Chlamydia/GC Hnprlfhqavthv1374-63-85 20:21:00 Test Item Value Reference Range Interpretation Comments Chlamydia trachomatis, MILAD (test Negative Negative code = 13930-0) Neisseria gonorrhoeae, MILAD (test Negative Negative code = 13608-2) [facility] Description: Chlamydia/GC Varyebefwthwx8094-56-58 20:21:00 Test Item Value Reference Range Interpretation Comments Chlamydia trachomatis, MILAD (test Negative Negative code = 92327-2) Neisseria gonorrhoeae, MILAD (test Negative Negative code = 59626-4) [facility] Description: IGP,CtNg,AptimaHPV,rfx16/18,339792-70-80 21:45:00 Test Item Value Reference Range Interpretation Comments CICD10 (test code Comment Z01.419

Performed = 51929-6) by:
[facility] ()

PERFOR (test code Comment Jaime Pearl erasmo, = 28860-1) Cytotechnologis t (ASCP)Reviewed at: [facility] [address] [place] [address]

Performed by:
[facility] ()

IGLBP (test code = Comment [place] based 39289-2) ThinPrep(R) pap test was screened with t heuse of an image guided system.

Performed by:
[facility] ()

HPV Aptima (test Negative Negative This nuclei c acid code = 50364-4) amplificatio n test detects fourteen high-r iskHPV types (16,18,31,33,35 ,39,45,51,52 ,56,58,59,66,68 ) withoutdifferen tiation.<br/ >
Performed by:
[facility] ()

Chlamydia, Nuc. Negative Negative Acid Amp (test code = 67516-6) Gonococcus, Nuc. Negative Negative Acid Amp (test code = 37636-1) [facility] Description: IGP,CtNg,AptimaHPV,rfx16/18,454834-26-50 21:45:00 Test Item Value Reference Range Interpretation Comments CICD10 (test code Comment Z01.419

Performed = 56127-8) by:
[facility] ()

PERFOR (test code Comment Jaime Pearl erasmo, = 04913-2) Cytotechnologis t (ASCP)Reviewed at: [facility] [address] [place] [address]
<b r/>Performed by:
[facility] ()

IGLBP (test code = Comment [place] id based 59671-4) ThinPrep(R) pap test was screened with t heuse of an image guided system.

Performed by:
[facility])

HPV Aptima (test Negative Negative This nuclei c acid code = 81622-2) amplificatio n test detects fourteen high-r iskHPV types (16,18,31,33,35 ,39,45,51,52 ,56,58,59,66,68 ) withoutdifferen tiation.<br/ >
Performed by:
[facility])

Chlamydia, Nuc. Negative Negative Acid Amp (test code = 55493-9) Gonococcus, Nuc. Negative Negative Acid Amp (test code = 17336-3) [facility] Description: IGP,CtNg,AptimaHPV,rfx16/18,330242-99-25 21:45:00 Test Item Value Reference Range Interpretation Comments CICD10 (test code Comment Z01.419

Performed = 05094-8) by:
[facility])

PERFOR (test code Comment Jaime zimmerman, = 36403-3) Cytotechnologis t (ASCP)Reviewed at: [facility] [address] [facility] [place] [address]

Performed by:
[facility])

IGLBP (test code = Comment [place] id based 85261-0) ThinPrep(R) pap test was screened with t heuse of an image guided system.

Performed by:
[facility])

HPV Aptima (test Negative Negative This nuclei c acid code = 69953-3) amplificatio n test detects fourteen high-r iskHPV types (16,18,31,33,35 ,39,45,51,52 ,56,58,59,66,68 ) withoutdifferen tiation.<br/ >
Performed by:
[facility] ()

Chlamydia, Nuc. Negative Negative Acid Amp (test code = 22867-3) Gonococcus, Nuc. Negative Negative Acid Amp (test code = 46837-7) [facility] Description: IGP,CtNg,AptimaHPV,rfx16/18, 21:45:00 Test Item Value Reference Range Interpretation Comments CICD10 (test code Comment Z01.419

Performed = 87851-2) by:
[facility] ()

PERFOR (test code Comment Jaime zimmerman, = 46394-2) Cytotechnologis t (ASCP)Reviewed at: [facility] [address] [facility] [place] [address]

Performed by:
[facility] ()

IGLBP (test code = Comment This [place] id based 40890-2) ThinPrep(R) pap test was screened with t heuse of an image guided system.

Performed by:
[facility] ()

HPV Aptima (test Negative Negative This nuclei c acid code = 25675-3) amplificatio n test detects fourteen high-r iskHPV types (16,18,31,33,35 ,39,45,51,52 ,56,58,59,66,68 ) withoutdifferen tiation.<br/ >
Performed by:
[facility] ()

Chlamydia, Nuc. Negative Negative Acid Amp (test code = 45828-0) Gonococcus, Nuc. Negative Negative Acid Amp (test code = 65101-6) [facility] Description: IGP,CtNg,AptimaHPV,rfx16/18,025895-78-62 21:45:00 Test Item Value Reference Range Interpretation Comments CICD10 (test code Comment Z01.419

Performed = 58046-2) by:
[facility] ()

PERFOR (test code Comment Jaime zimmerman, = 94318-1) Cytotechnologis t (ASCP)Reviewed at: [facility] [address] [place] [address]

Performed by:
[facility] ()

IGLBP (test code = Comment This liqu id based 17914-7) ThinPrep(R) pap test was screened with t heuse of an image guided system.

Performed by:
[facility] ()

HPV Aptima (test Negative Negative This nuclei c acid code = 15521-3) amplificatio n test detects fourteen high-r iskHPV types (16,18,31,33,35 ,39,45,51,52 ,56,58,59,66,68 ) withoutdifferen tiation.<br/ >
Performed by:
[facility] ()

Chlamydia, Nuc. Negative Negative Acid Amp (test code = 95806-6) Gonococcus, Nuc. Negative Negative Acid Amp (test code = 72618-6) [facility] Description: IGP,CtNg,AptimaHPV,rfx16/18,628575-65-85 21:45:00 Test Item Value Reference Range Interpretation Comments CICD10 (test code Comment Z01.419

Performed = 73283-4) by:
[facility] ()

PERFOR (test code Comment Jaime zimmerman, = 18946-5) Cytotechnologis t (ASCP)Reviewed at: [facility] [address] [facility] [place] [address]

Performed by:
[facility] ()

IGLBP (test code = Comment [place] id based 32973-2) ThinPrep(R) pap test was screened with t heuse of an image guided system.

Performed by:
[facility] ()

HPV Aptima (test Negative Negative This nuclei c acid code = 44977-4) amplificatio n test detects fourteen high-r iskHPV types (16,18,31,33,35 ,39,45,51,52 ,56,58,59,66,68 ) withoutdifferen tiation.<br/ >
Performed by:
[facility])

Chlamydia, Nuc. Negative Negative Acid Amp (test code = 63758-7) Gonococcus, Nuc. Negative Negative Acid Amp (test code = 36571-2) [facility] Description: IGP,CtNg,AptimaHPV,rfx16/18,264631-89-33 21:45:00 Test Item Value Reference Range Interpretation Comments CICD10 (test code Comment Z01.419

Performed = 81366-0) by:
[facility])

PERFOR (test code Comment Jaime zimmerman, = 36896-7) Cytotechnologis t (ASCP)Reviewed at: [facility] [address] [facility] [place] [address]

Performed by:
[facility])

IGLBP (test code = Comment This [place] id based 16873-8) ThinPrep(R) pap test was screened with t heuse of an image guided system.

Performed by:
[facility] ()

HPV Aptima (test Negative Negative This nuclei c acid code = 48428-2) amplificatio n test detects fourteen high-r iskHPV types (16,18,31,33,35 ,39,45,51,52 ,56,58,59,66,68 ) withoutdifferen tiation.<br/ >
Performed by:
[facility] ()

Chlamydia, Nuc. Negative Negative Acid Amp (test code = 63896-2) Gonococcus, Nuc. Negative Negative Acid Amp (test code = 80456-6) [facility] Description: IGP,CtNg,AptimaHPV,rfx16/18, 21:45:00 Test Item Value Reference Range Interpretation Comments CICD10 (test code Comment Z01.419

Performed = 75062-6) by:
[facility] ()

PERFOR (test code Comment Jaime zimmerman, = 48160-1) Cytotechnologis t (ASCP)Reviewed at: [facility] [address] [facility] [place] [address]

Performed by:
[facility] ()

IGLBP (test code = Comment This [place] id based 07444-3) ThinPrep(R) pap test was screened with t heuse of an image guided system.

Performed by:
[facility] ()

HPV Aptima (test Negative Negative This nuclei c acid code = 40576-7) amplificatio n test detects fourteen high-r iskHPV types (16,18,31,33,35 ,39,45,51,52 ,56,58,59,66,68 ) withoutdifferen tiation.<br/ >
Performed by:
[facility] ()

Chlamydia, Nuc. Negative Negative Acid Amp (test code = 25754-6) Gonococcus, Nuc. Negative Negative Acid Amp (test code = 54585-9) [facility] Description: IGP,CtNg,AptimaHPV,rfx16/18,815031-26-26 21:45:00 Test Item Value Reference Range Interpretation Comments CICD10 (test code Comment Z01.419

Performed = 92569-0) by:
[facility])

PERFOR (test code Comment Jaime Pearl erasmo, = ) Cytotechnologis t (ASCP)Reviewed at: [facility] [address] [place] [address]

Performed by:
[facility])

IGLBP (test code = Comment [place] id based 86038-6) ThinPrep(R) pap test was screened with t heuse of an image guided system.

Performed by:
[facility] ()

HPV Aptima (test Negative Negative This nuclei c acid code = 74650-8) amplificatio n test detects fourteen high-r iskHPV types (16,18,31,33,35 ,39,45,51,52 ,56,58,59,66,68 ) withoutdifferen tiation.<br/ >
Performed by:
[facility])

Chlamydia, Nuc. Negative Negative Acid Amp (test code = 51573-6) Gonococcus, Nuc. Negative Negative Acid Amp (test code = 40276-1) [facility] Description: IGP,CtNg,AptimaHPV,rfx16/18,320817-00-40 21:45:00 Test Item Value Reference Range Interpretation Comments CICD10 (test code Comment Z01.419Per formed by:[facility] = 96121-5) [place] ( ) PERFOR (test code Comment Jaime Pearl erasmo, = ) Cytotechnologis t (ASCP)Reviewed at: [facility] [address] [facility] [place] [address]Eqsnrwsrk by:[facility] ) IGLBP (test code = Comment This [place] id based 76556-4) ThinPrep(R) pap test was screened with t heuse of an image guided system.Performe d by:[facility] ) HPV Aptima (test Negative Negative This nuclei c acid code = 88495-1) amplificatio n test detects fourteen high-r iskHPV types (16,18,31,33,35 ,39,45,51,52 ,56,58,59,66,68 ) withoutdifferen tiation.Perf ormed by:[facility]) Chlamydia, Nuc. Negative Negative Acid Amp (test code = 43714-8) Gonococcus, Nuc. Negative Negative Acid Amp (test code = 76328-6) [facility] Description: IGP,CtNg,AptimaHPV,rfx16/18, 21:45:00 Test Item Value Reference Range Interpretation Comments CICD10 (test code Comment Z01.419Per formed by:[facility] = 62483-3) [facility] ) PERFOR (test code Comment Jaime zimmerman, = 23537-6) Cytotechnologis t (ASCP)Reviewed at: [facility] [address] [facility] [place] [address]Czwygdnia by:[facility] ) IGLBP (test code = Comment This [place] id based 37491-9) ThinPrep(R) pap test was screened with t heuse of an image guided system.Performe d by:[facility] ) HPV Aptima (test Negative Negative This nuclei c acid code = 59589-0) amplificatio n test detects fourteen high-r iskHPV types (16,18,31,33,35 ,39,45,51,52 ,56,58,59,66,68 ) withoutdifferen tiation.Perf ormed by:[facility]) Chlamydia, Nuc. Negative Negative Acid Amp (test code = 32110-8) Gonococcus, Nuc. Negative Negative Acid Amp (test code = 33203-3) [facility] Description: IGP,CtNg,AptimaHPV,rfx16/18, 21:45:00 Test Item Value Reference Range Interpretation Comments CICD10 (test code Comment Z01.419Per formed by:[facility] = 33363-5) [facility] ) PERFOR (test code Comment Jovito Tab erasmo, = 61294-4) Cytotechnologis t (ASCP)Reviewed at: [facility] [address] [place] [address]Xxjxklnjy by:[facility] ) IGLBP (test code = Comment This liqu id based 53500-0) ThinPrep(R) pap test was screened with t heuse of an image guided system.Performe d by:[facility] ) HPV Aptima (test Negative Negative This nuclei c acid code = 28776-7) amplificatio n test detects fourteen high-r iskHPV types (16,18,31,33,35 ,39,45,51,52 ,56,58,59,66,68 ) withoutdifferen tiation.Perf [facility]med by:[facility]) Chlamydia, Nuc. Negative Negative Acid Amp (test code = 56369-9) Gonococcus, Nuc. Negative Negative Acid Amp (test code = 42979-5) [facility] Description: IGP,CtNg,AptimaHPV,rfx16/18,785952-13-87 21:45:00 Test Item Value Reference Range Interpretation Comments CICD10 (test code Comment Z01.419Per formed by:[facility] = 18953-3) [facility] ) PERFOR (test code Comment Karinvito Tab erasmo, = 69634-6) Cytotechnologis t (ASCP)Reviewed at: [facility] [address] [place] [address]Pexuvspnu by:[facility] ) IGLBP (test code = Comment This [place] id based 85375-7) ThinPrep(R) pap test was screened with t heuse of an image guided system.Performe d by:[facility] ) HPV Aptima (test Negative Negative This nuclei c acid code = 51812-4) amplificatio n test detects fourteen high-r iskHPV types (16,18,31,33,35 ,39,45,51,52 ,56,58,59,66,68 ) withoutdifferen tiation.Perf ormed by:[facility]) Chlamydia, Nuc. Negative Negative Acid Amp (test code = 91436-1) Gonococcus, Nuc. Negative Negative Acid Amp (test code = 00116-9) [facility] Description: IGP,CtNg,AptimaHPV,rfx16/18, 21:45:00 Test Item Value Reference Range Interpretation Comments CICD10 (test code Comment Z01.419Per formed by:[facility] = 62402-9) [facility] ) PERFOR (test code Comment Jovito Tab erasmo, = 62976-1) Cytotechnologis t (ASCP)Reviewed at: [facility] [address] [facility] [place] [address]Kqrxaszgz by:[facility] ) IGLBP (test code = Comment This liqu id based 85799-1) ThinPrep(R) pap test was screened with t heuse of an image guided system.Performe d by:[facility] ) HPV Aptima (test Negative Negative This nuclei c acid code = 57973-2) amplificatio n test detects fourteen high-r iskHPV types (16,18,31,33,35 ,39,45,51,52 ,56,58,59,66,68 ) withoutdifferen tiation.Perf ormed by:[facility]) Chlamydia, Nuc. Negative Negative Acid Amp (test code = 35061-7) Gonococcus, Nuc. Negative Negative Acid Amp (test code = 31553-9) [facility] Description: IGP,CtNg,AptimaHPV,rfx16/18, 21:45:00 Test Item Value Reference Range Interpretation Comments CICD10 (test code Comment Z01.419

Performed = 01604-3) by:
[facility])

PERFOR (test code Comment Jovito Tab erasmo, = 04051-8) Cytotechnologis t (ASCP)Reviewed at: [facility] [address] [place] [address]

Performed by:
[facility] ()

IGLBP (test code = Comment This liqu id based 02531-1) ThinPrep(R) pap test was screened with t jessica of an image guided system.

Performed by:
[facility] ()

HPV Aptima (test Negative Negative This nuclei c acid code = 24506-9) amplificatio n test detects fourteen high-r iskHPV types (16,18,31,33,35 ,39,45,51,52 ,56,58,59,66,68 ) withoutdifferen tiation.<br/ >
Performed by:
[facility] ()

Chlamydia, Nuc. Negative Negative Acid Amp (test code = 02462-5) Gonococcus, Nuc. Negative Negative Acid Amp (test code = 49679-7) [facility] Description: Vaginitis/Vaginosis, DNA [id number] 00:35:00 Test Item Value Reference Range Interpretation Comments Ana Maria species (test code = Negative Negative 68069-9) Gardnerella vaginalis (test code = Positive Negative A 6410-5) Trichomonas vaginalis (test code = Negative Negative 6568-0) [facility] Description: Vaginitis/Vaginosis, DNA [id number] 00:35:00 Test Item Value Reference Range Interpretation Comments Ana Maria species (test code = Negative Negative 46534-1) Gardnerella vaginalis (test code = Positive Negative A 6410-5) Trichomonas vaginalis (test code = Negative Negative 6568-0) [facility] Description: Vaginitis/Vaginosis, DNA [id number] 00:35:00 Test Item Value Reference Range Interpretation Comments Ana Maria species (test code = Negative Negative 07624-6) Gardnerella vaginalis (test code = Positive Negative A 6410-5) Trichomonas vaginalis (test code = Negative Negative 6568-0) [facility] Description: Vaginitis/Vaginosis, DNA [id number] 00:35:00 Test Item Value Reference Range Interpretation Comments Ana Maria species (test code = Negative Negative 08578-8) Gardnerella vaginalis (test code = Positive Negative A 6410-5) Trichomonas vaginalis (test code = Negative Negative 6568-0) [facility] Description: Vaginitis/Vaginosis, DNA [id number] 00:35:00 Test Item Value Reference Range Interpretation Comments Ana Maria species (test code = Negative Negative 82554-6) Gardnerella vaginalis (test code = Positive Negative A 6410-5) Trichomonas vaginalis (test code = Negative Negative 6568-0) [facility] Description: Vaginitis/Vaginosis, DNA [id number] 00:35:00 Test Item Value Reference Range Interpretation Comments Ana Maira species (test code = Negative Negative 95341-4) Gardnerella vaginalis (test code = Positive Negative A 6410-5) Trichomonas vaginalis (test code = Negative Negative 6568-0) [facility] Description: Vaginitis/Vaginosis, DNA [id number] 00:35:00 Test Item Value Reference Range Interpretation Comments Ana Maria species (test code = Negative Negative 56749-7) Gardnerella vaginalis (test code = Positive Negative A 6410-5) Trichomonas vaginalis (test code = Negative Negative 6568-0) [facility] Description: Vaginitis/Vaginosis, DNA [id number] 00:35:00 Test Item Value Reference Range Interpretation Comments Ana Maria species (test code = Negative Negative 99365-4) Gardnerella vaginalis (test code = Positive Negative A 6410-5) Trichomonas vaginalis (test code = Negative Negative 6568-0) [facility] Description: Vaginitis/Vaginosis, DNA [id number] 00:35:00 Test Item Value Reference Range Interpretation Comments Ana Maria species (test code = Negative Negative 85512-6) Gardnerella vaginalis (test code = Positive Negative A 6410-5) Trichomonas vaginalis (test code = Negative Negative 6568-0) [facility] Description: Vaginitis/Vaginosis, DNA [id number] 00:35:00 Test Item Value Reference Range Interpretation Comments Ana Maria species (test code = Negative Negative 03627-0) Gardnerella vaginalis (test code = Positive Negative A 6410-5) Trichomonas vaginalis (test code = Negative Negative 6568-0) [facility] Description: Vaginitis/Vaginosis, DNA [id number] 00:35:00 Test Item Value Reference Range Interpretation Comments Ana Maria species (test code = Negative Negative 62072-3) Gardnerella vaginalis (test code = Positive Negative A 6410-5) Trichomonas vaginalis (test code = Negative Negative 6568-0) [facility] Description: Vaginitis/Vaginosis, DNA [id number] 00:35:00 Test Item Value Reference Range Interpretation Comments Ana Maria species (test code = Negative Negative 16143-7) Gardnerella vaginalis (test code = Positive Negative A 6410-5) Trichomonas vaginalis (test code = Negative Negative 6568-0) [facility] Description: Vaginitis/Vaginosis, DNA [id number] 00:35:00 Test Item Value Reference Range Interpretation Comments Ana Maria species (test code = Negative Negative 98551-4) Gardnerella vaginalis (test code = Positive Negative A 6410-5) Trichomonas vaginalis (test code = Negative Negative 6568-0) [facility] Description: Vaginitis/Vaginosis, DNA [id number] 00:35:00 Test Item Value Reference Range Interpretation Comments Ana Maria species (test code = Negative Negative 26259-4) Gardnerella vaginalis (test code = Positive Negative A 6410-5) Trichomonas vaginalis (test code = Negative Negative 6568-0) [facility] Description: Vaginitis/Vaginosis, DNA [id number] 00:35:00 Test Item Value Reference Range Interpretation Comments Ana Maria species (test code = Negative Negative 11022-8) Gardnerella vaginalis (test code = Positive Negative A 6410-5) Trichomonas vaginalis (test code = Negative Negative 6568-0) [facility] Description: Vaginitis/Vaginosis, DNA [id number] 01:03:00 Test Item Value Reference Range Interpretation Comments Ana Maria species (test code = Negative Negative 40777-7) Gardnerella vaginalis (test code = Positive Negative A 6410-5) Trichomonas vaginalis (test code = Negative Negative 6568-0) [facility] Description: Vaginitis/Vaginosis, DNA [id number] 01:03:00 Test Item Value Reference Range Interpretation Comments Ana Maria species (test code = Negative Negative 34069-6) Gardnerella vaginalis (test code = Positive Negative A 6410-5) Trichomonas vaginalis (test code = Negative Negative 6568-0) [facility] Description: Vaginitis/Vaginosis, DNA [id number] 01:03:00 Test Item Value Reference Range Interpretation Comments Ana Maria species (test code = Negative Negative 40816-3) Gardnerella vaginalis (test code = Positive Negative A 6410-5) Trichomonas vaginalis (test code = Negative Negative 6568-0) [facility] Description: Vaginitis/Vaginosis, DNA [id number] 01:03:00 Test Item Value Reference Range Interpretation Comments Ana Maria species (test code = Negative Negative 02597-3) Gardnerella vaginalis (test code = Positive Negative A 6410-5) Trichomonas vaginalis (test code = Negative Negative 6568-0) [facility] Description: Vaginitis/Vaginosis, DNA [id number] 01:03:00 Test Item Value Reference Range Interpretation Comments Ana Maria species (test code = Negative Negative 94439-4) Gardnerella vaginalis (test code = Positive Negative A 6410-5) Trichomonas vaginalis (test code = Negative Negative 6568-0) [facility] Description: Vaginitis/Vaginosis, DNA [id number] 01:03:00 Test Item Value Reference Range Interpretation Comments Ana Maria species (test code = Negative Negative 60423-3) Gardnerella vaginalis (test code = Positive Negative A 6410-5) Trichomonas vaginalis (test code = Negative Negative 6568-0) [facility] Description: Vaginitis/Vaginosis, DNA [id number] 01:03:00 Test Item Value Reference Range Interpretation Comments Ana Maria species (test code = Negative Negative 07274-1) Gardnerella vaginalis (test code = Positive Negative A 6410-5) Trichomonas vaginalis (test code = Negative Negative 6568-0) [facility] Description: Vaginitis/Vaginosis, DNA [id number] 01:03:00 Test Item Value Reference Range Interpretation Comments Ana Maria species (test code = Negative Negative 43808-2) Gardnerella vaginalis (test code = Positive Negative A 6410-5) Trichomonas vaginalis (test code = Negative Negative 6568-0) [facility] Description: Vaginitis/Vaginosis, DNA [id number] 01:03:00 Test Item Value Reference Range Interpretation Comments Ana Maria species (test code = Negative Negative 37843-9) Gardnerella vaginalis (test code = Positive Negative A 6410-5) Trichomonas vaginalis (test code = Negative Negative 6568-0) [facility] Description: Vaginitis/Vaginosis, DNA [id number] 01:03:00 Test Item Value Reference Range Interpretation Comments Ana Maria species (test code = Negative Negative 84449-4) Gardnerella vaginalis (test code = Positive Negative A 6410-5) Trichomonas vaginalis (test code = Negative Negative 6568-0) [facility] Description: Vaginitis/Vaginosis, DNA [id number] 01:03:00 Test Item Value Reference Range Interpretation Comments Ana Maria species (test code = Negative Negative 91938-3) Gardnerella vaginalis (test code = Positive Negative A 6410-5) Trichomonas vaginalis (test code = Negative Negative 6568-0) [facility] Description: Vaginitis/Vaginosis, DNA [id number] 01:03:00 Test Item Value Reference Range Interpretation Comments Ana Maria species (test code = Negative Negative 55394-3) Gardnerella vaginalis (test code = Positive Negative A 6410-5) Trichomonas vaginalis (test code = Negative Negative 6568-0) [facility] Description: Vaginitis/Vaginosis, DNA [id number] 01:03:00 Test Item Value Reference Range Interpretation Comments Ana Maria species (test code = Negative Negative 24074-8) Gardnerella vaginalis (test code = Positive Negative A 6410-5) Trichomonas vaginalis (test code = Negative Negative 6568-0) [facility] Description: Vaginitis/Vaginosis, DNA [id number] 01:03:00 Test Item Value Reference Range Interpretation Comments Ana Maria species (test code = Negative Negative 04451-5) Gardnerella vaginalis (test code = Positive Negative A 6410-5) Trichomonas vaginalis (test code = Negative Negative 6568-0) [facility]/Vaginosis, DNA [id number] 01:03:00 Test Item Value Reference Range Interpretation Comments Ana Maria species (test code = Negative Negative 38492-5) Gardnerella vaginalis (test code = Positive Negative A 6410-5) Trichomonas vaginalis (test code = Negative Negative 6568-0) [facility] Description: Vaginitis/Vaginosis, DNA [id number] 23:55:00 Test Item Value Reference Range Interpretation Comments Ana Maria species (test code = Negative Negative 44260-1) Gardnerella vaginalis (test code = Positive Negative A 6410-5) Trichomonas vaginalis (test code = Positive Negative A 6568-0) [facility] Description: Vaginitis/Vaginosis, DNA [id number] 23:55:00 Test Item Value Reference Range Interpretation Comments Ana Maria species (test code = Negative Negative 36118-5) Gardnerella vaginalis (test code = Positive Negative A 6410-5) Trichomonas vaginalis (test code = Positive Negative A 6568-0) [facility] Vaginitis/Vaginosis, DNA [id number] 23:55:00 Test Item Value Reference Range Interpretation Comments Ana Maria species (test code = Negative Negative 31119-8) Gardnerella vaginalis (test code = Positive Negative A 6410-5) Trichomonas vaginalis (test code = Positive Negative A 6568-0) [facility] Description: Vaginitis/Vaginosis, DNA [id number] 23:55:00 Test Item Value Reference Range Interpretation Comments Ana Maria species (test code = Negative Negative 63517-4) Gardnerella vaginalis (test code = Positive Negative A 6410-5) Trichomonas vaginalis (test code = Positive Negative A 6568-0) [facility] Description: Vaginitis/Vaginosis, DNA [id number] 23:55:00 Test Item Value Reference Range Interpretation Comments Ana Maria species (test code = Negative Negative 44472-5) Gardnerella vaginalis (test code = Positive Negative A 6410-5) Trichomonas vaginalis (test code = Positive Negative A 6568-0) [facility] Description: Vaginitis/Vaginosis, DNA [id number] 23:55:00 Test Item Value Reference Range Interpretation Comments Ana Maria species (test code = Negative Negative 86315-4) Gardnerella vaginalis (test code = Positive Negative A 6410-5) Trichomonas vaginalis (test code = Positive Negative A 6568-0) [facility] Description: Vaginitis/Vaginosis, DNA [id number] 23:55:00 Test Item Value Reference Range Interpretation Comments Ana Maria species (test code = Negative Negative 43378-3) Gardnerella vaginalis (test code = Positive Negative A 6410-5) Trichomonas vaginalis (test code = Positive Negative A 6568-0) [facility] Description: Vaginitis/Vaginosis, DNA [id number] 23:55:00 Test Item Value Reference Range Interpretation Comments Ana Maria species (test code = Negative Negative 54459-5) Gardnerella vaginalis (test code = Positive Negative A 6410-5) Trichomonas vaginalis (test code = Positive Negative A 6568-0) [facility] Description: Vaginitis/Vaginosis, DNA [id number] 23:55:00 Test Item Value Reference Range Interpretation Comments Ana Maria species (test code = Negative Negative 11016-2) Gardnerella vaginalis (test code = Positive Negative A 6410-5) Trichomonas vaginalis (test code = Positive Negative A 6568-0) [facility] Description: Vaginitis/Vaginosis, DNA [id number] 23:55:00 Test Item Value Reference Range Interpretation Comments Ana Maria species (test code = Negative Negative 67169-3) Gardnerella vaginalis (test code = Positive Negative A 6410-5) Trichomonas vaginalis (test code = Positive Negative A 6568-0) [facility] Description: Vaginitis/Vaginosis, DNA [id number] 23:55:00 Test Item Value Reference Range Interpretation Comments Ana Maria species (test code = Negative Negative 63686-0) Gardnerella vaginalis (test code = Positive Negative A 6410-5) Trichomonas vaginalis (test code = Positive Negative A 6568-0) [facility] Description: Vaginitis/Vaginosis, DNA [id number] 23:55:00 Test Item Value Reference Range Interpretation Comments Ana Maria species (test code = Negative Negative 33273-4) Gardnerella vaginalis (test code = Positive Negative A 6410-5) Trichomonas vaginalis (test code = Positive Negative A 6568-0) [facility] Description: Vaginitis/Vaginosis, DNA [id number] 23:55:00 Test Item Value Reference Range Interpretation Comments Ana Maria species (test code = Negative Negative 98814-4) Gardnerella vaginalis (test code = Positive Negative A 6410-5) Trichomonas vaginalis (test code = Positive Negative A 6568-0) [facility] Description: Vaginitis/Vaginosis, DNA [id number] 23:55:00 Test Item Value Reference Range Interpretation Comments Ana Maria species (test code = Negative Negative 89616-8) Gardnerella vaginalis (test code = Positive Negative A 6410-5) Trichomonas vaginalis (test code = Positive Negative A 6568-0) [facility] Description: Vaginitis/Vaginosis, DNA [id number] 23:55:00 Test Item Value Reference Range Interpretation Comments Ana Maria species (test code = Negative Negative 34076-9) Gardnerella vaginalis (test code = Positive Negative A 6410-5) Trichomonas vaginalis (test code = Positive Negative A 6568-0) [facility] Description: CBC With Differential/[id number] 15:20:00 Test Item Value Reference Range Interpretation [...] 0 % Not Estab. (test code = 34849-0) Immature Grans (Abs) 0.0 x10E3/uL 0.0-0.1 (test code = 04288-5) NRBC (test code = 98596-9) Hematology Comments: Note: Verifie d by (test code = 26544-1) micros copic examination.
<b r/>Performed by:
[facility] ()

[facility] Description: CBC With Differential/[id number] 15:20:00 Test Item Value Reference Range Interpretation [...] 0 % Not Estab. (test code = 98942-7) Immature Grans (Abs) 0.0 x10E3/uL 0.0-0.1 (test code = 10933-6) NRBC (test code = 79125-9) Hematology Comments: Note: Verifie d by (test code = 62895-0) micros copic examination.
<b r/>Performed by:
[facility] ()

[facility] Description: CBC With Differential/[id number] 15:20:00 Test Item Value Reference Range Interpretation [...] 0 % Not Estab. (test code = 41863-6) Immature Grans (Abs) 0.0 x10E3/uL 0.0-0.1 (test code = 49012-8) NRBC (test code = 32272-0) Hematology Comments: Note: Verifie d by (test code = 92343-0) micros copic examination.
<b r/>Performed by:
[facility] ([place])

[facility] Description: CBC With Differential/[id number] 15:20:00 Test Item Value Reference Range Interpretation [...] 0 % Not Estab. (test code = 56035-2) Immature Grans (Abs) 0.0 x10E3/uL 0.0-0.1 (test code = 99748-7) NRBC (test code = 59786-4) Hematology Comments: Note: Verifie d by (test code = 15711-5) micros copic examination.
<b r/>Performed by:
[facility] ([place])

[facility] Description: CBC With Differential/[id number] 15:20:00 Test Item Value Reference Range Interpretation [...] 0 % Not Estab. (test code = 96446-8) Immature Grans (Abs) 0.0 x10E3/uL 0.0-0.1 (test code = 78467-5) NRBC (test code = 66445-5) Hematology Comments: Note: Verifie d by (test code = 26571-5) micros copic examination.
<b r/>Performed by:
[facility] ([place])

[facility] Description: CBC With Differential/[id number] 15:20:00 Test Item Value Reference Range Interpretation [...] 0 % Not Estab. (test code = 99626-3) Immature Grans (Abs) 0.0 x10E3/uL 0.0-0.1 (test code = 64440-3) NRBC (test code = 42220-9) Hematology Comments: Note: Verifie d by (test code = 07609-1) micros copic examination.
<b r/>Performed by:
[facility] ()

[facility] Description: CBC With Differential/[id number] 15:20:00 Test Item Value Reference Range Interpretation [...] 0 % Not Estab. (test code = 33890-3) Immature Grans (Abs) 0.0 x10E3/uL 0.0-0.1 (test code = 07218-3) NRBC (test code = 52339-6) Hematology Comments: Note: Verifie d by (test code = 10110-2) micros copic examination.
<b r/>Performed by:
[facility] ()

[facility] Description: CBC With Differential/[id number] 15:20:00 Test Item Value Reference Range Interpretation [...] 0 % Not Estab. (test code = 63762-2) Immature Grans (Abs) 0.0 x10E3/uL 0.0-0.1 (test code = 14920-4) NRBC (test code = 05406-4) Hematology Comments: Note: Verifie d by (test code = 14579-5) micros copic examination.
<b r/>Performed by:
[facility] ()

[facility] Description: CBC With Differential/[id number] 15:20:00 Test Item Value Reference Range Interpretation [...] 0 % Not Estab. (test code = 60545-0) Immature Grans (Abs) 0.0 x10E3/uL 0.0-0.1 (test code = 80903-1) NRBC (test code = 76666-0) Hematology Comments: Note: Verifie d by (test code = 94538-4) micros copic examination.
<b r/>Performed by:
[facility] ()

[facility] Description: CBC With Differential/[id number] 15:20:00 Test Item Value Reference Range Interpretation [...] 0 % Not Estab. (test code = 40359-0) Immature Grans (Abs) 0.0 x10E3/uL 0.0-0.1 (test code = 04117-5) NRBC (test code = 57170-2) Hematology Comments: Note: Verifie d by (test code = 65113-1) micros copic examination.Per form ed by:[facility] ([place]) [facility] Description: CBC With Differential/[id number] 15:20:00 Test Item Value Reference Range Interpretation [...] 0 % Not Estab. (test code = 09850-0) Immature Grans (Abs) 0.0 x10E3/uL 0.0-0.1 (test code = 76511-5) NRBC (test code = 72638-4) Hematology Comments: Note: Verifie d by (test code = 64382-3) micros copic examination.Per form ed by:[facility] () [facility] Description: CBC With Differential/[id number] 15:20:00 Test Item Value Reference Range Interpretation [...] 0 % Not Estab. (test code = 97611-2) Immature Grans (Abs) 0.0 x10E3/uL 0.0-0.1 (test code = 33071-4) NRBC (test code = 75550-0) Hematology Comments: Note: Verifie d by (test code = 86679-6) micros copic examination.Per form ed by:[facility] ([place]) [facility] Description: CBC With Differential/[id number] 15:20:00 Test Item Value Reference Range Interpretation [...] 0 % Not Estab. (test code = 73327-1) Immature Grans (Abs) 0.0 x10E3/uL 0.0-0.1 (test code = 22036-8) NRBC (test code = 87063-5) Hematology Comments: Note: Verifie d by (test code = 64616-5) micros copic examination.Per form ed by:[facility] ([place]) [facility] Description: CBC With Differential/[id number] 15:20:00 Test Item Value Reference Range Interpretation [...] 0 % Not Estab. (test code = 40426-3) Immature Grans (Abs) 0.0 x10E3/uL 0.0-0.1 (test code = 39773-9) NRBC (test code = 56314-7) Hematology Comments: Note: Gypsy tripp by (test code = 10541-0) micros copic examination.Per form ed by:[facility] ([place]) [facility] Description: CBC With Differential/[id number] 15:20:00 Test Item Value Reference Range Interpretation [...] 0 % Not Estab. (test code = 37983-9) Immature Grans (Abs) 0.0 x10E3/uL 0.0-0.1 (test code = 60321-2) NRBC (test code = 42090-8) Hematology Comments: Note: Verifie d by (test code = 58116-0) micros copic examination.
<b r/>Performed by:
[facility] ([place])

[facility]
[2022-07-08] MEDS ORDERED: LIDOCAINE HCL JELLY 2% 6 ML SYRINGE TOP ONE (22:05)
--- NOTE | 2022-07-08 22:57 | ER ---
Nurse's Notes [facility] Name: Maya Motley Age: 46 yrs Sex: Female : 1975 Arrival Date: 07/08/2022 Time: 21:31 Bed 12 Private MD: Diagnosis: Encounter for removal of sutures-left medial calf ED Course: 07/08 21:31 Patient arrived in ED. ja2 21:34 Removal of Removed sutures from left calf Suture site is well healed Patient tolerated lg3 well. 21:36 Sergio Valle PA is PHCP. cp 21:36 Michael Sylvester MD is Attending Physician. cp 22:56 Zeferino Martin MD is Referral Physician. cp Administered Medications: 22:05 Drug: Lidocaine Gel 2 % 1 ea Volume: 15 ml; Route: Mucous Membrane; lg3 Outcome: 22:57 Discharge ordered by MD. cp 23:06 Patient left the ED. vc1 Signatures: Sergio Valle PA PA cp Gibson, Lacie, RN RN lg3 Maeve Thurman Vanessa, RN RN vc1
--- NOTE | 2022-07-08 22:57 | EDPHYS ---
Physician Documentation [facility] Name: Maya Motley Age: 46 yrs Sex: Female : 1975 Arrival Date: 07/08/2022 Time: 21:31 Bed 12 Private MD: ED Physician Michael Sylvester HPI: 07/08 22:00 This 46 yrs old Black Female presents to ER via Unassigned with complaints of Suture cp Removal. 22:00 The patient has sutures on the medial side of left calf. Previous treatment: The cp patient was initially treated on June 23, 2022, the care was rendered at [facility], Treatment type: The patient's original treatment included sutures, Outpatient prescription(s): The patient was given prescription(s) for oral antibiotic. Sutures/figueroa progress: The patient has no c/o's. The wound is well-healing with no redness, swelling, discharge, or dehiscence reported. ROS: 22:05 Constitutional: Negative for body aches, chills, fever. cp 22:05 Skin: Positive for of the medial aspect left calf, repaired laceration with sutures. cp 22:05 All other systems are negative. Exam: 22:07 Constitutional: The patient appears in no acute distress, alert, awake, non-toxic, well cp developed, well nourished, anxious. 22:07 Head/Face: Normocephalic, atraumatic. cp 22:07 Chest/axilla: Inspection: normal. 22:07 Respiratory: the patient does not display signs of respiratory distress, Respirations: normal. 22:07 Skin: Wound recheck: Suture laceration closure: the wound is healing well, the edges are well approximated, no drainage, no erythema, no swelling, mild dehiscence. Procedures: 22:54 Suture/Staple removal: Removed 2 sutures, from medial left calf, site appears well cp healed, dressed with steri strips. Patient tolerated well. MDM: 21:43 Patient medically screened. cp 22:56 Data reviewed: vital signs, nurses notes. cp 22:56 Counseling: I had a detailed discussion with the patient and/or guardian regarding: the cp historical points, exam findings, and any diagnostic results supporting the discharge/admit diagnosis, the need for outpatient follow up, a general surgeon, to return to the emergency department if symptoms worsen or persist or if there are any questions or concerns that arise at home. Response to treatment: the patient's symptoms have markedly improved after treatment, and as a result, I will discharge patient. Administered Medications: 22:05 Drug: Lidocaine Gel 2 % 1 ea Volume: 15 ml; Route: Mucous Membrane; lg3 Disposition Summary: 07/08/22 22:57 Discharge Ordered Location: Home cp Problem: new cp Symptoms: have improved cp Condition: Stable cp Diagnosis - Encounter for removal of sutures - left medial calf cp Followup: cp - With: Zeferino Martin MD - When: 2 - 3 days - Reason: Wound Recheck Discharge Instructions: - Discharge Summary Sheet cp - How to Change Your Wound Dressing cp - Suture Removal, Care After cp Forms: - Medication Reconciliation Form cp - Thank You Letter cp - Antibiotic Education cp - Prescription Opioid Use cp Signatures: Sergio Valle PA PA cp Di Fitzpatrick, RN RN lg3
== END 2022-07-08 23:06 | disposition home or self-care (01) ==
LOC: ER 21:23
DX: Z48.02 Encounter for removal of sutures (principal)
CPT/HCPCS: 99282